=== PATIENT | female | born 1940 | race Caucasian/White ===

== ENCOUNTER 2017-07-15 14:00 | Outpatient (RCR) | payer MEDICARE, SELFPAY | END 2017-07-15 14:01 | disposition home or self-care (01) | LOC: PT 14:00 | PROVIDERS: Visit Provider Orthopaedic Surgery | DX: M25.511 Pain in right shoulder (principal) | CPT/HCPCS: 97010; 97014; 97035; 97110; 97140; G0283 ==

== ENCOUNTER 2017-09-03 00:28 | Inpatient (IN) ==
[2017-09-03 02:21] LABS: Microscopic, Urine URINE MICROSCOPIC (MICROSCOPIC)
[2017-09-03 02:23] LABS: Appearance,Urine CLEAR (Clear); Bilirubin,Urine Negative (Negative); Blood, Urine Negative (Negative); Color,Urine YELLOW (Yellow); Glucose,Urine (UA) Negative (Negative); Ketones,Urine Negative (Negative); Leukocyte Esterase,Urine Negative (Negative); PH,Urine 5.5 (5.0-8.5); Protein,Urine Negative (Negative); Specific Gravity, Urine 1.025 (1.005-1.030); Urobilinogen,Urine 0.2 EU/dl (0.2)
[2017-09-03 02:24] LABS: Basophils % 0.5 % (0.1-2.0); Eosinophils # 0.2 K/mm3 (0.0-0.4); Eosinophils % 3.2 % (0.1-12.0); Hematocrit 41.9 % (37.0-47.0); Hemoglobin 13.2 g/dL (12.2-16.2); Lymphocytes # 1.4 K/mm3 (0.7-4.5); Lymphocytes % 20.4 K/mm3 (10-50); Mean Corpuscular HGB Conc 31.5 g/dL (31.8-35.4); Mean Corpuscular Hemoglobin 27.1 pg (27.0-31.2); Mean Corpuscular Volume 86.2 fl (81-99); Mean Platelet Volume 8.1 fl (7.4-10.4); Monocytes # 0.4 K/mm3 (0.1-1.0); Monocytes % 5.3 % (1.7-9.3); Neutrophils # 4.9 K/mm3 (1.8-7.8); Neutrophils % 70.7 % (37.0-80.0); Platelet Count 222 K/mm3 (142-424); Red Blood Count 4.86 M/mm3 (4.20-5.40); Red Cell Distribution Width 14.6 % (11.5-17.5); White Blood Count 6.9 K/mm3 (4.8-10.8)
[2017-09-03 02:27] LABS: Bacteria,Urine 1+ /lpf
[2017-09-03 02:30] LABS: INR 2.14 (0.9-1.1); Prothrombin Time 23.3 seconds (9.4-11.8)
[2017-09-03 02:34] LABS: Albumin Level 3.4 gm/dL (3.4-5.0); Albumin/Globulin Ratio 0.7 (1.1-1.8); Anion Gap 8.4 mEq/L (5-15); Bilirubin,Total 0.2 mg/dL (0.2-1.0); Globulin 4.7 gm/dl (1.3-3.2); Potassium 3.4 mmoL/L (3.5-5.1); Total Protein,Serum 8.1 gm/dL (6.4-8.2)
--- NOTE | 2017-09-03 02:37 | Emergency Department Note ---
ED Disposition Clinical Impression: Hip fx Qualifiers: Encounter type: initial encounter Fracture type: closed Laterality: left Qualified Code(s): S72.002A - Fracture of unspecified part of neck of left femur , initial encounter for closed fracture Disposition: Admitted As Inpatient Condition on Discharge: Good - Critical Care Critical Care Time: No Attestation: On 09/03/17, the high probability of a clinically significant, sudden or life threatening deterioration of the following system(s) required my full and direct attention, intervention and personal management. The time I documented below is in addition to time spent performing reported procedures but includes the following listed in this critical care notation. Medical Decision Making - Medical Records Medical records reviewed: Yes: I reviewed the patient's medical records. - [place] Inquiry Pt receiving controlled substance: No Vital Signs: 09/03/17 00:29 Temperature 97.9 F Temperature Source Oral Pulse Rate [Right Radial] 74 Respiratory Rate 16 Blood Pressure [Right Arm] 138/67 Blood Pressure Mean [Right Arm] 90 Blood Pressure Source [Right Arm] Automatic Cuff Blood Pressure Position [Right Arm] Sitting 02 Sat by Pulse Oximetry 94 L Oxygen Delivery Method Nasal Cannula Oxygen Flow Rate (LPM) 2 - Lab Data Lab results reviewed: Yes: I reviewed the patient's lab results. Lab Results 09/03/17 02:05: Urine Color Yellow, Urine Appearance Clear, Urine pH 5.5, Ur Specific [place] 1.025, Urine Protein Negative, Urine Glucose (UA) Negative, Urine Ketones Negative, Urine Blood Negative, Urine Nitrate Negative, Urine Bilirubin Negative, Urine Urobilinogen 0.2, Ur Leukocyte Esterase Negative, Urine RBC 3-5, Urine WBC 3-5, Urine Bacteria 1+ 09/03/17 02:13: WBC 6.9, RBC 4.86, Hgb 13.2, Hct 41.9, MCV 86.2, MCH 27.1, MCHC 31.5 L, RDW 14.6, Plt Count 222, MPV 8.1, Neut % (Auto) 70.7, Lymph % (Auto) 20.4, [place] % (Auto) 5.3, Eos % (Auto) 3.2, Baso % (Auto) 0.5, Neut # (Auto) 4.9 , Lymph # (Auto) 1.4, [place] # (Auto) 0.4, Eos # (Auto) 0.2, Baso # (Auto) 0.0 09/03/17 02:13: PT 23.3 H, INR 2.14 H 09/03/17 02:13: Sodium 143, Potassium 3.4 L, Chloride 107, Carbon Dioxide 31, Anion Gap 8.4, BUN 17, Creatinine 0.88, Estimated Creat Clear 61, Estimated GFR 62, Est GFR ( Amer) 75, Glucose 126 H, Calcium 9.0, Total Bilirubin 0.2, AST 25, ALT 17, Alkaline Phosphatase 54, Total Protein 8.1, Albumin 3.4, Globulin 4.7 H, Albumin/Globulin Ratio 0.7 L Result diagrams: 09/03/17 02:13 09/03/17 02:13 Orders (Tests/Meds): ED MEDICATIONS Discontinued Medications Generic Name Dose Route Start Last Admin Trade Name Freq PRN Reason Stop Dose Admin Butorphanol Tartrate 1 mg 09/03/17 01:39 09/03/17 01:41 Stadol 1mg/1ml Vial IV 09/03/17 01:40 1 mg ONCE ONE Administration Promethazine HCl 12.5 mg 09/03/17 01:39 09/03/17 01:41 Phenergan 25mg/Ml 1ml Vial IV 09/03/17 01:40 12.5 mg ONCE ONE Administration Sodium Chloride 25 ml 09/03/17 01:39 09/03/17 01:42 Sod Chlor 0.9% 25ml Bag IV 09/03/17 01:40 25 ml ONCE ONE Administration ORDERS Category Date Time Status Chest XR AP view [XR chest AP] Stat Exams 09/03/17 00:36 Taken XR hip LT 2-3V w/pelvis Stat Exams 09/03/17 00:36 Taken - Radiology Data #1 Image(s): Chest, Pelvis, Hip Image Reviewed: Yes I reviewed the patient's radiology image Preliminary Findings: Abnormal (hip fx) - ECG Data Tracing #1 I reviewed this ECG and interpreted as documented below: Normal Sinus Rhythm: Yes Ischemic changes: non-specific ST-T wave changes - Physician Consults Physician Consulted: isaac Reason -: Admission Fall HPI - General Chief Complaint: Fall Stated Complaint: fall Time Seen by Provider: 09/03/17 00:40 Mode of Arrival: EMS Source of Information: Patient, Spouse, Relative, EMS, Medical Record Limitations: Physical Limitations Description of Symptoms (Recalled from ER Triage Doc. by RN): Pt reports she tripped at home and fell over her husbands walker and landed on her left hip. - History of Present Illness HPI Narrative: trip fall at home with acute injury to lt hip MD complaint: fall Onset (ago): hour(s) Fall from: standing Fall witnessed: yes, by family Place fall occurred: home Loss of consciousness: none Prolonged down time: no Symptoms prior to fall: none Context: tripped/slipped Location of injury - extremities: Left: thigh Severity: moderate - Related Data Home Medications Medication Instructions Recorded Confirmed ALPRAZolam [Xanax 0.5mg tab] 0.5 mg PO DAILY 09/03/17 09/03/17 Fenofibrate Nanocrystallized 145 mg PO DAILY 09/03/17 09/03/17 [Fenofibrate] Triamterene/Hydrochlorothiazid 1 tab PO DAILY 09/03/17 09/03/17 [Maxzide-25 tablet] Warfarin Sodium 4 mg PO DAILY 09/03/17 09/03/17 Allergies Allergy/AdvReac Type Severity Reaction Status Date / Time ASPIRIN Allergy Unknown N/V,INCREASED Uncoded 04/21/17 15:06 HR,DIAPHORESIS CODEINE Allergy Unknown RAPID Uncoded 04/21/17 15:06 HEART RATE MORPHINE Allergy Unknown RAPID Uncoded 04/21/17 15:06 HEART RATE [facility] History I have reviewed the patient's past medical history: Yes - Social History Alcohol Intake: never - Psychiatric History Expresses thoughts of harming self/others: None Suicide Plan Description: No Plan ROS Obtained: Yes All systems reviewed & no additional complaints - Constitutional Constitutional: Denies fever(s) - Eyes Eyes: Denies change in vision - ENT Ears, Nose, Mouth, and Throat: Denies sore throat - Cardiovascular Cardiovascular: Denies chest pain - Respiratory Respiratory: No cough - Gastrointestinal Gastrointestingal: Denies: abdominal pain - Genitourinary Female Genitourinary: Denies hematuria - Musculoskeletal Musculoskeletal: Reports as per HPI, Reports joint pain, Reports limited range of motion - Integumentary/Breasts Skin/Breast: Denies rash - Neurologic Neurologic: Denies seizure-like activity Physical Exam - General General appearance: in no apparent distress - Head Head exam: normocephalic - Eye Eye exam: Present: PERRL, EOMI - ENT ENT exam: Present: mucous membranes dry - Neck Neck exam: Present: trachea midline - Respiratory Respiratory exam: Present: normal lung sounds bilaterally. Absent: respiratory distress - Cardiovascular Cardiovascular exam: Present: regular rate, systolic murmur, +S4 - Abdominal Exam Abdominal exam: Present: soft - Expanded Lower Extremity Exam Left Hip/Pelvis exam: Present: tenderness, pelvis stable, shortening of leg, pain on hip/pelvis palpation - Neurological Exam Neurological exam: Present: alert, oriented X3, CN II-XII intact - Psychiatric Psychiatric exam: Present: normal affect - Skin Skin exam: Absent: rash
[2017-09-03 06:44] LABS: Basophils % 0.3 % (0.1-2.0); Eosinophils # 0.1 K/mm3 (0.0-0.4); Eosinophils % 0.9 % (0.1-12.0); Hematocrit 41.5 % (37.0-47.0); Hemoglobin 13.3 g/dL (12.2-16.2); Lymphocytes # 1.5 K/mm3 (0.7-4.5); Lymphocytes % 15.5 K/mm3 (10-50); Mean Corpuscular HGB Conc 32.2 g/dL (31.8-35.4); Mean Corpuscular Hemoglobin 27.9 pg (27.0-31.2); Mean Corpuscular Volume 86.5 fl (81-99); Mean Platelet Volume 8.5 fl (7.4-10.4); Monocytes # 0.4 K/mm3 (0.1-1.0); Monocytes % 4.3 % (1.7-9.3); Neutrophils # 7.5 K/mm3 (1.8-7.8); Neutrophils % 78.9 % (37.0-80.0); Platelet Count 230 K/mm3 (142-424); Red Blood Count 4.79 M/mm3 (4.20-5.40); Red Cell Distribution Width 14.6 % (11.5-17.5); White Blood Count 9.5 K/mm3 (4.8-10.8)
[2017-09-03 06:47] LABS: Anion Gap 9.4 mEq/L (5-15); Potassium 4.4 mmoL/L (3.5-5.1)
[2017-09-03 06:49] LABS: INR 2.21 (0.9-1.1); Prothrombin Time 24.1 seconds (9.4-11.8)
--- NOTE | 2017-09-03 08:24 | Pharmacy Consult Notes ---
[facility] Pharmacy VTE Monitoring - Patient Demographics Admission date: 09/03/17 Report Date: 09/03/17 Time: 08:24 Allergies/Adverse Reactions: Patient Allergies ASPIRIN Allergy (Unknown, Uncoded 04/21/17 15:06) N/V,INCREASED HR,DIAPHORESIS CODEINE Allergy (Unknown, Uncoded 04/21/17 15:06) RAPID HEART RATE MORPHINE Allergy (Unknown, Uncoded 04/21/17 15:06) RAPID HEART RATE Height: 1.75 m Weight: 81.647 kg Patient Problems: Current Active Problems Hip fx (Acute) - VTE Risk Labs: VTE Related Lab Results Hgb 13.3 g/dL (12.2-16.2) 09/03/17 06:10 Hct 41.5 % (37.0-47.0) 09/03/17 06:10 Plt Count 230 K/mm3 (142-424) 09/03/17 06:10 PT 24.1 seconds (9.4-11.8) H 09/03/17 06:10 INR 2.21 (0.9-1.1) H 09/03/17 06:10 BUN 16 mg/dL (7-18) 09/03/17 06:10 Creatinine 0.84 mg/dL (0.55-1.02) 09/03/17 06:10 Estimated Creat Clear 61 mL/min (0-300) 09/03/17 06:10 Was VTE Risk Assessment Performed: Yes VTE Score: 10 VTE Risk Level: Moderate Risk - Prophylaxis VTE Prophylaxis Ordered?: Yes Types of VTE Prophylaxis: TEDS Knee High Location of Applied Device: Bilateral Lower Extremeties - VTE Diagnosis Confirmed Treatment or plan recommended: Continue Current Treatment
--- NOTE | 2017-09-03 08:41 | History & Physical Report ---
*Admission Date: 09/03/17 <Lyly Mehta 09/03/17 08:47> *Chief complaint: left hip pain after fall <Lyly Mehta 09/03/17 08:47> *History of present illness: Ms. King is a 76-year-old female patient of Dr. Liu in [place]. She has a history of DVTs and PEs. She has factor V Leiden disorder as well as lupus anticoagulant. She also has hyperlipidemia, COPD, and a history of uterine cancer that required a hysterectomy. States she was at home yesterday and tripped over her 's walker falling on her left side. The pain was unbearable and EMS was called to transport her to the hospital. She was evaluated in the ER and found to have a left hip fracture. She was admitted and that was consulted. <Lyly Mehta 09/03/17 08:47> [facility] History Medical History: Reports:: Cancer (Uterine), Chronic Obstructive Pulmonary Disease (COPD), Deep Vein Thrombosis, Hyperlipidemia (Factor V Leiden and Lupus anticoagulant), Hypertension, Pulmonary Embolism Denies:: Diabetes Mellitus Type 1, Diabetes Mellitus Type 2, MRSA <Lyly Mehta 09/03/17 08:47> Other Surgeries: Yes: Hysterectomy-Partial <Lyly Mehta 09/03/17 08:47> Amputation: No <Lyly Mehta 09/03/17 08:47> Fractures: Yes <Lyly Mehta 09/03/17 08:47> Comment: Back and neck surgery, Part of left lung removed d/t a fungal infection <Lyly Mehta 09/03/17 08:47> - *Social History Educational Level: Attended College <Lyly Mehta 09/03/17 08:47> Smoking Status: Current every day smoker <Lyly Mehta 09/03/17 08:47> Tobacco Type: cigarettes <Lyly Mehta 09/03/17 08:47> # Packs/Day (cigarettes): 1 <Lyly Mehta 09/03/17 08:47> #Yrs smoked (if former smoker): 50 <Lyly Mehta 09/03/17 08:47> Alcohol Intake: never <Lyly Mehta 09/03/17 08:47> Occupational Status: retired <Lyly Mehta 09/03/17 08:47> Housing: house <Lyly Mehta 09/03/17 08:47> Household Members: spouse <Lyly Mehta 09/03/17 08:47> - Psychiatric History Expresses thoughts of harming self/others: None <Lyly Mehta 09/03/17 08: 47> Suicide Plan Description: No Plan <Lyly Mehta 09/03/17 08:47> *Family Hx:: Asthma, Bleeding Disorder, Cancer, Diabetes, Kidney Disease, Stroke <Lyly Mehta 09/03/17 08:47> Review of Systems - Constitutional Reports weakness, Denies chills, Denies fever(s), Denies headache(s) <Lyly Mehta 09/03/17 08:47> - Eyes Denies blurry vision, Denies double vision <Lyly Mehta 09/03/17 08:47> - ENT Reports nasal congestion (allergies), Denies sore throat <Lyly Mehta 07/19 08:47> - *Cardiovascular Denies chest pain, Denies fast heart rate <Lyly Mehta 09/03/17 08:47> - *Respiratory Reports cough, Reports shortness of breath <Lyly Mehta 09/03/17 08:47> - *Gastrointestinal Reports nausea, Denies abdominal pain, Denies loose stools, Denies vomiting < Lyly Mehta 09/03/17 08:47> - *Genitourinary Denies difficulty urinating, Denies painful urination <Lyly Mehta 08:47> - *Musculoskeletal Reports joint pain (left hip, right shoulder) <Lyly Mehta 09/03/17 08:47> - *Neurologic Reports weakness, Denies confusion, Denies headache(s), Denies seizure-like activity, Denies dizziness <Lyly Mehta 09/03/17 08:47> Meds Home Medications Medication Instructions Recorded Confirmed Type ALPRAZolam [Xanax 0.5mg tab] 0.5 mg PO DAILY 09/03/17 09/03/17 History Fenofibrate Nanocrystallized 145 mg PO DAILY 09/03/17 09/03/17 History [Fenofibrate] Ondansetron HCl [Ondansetron 4mg 4 mg PO TID 09/03/17 09/03/17 History Tab] Triamterene/Hydrochlorothiazid 1 tab PO DAILY 09/03/17 09/03/17 History [Maxzide-25 tablet] Warfarin Sodium 3 mg PO MOTUWETHFR 09/03/17 09/03/17 History Warfarin Sodium 4 mg PO SUSA 09/03/17 09/03/17 History <Jay Andrew - 09/03/17 09:10> Allergies Allergy/AdvReac Type Severity Reaction Status Date / Time aspirin Allergy Unknown RAPID Verified 09/03/17 08:34 HEART BEAT codeine Allergy Unknown RAPID Verified 09/03/17 08:34 HEART BEAT morphine Allergy Unknown RAPID Verified 09/03/17 08:33 HEART BEAT <Jay Andrew - 09/03/17 09:10> Exam Vital signs and Labs for Last 24 Hours: Temp Pulse Resp BP Pulse Ox 97.5 F L 75 20 142/65 97 09/03/17 07:38 09/03/17 07:38 09/03/17 07:38 09/03/17 07:38 09/03/17 07:38 Laboratory Results - last 24 hr 09/03/17 02:05: Urine Color Yellow, Urine Appearance Clear, Urine pH 5.5, Ur Specific [place] 1.025, Urine Protein Negative, Urine Glucose (UA) Negative, Urine Ketones Negative, Urine Blood Negative, Urine Nitrate Negative, Urine Bilirubin Negative, Urine Urobilinogen 0.2, Ur Leukocyte Esterase Negative, Urine RBC 3-5, Urine WBC 3-5, Urine Bacteria 1+ 09/03/17 02:13: WBC 6.9, RBC 4.86, Hgb 13.2, Hct 41.9, MCV 86.2, MCH 27.1, MCHC 31.5 L, RDW 14.6, Plt Count 222, MPV 8.1, Neut % (Auto) 70.7, Lymph % (Auto) 20.4, [place] % (Auto) 5.3, Eos % (Auto) 3.2, Baso % (Auto) 0.5, Neut # (Auto) 4.9 , Lymph # (Auto) 1.4, [place] # (Auto) 0.4, Eos # (Auto) 0.2, Baso # (Auto) 0.0 09/03/17 02:13: PT 23.3 H, INR 2.14 H 09/03/17 02:13: Sodium 143, Potassium 3.4 L, Chloride 107, Carbon Dioxide 31, Anion Gap 8.4, BUN 17, Creatinine 0.88, Estimated Creat Clear 61, Estimated GFR 62, Est GFR ( Amer) 75, Glucose 126 H, Calcium 9.0, Total Bilirubin 0.2, AST 25, ALT 17, Alkaline Phosphatase 54, Total Protein 8.1, Albumin 3.4, Globulin 4.7 H, Albumin/Globulin Ratio 0.7 L 09/03/17 06:10: WBC 9.5 D, RBC 4.79, Hgb 13.3, Hct 41.5, MCV 86.5, MCH 27.9, MCHC 32.2, RDW 14.6, Plt Count 230, MPV 8.5, Neut % (Auto) 78.9, Lymph % (Auto) 15.5, [place] % (Auto) 4.3, Eos % (Auto) 0.9, Baso % (Auto) 0.3, Neut # (Auto) 7.5 , Lymph # (Auto) 1.5, [place] # (Auto) 0.4, Eos # (Auto) 0.1, Baso # (Auto) 0.0 09/03/17 06:10: Sodium 145, Potassium 4.4 D, Chloride 109 H, Carbon Dioxide 31 , Anion Gap 9.4, BUN 16, Creatinine 0.84, Estimated Creat Clear 61, Estimated GFR 66, Est GFR ( Amer) 80, Glucose 122 H, Magnesium 1.6 09/03/17 06:10: PT 24.1 H, INR 2.21 H <Jay Andrew - 09/03/17 09:10> Temp Pulse Resp BP Pulse Ox 97.5 F L 75 20 142/65 97 09/03/17 07:38 09/03/17 07:38 09/03/17 07:38 09/03/17 07:38 09/03/17 07:38 Laboratory Results - last 24 hr 09/03/17 02:05: Urine Color Yellow, Urine Appearance Clear, Urine pH 5.5, Ur Specific [place] 1.025, Urine Protein Negative, Urine Glucose (UA) Negative, Urine Ketones Negative, Urine Blood Negative, Urine Nitrate Negative, Urine Bilirubin Negative, Urine Urobilinogen 0.2, Ur Leukocyte Esterase Negative, Urine RBC 3-5, Urine WBC 3-5, Urine Bacteria 1+ 09/03/17 02:13: WBC 6.9, RBC 4.86, Hgb 13.2, Hct 41.9, MCV 86.2, MCH 27.1, MCHC 31.5 L, RDW 14.6, Plt Count 222, MPV 8.1, Neut % (Auto) 70.7, Lymph % (Auto) 20.4, [place] % (Auto) 5.3, Eos % (Auto) 3.2, Baso % (Auto) 0.5, Neut # (Auto) 4.9 , Lymph # (Auto) 1.4, [place] # (Auto) 0.4, Eos # (Auto) 0.2, Baso # (Auto) 0.0 09/03/17 02:13: PT 23.3 H, INR 2.14 H 09/03/17 02:13: Sodium 143, Potassium 3.4 L, Chloride 107, Carbon Dioxide 31, Anion Gap 8.4, BUN 17, Creatinine 0.88, Estimated Creat Clear 61, Estimated GFR 62, Est GFR ( Amer) 75, Glucose 126 H, Calcium 9.0, Total Bilirubin 0.2, AST 25, ALT 17, Alkaline Phosphatase 54, Total Protein 8.1, Albumin 3.4, Globulin 4.7 H, Albumin/Globulin Ratio 0.7 L 09/03/17 06:10: WBC 9.5 D, RBC 4.79, Hgb 13.3, Hct 41.5, MCV 86.5, MCH 27.9, MCHC 32.2, RDW 14.6, Plt Count 230, MPV 8.5, Neut % (Auto) 78.9, Lymph % (Auto) 15.5, [place] % (Auto) 4.3, Eos % (Auto) 0.9, Baso % (Auto) 0.3, Neut # (Auto) 7.5 , Lymph # (Auto) 1.5, [place] # (Auto) 0.4, Eos # (Auto) 0.1, Baso # (Auto) 0.0 09/03/17 06:10: Sodium 145, Potassium 4.4 D, Chloride 109 H, Carbon Dioxide 31 , Anion Gap 9.4, BUN 16, Creatinine 0.84, Estimated Creat Clear 61, Estimated GFR 66, Est GFR ( Amer) 80, Glucose 122 H, Magnesium 1.6 09/03/17 06:10: PT 24.1 H, INR 2.21 H <Lyly Mehta 09/03/17 08:47> I & O for Last 24 hours: Intake & Output 08/31/17 09/01/17 09/02/17 09/03/17 11:59 11:59 11:59 11:59 Intake Total 351 / 351 Output Total 200 / 200 Balance 151 / 151 Weight 180 lb <Jay Andrew - 09/03/17 09:10> Intake & Output 08/31/17 09/01/17 09/02/17 09/03/17 11:59 11:59 11:59 11:59 Intake Total 351 / 351 Output Total 200 / 200 Balance 151 / 151 Weight 180 lb <Lyly Mehta 09/03/17 08:47> - Constitutional no acute distress (drowsy from pain medication) <Lyly Mehta 09/03/17 08: 47> - *Routine HEENT Exam Head: Present: normocephalic, atraumatic <Lyly Mehta 09/03/17 08:47> Eye: Present: EOMI, PERRL <Lyly Mehta 09/03/17 08:47> ENT: Present: mucous membranes dry <Lyly Mehta 09/03/17 08:47> - *Routine Neck Exam Present: supple, full ROM. Absent: carotid bruit <Lyly Mehta 09/03/17 08 :47> - *Routine Respiratory Exam Present: decreased breath sounds <Lyly Mehta 09/03/17 08:47> - *Routine Cardiovascular Exam Present: RRR <Lyly Mehta 09/03/17 08:47> - *Routine Abdominal Exam Present: soft, normoactive bowel sounds. Absent: tenderness <Lyly Mehta 09/03/17 08:47> - *Routine Extremities Exam Absent: edema <Lyly Mehta 09/03/17 08:47> Comments: entire left upper leg ttp, patient cannot move leg <Lyly Mehta - 09/03/17 08:47> - *Routine Skin Exam Absent: rash <Lyly Mehta - 09/03/17 08:47> - *Routine Neurological Exam Present: alert, oriented X3 <Lyly Mehta - 09/03/17 08:47> H&P: Result - Labs Labs: Short CBC 09/03/17 09/03/17 Range/Units 02:13 06:10 WBC 6.9 9.5 D (4.8-10.8) K/mm3 Hgb 13.2 13.3 (12.2-16.2) g/dL Hct 41.9 41.5 (37.0-47.0) % Plt Count 222 230 (142-424) K/mm3 BMP 09/03/17 09/03/17 02:13 06:10 Sodium 143 145 Potassium 3.4 L 4.4 D Chloride 107 109 H Carbon Dioxide 31 31 BUN 17 16 Creatinine 0.88 0.84 Glucose 126 H 122 H Calcium 9.0 Liver Function 09/03/17 Range/Units 02:13 Total Bilirubin 0.2 (0.2-1.0) mg/dL AST 25 (15-37) U/L ALT 17 (12-78) U/L Alkaline Phosphatase 54 (46-116) U/L Albumin 3.4 (3.4-5.0) gm/dL Urine 09/03/17 Range/Units 02:05 Urine Color Yellow (Yellow) Urine Appearance Clear (Clear) Urine pH 5.5 (5.0-8.5) Ur Specific [place] 1.025 (1.005-1.030) Urine Protein Negative (Negative) Urine Glucose (UA) Negative (Negative) <Jay Andrew - 09/03/17 09:10> <Lyly Mehta - 09/03/17 08:47> - Impressions CXR - Chronic airspace disease in the right lower lobe not significantly changed Left hip x-ray - Impacted mildly displaced left transcervical femoral neck fracture <Lyly Mehta - 09/03/17 08:47> Assessment and Plan (1) Hip fx Current visit: Yes Status: Acute Qualifiers: Encounter type: initial encounter Fracture type: closed Laterality: left Qualified Code(s): S72.002A - Fracture of unspecified part of neck of left femur, initial encounter for closed fracture Category: Medical Code(s): S72.009A - Fracture of unspecified part of neck of unspecified femur, initial encounter for closed fracture (2) Hypertension Current visit: Yes Status: Chronic Category: Medical Code(s): I10 - Essential (primary) hypertension (3) Hyperlipidemia Current visit: Yes Status: Chronic Category: Medical Code(s): E78.5 - Hyperlipidemia, unspecified (4) Factor 5 Leiden mutation, heterozygous Current visit: Yes Status: Chronic Category: Medical Code(s): D68.51 - Activated protein C resistance (5) Lupus anticoagulant disorder Current visit: Yes Status: Chronic Category: Medical Code(s): D68.62 - Lupus anticoagulant syndrome (6) History of DVT (deep vein thrombosis) Current visit: Yes Status: Chronic Category: Medical Code(s): Z86.718 - Personal history of other venous thrombosis and embolism (7) History of pulmonary embolism Current visit: Yes Status: Chronic Category: Medical Code(s): Z86.711 - Personal history of pulmonary embolism (8) COPD (chronic obstructive pulmonary disease) Current visit: Yes Status: Chronic Category: Medical Code(s): J44.9 - Chronic obstructive pulmonary disease, unspecified <Jay Andrew - 09/03/17 09:10> (1) Hip fx Current visit: Yes Status: Acute Qualifiers: Encounter type: initial encounter Fracture type: closed Laterality: left Qualified Code(s): S72.002A - Fracture of unspecified part of neck of left femur, initial encounter for closed fracture Category: Medical Code(s): S72.009A - Fracture of unspecified part of neck of unspecified femur, initial encounter for closed fracture (2) Hypertension Current visit: Yes Status: Chronic Category: Medical Code(s): I10 - Essential (primary) hypertension (3) Hyperlipidemia Current visit: Yes Status: Chronic Category: Medical Code(s): E78.5 - Hyperlipidemia, unspecified (4) Factor 5 Leiden mutation, heterozygous Current visit: Yes Status: Chronic Category: Medical Code(s): D68.51 - Activated protein C resistance (5) Lupus anticoagulant disorder Current visit: Yes Status: Chronic Category: Medical Code(s): D68.62 - Lupus anticoagulant syndrome (6) History of DVT (deep vein thrombosis) Current visit: Yes Status: Chronic Category: Medical Code(s): Z86.718 - Personal history of other venous thrombosis and embolism (7) History of pulmonary embolism Current visit: Yes Status: Chronic Category: Medical Code(s): Z86.711 - Personal history of pulmonary embolism (8) COPD (chronic obstructive pulmonary disease) Current visit: Yes Status: Chronic Category: Medical Code(s): J44.9 - Chronic obstructive pulmonary disease, unspecified <Lyly Mehta - 09/03/17 08:38> - Assessment and plan all Dx Assessment and Plan for all problems:: Saw patient concur with above note, holding Coumadin, awaiting ortho evaluation. <Jay Andrew - 09/03/17 09:10> The patient was started on pain medication and IV fluids. Orthopedics has been consulted. Will discuss with the patient's nurse about putting her leg in Lai' s traction. <Lyly Mehta - 09/03/17 08:47>
--- NOTE | 2017-09-03 14:33 | Consult Report ---
*Admission Date: 09/03/17 *Chief complaint: Left hip pain *History of present illness: Ms. King is a pleasant 76-year-old female, admitted during the early hours of this morning as an acute inpatient from [facility] ER. she is patient of Dr. Liu in [place]. She has a history of DVTs and PEs. She has factor V Leiden disorder as well as lupus anticoagulant. She also has hyperlipidemia, COPD, and a history of uterine cancer that required a hysterectomy. States she was at home yesterday and tripped over her 's walker falling on her left side. The pain was unbearable and EMS was called to transport her to the hospital. She was evaluated in the ER and found to have a left hip fracture. She was admitted for management of this fracture. I examined her in the room and her was with her. She says she has a lot of pain in the LEFT hip which is is worse with any movements of the leg. She denies any other injuries including head injury, neck injury, back injury, chest or abdominal injury or upper extremity injury. No history of any numbness or tingling. No history of any dizziness, headache, chest or neck pain. She lives with her and usually walks independently without any walking aids. She denies loss of consciousness, chest pain and shortness of breath. She is on long-term anticoagulation with Coumadin. She is a chronic smoker and smokes 1 pack of cigarettes a day. Review of Systems - Review of Systems Review of systems:: pertinent systems reviewed and negative unless documented below - *Musculoskeletal Comments: As per HPI - *Neurologic Reports weakness, Denies confusion, Denies headache(s), Denies seizure-like activity, Denies dizziness [facility] History I have reviewed the patient's past medical history: Yes Medical History: Reports:: Cancer (Uterine), Chronic Obstructive Pulmonary Disease (COPD), Deep Vein Thrombosis, Hyperlipidemia (Factor V Leiden and Lupus anticoagulant), Hypertension, Pulmonary Embolism Denies:: Diabetes Mellitus Type 1, Diabetes Mellitus Type 2, MRSA Other Surgeries: Yes: Hysterectomy-Partial Amputation: No Fractures: Yes - *Social History Educational Level: Attended College Smoking Status: Current every day smoker Tobacco Type: cigarettes # Packs/Day (cigarettes): 1 #Yrs smoked (if former smoker): 50 Alcohol Intake: never Occupational Status: retired Housing: house Household Members: spouse - Psychiatric History Expresses thoughts of harming self/others: None Suicide Plan Description: No Plan *Family Hx:: Asthma, Bleeding Disorder, Cancer, Diabetes, Kidney Disease, Stroke Meds Home Medications Medication Instructions Recorded Confirmed Type ALPRAZolam [Xanax 0.5mg tab] 0.5 mg PO BIDP PRN 09/03/17 09/03/17 History Fenofibrate Nanocrystallized 145 mg PO DAILY 09/03/17 09/03/17 History [Fenofibrate] Triamterene/Hydrochlorothiazid 0.5 tab PO DAILY 09/03/17 09/03/17 History [Maxzide-25 tablet] Warfarin Sodium 3 mg PO MOTUWETHFR 09/03/17 09/03/17 History Warfarin Sodium 4 mg PO SUSA 09/03/17 09/03/17 History Allergies Allergy/AdvReac Type Severity Reaction Status Date / Time aspirin Allergy Unknown RAPID Verified 09/03/17 08:34 HEART BEAT codeine Allergy Unknown RAPID Verified 09/03/17 08:34 HEART BEAT morphine Allergy Unknown RAPID Verified 09/03/17 08:33 HEART BEAT Exam Vital signs and Labs for Last 24 Hours: Temp Pulse Resp BP Pulse Ox 97.5 F L 75 20 142/65 99 09/03/17 07:38 09/03/17 07:38 09/03/17 07:38 09/03/17 07:38 09/03/17 08:00 Laboratory Results - last 24 hr 09/03/17 02:05: Urine Color Yellow, Urine Appearance Clear, Urine pH 5.5, Ur Specific [place] 1.025, Urine Protein Negative, Urine Glucose (UA) Negative, Urine Ketones Negative, Urine Blood Negative, Urine Nitrate Negative, Urine Bilirubin Negative, Urine Urobilinogen 0.2, Ur Leukocyte Esterase Negative, Urine RBC 3-5, Urine WBC 3-5, Urine Bacteria 1+ 09/03/17 02:13: WBC 6.9, RBC 4.86, Hgb 13.2, Hct 41.9, MCV 86.2, MCH 27.1, MCHC 31.5 L, RDW 14.6, Plt Count 222, MPV 8.1, Neut % (Auto) 70.7, Lymph % (Auto) 20.4, [place] % (Auto) 5.3, Eos % (Auto) 3.2, Baso % (Auto) 0.5, Neut # (Auto) 4.9 , Lymph # (Auto) 1.4, [place] # (Auto) 0.4, Eos # (Auto) 0.2, Baso # (Auto) 0.0 09/03/17 02:13: PT 23.3 H, INR 2.14 H 09/03/17 02:13: Sodium 143, Potassium 3.4 L, Chloride 107, Carbon Dioxide 31, Anion Gap 8.4, BUN 17, Creatinine 0.88, Estimated Creat Clear 61, Estimated GFR 62, Est GFR ( Amer) 75, Glucose 126 H, Calcium 9.0, Total Bilirubin 0.2, AST 25, ALT 17, Alkaline Phosphatase 54, Total Protein 8.1, Albumin 3.4, Globulin 4.7 H, Albumin/Globulin Ratio 0.7 L 09/03/17 06:10: WBC 9.5 D, RBC 4.79, Hgb 13.3, Hct 41.5, MCV 86.5, MCH 27.9, MCHC 32.2, RDW 14.6, Plt Count 230, MPV 8.5, Neut % (Auto) 78.9, Lymph % (Auto) 15.5, [place] % (Auto) 4.3, Eos % (Auto) 0.9, Baso % (Auto) 0.3, Neut # (Auto) 7.5 , Lymph # (Auto) 1.5, [place] # (Auto) 0.4, Eos # (Auto) 0.1, Baso # (Auto) 0.0 09/03/17 06:10: Sodium 145, Potassium 4.4 D, Chloride 109 H, Carbon Dioxide 31 , Anion Gap 9.4, BUN 16, Creatinine 0.84, Estimated Creat Clear 61, Estimated GFR 66, Est GFR ( Amer) 80, Glucose 122 H, Magnesium 1.6 09/03/17 06:10: PT 24.1 H, INR 2.21 H I & O for Last 24 hours: Intake & Output 09/01/17 09/02/17 09/03/17 09/04/17 11:59 11:59 11:59 11:59 Intake Total 351 / 351 240 / 240 Output Total 200 / 200 Balance 151 / 151 240 / 240 Weight 180 lb Narrative: General Appearance: normal appearance, well built. Mild distress from left hip pain. ENT: mucous membranes moist Neck: normal inspection, non-tender, supple, full range of motion, trachea central Respiratory: trachea midline, chest symmetrical, non tender chest. No respiratory distress. Normal breath sounds bilaterally, lungs clear to auscultation. Cardiovascular: normal exam, regular rate/rhythm, no peripheral edema, normal peripheral pulses Gastrointestinal: Abdomen is soft and nontender, normal bowel sounds over all 4 quadrants, no organomegaly. Neurologic: alert, oriented x 3; cranial nerves II-12 grossly intact Mental status: Appropriate mood/affect for her situation Skin: intact, normal color, warm/dry On examination of her lower extremities, there is shortening of the LEFT leg and the foot is externally rotated. On examination of the LEFT hip the skin is normal. No rashes or lesions noted. She is tender over the LEFT hip. Any attempted movements of the LEFT hip are painful. Thigh and calf are soft and nontender. Dorsalis pedis and posterior tibial pulses are palpable 1+ bilaterally. Sensation is grossly intact. She has good range of foot, ankle and toe movements. Imaging: X-rays of her pelvis/LEFT hip were reviewed along with the radiologist' s report. The x-rays show a displaced intracapsular fracture neck of LEFT femur. No other acute changes noted. The radiologist reported it has impacted minimally displaced fracture but reviewing the x-rays myself, I feel it is a displaced fracture, at least [place] 3 if not Garden 4 type of fracture Results - Labs Result Diagrams: 09/03/17 06:10 09/03/17 06:10 Labs: Abnormal lab results 09/03/17 09/03/17 09/03/17 Range/Units 02:13 02:13 02:13 MCHC 31.5 L (31.8-35.4) g/dL PT 23.3 H (9.4-11.8) seconds INR 2.14 H (0.9-1.1) Potassium 3.4 L (3.5-5.1) mmoL/L Chloride (98-107) mmol/L Glucose 126 H (74-106) mg/dL Globulin 4.7 H (1.3-3.2) gm/dl Albumin/Globulin Ratio 0.7 L (1.1-1.8) 09/03/17 09/03/17 Range/Units 06:10 06:10 MCHC (31.8-35.4) g/dL PT 24.1 H (9.4-11.8) seconds INR 2.21 H (0.9-1.1) Potassium (3.5-5.1) mmoL/L Chloride 109 H (98-107) mmol/L Glucose 122 H (74-106) mg/dL Globulin (1.3-3.2) gm/dl Albumin/Globulin Ratio (1.1-1.8) H & H 09/03/17 09/03/17 Range/Units 02:13 06:10 Hgb 13.2 13.3 (12.2-16.2) g/dL Hct 41.9 41.5 (37.0-47.0) % Coagulation 09/03/17 09/03/17 Range/Units 02:13 06:10 INR 2.14 H 2.21 H (0.9-1.1) All other labs normal. Assessment and Plan (1) Hip fx Current visit: Yes Status: Acute Qualifiers: Encounter type: initial encounter Fracture type: closed Laterality: left Qualified Code(s): S72.002A - Fracture of unspecified part of neck of left femur, initial encounter for closed fracture Category: Medical Code(s): S72.009A - Fracture of unspecified part of neck of unspecified femur, initial encounter for closed fracture (2) Hypertension Current visit: Yes Status: Chronic Category: Medical Code(s): I10 - Essential (primary) hypertension (3) Hyperlipidemia Current visit: Yes Status: Chronic Category: Medical Code(s): E78.5 - Hyperlipidemia, unspecified (4) Factor 5 Leiden mutation, heterozygous Current visit: Yes Status: Chronic Category: Medical Code(s): D68.51 - Activated protein C resistance (5) Lupus anticoagulant disorder Current visit: Yes Status: Chronic Category: Medical Code(s): D68.62 - Lupus anticoagulant syndrome (6) History of DVT (deep vein thrombosis) Current visit: Yes Status: Chronic Category: Medical Code(s): Z86.718 - Personal history of other venous thrombosis and embolism (7) History of pulmonary embolism Current visit: Yes Status: Chronic Category: Medical Code(s): Z86.711 - Personal history of pulmonary embolism (8) COPD (chronic obstructive pulmonary disease) Current visit: Yes Status: Chronic Category: Medical Code(s): J44.9 - Chronic obstructive pulmonary disease, unspecified - Assessment and plan all Dx Assessment and Plan for all problems:: I reviewed the clinical and x-ray findings with the patient and her who was with her in the room. I have discussed the diagnosis and management options in detail including both nonsurgical and surgical. I have recommended surgical remediation in the form of a hemiarthroplasty left hip. I explained the procedure, risks and benefits, alternatives and the expected postoperative course. I have shown them copies of her x-rays and explained to the patient and her with drawings of the fracture and the proposed surgical procedure. The complications discussed include but are not limited to infection, injury to nerves and blood vessels, DVT and PE, femur fracture, limb length inequality, dislocation, implant failure, loosening, acetabular wear, osteolysis, periprosthetic femur fracture, heterotopic ossification, abductor weakness and a limp, incomplete relief of pain, incomplete return of function or motion, likely need for further surgery in future including revision, anesthetic/ medical complications including heart attack, stroke, transfusion reactions and even . We discussed how any of these events can be devastating. We have discussed nonsurgical alternatives as well. I've explained that the patient is at a significant surgical risk due to her age, medical issues, and fragility of the bone. Family and patient seemed to understand and accept these risks. We have discussed nonsurgical alternatives as well. The nonoperative management would essentially consist of prolonged bed rest and traction (skeletal/skin) in bed and pain medication and has exceptionally poor outcome. This could result in nonunion and malunion of the fracture and almost certainly, the patient has a very high risk of decubitus ulcers, UTI, respiratory tract infections, DVT/PE and other complications from being bedridden. I have explained to them that the standard of care for this sort of injuries is surgical throughout the country unless the patient is very ill for surgical management. We also discussed the postoperative course including the rehab and physical therapy required. She lives with her and may need to go to a short-term rehab place after surgery. All their questions were answered and they verbalized a good understanding. Patient is on Coumadin and her INR this morning is 2.21. Ideally I would like the INR to be around 1.5 before undertaking the procedure. I have discussed with Dr. Andrew earlier about this and he is going to manage her anticoagulation. Given the high INR she can eat and drink today and will recheck the INR first thing in the morning and plan for surgery tomorrow if appropriate. We will await a medical clearance from Dr. Andrew's team. We ll also obtain a preoperative anesthetic evaluation. I have made the following perioperative recommendations- Repeat INR tomorrow morning Type and screen Nothing by mouth after midnight Continue IV fluids DVT prophylaxis as per Dr. Andrew's advice Lai's traction left leg with 5 pounds of weight As needed IV/oral analgesics Consent patient for a hemiarthroplasty LEFT hip. Order 2 g of IV Ancef for preoperative prophylaxis to start half an hour before surgery. I am planning to take her for surgery at the earliest opportunity once her INR is around 1.5 and she is medically cleared for surgery. Thank you for the opportunity to take part in the care of this very pleasant patient.
[2017-09-04 06:47] LABS: INR 2.03 (0.9-1.1); Prothrombin Time 22.1 seconds (9.4-11.8)
--- NOTE | 2017-09-04 08:25 | Progress Note ---
<Lyly Mehta - Last Filed: 09/04/17 08:22> Internal Medicine - PN: Subj *Date: 09/04/17 *Time: 08:22 Interval history: Patient is drowsy this a.m. Her family member states an oxygen mask had to be placed during the night because her sats dropped. She states her pain is under control at this time. She is now in Lai's traction awaiting lab results for possible surgery. Exam Vital signs and Labs for Last 24 Hours: Temp Pulse Resp BP Pulse Ox 98.4 F 82 18 159/59 95 09/04/17 08:00 09/04/17 08:00 09/04/17 08:00 09/04/17 08:00 09/04/17 08:00 Laboratory Results - last 24 hr 09/04/17 06:05: PT 22.1 H, INR 2.03 H I & O for Last 24 hours: Intake & Output 09/01/17 09/02/17 09/03/17 09/04/17 11:59 11:59 11:59 11:59 Intake Total 351 / 351 1853 / 1853 Output Total 200 / 200 1600 / 1600 Balance 151 / 151 253 / 253 Weight 180 lb - Constitutional no acute distress Comments: drowsy - *Routine Respiratory Exam Present: wheezes - *Routine Cardiovascular Exam Present: RRR - *Routine Abdominal Exam Present: soft, normoactive bowel sounds. Absent: tenderness - *Routine Extremities Exam Absent: edema Comments: left leg in traction Assessment and Plan (1) Hip fx Current visit: Yes Status: Acute Qualifiers: Encounter type: initial encounter Fracture type: closed Laterality: left Qualified Code(s): S72.002A - Fracture of unspecified part of neck of left femur, initial encounter for closed fracture Category: Medical Code(s): S72.009A - Fracture of unspecified part of neck of unspecified femur, initial encounter for closed fracture (2) Hypertension Current visit: Yes Status: Chronic Category: Medical Code(s): I10 - Essential (primary) hypertension (3) Hyperlipidemia Current visit: Yes Status: Chronic Category: Medical Code(s): E78.5 - Hyperlipidemia, unspecified (4) Factor 5 Leiden mutation, heterozygous Current visit: Yes Status: Chronic Category: Medical Code(s): D68.51 - Activated protein C resistance (5) Lupus anticoagulant disorder Current visit: Yes Status: Chronic Category: Medical Code(s): D68.62 - Lupus anticoagulant syndrome (6) History of DVT (deep vein thrombosis) Current visit: Yes Status: Chronic Category: Medical Code(s): Z86.718 - Personal history of other venous thrombosis and embolism (7) History of pulmonary embolism Current visit: Yes Status: Chronic Category: Medical Code(s): Z86.711 - Personal history of pulmonary embolism (8) COPD (chronic obstructive pulmonary disease) Current visit: Yes Status: Chronic Category: Medical Code(s): J44.9 - Chronic obstructive pulmonary disease, unspecified - Assessment and plan all Dx Assessment and Plan for all problems:: Will get another CXR today d/t dropping sats in the night. INR is 2.03 today. Ortho to continue to follow. <Jay Andrew - Last Filed: 09/04/17 08:46> Internal Medicine - PN: Subj *Date: 09/04/17 *Time: 08:46 Exam Vital signs and Labs for Last 24 Hours: Temp Pulse Resp BP Pulse Ox 98.4 F 82 18 159/59 95 09/04/17 08:00 09/04/17 08:00 09/04/17 08:00 09/04/17 08:00 09/04/17 08:00 Laboratory Results - last 24 hr 09/04/17 06:05: PT 22.1 H, INR 2.03 H I & O for Last 24 hours: Intake & Output 09/01/17 09/02/17 09/03/17 09/04/17 11:59 11:59 11:59 11:59 Intake Total 351 / 351 1853 / 1853 Output Total 200 / 200 1600 / 1600 Balance 151 / 151 253 / 253 Weight 180 lb Assessment and Plan (1) Hip fx Current visit: Yes Status: Acute Qualifiers: Encounter type: initial encounter Fracture type: closed Laterality: left Qualified Code(s): S72.002A - Fracture of unspecified part of neck of left femur, initial encounter for closed fracture Category: Medical Code(s): S72.009A - Fracture of unspecified part of neck of unspecified femur, initial encounter for closed fracture (2) Hypertension Current visit: Yes Status: Chronic Category: Medical Code(s): I10 - Essential (primary) hypertension (3) Hyperlipidemia Current visit: Yes Status: Chronic Category: Medical Code(s): E78.5 - Hyperlipidemia, unspecified (4) Factor 5 Leiden mutation, heterozygous Current visit: Yes Status: Chronic Category: Medical Code(s): D68.51 - Activated protein C resistance (5) Lupus anticoagulant disorder Current visit: Yes Status: Chronic Category: Medical Code(s): D68.62 - Lupus anticoagulant syndrome (6) History of DVT (deep vein thrombosis) Current visit: Yes Status: Chronic Category: Medical Code(s): Z86.718 - Personal history of other venous thrombosis and embolism (7) History of pulmonary embolism Current visit: Yes Status: Chronic Category: Medical Code(s): Z86.711 - Personal history of pulmonary embolism (8) COPD (chronic obstructive pulmonary disease) Current visit: Yes Status: Chronic Category: Medical Code(s): J44.9 - Chronic obstructive pulmonary disease, unspecified - Assessment and plan all Dx Assessment and Plan for all problems:: Saw patient, concur with above note.
--- NOTE | 2017-09-04 11:34 | Progress Note ---
Subjective Date: 09/04/17 Time: 09:00 Principal diagnosis: Fracture neck of femur, left hip Interval history: Patient is drowsy this morning. She says she is still in pain whenever she attempts to move. He has the Lai's traction is helping somewhat with the pain control. The nursing staff informs that patient had hypoxia overnight and was placed on oxygen mask by the respiratory therapy. She states her pain is under control at this time. She is n.p.o. from midnight for possible surgery later today. PN: Obj Ex Vital signs: Temp Pulse Resp BP Pulse Ox 98.4 F 82 18 159/59 92 L 09/04/17 08:00 09/04/17 10:03 09/04/17 08:00 09/04/17 08:00 09/04/17 10:03 - Constitutional mild distress - Routine HEENT Exam Head: Present: normocephalic Eye: Present: EOMI, PERRL ENT: Present: mucous membranes moist - Routine Neck Exam Present: supple, full ROM, trachea midline - Routine Respiratory Exam Present: wheezes - Routine Cardiovascular Exam Present: RRR, Normal S1, Normal S2 - Routine Abdominal Exam Present: soft, normoactive bowel sounds - Routine Extremities Exam Present: pulses intact, normal capillary refill Comments: Her left lower extremity is in Lai's traction. Is tender over the left hip. The skin is intact. Distal circulation is intact. - Routine Skin Exam Present: intact - Routine Neurological Exam Present: alert, oriented X3 - Urinary Catheter Management Ann Cath placed during this visit: yes Urethral indwelling: Yes Reason for continuing: Surgical procedure Insertion date: 09/03/17 Insertion time: 00:59 Progress Note: A&P (1) Hip fx Status: Acute Current Visit: Yes (2) Hypertension Status: Chronic Current Visit: Yes (3) Hyperlipidemia Status: Chronic Current Visit: Yes (4) Factor 5 Leiden mutation, heterozygous Status: Chronic Current Visit: Yes (5) Lupus anticoagulant disorder Status: Chronic Current Visit: Yes (6) History of DVT (deep vein thrombosis) Status: Chronic Current Visit: Yes (7) History of pulmonary embolism Status: Chronic Current Visit: Yes (8) COPD (chronic obstructive pulmonary disease) Status: Chronic Current Visit: Yes Assessment and Plan for All Diagnoses:: I again reviewed the diagnosis, natural history and management options in detail including both the nonsurgical and surgical with the patient and her family. Given the nature of the fracture, I have recommended surgery in the form of a hemiarthroplasty of the LEFT hip. I have discussed the procedure, risks and benefits, alternatives, potential complications and expected outcomes with the patient and family. The complications discussed include but are not limited to infection, injury to nerves and blood vessels, DVT and PE, femur fracture, limb length inequality, dislocation, implant failure, loosening, acetabular wear, osteolysis, periprosthetic femur fracture, heterotopic ossification, abductor weakness and a limp, incomplete relief of pain, incomplete return of function or motion, likely need for further surgery in future including revision, anesthetic/medical complications including heart attack, stroke, transfusion reactions and even . We discussed how any of these events can be devastating. We have discussed nonsurgical alternatives as well. We also discussed the postoperative course including the rehab and physical therapy required. Patient has history of DVT/PE and history of hypercoagulable state. In view of this she was on Coumadin prior to admission. Her INR was high on admission and the Coumadin was held on admission; after more than 24 hours the INR was noted to be still elevated at just over 2. She is a chronic smoker and has history of COPD. Today she was also noted to be developing respiratory problems and possibly pneumonitis. Given this situation , following discussion with Dr. Andrew and Dr. Ricks, we have decided to give her IV vitamin K and proceed with surgery today itself as opposed to waiting longer for the INR to come down spontaneously. I have also informed our laboratory regarding the likely need for FFP and packed cells if there is excessive intraoperative bleeding. Patient and family were comfortable with this plan of approach. She expressed a full understanding and wished to proceed with surgery today.
--- NOTE | 2017-09-04 11:53 | Progress Note ---
[facility] Anesthesia Checklist - Patient Identification Patient Identification: Arm Band, Verbal (Name & ) - Structural Data Admitted From: Inpatient Planned Operative Procedure/s: hemiarthroplasty hip Consent for Planned Operative Procedure(s) Verified: Yes Verified Documents: Surgical Consent, History and Physical - NPO Status Verified Time NPO: 00:00 - Chart Verification Results Verified: CBC, BMP - Additional verifications Patient : No Anesthesia Reactions: No Hx Blood Transfusions: No Blood Transfusion Reaction: No Cephalosporin Allergy: No Previous Colonoscopy: No - Cardiovascular Assessment Heart Sounds: S1 & S2 Pulse Strength: Baseline Pulse Rhythm: Regular Peripheral Edema: No - Airway Assessment C-Spine Mobility Assessed: Yes TMJ Mobility Assessed: Yes Dentition: Partials - Neurological Assessment Level of Consciousness: Awake, Alert, Appropriate Hx Seizures: No Numbness or tingling in extremities: No - Anesthesia Plan Anesthesia Risk discussed: Yes Anesthesia Plan: Verified ASA Class: III Anesthesia Type: General [facility] Anesthesia HX I have reviewed the patient's past medical history: Yes Medical History: Reports:: Cancer (Uterine), Chronic Obstructive Pulmonary Disease (COPD), Deep Vein Thrombosis, Hyperlipidemia (Factor V Leiden and Lupus anticoagulant), Hypertension, Pulmonary Embolism Denies:: Diabetes Mellitus Type 1, Diabetes Mellitus Type 2, MRSA Other Surgeries: Yes: Hysterectomy-Partial Amputation: No Fractures: Yes *Family Hx:: Asthma, Bleeding Disorder, Cancer, Diabetes, Kidney Disease, Stroke
--- NOTE | 2017-09-04 14:49 | Progress Note ---
[facility] Anesthesia Record Part II Discharge Time: 15:15 Destination: floor PACU nurse assessment reviewed?: Yes Patient Condition:: Good Anesthesia Complications:: None
--- NOTE | 2017-09-04 14:49 | Progress Note ---
[facility] Anesthesia Record Part I Intake, IV Amount: 1,600 Estimated blood loss (mL): 200 Urine output (mL): 250 Blood Pressure: 159/74 SaO2: 90 Pulse Rate: 91 Respiratory Rate: 12 Temperature: 98.7 F Patient is:: Awake, Stable Stable to PACU at:: 14:45
--- NOTE | 2017-09-04 15:28 | Operative Note ---
Date of procedure: 09/04/17 Pre-op Diagnosis:: Closed, displaced subcapital femoral neck fracture, left hip Post-op Diagnosis:: Closed, displaced subcapital femoral neck fracture, left hip Procedure performed:: Bipolar hemiarthroplasty, left hip Surgeon:: Real Watts MD Instrumentation Engineer(s):: Dr. Ricks OPERATIONS ACCOUNTANT:: Donte Pabon Anesthesia: GETA Estimated blood loss (mL): 200 Clinical Note:: Patient is a 76-year-old female who sustained a displaced intracapsular fracture neck of her LEFT femur following a mechanical fall. She has history of DVT/PE and history of hypercoagulable state. In view of this she is on Coumadin. Her INR was high on admission and after more than 24 hours it was still elevated at just over 2. She is a chronic smoker and has history of COPD. Today she was noted to be developing respiratory problems and possibly pneumonia. Given the situation, following discussion with Dr. Andrew and Dr. Ricks, we have decided to give her IV vitamin K and proceed with surgery today itself as opposed to waiting longer for the INR to come down. I have informed our laboratory preoperatively regarding the likely need for FFP and packed cells if there is excessive intraoperative bleeding. Patient and family were comfortable with this plan of approach. A hemiarthroplasty was indicated to relieve pain and restore function. The surgery is indicated and is the standard of care for this type of fracture. Operative findings:: Displaced sub capital femoral neck fracture of the LEFT hip as noted on the preoperative hip x-rays. The articular cartilage of the acetabulum is well maintained without evidence of any arthritis. The proximal femur bone quality was reasonably good. Operative note:: On the day of the procedure the patient and family were met on the floor, and a physical examination was performed. The operating side and site were marked and initialed by me. I reviewed the diagnosis, natural history and management options in detail including both the nonsurgical and surgical. Given the nature of the fracture, I have recommended surgery in the form of a hemiarthroplasty of the LEFT hip. I discussed the procedure, risks and benefits, alternatives, potential complications and expected outcomes with the patient and family. The complications discussed include but are not limited to infection, injury to nerves and blood vessels, DVT and PE, femur fracture, limb length inequality, dislocation, implant failure, loosening, acetabular wear, osteolysis, periprosthetic femur fracture, heterotopic ossification, abductor weakness and a limp, incomplete relief of pain, incomplete return of function or motion, likely need for further surgery in future including revision, anesthetic/ medical complications including heart attack, stroke, transfusion reactions and even . We discussed how any of these events can be devastating. We have discussed nonsurgical alternatives as well. We also discussed the postoperative course including the rehab and physical therapy required. Patient has history of DVT/PE and history of hypercoagulable state. In view of this she was on Coumadin prior to admission. Her INR was high on admission and it was held on admission; after more than 24 hours it was noted to be still elevated at just over 2. She is a chronic smoker and has history of COPD. Today she was noted to be developing respiratory problems and possibly pneumonitis. Given this situation, following discussion with Dr. Andrew and Dr. Ricks, we have decided to give her IV vitamin K and proceed with surgery today itself as opposed to waiting longer for the INR to come down spontaneously. I have also informed our laboratory preoperatively regarding the likely need for FFP and packed cells if there is excessive intraoperative bleeding. Patient and family were comfortable with this plan of approach. She expressed a full understanding and wished to proceed with surgery today. The consent form was reviewed and signed. The patient was brought to the operating room and a general anesthesia was administered by the pulper. The patient was then transferred onto the operating table and positioned in the RIGHT lateral decubitus position with the LEFT hip facing upwards. All the bony prominences were well-padded. The LEFT lower extremity was then prepped and draped in the usual sterile fashion. The entire operative team used isolation suits and room traffic was controlled. The surgical landmarks and incision was marked over the skin with a marking pen. Ioban sterile drape was used to cover the operative site and isolate the perineum completely from the operative field. Administration of 2 g of prophylactic IV Ancef was confirmed with the anesthetic team. A preprocedure timeout was performed as per hospital protocol. A posterior approach was used to the hip joint. An electrocautery was used for hemostasis. The skin incision was made centering over the posterior border of the greater trochanter extending posteriorly in a curvilinear fashion across the buttock. The dissection was carried through subcutaneous tissue down to the fascia paige. The fascia paige and gluteus fascia were split and a Charnley retractor was placed. The trochanteric bursa was then removed with blunt dissection. The sciatic nerve was identified and kept out of the harm's way throughout the rest of the procedure. The hip was then internally rotated and the fat over the external rotators was cleared with a sponge. The short external rotator muscles were identified, a tag stitch was placed near their insertion, and they were divided close to the greater trochanter with electrocautery. This exposed the joint capsule which was opened with a T shaped incision and tag stitches were applied to both the leaves of the capsule. Upon entering the joint capsule, a fracture hematoma was noted as well as the displaced sub-capital femoral neck fracture. A corkscrew was then used to remove the femoral head from the acetabulum and passed to the accelerator technician to be sized on the back table. It measured 45 mm. All bony fragments were then removed from the acetabulum and surrounding soft tissue. The acetabulum was then inspected and found to be clear. The articular cartilage was noted to be well maintained without any significant arthritic changes. Our attention was then turned to the preparation of proximal femur where a cutting guide was used to gonsalo the neck for the femoral neck cut. An oscillating saw was then used to finish the femoral cut. A box osteotome was then used to remove the bone from the proximal femur. A canal entry reamer was then used to open the femoral canal paying close attention to keep the reamer in a lateral position. Next we performed femoral broaching starting with a small broach, making efforts to lateralize the broach. The broaching was continued sequentially up to size 3 broach. We found this to be a very good fit without any rocking. We then used the calcar reamer to finish the femoral preparation. We then performed a trial reduction using different trials and found the hip to be stable with size 3 broach, 127 -4 neck and 45 mm bipolar head. The hip was taken through range of motion and tested in adduction, internal and external rotation as well as with a shuck and posteriorly directed force on a flexed hip. It was noted that the hip was very stable with these trial components throughout the range of motion. We also noted that the limb lengths were equal with these components. Next, the trial components were removed and the femur and acetabulum were irrigated with pulse lavage and suctioned out. The size 3 [place] accolade 127 degree femoral stem was introduced and seated to the appropriate level. This gave us a very good fit without any play whatsoever. We then irrigated and dried the House taper and then placed the definitive 45 mm bipolar femoral head assembly on the stem and tapped into place. The hip was then reduced and again taken through range of motion and noted to be stable. The limb length was also well corrected. The hip joint was then soaked with dilute Betadine solution for 3 minutes, then suctioned out and irrigated with normal saline pulse lavage. At this point I also injected the capsule and soft tissue with the local anesthetic cocktail ( 0.5 percent bupivacaine 200 mg +10 mg of morphine +600 g of epinephrine +750 mg of cefuroxime +30 mg of ketorolac diluted in normal saline to make up a total volume of 120 mL). We confirmed good hemostasis and then proceeded to close the wound. Surprisingly we did not find any excessive bleeding in spite of the fact that patient is on Coumadin and her last INR is 2. The capsule was closed with interrupted #1 Vicryl sutures followed by reattachment of the external rotators to the greater trochanter with #1 Vicryl sutures. Next the fascia paige and the gluteus fascia were closed with #1 Vicryl sutures. The wound was then again irrigated copiously with pulse lavage and suctioned dry. Next the subcutaneous tissues were closed with 2-0 Vicryl sutures. The skin was closed with 4-0 Monocryl subcuticular sutures, Dermabond and Steri-Strips. Sterile dressings were applied consisting of [employer] Surgical Dressing. No drains were placed. The patient was then transferred from the operating table onto the bed. The leg lengths were again checked in supine position and noted to be equal. An abduction pillow was placed between the legs. The patient was then reversed from the anesthetic and transported to the postoperative recovery area in a stable condition. She tolerated the procedure well and there were no immediate complications. Swab, needle and instrument counts were correct according to the scrub team at the end of the procedure. Portable X-rays of the LEFT hip AP and lateral views were obtained in the recovery area and noted to be satisfactory. Postoperatively, continue standard precautions for a posterior hip approach. To mobilize weightbearing as tolerated with the help of a walker by physical therapist and to commence standard physical therapy and precautions for a posterior hip approach. Following surgery I have informed Dr. nAdrew over the telephone that the surgery went well and she can be restarted on anticoagulant of his choice for her management. Implant: [employer] Accolade TMGF plus 127 degree neck angle V 40, hip stem- size 3 [place] UHR universal head bipolar component- 45 mm outer diameter/28 mm inner diameter Alondra LFIT V40 femoral head, 28 mm outer diameter, -4 mm offset (Industry customer relations representative: Maykel Ba from [employer]) Condition: stable Disposition: floor Specimens:: None Complications:: None
[2017-09-04 17:25] LABS: INR 1.48 (0.9-1.1); Prothrombin Time 16.1 seconds (9.4-11.8)
[2017-09-05 06:30] LABS: Basophils % 0.1 % (0.1-2.0); Eosinophils # 0.1 K/mm3 (0.0-0.4); Eosinophils % 0.5 % (0.1-12.0); Hematocrit 31.3 % (37.0-47.0); Hemoglobin 10.1 g/dL (12.2-16.2); Lymphocytes # 1.1 K/mm3 (0.7-4.5); Lymphocytes % 10.2 K/mm3 (10-50); Mean Corpuscular HGB Conc 32.3 g/dL (31.8-35.4); Mean Corpuscular Hemoglobin 27.4 pg (27.0-31.2); Mean Corpuscular Volume 84.9 fl (81-99); Mean Platelet Volume 9.2 fl (7.4-10.4); Monocytes # 0.8 K/mm3 (0.1-1.0); Monocytes % 6.9 % (1.7-9.3); Neutrophils # 8.9 K/mm3 (1.8-7.8); Neutrophils % 82.3 % (37.0-80.0); Platelet Count 153 K/mm3 (142-424); Red Blood Count 3.69 M/mm3 (4.20-5.40); Red Cell Distribution Width 14.4 % (11.5-17.5); White Blood Count 10.9 K/mm3 (4.8-10.8)
[2017-09-05 06:48] LABS: Albumin/Globulin Ratio 0.5 (1.1-1.8); Anion Gap 10.3 mEq/L (5-15); Bilirubin,Total 0.3 mg/dL (0.2-1.0); Calcium 8.3 mg/dL (8.5-10.1); Potassium 4.3 mmoL/L (3.5-5.1)
--- NOTE | 2017-09-05 08:45 | Progress Note ---
<Lyly Mehta - Last Filed: 09/05/17 08:43> Internal Medicine - PN: Subj *Date: 09/05/17 *Time: 08:43 Interval history: Patient had a repair of her hip fracture yesterday. She states her hip is sore today. She is still very drowsy. She denies any other pain. She states her shortness of air is better but is still present. She is still coughing. She rested off and on last night. Exam Vital signs and Labs for Last 24 Hours: Temp Pulse Resp BP Pulse Ox 98.7 F 78 18 118/45 94 L 09/05/17 07:58 09/05/17 07:58 09/05/17 07:58 09/05/17 07:58 09/05/17 07:58 Laboratory Results - last 24 hr 09/04/17 10:30: Blood Type O Positive, Antibody Screen Negative, Crossmatch (AHG ) See Detail 09/04/17 15:38: Blood Type Confirm O Positive 09/04/17 15:38: PT 16.1 H, INR 1.48 H 09/05/17 05:45: WBC 10.9 H, RBC 3.69 L, Hgb 10.1 L, Hct 31.3 L, MCV 84.9, MCH 27.4, MCHC 32.3, RDW 14.4, Plt Count 153 D, MPV 9.2, Neut % (Auto) 82.3 H, Lymph % (Auto) 10.2, [place] % (Auto) 6.9, Eos % (Auto) 0.5, Baso % (Auto) 0.1, Neut # (Auto) 8.9 H, Lymph # (Auto) 1.1, [place] # (Auto) 0.8, Eos # (Auto) 0.1, Baso # (Auto) 0.0 09/05/17 05:45: Sodium 139, Potassium 4.3, Chloride 105, Carbon Dioxide 28, Anion Gap 10.3, BUN 17, Creatinine 0.99, Estimated Creat Clear 61, Estimated GFR 54 L, Est GFR ( Amer) 66, Glucose 133 H, Calcium 8.3 L, Total Bilirubin 0.3, AST 30, ALT 17, Alkaline Phosphatase 46, Total Protein 6.0 L D, Albumin 2.0 L, Globulin 4.0 H, Albumin/Globulin Ratio 0.5 L I & O for Last 24 hours: Intake & Output 09/02/17 09/03/17 09/04/17 09/05/17 11:59 11:59 11:59 11:59 Intake Total 351 / 351 1853 / 1853 1650 / 1650 Output Total 200 / 200 1600 / 1600 725 / 725 Balance 151 / 151 253 / 253 925 / 925 Weight 180 lb - Constitutional Comments: Drowsy, but can answer questions - *Routine Respiratory Exam Present: wheezes (but improved from yesterday) - *Routine Cardiovascular Exam Present: RRR - *Routine Abdominal Exam Present: soft, normoactive bowel sounds. Absent: tenderness - *Routine Extremities Exam Absent: edema - *Routine Skin Exam Comments: dressing in place on left hip Assessment and Plan (1) Hip fx Current visit: Yes Status: Acute Qualifiers: Encounter type: initial encounter Fracture type: closed Laterality: left Qualified Code(s): S72.002A - Fracture of unspecified part of neck of left femur, initial encounter for closed fracture Category: Medical Code(s): S72.009A - Fracture of unspecified part of neck of unspecified femur, initial encounter for closed fracture (2) Hypertension Current visit: Yes Status: Chronic Category: Medical Code(s): I10 - Essential (primary) hypertension (3) Hyperlipidemia Current visit: Yes Status: Chronic Category: Medical Code(s): E78.5 - Hyperlipidemia, unspecified (4) Factor 5 Leiden mutation, heterozygous Current visit: Yes Status: Chronic Category: Medical Code(s): D68.51 - Activated protein C resistance (5) Lupus anticoagulant disorder Current visit: Yes Status: Chronic Category: Medical Code(s): D68.62 - Lupus anticoagulant syndrome (6) History of DVT (deep vein thrombosis) Current visit: Yes Status: Chronic Category: Medical Code(s): Z86.718 - Personal history of other venous thrombosis and embolism (7) History of pulmonary embolism Current visit: Yes Status: Chronic Category: Medical Code(s): Z86.711 - Personal history of pulmonary embolism (8) COPD (chronic obstructive pulmonary disease) Current visit: Yes Status: Chronic Category: Medical Code(s): J44.9 - Chronic obstructive pulmonary disease, unspecified - Assessment and plan all Dx Assessment and Plan for all problems:: Chest x-ray report from yesterday showed a possible pneumonia. Still awaiting chest x-ray report from today. Ortho to follow for hip fracture. <WhitefieldJay fernández - Last Filed: 09/05/17 09:22> Internal Medicine - PN: Armaan *Date: 09/05/17 *Time: 09:21 Exam Vital signs and Labs for Last 24 Hours: Temp Pulse Resp BP Pulse Ox 98.7 F 78 18 118/45 94 L 09/05/17 07:58 09/05/17 07:58 09/05/17 07:58 09/05/17 07:58 09/05/17 07:58 Laboratory Results - last 24 hr 09/04/17 10:30: Blood Type O Positive, Antibody Screen Negative, Crossmatch (AHG ) See Detail 09/04/17 15:38: Blood Type Confirm O Positive 09/04/17 15:38: PT 16.1 H, INR 1.48 H 09/05/17 05:45: WBC 10.9 H, RBC 3.69 L, Hgb 10.1 L, Hct 31.3 L, MCV 84.9, MCH 27.4, MCHC 32.3, RDW 14.4, Plt Count 153 D, MPV 9.2, Neut % (Auto) 82.3 H, Lymph % (Auto) 10.2, [place] % (Auto) 6.9, Eos % (Auto) 0.5, Baso % (Auto) 0.1, Neut # (Auto) 8.9 H, Lymph # (Auto) 1.1, [place] # (Auto) 0.8, Eos # (Auto) 0.1, Baso # (Auto) 0.0 09/05/17 05:45: Sodium 139, Potassium 4.3, Chloride 105, Carbon Dioxide 28, Anion Gap 10.3, BUN 17, Creatinine 0.99, Estimated Creat Clear 61, Estimated GFR 54 L, Est GFR ( Amer) 66, Glucose 133 H, Calcium 8.3 L, Total Bilirubin 0.3, AST 30, ALT 17, Alkaline Phosphatase 46, Total Protein 6.0 L D, Albumin 2.0 L, Globulin 4.0 H, Albumin/Globulin Ratio 0.5 L I & O for Last 24 hours: Intake & Output 05/06/2109/03/17 09/04/17 09/05/17 11:59 11:59 11:59 11:59 Intake Total 351 / 351 1853 / 1853 1650 / 1650 Output Total 200 / 200 1600 / 1600 725 / 725 Balance 151 / 151 253 / 253 925 / 925 Weight 180 lb Assessment and Plan (1) Hip fx Current visit: Yes Status: Acute Qualifiers: Encounter type: initial encounter Fracture type: closed Laterality: left Qualified Code(s): S72.002A - Fracture of unspecified part of neck of left femur, initial encounter for closed fracture Category: Medical Code(s): S72.009A - Fracture of unspecified part of neck of unspecified femur, initial encounter for closed fracture (2) Hypertension Current visit: Yes Status: Chronic Category: Medical Code(s): I10 - Essential (primary) hypertension (3) Hyperlipidemia Current visit: Yes Status: Chronic Category: Medical Code(s): E78.5 - Hyperlipidemia, unspecified (4) Factor 5 Leiden mutation, heterozygous Current visit: Yes Status: Chronic Category: Medical Code(s): D68.51 - Activated protein C resistance (5) Lupus anticoagulant disorder Current visit: Yes Status: Chronic Category: Medical Code(s): D68.62 - Lupus anticoagulant syndrome (6) History of DVT (deep vein thrombosis) Current visit: Yes Status: Chronic Category: Medical Code(s): Z86.718 - Personal history of other venous thrombosis and embolism (7) History of pulmonary embolism Current visit: Yes Status: Chronic Category: Medical Code(s): Z86.711 - Personal history of pulmonary embolism (8) COPD (chronic obstructive pulmonary disease) Current visit: Yes Status: Chronic Category: Medical Code(s): J44.9 - Chronic obstructive pulmonary disease, unspecified - Assessment and plan all Dx Assessment and Plan for all problems:: Saw patient this morning. She had a fever overnight, her CXR report is of pneumonia. Will start antibiotics and neb treatments today, add nicotine patch. PT to see patient today, plan to remove Ann catheter.
--- NOTE | 2017-09-05 11:23 | Progress Note ---
Subjective Date: 09/05/17 Time: 11:19 Principal diagnosis: Fracture neck of femur, left hip PN: Obj Ex Vital signs: Temp Pulse Resp BP Pulse Ox 98.7 F 78 18 118/45 90 L 09/05/17 07:58 09/05/17 07:58 09/05/17 07:58 09/05/17 07:58 09/05/17 08:00 Narrative: s/p bipolar hemiarthroplasty POD#1.....pt awake, alert, sitting in bed sorting through paperwork. Dressing intact. Sensate to LT both LE. Pedal pulses intact. No Calf tenderness, neg Quintin's. Xrays show components to be in good position. Labs and vital signs reviewed. Hct above 30%. - Urinary Catheter Management Ann Cath placed during this visit: yes Urethral indwelling: Yes Reason for continuing: Other continuation reason Insertion date: 09/03/17 Insertion time: 00:59 Progress Note: A&P (1) Hip fx Status: Acute Assessment and plan: Stable POD #1.....Wt bearing as tolerated. Up to chair today, stand at bedside if possible. If PT available, ambulate as able. Can be discharged to rehab center when approved by attending MD. Current Visit: Yes (2) Hypertension Status: Chronic Current Visit: Yes (3) Hyperlipidemia Status: Chronic Current Visit: Yes (4) Factor 5 Leiden mutation, heterozygous Status: Chronic Current Visit: Yes (5) Lupus anticoagulant disorder Status: Chronic Current Visit: Yes (6) History of DVT (deep vein thrombosis) Status: Chronic Current Visit: Yes (7) History of pulmonary embolism Status: Chronic Current Visit: Yes (8) COPD (chronic obstructive pulmonary disease) Status: Chronic Current Visit: Yes
[2017-09-06 06:56] LABS: Basophils % 0.3 % (0.1-2.0); Eosinophils # 0.3 K/mm3 (0.0-0.4); Eosinophils % 2.6 % (0.1-12.0); Hemoglobin 8.9 g/dL (12.2-16.2); Lymphocytes # 1.5 K/mm3 (0.7-4.5); Lymphocytes % 12.7 K/mm3 (10-50); Mean Corpuscular HGB Conc 32.2 g/dL (31.8-35.4); Mean Corpuscular Hemoglobin 27.5 pg (27.0-31.2); Mean Corpuscular Volume 85.5 fl (81-99); Mean Platelet Volume 8.5 fl (7.4-10.4); Monocytes # 0.8 K/mm3 (0.1-1.0); Monocytes % 6.5 % (1.7-9.3); Neutrophils # 9.2 K/mm3 (1.8-7.8); Neutrophils % 77.9 % (37.0-80.0); Platelet Count 154 K/mm3 (142-424); Red Blood Count 3.24 M/mm3 (4.20-5.40); Red Cell Distribution Width 14.6 % (11.5-17.5); White Blood Count 11.8 K/mm3 (4.8-10.8)
[2017-09-06 06:57] LABS: Hematocrit 27.7 % (37.0-47.0)
[2017-09-06 07:08] LABS: Anion Gap 9.8 mEq/L (5-15); Potassium 3.8 mmoL/L (3.5-5.1)
--- NOTE | 2017-09-06 09:37 | Progress Note ---
Internal Medicine - PN: Subj *Date: 09/06/17 *Time: 09:33 Interval history: Patient states she had fever overnight and did not rest well, feels some better now. Stood briefly at bedside yesterday but had a lot of pain in her left leg Exam Vital signs and Labs for Last 24 Hours: Temp Pulse Resp BP Pulse Ox 98.1 F 69 20 127/47 94 L 09/06/17 07:46 09/06/17 07:46 09/06/17 07:46 09/06/17 07:46 09/06/17 07:46 Laboratory Results - last 24 hr 09/05/17 10:05: Mycoplasma pneumon IgM Non-reactive 09/06/17 06:20: WBC 11.8 H, RBC 3.24 L, Hgb 8.9 L, Hct 27.7 L, MCV 85.5, MCH 27.5, MCHC 32.2, RDW 14.6, Plt Count 154, MPV 8.5, Neut % (Auto) 77.9, Lymph % ( Auto) 12.7, [place] % (Auto) 6.5, Eos % (Auto) 2.6, Baso % (Auto) 0.3, Neut # (Auto ) 9.2 H, Lymph # (Auto) 1.5, [place] # (Auto) 0.8, Eos # (Auto) 0.3, Baso # (Auto) 0.0 09/06/17 06:20: Sodium 141, Potassium 3.8, Chloride 107, Carbon Dioxide 28, Anion Gap 9.8, BUN 17, Creatinine 0.84, Estimated Creat Clear 61, Estimated GFR 66, Est GFR ( Amer) 80 D, Glucose 131 H Vital Signs Temp Pulse Pulse Resp BP Pulse Ox 09/06/17 07:46 98.1 F 69 20 127/47 94 L 09/06/17 07:19 101.8 F H 09/06/17 06:43 94 H 93 L 09/06/17 06:11 102.5 F H 09/06/17 05:30 102.3 F H 09/06/17 04:00 101.6 F H 94 H 20 145/57 91 L 09/06/17 03:14 90 L 09/06/17 00:00 99.1 F 96 H 20 152/62 94 L 09/05/17 23:33 78 09/05/17 23:32 85 09/05/17 19:54 100.9 F H 94 H 20 153/56 94 L 09/05/17 18:34 81 09/05/17 16:00 98.4 F 88 22 130/48 97 09/05/17 13:57 97 Intake and Output 09/05/17 09/06/17 09/06/17 19:59 03:59 11:59 Intake Total 759 / 759 200 / 200 Output Total 150 / 150 300 / 300 Balance 609 / 609 -100 / -100 Intake: Intake, Oral Amount 200 / 200 Intake, Total IV Amount 759 / 759 0.9 % Sodium Chloride 1,000 ml 459 / 459 @ 50 mls/hr IV .Q20H [facility] Rx#: [id number] Azithromycin 500 mg In 0.9 % 250 / 250 Sodium Chloride 250 ml @ 250 mls/hr IV 1000 [facility] Rx#:[id number] Cefazolin Sodium 1 gm In 0.9 % 50 / 50 Sodium Chloride 50 ml @ 100 mls /hr IV Q6H [facility] Rx#:[id number] Output: Output, Urine Amount 150 / 150 300 / 300 I & O for Last 24 hours: Intake & Output 09/03/17 09/04/17 09/05/17 09/06/17 11:59 11:59 11:59 11:59 Intake Total 351 / 351 1853 / 1853 1650 / 1650 959 / 959 Output Total 200 / 200 1600 / 1600 725 / 725 450 / 450 Balance 151 / 151 253 / 253 925 / 925 509 / 509 Weight 180 lb Microbiology Reports for the Last 24 Hours: Microbiology 09/05/17 Unknown Sputum - Expectorated Sputum Gram Stain - Final 09/05/17 Unknown Sputum - Expectorated Sputum Sputum Culture - Preliminary Gram Negative Rods - Constitutional no acute distress - *Routine HEENT Exam ENT: Present: mucous membranes moist - *Routine Respiratory Exam Present: crackles (bibasilar) - *Routine Cardiovascular Exam Present: RRR - *Routine Abdominal Exam Present: soft, normoactive bowel sounds. Absent: tenderness Assessment and Plan (1) Hip fx Current visit: Yes Status: Acute Qualifiers: Encounter type: initial encounter Fracture type: closed Laterality: left Qualified Code(s): S72.002A - Fracture of unspecified part of neck of left femur, initial encounter for closed fracture Category: Medical Code(s): S72.009A - Fracture of unspecified part of neck of unspecified femur, initial encounter for closed fracture (2) Hypertension Current visit: Yes Status: Chronic Category: Medical Code(s): I10 - Essential (primary) hypertension (3) Hyperlipidemia Current visit: Yes Status: Chronic Category: Medical Code(s): E78.5 - Hyperlipidemia, unspecified (4) Factor 5 Leiden mutation, heterozygous Current visit: Yes Status: Chronic Category: Medical Code(s): D68.51 - Activated protein C resistance (5) Lupus anticoagulant disorder Current visit: Yes Status: Chronic Category: Medical Code(s): D68.62 - Lupus anticoagulant syndrome (6) History of DVT (deep vein thrombosis) Current visit: Yes Status: Chronic Category: Medical Code(s): Z86.718 - Personal history of other venous thrombosis and embolism (7) History of pulmonary embolism Current visit: Yes Status: Chronic Category: Medical Code(s): Z86.711 - Personal history of pulmonary embolism (8) COPD (chronic obstructive pulmonary disease) Current visit: Yes Status: Chronic Category: Medical Code(s): J44.9 - Chronic obstructive pulmonary disease, unspecified (9) Pneumonia Current visit: Yes Status: Acute Category: Medical Code(s): J18.9 - Pneumonia, unspecified organism - Assessment and plan all Dx Assessment and Plan for all problems:: Plan to continue antibiotics for pneumonia, sputum culture has growth of gram neg rods, no ID yet. Will add oxycodone by mouth for pain today. Cont. Lovenox , check INR tomorrow.
--- NOTE | 2017-09-06 13:07 | Progress Note ---
Subjective Date: 09/06/17 Time: 13:02 Principal diagnosis: Fracture neck of femur, left hip Interval history: Patient sleeping but arouses easily. Complains of mild left hip pain. States she has not been out of bed today but believes she said at bedside earlier. Lunch is present but largely untouched. PN: Obj Ex Vital signs: Temp Pulse Resp BP Pulse Ox 98.1 F 69 20 127/47 94 L 09/06/17 07:46 09/06/17 07:46 09/06/17 07:46 09/06/17 07:46 09/06/17 08:00 Narrative: Moves toes and ankles easily. No evident pain. No calf tenderness. Negative Homans. Laboratory shows hematocrit 27.7. Electrolytes within normal limits. Pulse 94 blood pressure stable. Her dressing is clean and dry without evidence of soak through. - Urinary Catheter Management Ann Cath placed during this visit: yes Urethral indwelling: Yes Reason for continuing: Other continuation reason (If Ann catheter still in, can remove at attending physician's discretion) Insertion date: 09/03/17 Insertion time: 00:59 Progress Note: A&P (1) Hip fx Status: Acute Assessment and plan: Stable postop day #2 status post left bipolar hemiarthroplasty. No evident complications. Patient somewhat slow to mobilize. RECOMMENDATIONS... At minimum, sit at bedside today with nursing assistance. Mobilizing to chair would be even better option but may be difficult without physical therapy's help. Can plan on rehabilitation center at attendings discretion. Possible dressing change tomorrow depending on status and that Dr. Watts's discretion. Current Visit: Yes (2) Hypertension Status: Chronic Current Visit: Yes (3) Hyperlipidemia Status: Chronic Current Visit: Yes (4) Factor 5 Leiden mutation, heterozygous Status: Chronic Current Visit: Yes (5) Lupus anticoagulant disorder Status: Chronic Current Visit: Yes (6) History of DVT (deep vein thrombosis) Status: Chronic Current Visit: Yes (7) History of pulmonary embolism Status: Chronic Current Visit: Yes (8) COPD (chronic obstructive pulmonary disease) Status: Chronic Current Visit: Yes
[2017-09-07 07:13] LABS: Anion Gap 8.5 mEq/L (5-15); INR 1.02 (0.9-1.1); Potassium 3.5 mmoL/L (3.5-5.1)
[2017-09-07 07:18] LABS: Basophils % 0.2 % (0.1-2.0); Eosinophils # 0.6 K/mm3 (0.0-0.4); Hematocrit 28.8 % (37.0-47.0); Lymphocytes # 1.6 K/mm3 (0.7-4.5); Lymphocytes % 14.8 K/mm3 (10-50); Mean Corpuscular HGB Conc 31.2 g/dL (31.8-35.4); Mean Corpuscular Hemoglobin 27.3 pg (27.0-31.2); Mean Corpuscular Volume 87.4 fl (81-99); Mean Platelet Volume 8.5 fl (7.4-10.4); Monocytes # 0.5 K/mm3 (0.1-1.0); Monocytes % 4.8 % (1.7-9.3); Neutrophils # 7.8 K/mm3 (1.8-7.8); Neutrophils % 74.3 % (37.0-80.0); Platelet Count 194 K/mm3 (142-424); Red Cell Distribution Width 14.4 % (11.5-17.5); White Blood Count 10.5 K/mm3 (4.8-10.8)
--- NOTE | 2017-09-07 08:02 | Progress Note ---
<Susan Santana - Last Filed: 09/07/17 07:59> Internal Medicine - PN: Subj *Date: 09/07/17 *Time: 07:59 Interval history: Slept at intervals. Having severe pain at present. No appetite. She has had nosebleeds. Oxygen is soft at present because of this. She denies shortness of breath and chest pain. She does have a congested cough. She has stood at the bedside and has been up to the bedside commode. Exam Vital signs and Labs for Last 24 Hours: Temp Pulse Resp BP Pulse Ox 98.1 F 87 20 140/57 90 L 09/07/17 07:25 09/07/17 07:25 09/07/17 07:25 09/07/17 07:25 09/07/17 07:25 Laboratory Results - last 24 hr 09/07/17 06:54: WBC 10.5, RBC 3.30 L, Hgb 9.0 L, Hct 28.8 L, MCV 87.4, MCH 27.3 , MCHC 31.2 L, RDW 14.4, Plt Count 194 D, MPV 8.5, Neut % (Auto) 74.3, Lymph % (Auto) 14.8, [place] % (Auto) 4.8, Eos % (Auto) 6.0, Baso % (Auto) 0.2, Neut # ( Auto) 7.8, Lymph # (Auto) 1.6, [place] # (Auto) 0.5, Eos # (Auto) 0.6 H, Baso # ( Auto) 0.0 09/07/17 06:54: Sodium 142, Potassium 3.5, Chloride 106, Carbon Dioxide 31, Anion Gap 8.5, BUN 16, Creatinine 0.86, Estimated Creat Clear 61, Estimated GFR 64, Est GFR ( Amer) 77, Glucose 109 H I & O for Last 24 hours: Intake & Output 09/04/17 09/05/17 09/06/17 09/07/17 11:59 11:59 11:59 11:59 Intake Total 1853 / 1853 1650 / 1650 1309 / 1309 720 / 720 Output Total 1600 / 1600 725 / 725 450 / 450 550 / 550 Balance 253 / 253 925 / 925 859 / 859 170 / 170 Microbiology Reports for the Last 24 Hours: Microbiology 09/05/17 Unknown Sputum - Expectorated Sputum Gram Stain - Final 09/05/17 Unknown Sputum - Expectorated Sputum Sputum Culture - Preliminary Enterobact cloac comp 09/05/17 10:05 Blood Blood Culture - Preliminary NO GROWTH AFTER 24 HOURS 09/05/17 10:05 Blood Blood Culture - Preliminary NO GROWTH AFTER 24 HOURS Radiology Reports for the Last 24 Hours: 09/05/2017 chest x-ray IMPRESSION: Probable right lower lobe pneumonia which is somewhat more diffuse than seen on the previous day's film with minimal left basilar atelectasis. - Constitutional no acute distress Comments: In pain - *Routine Respiratory Exam Comments: Bilateral crackles and wheezing - *Routine Cardiovascular Exam Present: RRR - *Routine Abdominal Exam Present: soft, normoactive bowel sounds, tenderness (Epigastrium) - *Routine Extremities Exam Absent: edema Comments: Scuds on bilateral legs. Good pedal pulses. - *Routine Neurological Exam Present: alert, oriented X3 Assessment and Plan (1) Hip fx Current visit: Yes Status: Acute Qualifiers: Encounter type: initial encounter Fracture type: closed Laterality: left Qualified Code(s): S72.002A - Fracture of unspecified part of neck of left femur, initial encounter for closed fracture Category: Medical Code(s): S72.009A - Fracture of unspecified part of neck of unspecified femur, initial encounter for closed fracture (2) Hypertension Current visit: Yes Status: Chronic Category: Medical Code(s): I10 - Essential (primary) hypertension (3) Hyperlipidemia Current visit: Yes Status: Chronic Category: Medical Code(s): E78.5 - Hyperlipidemia, unspecified (4) Factor 5 Leiden mutation, heterozygous Current visit: Yes Status: Chronic Category: Medical Code(s): D68.51 - Activated protein C resistance (5) Lupus anticoagulant disorder Current visit: Yes Status: Chronic Category: Medical Code(s): D68.62 - Lupus anticoagulant syndrome (6) History of DVT (deep vein thrombosis) Current visit: Yes Status: Chronic Category: Medical Code(s): Z86.718 - Personal history of other venous thrombosis and embolism (7) History of pulmonary embolism Current visit: Yes Status: Chronic Category: Medical Code(s): Z86.711 - Personal history of pulmonary embolism (8) COPD (chronic obstructive pulmonary disease) Current visit: Yes Status: Chronic Category: Medical Code(s): J44.9 - Chronic obstructive pulmonary disease, unspecified (9) GERD (gastroesophageal reflux disease) Current visit: Yes Status: Chronic Category: Medical Code(s): K21.9 - Gastro-esophageal reflux disease without esophagitis - Assessment and plan all Dx Assessment and Plan for all problems:: Add Protonix and MiraLAX. Continue IV antibiotics and duo nebs.. Pulmonary hygiene. <Jay Andrew - Last Filed: 09/07/17 09:21> Internal Medicine - PN: Subj *Date: 09/07/17 *Time: 09:19 Exam Vital signs and Labs for Last 24 Hours: Temp Pulse Resp BP Pulse Ox 98.1 F 87 20 140/57 90 L 09/07/17 07:25 09/07/17 07:25 09/07/17 07:25 09/07/17 07:25 09/07/17 07:25 Laboratory Results - last 24 hr 09/07/17 06:54: WBC 10.5, RBC 3.30 L, Hgb 9.0 L, Hct 28.8 L, MCV 87.4, MCH 27.3 , MCHC 31.2 L, RDW 14.4, Plt Count 194 D, MPV 8.5, Neut % (Auto) 74.3, Lymph % (Auto) 14.8, [place] % (Auto) 4.8, Eos % (Auto) 6.0, Baso % (Auto) 0.2, Neut # ( Auto) 7.8, Lymph # (Auto) 1.6, [place] # (Auto) 0.5, Eos # (Auto) 0.6 H, Baso # ( Auto) 0.0 09/07/17 06:54: PT 11.0, INR 1.02 09/07/17 06:54: Sodium 142, Potassium 3.5, Chloride 106, Carbon Dioxide 31, Anion Gap 8.5, BUN 16, Creatinine 0.86, Estimated Creat Clear 61, Estimated GFR 64, Est GFR ( Amer) 77, Glucose 109 H I & O for Last 24 hours: Intake & Output 09/04/17 09/05/17 09/06/17 09/07/17 11:59 11:59 11:59 11:59 Intake Total 1853 / 1853 1650 / 1650 1309 / 1309 720 / 720 Output Total 1600 / 1600 725 / 725 450 / 450 550 / 550 Balance 253 / 253 925 / 925 859 / 859 170 / 170 Microbiology Reports for the Last 24 Hours: Microbiology 09/05/17 Unknown Sputum - Expectorated Sputum Gram Stain - Final 09/05/17 Unknown Sputum - Expectorated Sputum Sputum Culture - Preliminary Enterobact cloac comp 09/05/17 10:05 Blood Blood Culture - Preliminary NO GROWTH AFTER 24 HOURS 09/05/17 10:05 Blood Blood Culture - Preliminary NO GROWTH AFTER 24 HOURS Assessment and Plan (1) Hip fx Current visit: Yes Status: Acute Qualifiers: Encounter type: initial encounter Fracture type: closed Laterality: left Qualified Code(s): S72.002A - Fracture of unspecified part of neck of left femur, initial encounter for closed fracture Category: Medical Code(s): S72.009A - Fracture of unspecified part of neck of unspecified femur, initial encounter for closed fracture (2) Hypertension Current visit: Yes Status: Chronic Category: Medical Code(s): I10 - Essential (primary) hypertension (3) Hyperlipidemia Current visit: Yes Status: Chronic Category: Medical Code(s): E78.5 - Hyperlipidemia, unspecified (4) Factor 5 Leiden mutation, heterozygous Current visit: Yes Status: Chronic Category: Medical Code(s): D68.51 - Activated protein C resistance (5) Lupus anticoagulant disorder Current visit: Yes Status: Chronic Category: Medical Code(s): D68.62 - Lupus anticoagulant syndrome (6) History of DVT (deep vein thrombosis) Current visit: Yes Status: Chronic Category: Medical Code(s): Z86.718 - Personal history of other venous thrombosis and embolism (7) History of pulmonary embolism Current visit: Yes Status: Chronic Category: Medical Code(s): Z86.711 - Personal history of pulmonary embolism (8) COPD (chronic obstructive pulmonary disease) Current visit: Yes Status: Chronic Category: Medical Code(s): J44.9 - Chronic obstructive pulmonary disease, unspecified (9) GERD (gastroesophageal reflux disease) Current visit: Yes Status: Chronic Category: Medical Code(s): K21.9 - Gastro-esophageal reflux disease without esophagitis (10) Enterobacter cloacae pneumonia Current visit: Yes Status: Acute Category: Medical Code(s): J15.6 - Pneumonia due to other Gram-negative bacteria - Assessment and plan all Dx Assessment and Plan for all problems:: Saw patient, concur with above note.
--- NOTE | 2017-09-07 20:32 | Progress Note ---
Subjective Date: 09/07/17 Time: 16:30 Principal diagnosis: Fracture neck of femur, left hip Interval history: Patient is status post left hip hemiarthroplasty postoperative day 3. She is lying down in bed and says she is doing well. She reports some pain in her left hip which she rates 5 out of 10 on pain scale; she says this is worse with attempts to weight-bear and ambulate. She also has developed pneumonia and is on IV antibiotics. This appears to be holding her back from being discharged. PN: Obj Ex Vital signs: Temp Pulse Resp BP Pulse Ox 98.5 F 89 20 139/60 88 L 09/07/17 15:15 09/07/17 16:44 09/07/17 15:15 09/07/17 15:15 09/07/17 19:53 Narrative: Laboratory Results - last 24 hr 09/04/17 10:30: Crossmatch ([facility]) See Detail 09/07/17 06:54: WBC 10.5, RBC 3.30 L, Hgb 9.0 L, Hct 28.8 L, MCV 87.4, MCH 27.3 , MCHC 31.2 L, RDW 14.4, Plt Count 194 D, MPV 8.5, Neut % (Auto) 74.3, Lymph % (Auto) 14.8, [place] % (Auto) 4.8, Eos % (Auto) 6.0, Baso % (Auto) 0.2, Neut # ( Auto) 7.8, Lymph # (Auto) 1.6, [place] # (Auto) 0.5, Eos # (Auto) 0.6 H, Baso # ( Auto) 0.0 09/07/17 06:54: PT 11.0, INR 1.02 09/07/17 06:54: Sodium 142, Potassium 3.5, Chloride 106, Carbon Dioxide 31, Anion Gap 8.5, BUN 16, Creatinine 0.86, Estimated Creat Clear 61, Estimated GFR 64, Est GFR ( Amer) 77, Glucose 109 H Exam General appearance: alert, active, awake, no acute distress Cardiovascular: normal sinus rhythm, regular rate & rhythm Respiratory: Bilateral crackles and wheezing noted ABD: soft, non tender, non-distended, normal bowel sounds Skin: dry, intact Neuro: alert, no deficit, normal mood/affect, speech clear On examination of her LEFT lower extremity, the limb lengths are equal. The alignment is neutral. The dressings over the LEFT hip are clean, dry and intact. Her thigh and calf are soft and nontender. Distal neurovascular status is intact. - Urinary Catheter Management Ann Cath placed during this visit: yes Urethral indwelling: No Insertion date: 09/03/17 Insertion time: 00:59 Progress Note: A&P (1) Hip fx Status: Acute (2) Hypertension Status: Chronic (3) Hyperlipidemia Status: Chronic (4) Factor 5 Leiden mutation, heterozygous Status: Chronic (5) Lupus anticoagulant disorder Status: Chronic (6) History of DVT (deep vein thrombosis) Status: Chronic (7) History of pulmonary embolism Status: Chronic (8) COPD (chronic obstructive pulmonary disease) Status: Chronic (9) GERD (gastroesophageal reflux disease) Status: Chronic (10) Enterobacter cloacae pneumonia Status: Acute Assessment and Plan for All Diagnoses:: Status post bipolar hemiarthroplasty LEFT hip, postoperative day 3. Continue to ambulate weightbearing as tolerated on the left side, continue DVT prophylaxis, continue posterior approach hip precautions. I reviewed her vital signs, lab results, nursing notes, medical progress notes, medication and also discussed with the nursing staff regarding her progress. Overall she is doing well with regards to her left hip and progressing somewhat slower than expected. Continue physical therapy and mobilization weightbearing as tolerated with the walker. Use abduction pillow when in bed and continue using this for 6 weeks postop. Continue standard precautions for posterior approach to the hip joint. She can be transferred to SNF when she meets the criteria. Follow-up in my office in 2 weeks' time. Medical management as per Dr. Andrew's team.
--- NOTE | 2017-09-08 08:20 | Progress Note ---
Internal Medicine - PN: Subj *Date: 09/08/17 *Time: 08:20 Exam Vital signs and Labs for Last 24 Hours: Temp Pulse Resp BP Pulse Ox 98.3 F 91 H 18 140/58 96 09/08/17 07:44 09/08/17 07:44 09/08/17 07:44 09/08/17 07:44 09/08/17 07:44 Laboratory Results - last 24 hr 09/04/17 10:30: Crossmatch ([facility]) See Detail 09/07/17 06:54: PT 11.0, INR 1.02 I & O for Last 24 hours: Intake & Output 09/05/17 09/06/17 09/07/17 09/08/17 23:59 23:59 23:59 23:59 Intake Total 959 / 959 1070 / 1070 1560 / 1560 240 / 240 Output Total 700 / 700 300 / 300 1350 / 1350 550 / 550 Balance 259 / 259 770 / 770 210 / 210 -310 / -310 Weight 81.647 kg 80.343 kg Microbiology Reports for the Last 24 Hours: Microbiology 09/05/17 Unknown Sputum - Expectorated Sputum Gram Stain - Final 09/05/17 Unknown Sputum - Expectorated Sputum Sputum Culture - Final Enterobact cloac comp 09/05/17 10:05 Blood Blood Culture - Preliminary NO GROWTH AFTER 48 HOURS 09/05/17 10:05 Blood Blood Culture - Preliminary NO GROWTH AFTER 48 HOURS Assessment and Plan (1) Hip fx Current visit: Yes Status: Acute Qualifiers: Encounter type: initial encounter Fracture type: closed Laterality: left Qualified Code(s): S72.002A - Fracture of unspecified part of neck of left femur, initial encounter for closed fracture Category: Medical Code(s): S72.009A - Fracture of unspecified part of neck of unspecified femur, initial encounter for closed fracture (2) Hypertension Current visit: Yes Status: Chronic Category: Medical Code(s): I10 - Essential (primary) hypertension (3) Hyperlipidemia Current visit: Yes Status: Chronic Category: Medical Code(s): E78.5 - Hyperlipidemia, unspecified (4) Factor 5 Leiden mutation, heterozygous Current visit: Yes Status: Chronic Category: Medical Code(s): D68.51 - Activated protein C resistance (5) Lupus anticoagulant disorder Current visit: Yes Status: Chronic Category: Medical Code(s): D68.62 - Lupus anticoagulant syndrome (6) History of DVT (deep vein thrombosis) Current visit: Yes Status: Chronic Category: Medical Code(s): Z86.718 - Personal history of other venous thrombosis and embolism (7) History of pulmonary embolism Current visit: Yes Status: Chronic Category: Medical Code(s): Z86.711 - Personal history of pulmonary embolism (8) COPD (chronic obstructive pulmonary disease) Current visit: Yes Status: Chronic Category: Medical Code(s): J44.9 - Chronic obstructive pulmonary disease, unspecified (9) GERD (gastroesophageal reflux disease) Current visit: Yes Status: Chronic Category: Medical Code(s): K21.9 - Gastro-esophageal reflux disease without esophagitis (10) Enterobacter cloacae pneumonia Current visit: Yes Status: Acute Category: Medical Code(s): J15.6 - Pneumonia due to other Gram-negative bacteria The patient's infection will respond to the chosen ABx?: Yes Is the patient receiving the right drug, dose, and route?: Yes Could a more targeted ABx be ordered?: No
--- NOTE | 2017-09-08 08:42 | Progress Note ---
<Susan Santana - Last Filed: 09/08/17 08:38> Internal Medicine - PN: Subj *Date: 09/08/17 *Time: 08:39 Interval history: Patient did not sleep last night for unknown reasons. She worked with PT yesterday and did walk in the room. She set up in a chair for about 2-1/2 hours. She short of breath with exertion. She does have a cough. She ate some of her breakfast but states she did not eat yesterday. She is voiding without difficulty. Bowels have not moved. Exam Vital signs and Labs for Last 24 Hours: Temp Pulse Resp BP Pulse Ox 98.3 F 91 H 18 140/58 96 09/08/17 07:44 09/08/17 07:44 09/08/17 07:44 09/08/17 07:44 09/08/17 07:44 Laboratory Results - last 24 hr 09/04/17 10:30: Crossmatch ([facility]) See Detail I & O for Last 24 hours: Intake & Output 09/05/17 09/06/17 09/07/17 09/08/17 11:59 11:59 11:59 11:59 Intake Total 1650 / 1650 1309 / 1309 720 / 720 1800 / 1800 Output Total 725 / 725 450 / 450 550 / 550 1550 / 1550 Balance 925 / 925 859 / 859 170 / 170 250 / 250 Weight 177 lb 2 oz Microbiology Reports for the Last 24 Hours: Microbiology 09/05/17 Unknown Sputum - Expectorated Sputum Gram Stain - Final 09/05/17 Unknown Sputum - Expectorated Sputum Sputum Culture - Final Enterobact cloac comp 09/05/17 10:05 Blood Blood Culture - Preliminary NO GROWTH AFTER 48 HOURS 09/05/17 10:05 Blood Blood Culture - Preliminary NO GROWTH AFTER 48 HOURS - Constitutional no acute distress Comments: Appears better. Sitting on the bedside. Daughter at bedside. - *Routine Respiratory Exam Comments: Scattered wheezes on the right. Better air movement. - *Routine Cardiovascular Exam Present: RRR - *Routine Abdominal Exam Present: soft, normoactive bowel sounds. Absent: tenderness - *Routine Extremities Exam Present: edema (Of the left leg and the left knee.). Absent: calf tenderness - *Routine Neurological Exam Present: alert, oriented X3 Assessment and Plan (1) Hip fx Current visit: Yes Status: Acute Qualifiers: Encounter type: initial encounter Fracture type: closed Laterality: left Qualified Code(s): S72.002A - Fracture of unspecified part of neck of left femur, initial encounter for closed fracture Category: Medical Code(s): S72.009A - Fracture of unspecified part of neck of unspecified femur, initial encounter for closed fracture (2) Hypertension Current visit: Yes Status: Chronic Category: Medical Code(s): I10 - Essential (primary) hypertension (3) Hyperlipidemia Current visit: Yes Status: Chronic Category: Medical Code(s): E78.5 - Hyperlipidemia, unspecified (4) Factor 5 Leiden mutation, heterozygous Current visit: Yes Status: Chronic Category: Medical Code(s): D68.51 - Activated protein C resistance (5) Lupus anticoagulant disorder Current visit: Yes Status: Chronic Category: Medical Code(s): D68.62 - Lupus anticoagulant syndrome (6) History of DVT (deep vein thrombosis) Current visit: Yes Status: Chronic Category: Medical Code(s): Z86.718 - Personal history of other venous thrombosis and embolism (7) History of pulmonary embolism Current visit: Yes Status: Chronic Category: Medical Code(s): Z86.711 - Personal history of pulmonary embolism (8) COPD (chronic obstructive pulmonary disease) Current visit: Yes Status: Chronic Category: Medical Code(s): J44.9 - Chronic obstructive pulmonary disease, unspecified (9) GERD (gastroesophageal reflux disease) Current visit: Yes Status: Chronic Category: Medical Code(s): K21.9 - Gastro-esophageal reflux disease without esophagitis (10) Enterobacter cloacae pneumonia Current visit: Yes Status: Acute Category: Medical Code(s): J15.6 - Pneumonia due to other Gram-negative bacteria - Assessment and plan all Dx Assessment and Plan for all problems:: We will continue her with rehab. Patient and family had decided that she will extend her rehab facility. Continue with treatment for pneumonia to include pulmonary hygiene. <Jay Andrew - Last Filed: 09/08/17 09:24> Internal Medicine - PN: Subj *Date: 09/08/17 *Time: 09:22 Exam Vital signs and Labs for Last 24 Hours: Temp Pulse Resp BP Pulse Ox 98.3 F 91 H 18 140/58 96 09/08/17 07:44 09/08/17 07:44 09/08/17 07:44 09/08/17 07:44 09/08/17 07:44 Laboratory Results - last 24 hr 09/04/17 10:30: Crossmatch ([facility]) See Detail I & O for Last 24 hours: Intake & Output 09/05/17 09/06/17 09/07/17 09/08/17 11:59 11:59 11:59 11:59 Intake Total 1650 / 1650 1309 / 1309 720 / 720 1800 / 1800 Output Total 725 / 725 450 / 450 550 / 550 1550 / 1550 Balance 925 / 925 859 / 859 170 / 170 250 / 250 Weight 177 lb 2 oz Microbiology Reports for the Last 24 Hours: Microbiology 09/05/17 Unknown Sputum - Expectorated Sputum Gram Stain - Final 09/05/17 Unknown Sputum - Expectorated Sputum Sputum Culture - Final Enterobact cloac comp 09/05/17 10:05 Blood Blood Culture - Preliminary NO GROWTH AFTER 48 HOURS 09/05/17 10:05 Blood Blood Culture - Preliminary NO GROWTH AFTER 48 HOURS Assessment and Plan (1) Hip fx Current visit: Yes Status: Acute Qualifiers: Encounter type: initial encounter Fracture type: closed Laterality: left Qualified Code(s): S72.002A - Fracture of unspecified part of neck of left femur, initial encounter for closed fracture Category: Medical Code(s): S72.009A - Fracture of unspecified part of neck of unspecified femur, initial encounter for closed fracture (2) Hypertension Current visit: Yes Status: Chronic Category: Medical Code(s): I10 - Essential (primary) hypertension (3) Hyperlipidemia Current visit: Yes Status: Chronic Category: Medical Code(s): E78.5 - Hyperlipidemia, unspecified (4) Factor 5 Leiden mutation, heterozygous Current visit: Yes Status: Chronic Category: Medical Code(s): D68.51 - Activated protein C resistance (5) Lupus anticoagulant disorder Current visit: Yes Status: Chronic Category: Medical Code(s): D68.62 - Lupus anticoagulant syndrome (6) History of DVT (deep vein thrombosis) Current visit: Yes Status: Chronic Category: Medical Code(s): Z86.718 - Personal history of other venous thrombosis and embolism (7) History of pulmonary embolism Current visit: Yes Status: Chronic Category: Medical Code(s): Z86.711 - Personal history of pulmonary embolism (8) COPD (chronic obstructive pulmonary disease) Current visit: Yes Status: Chronic Category: Medical Code(s): J44.9 - Chronic obstructive pulmonary disease, unspecified (9) GERD (gastroesophageal reflux disease) Current visit: Yes Status: Chronic Category: Medical Code(s): K21.9 - Gastro-esophageal reflux disease without esophagitis (10) Enterobacter cloacae pneumonia Current visit: Yes Status: Acute Category: Medical Code(s): J15.6 - Pneumonia due to other Gram-negative bacteria - Assessment and plan all Dx Assessment and Plan for all problems:: Saw patient, agree with above note.
[2017-09-08 09:50] LABS: INR 1.02 (0.9-1.1)
--- NOTE | 2017-09-08 16:05 | Progress Note ---
Subjective Date: 09/08/17 Time: 15:30 Principal diagnosis: Fracture neck of femur, left hip Interval history: Patient is status post LEFT hip bipolar annette-arthroplasty post op day #4. Patient is lying down in bed. Says she is doing better and reports no problems. Patient has minimal pain and says it's well-controlled with medication. No history of any nausea or vomiting. Reports shortness of breath with exertion. She is mobilizing with physical therapy but is somewhat slow because of pain under chest infection. Patient says she is eating and drinking well. No history of any distal tingling or numbness. PN: Obj Ex Vital signs: Temp Pulse Resp BP Pulse Ox 97.9 F 89 20 137/47 97 09/08/17 15:45 09/08/17 15:45 09/08/17 15:45 09/08/17 15:45 09/08/17 15:45 Narrative: Laboratory Results - last 24 hr 09/08/17 09:20: PT 11.0, INR 1.02 Exam General appearance: alert, active, awake, no acute distress Cardiovascular: regular rate & rhythm, normal peripheral pulses, Respiratory: wheezes (scattered) ABD: normal exam; soft and non tender Neuro: alert, no deficit, oriented x 3 Psych: Appropriate mood and affect On examination of the lower extremities the limb lengths are equal. Thigh and calf are soft and nontender. On examination of the LEFT hip the dressings are clean, dry and intact. I have changed the dressings today and the incision is clean and healthy. No evidence of any infection or other complications noted. Distal pulses are 2+. Distal sensation is intact to light touch throughout. No motor deficits noted distally. - Urinary Catheter Management Ann Cath placed during this visit: yes Urethral indwelling: No Insertion date: 09/03/17 Insertion time: 00:59 Progress Note: A&P (1) Hip fx Status: Acute Assessment and plan: I reviewed the clinical findings and progress with the patient and family. Patient is is doing better but still somewhat slow mobilizing and physical therapy. Overall there are no problems concerning with the left hip and I have encouraged her to continue mobilization weightbearing as tolerated on the LEFT side. Continue DVT prophylaxis-patient is on long-term warfarin. Continue abduction pillow when in bed and continue standard precautions for the posterior approach hip replacement. From an orthopedic standpoint patient can be discharged when appropriate from a medical standpoint. She is likely to be discharged to the SNF tomorrow. The dressings need not be changed until she is seen in the office for follow-up. Follow-up in my office in 10-14 days time. Medical management as per Dr. Andrew. (2) Hypertension Status: Chronic (3) Hyperlipidemia Status: Chronic (4) Factor 5 Leiden mutation, heterozygous Status: Chronic (5) Lupus anticoagulant disorder Status: Chronic (6) History of DVT (deep vein thrombosis) Status: Chronic (7) History of pulmonary embolism Status: Chronic (8) COPD (chronic obstructive pulmonary disease) Status: Chronic (9) GERD (gastroesophageal reflux disease) Status: Chronic (10) Enterobacter cloacae pneumonia Status: Acute
[2017-09-09 07:17] LABS: Basophils % 0.2 % (0.1-2.0); Eosinophils # 0.6 K/mm3 (0.0-0.4); Eosinophils % 8.2 % (0.1-12.0); Hematocrit 25.6 % (37.0-47.0); Hemoglobin 8.4 g/dL (12.2-16.2); Lymphocytes # 1.4 K/mm3 (0.7-4.5); Lymphocytes % 18.7 K/mm3 (10-50); Mean Corpuscular HGB Conc 32.7 g/dL (31.8-35.4); Mean Corpuscular Hemoglobin 27.7 pg (27.0-31.2); Mean Corpuscular Volume 84.9 fl (81-99); Mean Platelet Volume 8.8 fl (7.4-10.4); Monocytes # 0.6 K/mm3 (0.1-1.0); Monocytes % 8.2 % (1.7-9.3); Neutrophils # 4.9 K/mm3 (1.8-7.8); Neutrophils % 64.7 % (37.0-80.0); Platelet Count 203 K/mm3 (142-424); Red Blood Count 3.02 M/mm3 (4.20-5.40); Red Cell Distribution Width 14.3 % (11.5-17.5); White Blood Count 7.6 K/mm3 (4.8-10.8)
[2017-09-09 07:24] LABS: INR 1.16 (0.9-1.1); Prothrombin Time 12.5 seconds (9.4-11.8)
[2017-09-09 07:26] LABS: Anion Gap 8.7 mEq/L (5-15); Potassium 3.7 mmoL/L (3.5-5.1)
--- NOTE | 2017-09-09 08:34 | Progress Note ---
<Lyly Mehta - Last Filed: 09/09/17 08:31> Internal Medicine - PN: Subj *Date: 09/09/17 *Time: 08:31 Interval history: Patient states she is feeling well this am. She states her pain is under control. She was able to work with therapy yesterday and sat in a chair for almost 3 hours. She is eating well. She states she has not had a bowel movement since her surgery. Shortness of breath is at baseline. She is still coughing. Exam Vital signs and Labs for Last 24 Hours: Temp Pulse Resp BP Pulse Ox 97.4 F L 91 H 18 130/59 94 L 09/09/17 07:38 09/09/17 07:38 09/09/17 07:38 09/09/17 07:38 09/09/17 07:38 Laboratory Results - last 24 hr 09/08/17 09:20: PT 11.0, INR 1.02 09/09/17 06:52: PT 12.5 H, INR 1.16 H 09/09/17 06:52: WBC 7.6 D, RBC 3.02 L, Hgb 8.4 L, Hct 25.6 L, MCV 84.9, MCH 27.7, MCHC 32.7, RDW 14.3, Plt Count 203, MPV 8.8, Neut % (Auto) 64.7, Lymph % ( Auto) 18.7, [place] % (Auto) 8.2, Eos % (Auto) 8.2, Baso % (Auto) 0.2, Neut # (Auto ) 4.9, Lymph # (Auto) 1.4, [place] # (Auto) 0.6, Eos # (Auto) 0.6 H, Baso # (Auto) 0.0 09/09/17 06:52: Sodium 139, Potassium 3.7, Chloride 103, Carbon Dioxide 31, Anion Gap 8.7, BUN 14, Creatinine 0.77, Estimated Creat Clear 60, Estimated GFR 73, Est GFR ( Amer) 88, Glucose 114 H I & O for Last 24 hours: Intake & Output 09/06/17 09/07/17 09/08/17 09/09/17 11:59 11:59 11:59 11:59 Intake Total 1309 / 1309 720 / 720 1800 / 1800 1090 / 1090 Output Total 450 / 450 550 / 550 1550 / 1550 250 / 250 Balance 859 / 859 170 / 170 250 / 250 840 / 840 Weight 177 lb 2 oz Microbiology Reports for the Last 24 Hours: Microbiology 09/05/17 10:05 Blood Blood Culture - Preliminary NO GROWTH AFTER 72 HOURS 09/05/17 10:05 Blood Blood Culture - Preliminary NO GROWTH AFTER 72 HOURS - Constitutional no acute distress - *Routine Respiratory Exam Present: wheezes (scattered) - *Routine Cardiovascular Exam Present: RRR - *Routine Abdominal Exam Present: soft, normoactive bowel sounds. Absent: tenderness - *Routine Extremities Exam Absent: edema Assessment and Plan (1) Hip fx Current visit: Yes Status: Acute Qualifiers: Encounter type: initial encounter Fracture type: closed Laterality: left Qualified Code(s): S72.002A - Fracture of unspecified part of neck of left femur, initial encounter for closed fracture Category: Medical Code(s): S72.009A - Fracture of unspecified part of neck of unspecified femur, initial encounter for closed fracture (2) Hypertension Current visit: Yes Status: Chronic Category: Medical Code(s): I10 - Essential (primary) hypertension (3) Hyperlipidemia Current visit: Yes Status: Chronic Category: Medical Code(s): E78.5 - Hyperlipidemia, unspecified (4) Factor 5 Leiden mutation, heterozygous Current visit: Yes Status: Chronic Category: Medical Code(s): D68.51 - Activated protein C resistance (5) Lupus anticoagulant disorder Current visit: Yes Status: Chronic Category: Medical Code(s): D68.62 - Lupus anticoagulant syndrome (6) History of DVT (deep vein thrombosis) Current visit: Yes Status: Chronic Category: Medical Code(s): Z86.718 - Personal history of other venous thrombosis and embolism (7) History of pulmonary embolism Current visit: Yes Status: Chronic Category: Medical Code(s): Z86.711 - Personal history of pulmonary embolism (8) COPD (chronic obstructive pulmonary disease) Current visit: Yes Status: Chronic Category: Medical Code(s): J44.9 - Chronic obstructive pulmonary disease, unspecified (9) GERD (gastroesophageal reflux disease) Current visit: Yes Status: Chronic Category: Medical Code(s): K21.9 - Gastro-esophageal reflux disease without esophagitis (10) Enterobacter cloacae pneumonia Current visit: Yes Status: Acute Category: Medical Code(s): J15.6 - Pneumonia due to other Gram-negative bacteria (11) Anemia Current visit: Yes Status: Acute Category: Medical Code(s): D64.9 - Anemia , unspecified - Assessment and plan all Dx Assessment and Plan for all problems:: Patient is taking MiraLAX and stool softeners for constipation. Her H&H is low today. Will discuss possible transfusion with Dr. Andrew. <Jay Andrew - Last Filed: 09/09/17 08:56> Internal Medicine - PN: Subj *Date: 09/09/17 *Time: 08:55 Exam Vital signs and Labs for Last 24 Hours: Temp Pulse Resp BP Pulse Ox 97.4 F L 91 H 18 130/59 94 L 09/09/17 07:38 09/09/17 07:38 09/09/17 07:38 09/09/17 07:38 09/09/17 07:38 Laboratory Results - last 24 hr 09/08/17 09:20: PT 11.0, INR 1.02 09/09/17 06:52: PT 12.5 H, INR 1.16 H 09/09/17 06:52: WBC 7.6 D, RBC 3.02 L, Hgb 8.4 L, Hct 25.6 L, MCV 84.9, MCH 27.7, MCHC 32.7, RDW 14.3, Plt Count 203, MPV 8.8, Neut % (Auto) 64.7, Lymph % ( Auto) 18.7, [place] % (Auto) 8.2, Eos % (Auto) 8.2, Baso % (Auto) 0.2, Neut # (Auto ) 4.9, Lymph # (Auto) 1.4, [place] # (Auto) 0.6, Eos # (Auto) 0.6 H, Baso # (Auto) 0.0 09/09/17 06:52: Sodium 139, Potassium 3.7, Chloride 103, Carbon Dioxide 31, Anion Gap 8.7, BUN 14, Creatinine 0.77, Estimated Creat Clear 60, Estimated GFR 73, Est GFR ( Amer) 88, Glucose 114 H I & O for Last 24 hours: Intake & Output 09/06/17 09/07/17 09/08/17 09/09/17 11:59 11:59 11:59 11:59 Intake Total 1309 / 1309 720 / 720 1800 / 1800 1090 / 1090 Output Total 450 / 450 550 / 550 1550 / 1550 250 / 250 Balance 859 / 859 170 / 170 250 / 250 840 / 840 Weight 177 lb 2 oz Microbiology Reports for the Last 24 Hours: Microbiology 09/05/17 10:05 Blood Blood Culture - Preliminary NO GROWTH AFTER 72 HOURS 09/05/17 10:05 Blood Blood Culture - Preliminary NO GROWTH AFTER 72 HOURS Assessment and Plan (1) Hip fx Current visit: Yes Status: Acute Qualifiers: Qualified Code(s): S72.002A - Fracture of unspecified part of neck of left femur, initial encounter for closed fracture Category: Medical Code(s): S72.009A - Fracture of unspecified part of neck of unspecified femur, initial encounter for closed fracture (2) Hypertension Current visit: Yes Status: Chronic Category: Medical Code(s): I10 - Essential (primary) hypertension (3) Hyperlipidemia Current visit: Yes Status: Chronic Category: Medical Code(s): E78.5 - Hyperlipidemia, unspecified (4) Factor 5 Leiden mutation, heterozygous Current visit: Yes Status: Chronic Category: Medical Code(s): D68.51 - Activated protein C resistance (5) Lupus anticoagulant disorder Current visit: Yes Status: Chronic Category: Medical Code(s): D68.62 - Lupus anticoagulant syndrome (6) History of DVT (deep vein thrombosis) Current visit: Yes Status: Chronic Category: Medical Code(s): Z86.718 - Personal history of other venous thrombosis and embolism (7) History of pulmonary embolism Current visit: Yes Status: Chronic Category: Medical Code(s): Z86.711 - Personal history of pulmonary embolism (8) COPD (chronic obstructive pulmonary disease) Current visit: Yes Status: Chronic Category: Medical Code(s): J44.9 - Chronic obstructive pulmonary disease, unspecified (9) GERD (gastroesophageal reflux disease) Current visit: Yes Status: Chronic Category: Medical Code(s): K21.9 - Gastro-esophageal reflux disease without esophagitis (10) Enterobacter cloacae pneumonia Current visit: Yes Status: Acute Category: Medical Code(s): J15.6 - Pneumonia due to other Gram-negative bacteria (11) Anemia Current visit: Yes Status: Acute Category: Medical Code(s): D64.9 - Anemia , unspecified - Assessment and plan all Dx Assessment and Plan for all problems:: Saw patient, plan transfusion of 1 unit of PRBC today, possible discharge later today.
--- NOTE | 2017-09-09 08:58 | Discharge Summary ---
General - General Admission date:: 09/03/17 Discharge date: 09/09/17 HPI HPI: Ms. King is a 76-year-old female patient of Dr. Liu in [place]. She has a history of DVTs and PEs. She has factor V Leiden disorder as well as lupus anticoagulant. She also has hyperlipidemia, COPD, and a history of uterine cancer that required a hysterectomy. States she was at home yesterday and tripped over her 's walker falling on her left side. The pain was unbearable and EMS was called to transport her to the hospital. She was evaluated in the ER and found to have a left hip fracture. She was admitted and that was consulted. Hospital Course Hospital Course: She was started on pain medication, IV fluids, and her leg was placed in Lai's traction. She had a CXR showing possible pneumonia, therefore she was started on abx. She was seen by orthopedics and surgery was delayed due to her INR level. She was given a dose of vitamin K and her hip fracture was repaired on . She tolerated this well. Her sputum came back positive for enterobacter. She was continued on abx. She was seen by PT and did well working with them. Her pain medication was changed to oxycodone by mouth. She will need to be continued on lovenox until her INR is therapeutic. Her H&H was low, therefore she was transfused with 1 unit of blood and it improved. She did experience constipation and was started on protonix, miralax, and stool softners. A bed was found for her at [facility] for rehab. Ortho felt she could be discharged and will need to continue physical therapy and mobilization weightbearing as tolerated with a walker. She will need to use the abduction pillow when in bed and continue using this for [address] Watts felt she could be transferred to a SNF and will need to follow-up in his office in 2 weeks' time. Objective Vital signs: Temp Pulse Resp BP Pulse Ox 97.4 F L 91 H 18 130/59 94 L 09/09/17 07:38 09/09/17 07:38 09/09/17 07:38 09/09/17 07:38 09/09/17 07:38 Narrative: - Constitutional no acute distress (drowsy from pain medication) - *Routine HEENT Exam Head: Present: normocephalic, atraumatic Eye: Present: EOMI, PERRL ENT: Present: mucous membranes dry - *Routine Neck Exam Present: supple, full ROM. Absent: carotid bruit - *Routine Respiratory Exam Present: decreased breath sounds - *Routine Cardiovascular Exam Present: RRR - *Routine Abdominal Exam Present: soft, normoactive bowel sounds. Absent: tenderness - *Routine Extremities Exam Absent: edema Comments: entire left upper leg ttp, patient cannot move leg - *Routine Skin Exam Absent: rash - *Routine Neurological Exam Present: alert, oriented X3 Results Labs on day of discharge: Labs from last 24 hours 09/09/17 09/09/17 09/09/17 06:52 06:52 06:52 WBC 7.6 D RBC 3.02 L Hgb 8.4 L Hct 25.6 L MCV 84.9 MCH 27.7 MCHC 32.7 RDW 14.3 Plt Count 203 MPV 8.8 Neut % (Auto) 64.7 Lymph % (Auto) 18.7 [place] % (Auto) 8.2 Eos % (Auto) 8.2 Baso % (Auto) 0.2 Neut # (Auto) 4.9 Lymph # (Auto) 1.4 [place] # (Auto) 0.6 Eos # (Auto) 0.6 H Baso # (Auto) 0.0 PT 12.5 H INR 1.16 H Sodium 139 Potassium 3.7 Chloride 103 Carbon Dioxide 31 Anion Gap 8.7 BUN 14 Creatinine 0.77 Estimated Creat Clear 60 Estimated GFR 73 Est GFR ( Amer) 88 Glucose 114 H 09/08/17 09:20 WBC RBC Hgb Hct MCV MCH MCHC RDW Plt Count MPV Neut % (Auto) Lymph % (Auto) [place] % (Auto) Eos % (Auto) Baso % (Auto) Neut # (Auto) Lymph # (Auto) [place] # (Auto) Eos # (Auto) Baso # (Auto) PT 11.0 INR 1.02 Sodium Potassium Chloride Carbon Dioxide Anion Gap BUN Creatinine Estimated Creat Clear Estimated GFR Est GFR ( Amer) Glucose Preliminary micro results at discharge 09/05/17 10:05 Blood Culture - Preliminary Blood NO GROWTH AFTER 72 HOURS 09/05/17 10:05 Blood Culture - Preliminary Blood NO GROWTH AFTER 72 HOURS DS: Diagnosis - Discharge Diagnosis (1) Hip fx Status: Acute (2) Hypertension Status: Chronic (3) Hyperlipidemia Status: Chronic (4) Factor 5 Leiden mutation, heterozygous Status: Chronic (5) Lupus anticoagulant disorder Status: Chronic (6) History of DVT (deep vein thrombosis) Status: Chronic (7) History of pulmonary embolism Status: Chronic (8) COPD (chronic obstructive pulmonary disease) Status: Chronic (9) GERD (gastroesophageal reflux disease) Status: Chronic (10) Enterobacter cloacae pneumonia Status: Acute (11) Anemia Status: Acute Discharge Plan - Patient Discharge Instructions Additional Instructions: Check CBC and PT/INR in 5 days (on 09/14/17) Patient Instructions: Pneumonia-Adult, High Triglycerides, Chronic Obstructive Pulmonary Disease, High Blood Pressure, DI for Hip Fracture, Surgical Site Infection, Warfarin, Coumadin Vitamin K/ Diet, Coumadin Therapy Booklet - Follow up Plan Disposition: [facility] Home Medications: Home Medications Medication Instructions Recorded Confirmed Type ALPRAZolam [Xanax 0.5mg tab] 0.5 mg PO BIDP PRN 09/03/17 09/03/17 History Fenofibrate Nanocrystallized 145 mg PO DAILY 09/03/17 09/03/17 History [Fenofibrate] Triamterene/Hydrochlorothiazid 0.5 tab PO DAILY 09/03/17 09/03/17 History [Maxzide-25 tablet] Warfarin Sodium 3 mg PO MOTUWETHFR 09/03/17 09/03/17 History Warfarin Sodium 4 mg PO SUSA 09/03/17 09/03/17 History Prescriptions/Medication Reconciliation: New Acetaminophen [Acetaminophen 325mg tab] 650 mg PO Q6HP PRN tablet PRN Reason: Mild To Moderate Pain Albuterol Sulfate [Albuterol 0.083% 2.5mg/3mL neb] 2.5 mg IH Q4HP PRN vial.neb PRN Reason: SOA Docusate Sodium [Docusate Sodium 100mg Cap] 100 mg PO BIDP PRN capsule PRN Reason: Constipation Guaifenesin/Dextromethorphan [Robitussin DM 200mg/20mg 10mL Udc] 10 ml PO Q4HP PRN udc PRN Reason: Cough Nicotine [Nicoderm 21mg/24hr patch] 21 mg TD DAILY patch.td24 Oxycodone HCl [OxyIR 5mg tablet] 5 mg PO Q4HP PRN tablet PRN Reason: Moderate Pain Pantoprazole Sodium [Protonix 40mg tablet] 40 mg PO BID tablet. Polyethylene Glycol 3350 [Miralax 17gm Packet] 17 gm PO DAILY powd.pack Azithromycin [Zithromax 250mg tab] 500 mg PO DAILY 3 Days #3 tablet Cefdinir [Omnicef 300mg Capsule] 300 mg PO BID 7 Days #14 capsule Enoxaparin Sodium [Lovenox 80mg/0.8mL syringe] 80 mg SQ Q12 syringe Continue Triamterene/Hydrochlorothiazid [Maxzide-25 tablet] 0.5 tab PO DAILY Fenofibrate Nanocrystallized [Fenofibrate] 145 mg PO DAILY ALPRAZolam [Xanax 0.5mg tab] 0.5 mg PO BIDP PRN PRN Reason: Anxiety Changed Warfarin Sodium 5 mg PO SUSA 30 Days tablet Discontinued Warfarin Sodium 3 mg PO SHOLAFR
--- NOTE | 2017-09-09 09:10 | Progress Note ---
Subjective Date: 09/09/17 Time: 09:00 Principal diagnosis: Fracture neck of femur, left hip Interval history: Patient is status post LEFT hip bipolar annette-arthroplasty post op day #5. Patient is lying down in bed. Says is doing well and reports no problems. Patient has minimal pain and says it's well-controlled with medication. No history of any nausea or vomiting. Patient says she is eating and drinking well. No history of any distal tingling or numbness. She was due to be discharged to a alf facility today but this may be delayed as she is getting blood transfusion for low H&H today (8.4/25.6). PN: Obj Ex Vital signs: Temp Pulse Resp BP Pulse Ox 97.4 F L 91 H 18 130/59 94 L 09/09/17 07:38 09/09/17 07:38 09/09/17 07:38 09/09/17 07:38 09/09/17 07:38 Narrative: Laboratory Results - last 24 hr 09/08/17 09:20: PT 11.0, INR 1.02 09/09/17 06:52: PT 12.5 H, INR 1.16 H 09/09/17 06:52: WBC 7.6 D, RBC 3.02 L, Hgb 8.4 L, Hct 25.6 L, MCV 84.9, MCH 27.7, MCHC 32.7, RDW 14.3, Plt Count 203, MPV 8.8, Neut % (Auto) 64.7, Lymph % ( Auto) 18.7, [place] % (Auto) 8.2, Eos % (Auto) 8.2, Baso % (Auto) 0.2, Neut # (Auto ) 4.9, Lymph # (Auto) 1.4, [place] # (Auto) 0.6, Eos # (Auto) 0.6 H, Baso # (Auto) 0.0 09/09/17 06:52: Sodium 139, Potassium 3.7, Chloride 103, Carbon Dioxide 31, Anion Gap 8.7, BUN 14, Creatinine 0.77, Estimated Creat Clear 60, Estimated GFR 73, Est GFR ( Amer) 88, Glucose 114 H Exam General appearance: alert, active, awake, no acute distress Cardiovascular: regular rate & rhythm, normal peripheral pulses, Respiratory: wheezes (scattered) ABD: normal exam; soft and non tender Neuro: alert, 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 Thigh and calf are soft and nontender. On examination of the LEFT hip the dressings are clean, dry and intact. No evidence of any infection or other complications noted. Distal pulses are 2+. Distal sensation is intact to light touch throughout. No motor deficits noted distally. - Urinary Catheter Management Ann Cath placed during this visit: yes Urethral indwelling: No Insertion date: 09/03/17 Insertion time: 00:59 Progress Note: A&P (1) Hip fx Status: Acute Assessment and plan: Post op patient plan: I reviewed the clinical findings and progress with the patient and family. Patient is somewhat slow mobilizing and her chest infection did not help in this regard. Overall there are no problems concerning with the left hip and encouraged her to continue mobilization weightbearing as tolerated on the LEFT side. Continue DVT prophylaxis-patient is on long-term warfarin. Continue abduction pillow when in bed and continue standard precautions for the posterior approach hip replacement. From an orthopedic standpoint patient can be discharged whenever appropriate from a medical standpoint. The dressings need not be changed until she is seen in the office for follow-up. Follow-up in my office in 10-14 days time. Medical management as per Dr. Andrew. Current Visit: Yes (2) Hypertension Status: Chronic Current Visit: Yes (3) Hyperlipidemia Status: Chronic Current Visit: Yes (4) Factor 5 Leiden mutation, heterozygous Status: Chronic Current Visit: Yes (5) Lupus anticoagulant disorder Status: Chronic Current Visit: Yes (6) History of DVT (deep vein thrombosis) Status: Chronic Current Visit: Yes (7) History of pulmonary embolism Status: Chronic Current Visit: Yes (8) COPD (chronic obstructive pulmonary disease) Status: Chronic Current Visit: Yes (9) GERD (gastroesophageal reflux disease) Status: Chronic Current Visit: Yes (10) Enterobacter cloacae pneumonia Status: Acute Current Visit: Yes (11) Anemia Status: Acute Current Visit: Yes
[2017-09-09 15:23] LABS: Hematocrit 29.8 % (37.0-47.0)
[2017-09-09 15:30] LABS: Hemoglobin 9.8 g/dL (12.2-16.2)
== END 2017-09-09 18:17 ==
LOC: ER 00:28 → 2ND 00:28 → OBSVTOIN 03:15 → 2ND 03:16
PROVIDERS: ADMIT Family Medicine; ATTEND Family Medicine

== ENCOUNTER → 2017-10-16 10:42 | Outpatient (CLI) | payer MEDICARE, SELFPAY ==
--- NOTE | 2017-10-16 10:45 | XR_ITS ---
XR hip LT 2-3V w/pelvis HISTORY: Follow-up surgery ITS.REASON: s/p LT bipolar hemiarthroplasty dos09/03/17 ORDERING PHYSICIAN: Real Watts MD PATIENT AGE: 76 years COMPARISON: 09/04/2017 FINDINGS: Bipolar prosthesis remains present on the left position. No evidence of orthopedic complications. IMPRESSION: No change status post left hemiarthroplasty
== END ==
PROVIDERS: PCP Internal Medicine; Visit Provider Orthopaedic Surgery
DX: Z09 Encounter for follow-up examination after completed treatment for conditions other than malignant neoplasm (principal); Z96.642 Presence of left artificial hip joint
CPT/HCPCS: 73502

== ENCOUNTER → 2017-12-23 13:07 | Outpatient (CLI) | payer MEDICARE, SELFPAY ==
--- NOTE | 2017-12-23 13:11 | XR_ITS ---
XR hip LT 2-3V w/pelvis HISTORY: Follow-up surgery ITS.REASON: sp left hemiarthroplasty sx 09/03/17 ORDERING PHYSICIAN: Real Watts MD PATIENT AGE: 77 years COMPARISON: 10/16/2017 FINDINGS: Status post left hip hemiarthroplasty with good alignment. No evidence of orthopedic complication. IMPRESSION: No change status post left hip hemiarthroplasty
[2017-12-23 15:25] LABS: Basophils # 0.1 K/mm3 (0-0.2); Basophils % 0.8 % (0.1-2.0); Eosinophils # 0.4 K/mm3 (0.0-0.4); Eosinophils % 5.9 % (0.1-12.0); Hematocrit 42.1 % (37.0-47.0); Hemoglobin 13.5 g/dL (12.2-16.2); Lymphocytes # 2.1 K/mm3 (0.7-4.5); Lymphocytes % 28.1 K/mm3 (10-50); Mean Corpuscular HGB Conc 32.1 g/dL (31.8-35.4); Mean Corpuscular Volume 84.3 fl (81-99); Mean Platelet Volume 7.7 fl (7.4-10.4); Monocytes # 0.4 K/mm3 (0.1-1.0); Monocytes % 5.9 % (1.7-9.3); Neutrophils # 4.3 K/mm3 (1.8-7.8); Neutrophils % 59.3 % (37.0-80.0); Platelet Count 261 K/mm3 (142-424); Red Blood Count 4.99 M/mm3 (4.20-5.40); Red Cell Distribution Width 15.2 % (11.5-17.5); White Blood Count 7.3 K/mm3 (4.8-10.8)
[2017-12-23 16:26] LABS: Erythrocyte Sedimentation Rate 34 mm/hr (0-30)
[2017-12-23 16:49] LABS: C-Reactive Protein 0.9 mg/L (0.0-0.9)
== END ==
PROVIDERS: PCP Internal Medicine; Visit Provider Orthopaedic Surgery
DX: Z96.642 Presence of left artificial hip joint (principal)
CPT/HCPCS: 36415; 73502; 85025; 85651; 86140

== ENCOUNTER → 2017-12-23 15:10 | Outpatient (CLI) | payer MEDICARE, SELFPAY | PROVIDERS: PCP Internal Medicine; Visit Provider Orthopaedic Surgery | DX: Z96.642 Presence of left artificial hip joint (principal); B99.9 Unspecified infectious disease | CPT/HCPCS: 36415; 73502; 85025; 85651; 86140 ==

== ENCOUNTER → 2018-02-04 13:26 | Outpatient (CLI) | payer MEDICARE, SELFPAY ==
--- NOTE | 2018-02-04 13:30 | XR_ITS ---
XR hip LT 2-3V w/pelvis HISTORY: Follow-up hip replacement ITS.REASON: sp left hemiarthroplasty sx 09/03/17 ORDERING PHYSICIAN: Real Watts MD PATIENT AGE: 77 years COMPARISON: 12/23/2017 FINDINGS: Status post left hip hemiarthroplasty with bipolar prosthesis present in good alignment. No fracture or dislocation. IMPRESSION: Status post left hemiarthroplasty of the hip with no acute finding
== END ==
PROVIDERS: PCP Internal Medicine; Visit Provider Orthopaedic Surgery
DX: Z09 Encounter for follow-up examination after completed treatment for conditions other than malignant neoplasm (principal); Z96.642 Presence of left artificial hip joint
CPT/HCPCS: 73502

== ENCOUNTER 2018-02-04 15:00 | Outpatient (RCR) | payer MEDICARE, SELFPAY | END 2018-02-04 15:01 | disposition home or self-care (01) | LOC: PT 15:00 | PROVIDERS: Visit Provider Orthopaedic Surgery | DX: M25.552 Pain in left hip (principal) | CPT/HCPCS: 97014; 97110; 97140; 97163; G0283 ==

== ENCOUNTER → 2018-02-15 12:30 | Outpatient (CLI) | payer MEDICARE, SELFPAY ==
[2018-02-15 12:58] LABS: Basophils # 0.1 K/mm3 (0-0.2); Basophils % 0.7 % (0.1-2.0); Eosinophils # 0.3 K/mm3 (0.0-0.4); Eosinophils % 4.8 % (0.1-12.0); Hematocrit 41.5 % (37.0-47.0); Hemoglobin 13.3 g/dL (12.2-16.2); Lymphocytes # 1.8 K/mm3 (0.7-4.5); Lymphocytes % 25.3 K/mm3 (10-50); Mean Corpuscular HGB Conc 32.1 g/dL (31.8-35.4); Mean Corpuscular Hemoglobin 27.1 pg (27.0-31.2); Mean Corpuscular Volume 84.4 fl (81-99); Mean Platelet Volume 8.2 fl (7.4-10.4); Monocytes # 0.4 K/mm3 (0.1-1.0); Monocytes % 5.9 % (1.7-9.3); Neutrophils # 4.5 K/mm3 (1.8-7.8); Neutrophils % 63.3 % (37.0-80.0); Platelet Count 235 K/mm3 (142-424); Red Blood Count 4.91 M/mm3 (4.20-5.40); Red Cell Distribution Width 14.8 % (11.5-17.5); White Blood Count 7.1 K/mm3 (4.8-10.8)
[2018-02-15 14:12] LABS: C-Reactive Protein 1.1 mg/L (0.0-0.9)
[2018-02-15 15:10] LABS: Erythrocyte Sedimentation Rate 39 mm/hr (0-30)
== END ==
PROVIDERS: PCP Internal Medicine; Visit Provider Orthopaedic Surgery
DX: B99.9 Unspecified infectious disease (principal); Z96.642 Presence of left artificial hip joint
CPT/HCPCS: 36415; 85025; 85651; 86140

== ENCOUNTER → 2018-02-16 12:04 | Outpatient (CLI) | payer MEDICARE, SELFPAY ==
--- NOTE | 2018-02-16 13:07 | FL_ITS ---
FL guided aspiration joint CLINICAL INDICATION: Persistent left hip pain following hip replacement There is a clinical concern for possible infection versus the possibility of needing a total hip replacement ORDERING PHYSICIAN: Real Watts MD PATIENT AGE: 77 years Comparison: None TECHNIQUE: Following obtaining informed consent under aseptic conditions and local anesthesia with 1% buffered lidocaine, a 20-gauge spinal needle was inserted under fluoroscopy and directed to the neck portion of the femoral prosthesis. Aspiration was attempted with no fluid able to be aspirated. Approximately 5 cc of Isovue-300 was injected to ensure intracapsular location which was confirmed. Once again aspiration was attempted. Approximately 5 cc of normal saline was then instilled and aspiration performed with only and minimal amount of aspirate able to be obtained. Clear. This was sent for culture and sensitivity. Following this 7 cc of Bupivacaine was injected to see if the patient gained relief from the injection in order to determine and is coming from the hip joint. Patient tolerated the procedure well without evidence of immediate complication. IMPRESSION: Uneventful left hip attempted aspiration with anesthetic injection
== END ==
PROVIDERS: PCP Internal Medicine; Visit Provider Orthopaedic Surgery
DX: Z96.642 Presence of left artificial hip joint (principal); M25.552 Pain in left hip
CPT/HCPCS: 10022; 77002; 87070; 87205; Q9967

== ENCOUNTER → 2018-03-04 09:31 | Outpatient (CLI) | payer MEDICARE, SELFPAY ==
[2018-03-04 09:53] LABS: Basophils # 0.1 K/mm3 (0-0.2); Basophils % 1.1 % (0.1-2.0); Eosinophils # 0.4 K/mm3 (0.0-0.4); Eosinophils % 7.3 % (0.1-12.0); Hematocrit 40.2 % (37.0-47.0); Hemoglobin 13.1 g/dL (12.2-16.2); Lymphocytes # 2.1 K/mm3 (0.7-4.5); Lymphocytes % 34.5 K/mm3 (10-50); Mean Corpuscular HGB Conc 32.7 g/dL (31.8-35.4); Mean Corpuscular Hemoglobin 27.5 pg (27.0-31.2); Mean Corpuscular Volume 84.1 fl (81-99); Mean Platelet Volume 8.3 fl (7.4-10.4); Monocytes # 0.4 K/mm3 (0.1-1.0); Monocytes % 5.7 % (1.7-9.3); Neutrophils # 3.1 K/mm3 (1.8-7.8); Neutrophils % 51.4 % (37.0-80.0); Platelet Count 258 K/mm3 (142-424); Red Blood Count 4.78 M/mm3 (4.20-5.40); Red Cell Distribution Width 14.8 % (11.5-17.5); White Blood Count 6.1 K/mm3 (4.8-10.8)
[2018-03-04 10:47] LABS: C-Reactive Protein 0.7 mg/L (0.0-0.9)
[2018-03-04 11:19] LABS: Erythrocyte Sedimentation Rate 30 mm/hr (0-30)
== END ==
PROVIDERS: Visit Provider Orthopaedic Surgery
DX: B99.9 Unspecified infectious disease (principal)
CPT/HCPCS: 36415; 85025; 85651; 86140

== ENCOUNTER → 2018-06-11 10:06 | Outpatient (CLI) | payer MEDICARE, SELFPAY ==
--- NOTE | 2018-06-11 10:12 | XR_ITS ---
XR hip LT 2-3V w/pelvis HISTORY: Follow-up of replacement Of the hip ITS.REASON: s/p LT bipolar hemiarthroplasty dos09/03/17 ORDERING PHYSICIAN: Real Watts MD PATIENT AGE: 77 years COMPARISON: 02/04/2018 FINDINGS: Status post left hemiarthroplasty of the hip with good alignment and no evidence of orthopedic complications. There does appear to be some minimal calcification of the soft tissues adjacent to the greater trochanter. IMPRESSION: Good alignment status post left hemiarthroplasty of the hip
== END ==
PROVIDERS: PCP Internal Medicine; Visit Provider Orthopaedic Surgery
DX: Z09 Encounter for follow-up examination after completed treatment for conditions other than malignant neoplasm (principal); Z96.642 Presence of left artificial hip joint
CPT/HCPCS: 73502

== ENCOUNTER 2018-06-30 13:00 | Outpatient (RCR) | payer MEDICARE, SELFPAY ==
--- NOTE | 2018-06-28 16:24 | HMH.PTOPEV ---
PT Outpatient Evaluation Rehab PT Outpatient Evaluation Start: 06/28/18 15:06 Freq: Status: Active Protocol: Document 06/28/18 16:05 VALORIE (Rec: 06/28/18 16:23 PHORTOMMY [id number]) Electronically Signed By Lee Fajardo, PT 06/28/18 16:05 Outpatient Therapy Subjective History Subjective History Pt is a 77 yowf with complaints of left knee pain. Pt had a left hip surgery last September and states that her left leg is shorter than the right. The left leg is 86 cm and the right leg is 87 cm. Pt reports having pain in the left hip that is 2/10 at the moment, 9/10 at worst, and 1/ 10 at best. Pt describes pain as ache, throbbing, numb and tingling. Pt reports pain is aggravated by sleeping on left side, left side bending, or sitting on a hard seat. Pt reports that rest and heat help that pain. Pt reports mild sensation deficits in the LLE. Pt has a history of COPD , DVT, PE, and cancer of the uterus. Pt states having swelling in the B lower abdomen. Chief Complaint Pain Swelling Weakness Symptom Type Ache Throb Numbness Tingling Symptoms Relieved By Rest/Positioning Heat Symptoms Aggravated By Sitting Standing Bending/Stooping Physical Activity Walking Lifting Prior Functional Limitations None Current Functional Limitations Lifting Driving Sleeping Standing Sitting Squatting Walking Stairs Balance Symptom Description Constant but Variable Level of pain today (0-10) 2 Pain scale - at its best (0-10) 1 Pain scale
== END 2018-06-30 13:05 | disposition home or self-care (01) ==
LOC: PT 13:00
PROVIDERS: Visit Provider Orthopaedic Surgery
DX: M70.61 Trochanteric bursitis, right hip (principal); M70.62 Trochanteric bursitis, left hip; Z96.642 Presence of left artificial hip joint
CPT/HCPCS: 97010; 97110; 97163

== ENCOUNTER 2019-10-14 21:53 | Emergency (ER) | payer MEDICARE, SELFPAY ==
[2019-10-14 21:54] VITALS: BP 141/53; PULSE 74; RESP 16; TEMP 37.2; O2SAT 95; BMI 28.3
--- NOTE | 2019-10-14 22:08 | HMH.EDGENADL ---
ED Disposition Clinical Impression: Parotitis Disposition: Home, Self-Care Condition on Discharge: Good Instructions: DI for Parotitis-Adult Additional Instructions: Use Percocet for pain and Zofran for nausea. Continue clindamycin. Warm compresses. Follow-up with your primary care provider or ENT doctor in [place], call Thursday. Return if severe pain, fever greater than 101 degrees, unable to swallow or if difficulty breathing. Referrals: Jarett Liu [Primary Care Provider] - - Critical Care Critical Care Time: No Attestation: On 10/14/19, the high probability of a clinically significant, sudden or life threatening deterioration of the following system(s) required my full and direct attention, intervention and personal management. The time I documented below is in addition to time spent performing reported procedures but includes the following listed in this critical care notation. Medical Decision Making - Medical Records Medical records reviewed: Yes: I reviewed the patient's medical records. - Gualberto Inquiry Pt receiving controlled substance: Yes Gualberto was queried for this patient: No Reason not queried -: Emergent pt cond-no time Risks and benefits of using a controlled substance: were not discussed with pt by me Vital Signs: 10/14/19 21:54 10/14/19 22:54 10/14/19 23:54 Temperature 99.0 F Temperature Source Oral Pulse Rate Pulse Rate [Left Radial] 74 75 81 Respiratory Rate 16 16 16 Blood Pressure Blood Pressure [Right Arm] 141/53 H 144/65 H 138/63 Blood Pressure Mean [Right Arm] 82 91 88 Blood Pressure Source Blood Pressure Source [Right Arm] Automatic Cuff Automatic Cuff Blood Pressure Position Blood Pressure Position [Right Arm] Sitting 02 Sat by Pulse Oximetry 95 95 94 L Oxygen Delivery Method Room Air Room Air Room Air 10/15/19 00:47 10/15/19 01:05 10/15/19 01:51 Temperature Temperature Source Pulse Rate Pulse Rate [Left Radial] 78 63 63 Respiratory Rate 17 18 Blood Pressure Blood Pressure [Right Arm] 130/65 141/69 H Blood Pressure Mean [Right Arm] 86 93 Blood Pressure Source Blood Pressure Source [Right Arm] Automatic Cuff Automatic Cuff Blood Pressure Position Blood Pressure Position [Right Arm] Sitting Sitting 02 Sat by Pulse Oximetry 93 L 93 L 95 Oxygen Delivery Method Room Air Room Air Room Air 10/15/19 02:33 Temperature 98.7 F Temperature Source Oral Pulse Rate 62 Pulse Rate [Left Radial] Respiratory Rate 16 Blood Pressure 125/64 Blood Pressure [Right Arm] Blood Pressure Mean [Right Arm] Blood Pressure Source Automatic Cuff Blood Pressure Source [Right Arm] Blood Pressure Position Sitting Blood Pressure Position [Right Arm] 02 Sat by Pulse Oximetry Oxygen Delivery Method Room Air - Lab Data Lab results reviewed: Yes: I reviewed the patient's lab results. Lab Results 10/14/19 22:38: WBC 9.7, RBC 5.18, Hgb 15.3, Hct 44.9, MCV 86.8, MCH 29.5, MCHC 34.0, RDW 14.8, Plt Count 205, MPV 8.0, Neut % (Auto) 68.0, Lymph % (Auto) 21.2, [place] % (Auto) 6.4, Eos % (Auto) 3.6, Baso % (Auto) 0.7, Neut # (Auto) 6.6, Lymph # (Auto) 2.0, [place] # (Auto) 0.6, Eos # (Auto) 0.4, Baso # (Auto) 0.1 10/14/19 22:38: Sodium 138, Potassium 3.7, Chloride 96 L, Carbon Dioxide 33 H, Anion Gap 12.7, BUN 19 H, Creatinine 1.10 H, Estimated Creat Clear 48, Estimated GFR 48 L, Est GFR ( Amer) 58 L, Glucose 152 H, Calcium 10.1 10/14/19 22:38: Lactate 1.1 10/14/19 22:38: PT 16.4 H, INR 1.64 H Result diagrams: 10/14/19 22:38 10/14/19 22:38 Orders (Tests/Meds): ED MEDICATIONS Discontinued Medications Generic Name Dose Route Start Last Admin Trade Name Freq PRN Reason Stop Dose Admin Butorphanol Tartrate 0.5 mg 10/14/19 22:20 10/14/19 23:03 Stadol 1mg/1ml Vial IV 10/14/19 22:21 0.5 mg ONCE ONE Administration Ioversol 75 ml 10/15/19 02:29 10/15/19 02:29 Rad-Optiray 350 100ml Vial IV 10/15/19 02:30 75 ml ON
--- NOTE | 2019-10-14 22:15 | CT_ITS ---
PROCEDURE: CT SOFT TISSUE NECK W CON CLINICAL HISTORY: pain and swelling left jaw and neck, recent tooth extraction COMPARISON: CT FACIAL BONES W CON from 10/14/2019 TECHNIQUE: IV Contrast: 75 mL Optiray 350 Axial images obtained with sagittal and coronal reformats. All CT scans at the facility use one or more dose reduction, viz: automated exposure control, ma/kV adjustment per patient size (including targeted exams where dose is matched to indication, i.e. head), or iterative reconstruction technique. FINDINGS: There is a right maxillary mucous retention cyst with minimal mucosal thickening of the ethmoid sinuses. There is heterogeneous enlargement of the left parotid gland with some heterogeneous enhancement. There are mildly prominent cervical lymph nodes measuring up to 2.3 x 1.3 cm level 2 B on the left. Increased soft tissue density is present in the left piriform sinus with obliteration of the piriform sinus on the left possibly due to nondistention. Direct visualization may confirm. Scattered small thyroid nodules are present measuring up to 9 mm in the lower pole on the left. No obvious abscess. Has been prior anterior cervical disc fusion at C6-C7. IMPRESSION: 1. Diffuse swelling of the left parotid gland with heterogeneous enhancement compatible with sialadinitis/parotiditis 2. Mild cervical adenopathy on the left. 3. 9 mm hypodense left thyroid nodule Dictated by: Sergio Nunn MD 10/15/2019 07:02 Electronically signed by Sergio Nunn MD in [place] 10/15/2019 07:02
--- NOTE | 2019-10-14 22:15 | CT_ITS ---
PROCEDURE: CT FACIAL BONES W CON CLINICAL HISTORY: pain and swelling left jaw and neck Facial pain and swelling on the left, recent tooth extraction COMPARISON: CT SOFT TISSUE NECK W CON from 10/14/2019 TECHNIQUE: 75 mL Optiray 350 IV Axial images obtained with sagittal and coronal reformats. All CT scans at the facility use one or more dose reduction, viz: automated exposure control, ma/kV adjustment per patient size (including targeted exams where dose is matched to indication, i.e. head), or iterative reconstruction technique. FINDINGS: No air-fluid levels. Mild mucosal thickening involves the ethmoid sinuses. There is a 2 cm retention cyst in the right maxillary sinus. There is minimal rightward nasal septal deviation. 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 The patient is edentulous. Postsurgical changes from tooth extraction in the mandibular area. No obvious fracture of the mandible. Please see neck CT description for soft tissue description IMPRESSION: 1. No evidence of acute sinusitis. 2. Mild nonspecific mucosal thickening of the ethmoid sinuses. 3. 2 cm right maxillary retention cyst 4. Changes from recent tooth extraction Dictated by: Sergio Nunn MD 10/15/2019 06:53 Electronically signed by Sergio Nunn MD in [place] 10/15/2019 06:53
[2019-10-14 22:49] LABS: Basophils # 0.1 K/mm3 (0-0.2); Basophils % 0.7 % (0.1-2.0); Eosinophils # 0.4 K/mm3 (0.0-0.4); Eosinophils % 3.6 % (0.1-12.0); Hematocrit 44.9 % (37.0-47.0); Hemoglobin 15.3 g/dL (12.2-16.2); Lymphocytes % 21.2 % (10-50); Mean Corpuscular Hemoglobin 29.5 pg (27.0-31.2); Mean Corpuscular Volume 86.8 fl (81-99); Monocytes # 0.6 K/mm3 (0.1-1.0); Monocytes % 6.4 % (1.7-9.3); Neutrophils # 6.6 K/mm3 (1.8-7.8); Platelet Count 205 K/mm3 (142-424); Red Blood Count 5.18 M/mm3 (4.20-5.40); Red Cell Distribution Width 14.8 % (11.5-17.5); White Blood Count 9.7 K/mm3 (4.8-10.8)
[2019-10-14 22:54] VITALS: BP 144/65; PULSE 75; RESP 16; O2SAT 95
[2019-10-14 22:59] LABS: Anion Gap 12.7 mEq/L (5-15); Blood Urea Nitrogen 19 mg/dl (7-17); Calcium 10.1 mg/dl (8.4-10.2); Carbon Dioxide 33 mmol/L (22.0-30.0); Chloride 96 mmol/L (98-107); Creatinine Clearance Estimated 48 mL/min (50-200); Estimated Glomerular Filt Rate 48 ml/min (>60); GFR (African American) 58 ML/MIN (>60); Glucose 152 mg/dl (74-100); Potassium 3.7 mmoL/L (3.5-5.1); Sodium 138 mmol/L (136-145)
[2019-10-14 23:01] LABS: INR 1.64 (0.9-1.1); Prothrombin Time 16.4 seconds (9.4-11.8)
[2019-10-14 23:05] LABS: Lactic Acid 1.1 mmol/L (0.7-2.1)
[2019-10-14 23:54] VITALS: BP 138/63; PULSE 81; RESP 16; O2SAT 94
--- NOTE | 2019-10-15 00:45 | PC.NURSE ---
Called pts in [place]. Dr Liu
[2019-10-15 00:47] VITALS: BP 130/65; PULSE 78; RESP 17; O2SAT 93
[2019-10-15 01:05] VITALS: PULSE 63; O2SAT 93
[2019-10-15 01:51] VITALS: BP 141/69; PULSE 63; RESP 18; O2SAT 95
--- NOTE | 2019-10-15 02:13 | PC.NURSE ---
Called patients , left message for sales and leasing consultant x3 with no return phone call.
[2019-10-15 02:33] VITALS: BP 125/64; PULSE 62; RESP 16; TEMP 37.1; O2SAT 94
--- NOTE | 2019-10-15 08:09 | PC.NURSE ---
Dr Navarrete (chief radiation therapist for Dr Liu) called back and spoke to Dr Weller regarding pt
== END 2019-10-15 02:34 | disposition home or self-care (01) ==
PROVIDERS: Emergency Provider Emergency Medicine; PCP Internal Medicine
DX: K11.20 Sialoadenitis, unspecified (principal); J44.9 Chronic obstructive pulmonary disease, unspecified; E78.5 Hyperlipidemia, unspecified; I10 Essential (primary) hypertension; F17.210 Nicotine dependence, cigarettes, uncomplicated; Z96.642 Presence of left artificial hip joint; Z90.79 Acquired absence of other genital organ(s)
CPT/HCPCS: 70487; 70491; 80048; 83605; 85025; 85610; 87040; 96374; 96375; 99284; J0595; J2405; Q9967

== ENCOUNTER 2019-12-15 21:53 | Emergency (ER) | payer MEDICARE, SELFPAY ==
[2019-12-15 21:55] VITALS: BP 170/70; PULSE 82; RESP 16; TEMP 37; O2SAT 97; BMI 27.4
[2019-12-15 22:00] VITALS: BP 112/79; PULSE 88; RESP 18; O2SAT 94
[2019-12-15 22:30] VITALS: BP 148/64; PULSE 76; RESP 18; O2SAT 98
--- NOTE | 2019-12-15 22:38 | CT_ITS ---
PROCEDURE: CT ABDOMEN PELVIS W CON CLINICAL INDICATION: pelvic pain Recent injury with pain COMPARISON: CT ABDPELW CT abdomen pelvis w con from 06/29/2018 TECHNIQUE: IV Contrast: 75ML OPTIRAY 350 Oral Contrast None Axial images obtained with sagittal and coronal reformats. All CT scans at the facility use one or more dose reduction, viz: automated exposure control, ma/kV adjustment per patient size (including targeted exams where dose is matched to indication, i.e. head), or iterative reconstruction technique. FINDINGS: LOWER THORAX: Mild atelectatic or fibrotic change noted in the left lung base. ABDOMEN & PELVIS: Post cholecystectomy. The liver, spleen, adrenal glands, pancreas, and kidneys show no acute finding. There is a small exophytic cyst along upper pole of the right kidney at 11 mm. There is an IVC filter present. The tip is inferior to the level of the renal veins by approximately 3.9 cm. No hydronephrosis. No renal or ureteral calculi. There is reported prior appendectomy. Artifact present from a left hip prosthesis. Prior hysterectomy. No intestinal obstruction or free air. There are small bilateral hernias containing fat. Cystic areas present in the right pelvic region measuring 3 x 2 cm and may represent an ovarian cyst. Please correlate with surgical history. No acute bony findings.. IMPRESSION: No acute findings Dictated b Sergio Nunn MD 12/16/2019 05:54 Sergio Nunn MD in [place] 12/16/2019 05:54
--- NOTE | 2019-12-15 22:41 | CT_ITS ---
PROCEDURE: CT LUMBAR SPINE WO CON CLINICAL HISTORY: pain while ambulating Fall with injury and pain with pelvic pressure COMPARISON: No exams were available for comparison TECHNIQUE: Axial images obtained with sagittal and coronal reformats. All CT scans at the facility use one or more dose reduction, viz: automated exposure control, ma/kV adjustment per patient size (including targeted exams where dose is matched to indication, i.e. head), or iterative reconstruction technique. FINDINGS: There is normal alignment. No acute fracture or dislocation. Mild sclerosis of the joints. There is mild bulging disc at L4-L5 with facet and ligamentum. Bulging disc with facet hypertrophic change also noted at L5-S1. L5 appears to be a transitional segment. IMPRESSION: No acute finding Dictated b Sergio Nunn MD 12/16/2019 06:05 Sergio Nunn MD in [place] 12/16/2019 06:05
--- NOTE | 2019-12-15 22:45 | XR_ITS ---
PROCEDURE: XR CHEST AP CLINICAL HISTORY: fall. Posttraumatic pain COMPARISON: CT [facility] CT CHEST W/O CONTRAST from 03/18/2015 CR CXR2 XR chest AP from 09/03/2017 CR CXR1VP XR chest portable from 09/04/2017 CR CXR1VP XR chest portable from 09/05/2017 FINDINGS: This exam is under penetrated. The mid lower lung zones are not well delineated. Borderline cardiomegaly without failure. Upper lobes are clear. No obvious acute bony findings. IMPRESSION: Limited study with no definite acute finding. Dictated b Sergio Nunn MD 12/16/2019 05:39 Sergio Nunn MD in [place] 12/16/2019 05:39
[2019-12-15 22:50] LABS: Microscopic, Urine URINE MICROSCOPIC (MICROSCOPIC)
[2019-12-15 22:52] LABS: Basophils # 0.1 K/mm3 (0-0.2); Basophils % 0.6 % (0.1-2.0); Eosinophils # 0.5 K/mm3 (0.0-0.4); Eosinophils % 5.1 % (0.1-12.0); Hematocrit 45.4 % (37.0-47.0); Lymphocytes # 2.4 K/mm3 (0.7-4.5); Lymphocytes % 27.6 % (10-50); Mean Corpuscular HGB Conc 33.1 g/dL (31.8-35.4); Mean Corpuscular Hemoglobin 29.3 pg (27.0-31.2); Mean Corpuscular Volume 88.4 fl (81-99); Mean Platelet Volume 8.1 fl (7.4-10.4); Monocytes # 0.4 K/mm3 (0.1-1.0); Monocytes % 4.9 % (1.7-9.3); Neutrophils # 5.5 K/mm3 (1.8-7.8); Neutrophils % 61.8 % (37.0-80.0); Platelet Count 182 K/mm3 (142-424); Red Blood Count 5.14 M/mm3 (4.20-5.40); Red Cell Distribution Width 14.7 % (11.5-17.5); White Blood Count 8.8 K/mm3 (4.8-10.8)
--- NOTE | 2019-12-15 22:57 | HMH.EDNVD ---
ED Disposition Clinical Impression: Lumbar radicular pain, Serum lipase elevation, Factor 5 Leiden mutation, heterozygous Disposition: Home, Self-Care Condition on Discharge: Fair Instructions: DI for Lumbar Radiculopathy Additional Instructions: call pcp in am Prescriptions: predniSONE [Prednisone 20mg Tab] 20 mg PO BID #10 tab Transmission Status: Pending to [id number] Referrals: Jarett Liu [Primary Care Provider] - - Critical Care Critical Care Time: No Attestation: On 12/15/19, the high probability of a clinically significant, sudden or life threatening deterioration of the following system(s) required my full and direct attention, intervention and personal management. The time I documented below is in addition to time spent performing reported procedures but includes the following listed in this critical care notation. Medical Decision Making - Medical Records Medical records reviewed: Yes: I reviewed the patient's medical records. - Gualberto Inquiry Pt receiving controlled substance: No Vital Signs: 12/15/19 21:55 12/15/19 22:00 12/15/19 22:30 Temperature 98.6 F Temperature Source Oral Pulse Rate [Left Radial] 82 88 76 Respiratory Rate 16 18 18 Blood Pressure [Right Arm] 170/70 H 112/79 148/64 H Blood Pressure Mean [Right Arm] 103 90 92 Blood Pressure Source [Right Arm] Automatic Cuff Automatic Cuff Automatic Cuff Blood Pressure Position [Right Arm] Sitting Supine Supine 02 Sat by Pulse Oximetry 97 94 L 98 Oxygen Delivery Method Room Air Room Air Room Air 12/15/19 23:00 12/15/19 23:30 12/16/19 00:00 Temperature Temperature Source Pulse Rate [Left Radial] 77 69 72 Respiratory Rate 18 18 18 Blood Pressure [Right Arm] 165/67 H 140/64 149/65 H Blood Pressure Mean [Right Arm] 99 89 93 Blood Pressure Source [Right Arm] Automatic Cuff Automatic Cuff Automatic Cuff Blood Pressure Position [Right Arm] Supine Supine Supine 02 Sat by Pulse Oximetry 99 99 99 Oxygen Delivery Method Room Air Room Air Room Air 12/16/19 00:30 Temperature Temperature Source Pulse Rate [Left Radial] 68 Respiratory Rate 18 Blood Pressure [Right Arm] 145/69 H Blood Pressure Mean [Right Arm] 94 Blood Pressure Source [Right Arm] Automatic Cuff Blood Pressure Position [Right Arm] Supine 02 Sat by Pulse Oximetry 99 Oxygen Delivery Method Room Air - Lab Data Lab results reviewed: Yes: I reviewed the patient's lab results. Lab Results 12/15/19 22:10: Urine Color Yellow, Urine Appearance Clear, Urine pH 5.5, Ur Specific [place] 1.025, Urine Protein Negative, Urine Glucose (UA) Negative, Urine Ketones Negative, Urine Blood Negative, Urine Nitrate Negative, Urine Bilirubin Negative, Urine Urobilinogen 0.2, Ur Leukocyte Esterase Negative, Urine WBC Occasional, Ur Squamous Epith Cells 3-5, Urine Bacteria Trace 12/15/19 22:40: WBC 8.8, RBC 5.14, Hgb 15.0, Hct 45.4, MCV 88.4, MCH 29.3, MCHC 33.1, RDW 14.7, Plt Count 182, MPV 8.1, Neut % (Auto) 61.8, Lymph % (Auto) 27.6, [place] % (Auto) 4.9, Eos % (Auto) 5.1, Baso % (Auto) 0.6, Neut # (Auto) 5.5, Lymph # (Auto) 2.4, [place] # (Auto) 0.4, Eos # (Auto) 0.5 H, Baso # (Auto) 0.1, ESR 27 12/15/19 22:40: Sodium 141, Potassium 3.7, Chloride 100, Carbon Dioxide 34 H, Anion Gap 10.7, BUN 22 H, Creatinine 1.00, Estimated Creat Clear 51, Estimated GFR 53 L, Est GFR ( Amer) 65, Glucose 154 H, Calcium 9.8, Total Bilirubin 0.3, AST 33, ALT 27, Alkaline Phosphatase 73, C-Reactive Protein 7.4 H, Total Protein 8.1, Albumin 4.0, Globulin 4.1 H, Albumin/Globulin Ratio 1.0 L, Amylase 129 H, Lipase 331 H 12/15/19 22:40: PT 21.0 H, INR 2.14 H 12/15/19 22:40: Lactate 1.6 Result diagrams: 12/15/19 22:40 12/15/19 22:40 Orders (Tests/Meds): ED MEDICATIONS Discontinued Medications Generic Name Dose Route Start Last Admin Trade Name Freq PRN Reason Stop Dose Admin Acetaminophen 1,000 mg 12/15/19 23:24 12/15/19 23:30 Tylenol 500mg Tablet PO 12/15/19 23:
[2019-12-15 22:59] LABS: Appearance,Urine CLEAR (Clear); Bilirubin,Urine Negative (Negative); Blood, Urine Negative (Negative); Color,Urine YELLOW (Yellow); Glucose,Urine (UA) Negative (Negative); Ketones,Urine Negative (Negative); Leukocyte Esterase,Urine Negative (Negative); Nitrate,Urine Negative (Negative); PH,Urine 5.5 (5.0-8.5); Protein,Urine Negative (Negative); Specific Gravity, Urine 1.025 (1.005-1.030); Urobilinogen,Urine 0.2 EU/dl (0.2)
[2019-12-15 23:00] VITALS: BP 165/67; PULSE 77; RESP 18; O2SAT 99
[2019-12-15 23:04] LABS: Chloride 100 mmol/L (98-107); Potassium 3.7 mmoL/L (3.5-5.1); Sodium 141 mmol/L (136-145)
[2019-12-15 23:06] LABS: Amylase 129 U/L (30-110); Blood Urea Nitrogen 22 mg/dl (7-17); Creatinine Clearance Estimated 51 mL/min (50-200); Estimated Glomerular Filt Rate 53 ml/min (>60); GFR (African American) 65 ML/MIN (>60)
[2019-12-15 23:07] LABS: Alanine Aminotransferase 27 U/L (12-78); Alkaline Phosphatase 73 U/L (38-126); Anion Gap 10.7 mEq/L (5-15); Aspartate Amino Transferase 33 U/L (14-36); Bilirubin,Total 0.3 mg/dl (0.2-1.3); Calcium 9.8 mg/dl (8.4-10.2); Carbon Dioxide 34 mmol/L (22.0-30.0); Globulin 4.1 g/dL (1.3-3.2); Glucose 154 mg/dl (74-100); Lipase 331 U/L (23-300); Total Protein,Serum 8.1 g/dl (6.3-8.2)
[2019-12-15 23:12] LABS: Bacteria,Urine Trace /lpf; WBC,Urine Occasional #/hpf (0-3)
[2019-12-15 23:12] LABS: C-Reactive Protein 7.4 mg/L (0-4)
[2019-12-15 23:14] LABS: INR 2.14 (0.9-1.1)
[2019-12-15 23:30] VITALS: BP 140/64; PULSE 69; RESP 18; O2SAT 99
[2019-12-15 23:31] LABS: Erythrocyte Sedimentation Rate 27 mm/hr (0-30)
[2019-12-15 23:53] LABS: Lactic Acid 1.6 mmol/L (0.7-2.1)
[2019-12-16] VITALS: BP 149/65; PULSE 72; RESP 18; O2SAT 99
[2019-12-16 00:30] VITALS: BP 145/69; PULSE 68; RESP 18; O2SAT 99
--- NOTE | 2019-12-16 01:28 | PC.NURSE ---
pt asked if she would be willing to stay for admission. pt stated she didnt want to stay for admission but she was willing to follow up with PCP
[2019-12-16 01:46] VITALS: BP 141/86; PULSE 69; RESP 16; TEMP 37.1; O2SAT 96
== END 2019-12-16 02:04 | disposition home or self-care (01) ==
PROVIDERS: Emergency Provider Emergency Medicine; PCP Internal Medicine
DX: M54.16 Radiculopathy, lumbar region (principal); R74.8 Abnormal levels of other serum enzymes; D68.51 Activated protein C resistance; J44.9 Chronic obstructive pulmonary disease, unspecified; E78.5 Hyperlipidemia, unspecified; I10 Essential (primary) hypertension; Z79.01 Long term (current) use of anticoagulants; F17.210 Nicotine dependence, cigarettes, uncomplicated; Z90.79 Acquired absence of other genital organ(s); Z96.642 Presence of left artificial hip joint; Z88.5 Allergy status to narcotic agent; Z79.899 Other long term (current) drug therapy; Z85.42 Personal history of malignant neoplasm of other parts of uterus
CPT/HCPCS: 71045; 72131; 74177; 80053; 81001; 82150; 83605; 83690; 85025; 85610; 85651; 86140; 87040; 96374; 96375; 99284; Q9967

== ENCOUNTER 2021-01-12 14:10 | Emergency (ER) | payer MEDICARE, SELFPAY ==
[2021-01-12 14:28] VITALS: PULSE 74; RESP 20; TEMP 36.6; O2SAT 95; BMI 29.2
[2021-01-12 14:31] VITALS: BP 185/76; PULSE 74; RESP 20; TEMP 36.6
[2021-01-12 14:34] LABS: UTC Strep Screen (Rapid) Positive (Negative)
--- NOTE | 2021-01-12 15:37 | HMH.EDUTC ---
[facility] [place] Disposition Clinical Impression: Strep throat Disposition: Home, Self-Care Condition on Discharge: Good Instructions: Strep Throat, DI for Strep Throat Additional Instructions: Drink plenty of fluids. Take tylenol or ibuprofen for pain or fever. Take the medications as directed. Follow up with your regular doctor. GO TO THE ER FOR ANY WORSENING SYMPTOMS Throw your tooth brush away and get a new one. Prescriptions: predniSONE [Deltasone 10mg tablet] 10 mg PO DAILY 9 Days #21 tab Transmission Status: Received by [id number] Penicillin V Potassium 500 mg PO BID 10 Days #20 tab Transmission Status: Received by [id number] Referrals: Jarett Liu [Primary Care Provider] - Time of Disposition: 15:42 Medical Decision Making - Medical Records Medical records reviewed: No: I reviewed the patient's medical records. - Gualberto Inquiry Pt receiving controlled substance: No Vital Signs: 01/12/21 14:28 01/12/21 14:31 Temperature 98 F 98 F Temperature Source Oral Pulse Rate 74 Pulse Rate [Left] 74 Respiratory Rate 20 20 Blood Pressure 185/76 H 02 Sat by Pulse Oximetry 95 - Lab Data Lab results reviewed: Yes: I reviewed the patient's lab results. Lab Results 01/12/21 14:31: Strep Scn Rapid Clinic Positive A [facility] HPI - General Stated complaint: sore throat, soa, cough, congestion Time Seen by Provider: 01/12/21 15:00 Mode of Arrival: Ambulatory Source of Information: Patient Limitations: No Limitations Description of Symptoms (Recalled from Triage Doc. by RN): PT C/O SORE THROAT AND EAR ACHES HEENT Symptoms (Recalled from RN notes): Yes (SORE THROAT AND EARS ACHE) Resp Symptoms (Recalled from RN notes): No Skin Symptoms (Recalled from RN notes): No MS Symptoms (Recalled from RN notes): No Functional Status (Recalled from RN notes): NA - History of Present Illness Provider Complaint: She c/o sore throat for the past 3 days. She denies shortness of breath. - Related Data Home Medications Medication Instructions Recorded Confirmed ALPRAZolam [Xanax 0.5mg tab] 0.5 mg PO BIDP PRN 09/03/17 12/15/19 Fenofibrate Nanocrystallized 145 mg PO DAILY 09/03/17 12/15/19 [Fenofibrate] Triamterene/Hydrochlorothiazid 0.5 tab PO DAILY 09/03/17 12/15/19 [Maxzide-25 tablet] Warfarin Sodium 3 mg PO MOTUWETHFR 09/03/17 12/15/19 Warfarin Sodium 4 mg PO SUSA 09/03/17 12/15/19 acetaminophen 325 mg tablet 325 mg PO Q6H PRN 09/18/17 12/15/19 ondansetron HCL [Zofran 4mg Tab] 4 mg PO Q8HP PRN 06/29/18 12/15/19 Simvastatin 10 mg PO DAILY 12/15/19 12/15/19 Previous Rx's Medication Instructions Recorded predniSONE [Prednisone 20mg 20 mg PO BID #10 tab 12/16/19 Tab] Penicillin V Potassium 500 mg PO BID 10 Days #20 tab 01/12/21 predniSONE [Deltasone 10mg tablet] 10 mg PO DAILY 9 Days #21 tab 01/12/21 Allergies Allergy/AdvReac Type Severity Reaction Status Date / Time aspirin Allergy Unknown RAPID Verified 12/15/19 23:03 HEART BEAT codeine Allergy Unknown RAPID Verified 12/15/19 23:03 HEART BEAT morphine Allergy Unknown RAPID Verified 12/15/19 23:03 HEART BEAT - Worker's Comp Is this a Worker's Comp case?: No [facility] History - Hepatitis A Screen Drug use history?: No High risk sexual behaviors?: No History of sexually transmitted infection?: No Currently employed?: No Childcare worker?: No Do you have indoor plumbing?: Yes Do you have electricity?: Yes Attestation statement:: This patient has been screened for Hepatitis A risk factors. I have reviewed the patient's past medical history: Yes Medical History: Reports:: Cancer (uterine), Chronic Obstructive Pulmonary Disease (COPD), Deep Vein Thrombosis, Hyperlipidemia, Hypertension, Pulmonary Embolism Denies:: Diabetes Mellitus Type 1, Diabetes Mellitus Type 2, MRSA, Seizures Other Medical History: Denies: Blood Transfusion Reaction Laterality Cases: Left: Total Hip R
== END 2021-01-12 15:45 | disposition home or self-care (01) ==
PROVIDERS: Emergency Provider Nurse Practitioner Family; PCP Internal Medicine
DX: J02.0 Streptococcal pharyngitis (principal); E78.5 Hyperlipidemia, unspecified; I10 Essential (primary) hypertension; Z79.899 Other long term (current) drug therapy
CPT/HCPCS: G0463; 87880; 99202

== ENCOUNTER 2021-08-19 02:04 | Emergency (ER) | payer MEDICARE, SELFPAY ==
[2021-08-19 01:59] VITALS: BP 180/90; PULSE 68; RESP 16; TEMP 36.5; O2SAT 94; BMI 31.1
--- NOTE | 2021-08-19 02:33 | XR_ITS ---
PROCEDURE INFORMATION: Exam: XR Left Elbow Exam date and time: 08/19/2021 3:37 AM Age: 80 years old Clinical indication: Injury or trauma; Fall; Blunt trauma (contusions or hematomas); Elbow; Left TECHNIQUE: Imaging protocol: XR Left elbow. Views: 1 or 2 views. COMPARISON: No relevant prior studies available. FINDINGS: Bones/joints: Normal. The joints are well aligned. There is no fracture present. There is no area of lysis. Soft tissues: Normal. IMPRESSION: No evidence for a significant traumatic injury.
--- NOTE | 2021-08-19 02:33 | CT_ITS ---
PROCEDURE INFORMATION: Exam: CT Cervical Spine Without Contrast Exam date and time: 08/19/2021 3:09 AM Age: 80 years old Clinical indication: Injury or trauma; Fall; Blunt trauma; Prior surgery; Surgery date: 6+ months; Surgery type: Fusion TECHNIQUE: Imaging protocol: Computed tomography images of the cervical spine without contrast. Radiation optimization: All CT scans at this facility use at least one of these dose optimization techniques: automated exposure control; mA and/or kV adjustment per patient size (includes targeted exams where dose is matched to clinical indication); or iterative reconstruction. COMPARISON: CT SOFT TISSUE NECK W CON 10/14/2019 11:44 PM FINDINGS: Bones/joints: Vertebral body height and AP alignment is preserved. Previous anterior cervical fusion and discectomy involving C6-C7. [id number] degenerative change about the dens. Mild prevertebral osteophytosis. No acute cervical spine fracture. Discs/Spinal canal/Neural foramina: No definite significant central canal stenosis within limitations of technique. Thyroid: Heterogeneous thyroid gland with probable small nodules. Lungs: Scarring at the lung apices. Pleural spaces: No visible pneumothorax. Vasculature: Arterial vascular calcification. Soft tissues: Unremarkable. IMPRESSION: No acute cervical spine fracture. COMMENTS: Consistent with the [employer]'s Incidental Findings Committee white paper (J Am Dnenis Radiol 2015): In patients aged 35 years and older with an incidental thyroid nodule equal to or greater than 1.[address], MRI or extrathyroidal US, further evaluation with dedicated thyroid US is recommended for patients with normal life expectancy and without comorbidities. For smaller nodules without suspicious features, no further evaluation or follow up is recommended.
--- NOTE | 2021-08-19 02:33 | CT_ITS ---
PROCEDURE INFORMATION: Exam: CT Head Without Contrast Exam date and time: 08/19/2021 3:06 AM Age: 80 years old Clinical indication: Injury or trauma; Fall; Blunt trauma (contusions or hematomas); Without loss of consciousness TECHNIQUE: Imaging protocol: Computed tomography of the head without contrast. Radiation optimization: All CT scans at this facility use at least one of these dose optimization techniques: automated exposure control; mA and/or kV adjustment per patient size (includes targeted exams where dose is matched to clinical indication); or iterative reconstruction. COMPARISON: CT FACIAL BONES W CON 10/14/2019 11:48 PM FINDINGS: Brain: Decreased attenuation of the supratentorial white matter is likely secondary to chronic microvascular ischemia. No acute intracranial hemorrhage. Cerebral ventricles: Ventricular and subarachnoid spaces are age appropriate. Paranasal sinuses: Polypoid mucosal disease involving the [id number]-left maxillary sinuses. Minimal scattered additional paranasal sinus disease. Mastoid air cells: Visualized mastoid air cells are well aerated. Vasculature: Intracranial vascular calcification. Bones/joints: Unremarkable. No acute fracture. Soft tissues: Unremarkable. IMPRESSION: No acute intracranial abnormality.
--- NOTE | 2021-08-19 02:33 | CT_ITS ---
PROCEDURE INFORMATION: Exam: CT Chest Without Contrast; Diagnostic Exam date and time: 08/19/2021 3:12 AM Age: 80 years old Clinical indication: Injury or trauma; Fall; Blunt trauma (contusions or hematomas) TECHNIQUE: Imaging protocol: Diagnostic computed tomography of the chest without contrast. Radiation optimization: All CT scans at this facility use at least one of these dose optimization techniques: automated exposure control; mA and/or kV adjustment per patient size (includes targeted exams where dose is matched to clinical indication); or iterative reconstruction. COMPARISON: [facility] CT CHEST W/O CONTRAST 03/18/2015 4:03 PM FINDINGS: Lungs: The postsurgical changes from resection of a portion left lower lobe. The lungs are otherwise clear. Pleural spaces: Unremarkable. No pneumothorax. No pleural effusion. Heart: Unremarkable. No cardiomegaly. No pericardial effusion. Mediastinal space: There no mediastinal hematoma. Lymph nodes: Unremarkable. No enlarged lymph nodes. Aorta: Unremarkable. No aortic aneurysm. Bones/joints: Unremarkable. No acute fracture. Soft tissues: Unremarkable. IMPRESSION: 1. There is no acute traumatic injury seen. 2. No acute cardiac or pulmonary process. 3. The postsurgical changes from resection of a portion left lower lobe.
--- NOTE | 2021-08-19 02:33 | CT_ITS ---
PROCEDURE INFORMATION: Exam: CT Left Lower Extremity Without Contrast, Hip Exam date and time: 08/19/2021 3:17 AM Age: 80 years old Clinical indication: Injury or trauma; Fall; Blunt trauma; Left; Prior surgery; Surgery date: 6+ months; Surgery type: Total hip replaced TECHNIQUE: Imaging protocol: CT of the Left lower extremity without contrast was performed. Exam focused on the hip. Radiation optimization: All CT scans at this facility use at least one of these dose optimization techniques: automated exposure control; mA and/or kV adjustment per patient size (includes targeted exams where dose is matched to clinical indication); or iterative reconstruction. COMPARISON: CR HIPCMLT XR hip LT 2-3V w/pelvis 06/11/2018 10:12 AM FINDINGS: Bones/joints: Left hip replacement in place. There is no fracture or dislocation. Soft tissues: Normal. IMPRESSION: Left hip replacement in place. There is no fracture or dislocation.
[2021-08-19 02:50] LABS: Basophils # 0.2 K/mm3 (0-0.2); Basophils % 2.5 % (0.1-2.0); Eosinophils # 0.4 K/mm3 (0.0-0.4); Hematocrit 46.3 % (37.0-47.0); Lymphocytes # 2.2 K/mm3 (0.7-4.5); Lymphocytes % 24.6 % (10-50); Mean Corpuscular HGB Conc 32.5 g/dL (31.8-35.4); Mean Corpuscular Hemoglobin 27.7 pg (27.0-31.2); Mean Corpuscular Volume 85.3 fl (81-99); Monocytes # 0.5 K/mm3 (0.1-1.0); Monocytes % 5.9 % (1.7-9.3); Neutrophils # 5.5 K/mm3 (1.8-7.8); Platelet Count 178 K/mm3 (142-424); Red Blood Count 5.43 M/mm3 (4.20-5.40); Red Cell Distribution Width 15.5 % (11.5-17.5); White Blood Count 8.8 K/mm3 (4.8-10.8)
--- NOTE | 2021-08-19 02:54 | HMH.EDFALL ---
ED Disposition Clinical Impression: Contusion of rib on left side Qualifiers: Encounter type: initial encounter Qualified Code(s): S20.212A - Contusion of left front wall of thorax, initial encounter Concussion without loss of consciousness Qualifiers: Encounter type: initial encounter Qualified Code(s): S06.0X0A - Concussion without loss of consciousness, initial encounter Abdominal wall contusion Qualifiers: Encounter type: initial encounter Qualified Code(s): S30.1XXA - Contusion of abdominal wall, initial encounter Contusion of hip Qualifiers: Encounter type: initial encounter Laterality: left Qualified Code(s): S70.02XA - Contusion of left hip, initial encounter Fall Qualifiers: Encounter type: initial encounter Qualified Code(s): W19.XXXA - Unspecified fall, initial encounter Disposition: Home, Self-Care Condition on Discharge: Good Instructions: DI for Rib Contusion Additional Instructions: see pcp for follow up Referrals: Jarett Liu [Primary Care Provider] - - Critical Care Critical Care Time: No Attestation: On 08/19/21, the high probability of a clinically significant, sudden or life threatening deterioration of the following system(s) required my full and direct attention, intervention and personal management. The time I documented below is in addition to time spent performing reported procedures but includes the following listed in this critical care notation. Medical Decision Making - Medical Records Medical records reviewed: Yes: I reviewed the patient's medical records. - Gualberto Inquiry Pt receiving controlled substance: No Vital Signs: 08/19/21 01:59 Temperature 97.7 F Temperature Source Oral Pulse Rate [Left] 68 Respiratory Rate 16 Blood Pressure [Right Arm] 180/90 H Blood Pressure Mean [Right Arm] 120 02 Sat by Pulse Oximetry 94 L Oxygen Delivery Method Room Air - Lab Data Lab results reviewed: Yes: I reviewed the patient's lab results. Lab Results 08/19/21 02:15: WBC 8.8, RBC 5.43 H, Hgb 15.0, Hct 46.3, MCV 85.3, MCH 27.7, MCHC 32.5, RDW 15.5, Plt Count 178, MPV 9.0, Neut % (Auto) 63.0, Lymph % (Auto) 24.6, [place] % (Auto) 5.9, Eos % (Auto) 4.0, Baso % (Auto) 2.5 H, Neut # (Auto) 5.5, Lymph # (Auto) 2.2, [place] # (Auto) 0.5, Eos # (Auto) 0.4, Baso # (Auto) 0.2 08/19/21 02:15: PT 30.6 H, INR 2.93 H 08/19/21 02:15: Sodium 140, Potassium 3.9, Chloride 100, Carbon Dioxide 34 H, Anion Gap 9.9, BUN 30 H, Creatinine 1.00, Estimated Creat Clear 54, Estimated GFR 53 L, Est GFR ( Amer) 64, Glucose 108 H, Calcium 9.6, Total Bilirubin 0.6, AST 38 H, ALT 30, Alkaline Phosphatase 83, Total Protein 8.5 H, Albumin 4.5, Globulin 4.0 H, Albumin/Globulin Ratio 1.1 Result diagrams: 08/19/21 02:15 08/19/21 02:15 Orders (Tests/Meds): ED MEDICATIONS Generic Name Dose Route Start Last Admin Trade Name Freq PRN Reason Stop Dose Admin Sodium Chloride 1,000 mls @ 999 mls/hr 08/19/21 02:45 08/19/21 02:46 Sod Chlor 0.9% 1000ml Bag IV 08/19/21 03:45 999 mls/hr .Q1H1M CRISTIANA Administration Discontinued Medications Generic Name Dose Route Start Last Admin Trade Name Freq PRN Reason Stop Dose Admin Iopamidol 75 ml 08/19/21 03:49 08/19/21 03:50 Iopamidol-370 (76%);100ml Bottle IV 08/19/21 03:50 75 ml ONCE ONE Administration Ketorolac Tromethamine 15 mg 08/19/21 03:27 08/19/21 04:08 Ketorolac 30mg/Ml Vial IV 08/19/21 03:28 15 mg ONCE ONE Administration Sodium Chloride 10 ml 08/19/21 03:49 08/19/21 03:50 Sodium Chloride 0.9% 10ml Syr (Rad Only) IV 08/19/21 03:50 10 ml ONCE ONE Administration - Radiology Data #1 Image(s): Chest, Elbow Image Reviewed: Yes I have reviewed radiologist's interpretation Preliminary Findings: No Fracture Seen - CT Data CT Scan: Head, C-Spine, Abdomen, Pelvis, Other (hip) Time Received: 06:[address] Reviewed: Yes: I have viewed the radiologist's interpretation Preliminary Findings: No Justinu
[2021-08-19 02:55] LABS: Alanine Aminotransferase 30 U/L (12-78); Albumin Level 4.5 g/dl (3.5-5.0); Albumin/Globulin Ratio 1.1 (1.1-1.8); Alkaline Phosphatase 83 U/L (38-126); Anion Gap 9.9 mEq/L (5-15); Aspartate Amino Transferase 38 U/L (14-36); Bilirubin,Total 0.6 mg/dl (0.2-1.3); Blood Urea Nitrogen 30 mg/dl (7-17); Calcium 9.6 mg/dl (8.4-10.2); Carbon Dioxide 34 mmol/L (22.0-30.0); Chloride 100 mmol/L (98-107); Creatinine Clearance Estimated 54 mL/min (50-200); Estimated Glomerular Filt Rate 53 ml/min (>60); GFR (African American) 64 ML/MIN (>60); Glucose 108 mg/dl (74-100); INR 2.93 (0.9-1.1); Potassium 3.9 mmoL/L (3.5-5.1); Prothrombin Time 30.6 seconds (10.1-12.5); Sodium 140 mmol/L (136-145); Total Protein,Serum 8.5 g/dl (6.3-8.2)
--- NOTE | 2021-08-19 03:01 | XR_ITS ---
PROCEDURE INFORMATION: Exam: XR Chest Exam date and time: 08/19/2021 3:34 AM Age: 80 years old Clinical indication: Injury or trauma; Fall; Blunt trauma (contusions or hematomas); Additional info: Fall pain left side TECHNIQUE: Imaging protocol: XR of the chest. Views: 1 view. COMPARISON: CT CHEST WO CON 08/19/2021 3:12 AM FINDINGS: Lungs: Unremarkable. No consolidation. There is no focal mass. Pleural spaces: There is no pneumothorax. There is no pleural effusion. Heart/Mediastinum: Unremarkable. No cardiomegaly. Bones/joints: There is no fracture present. IMPRESSION: 1. There is no significant traumatic injury to the chest. 2. No acute cardiac or pulmonary process.
--- NOTE | 2021-08-19 03:01 | CT_ITS ---
PROCEDURE INFORMATION: Exam: CT Abdomen And Pelvis With Contrast Exam date and time: 08/19/2021 3:24 AM Age: 80 years old Clinical indication: Abdominal pain; Generalized; Additional info: Fall TECHNIQUE: Imaging protocol: Computed tomography of the abdomen and pelvis with contrast. Radiation optimization: All CT scans at this facility use at least one of these dose optimization techniques: automated exposure control; mA and/or kV adjustment per patient size (includes targeted exams where dose is matched to clinical indication); or iterative reconstruction. Contrast material: ISOVUE; Contrast volume: 75 ml; Contrast route: IV; COMPARISON: CT ABDOMEN PELVIS W CON 12/15/2019 11:52 PM FINDINGS: Liver: No cirrhosis. No mass. There is no laceration present. Gallbladder and bile ducts: There are postsurgical changes from a cholecystectomy. Pancreas: No pancreatic ductal dilation. There is no laceration present. Spleen: No splenomegaly. There is no laceration present. Adrenal glands: Normal. No mass. No laceration. Kidneys and ureters: No hydronephrosis. There is no laceration present. Stomach and bowel: Unremarkable. No obstruction. No mucosal thickening. Appendix: No evidence of appendicitis. Intraperitoneal space: Unremarkable. No free air. No significant fluid collection. Arteries: No abdominal aortic aneurysm. No dissection. No rupture.. Veins: There is IVC filter present. Lymph nodes: Unremarkable. No enlarged lymph nodes. Urinary bladder: Unremarkable as visualized. Reproductive: Unremarkable as visualized. Bones/joints: Left hip replacement. No acute fracture. No dislocation. Soft tissues: Unremarkable. IMPRESSION: No significant traumatic injury to the abdomen or pelvis. COMMENTS: For patients with an IVC filter, recommend assessment for a management plan for the patient's IVC filter. If there is no established management plan, recommend referral to an interventional clinician on a nonemergent basis for evaluation.
[2021-08-19 06:26] VITALS: BP 155/75; PULSE 71; RESP 20; TEMP 36.7; O2SAT 95
== END 2021-08-19 06:49 | disposition home or self-care (01) ==
PROVIDERS: Emergency Provider Emergency Medicine; PCP Internal Medicine
DX: S20.212A Contusion of left front wall of thorax, initial encounter (principal); S06.0X0A Concussion without loss of consciousness, initial encounter; S30.1XXA Contusion of abdominal wall, initial encounter; S70.02XA Contusion of left hip, initial encounter; I10 Essential (primary) hypertension; E78.5 Hyperlipidemia, unspecified; J44.9 Chronic obstructive pulmonary disease, unspecified; F17.210 Nicotine dependence, cigarettes, uncomplicated; Z79.52 Long term (current) use of systemic steroids; Z79.1 Long term (current) use of non-steroidal anti-inflammatories (NSAID); Z88.5 Allergy status to narcotic agent; Z88.6 Allergy status to analgesic agent; Z79.01 Long term (current) use of anticoagulants; Z86.718 Personal history of other venous thrombosis and embolism; Z86.711 Personal history of pulmonary embolism; Z96.642 Presence of left artificial hip joint; Z82.5 Family history of asthma and other chronic lower respiratory diseases; Z83.3 Family history of diabetes mellitus; Z82.49 Family history of ischemic heart disease and other diseases of the circulatory system; Z80.9 Family history of malignant neoplasm, unspecified; Z84.1 Family history of disorders of kidney and ureter; Z83.2 Family history of diseases of the blood and blood-forming organs and certain disorders involving the immune mechanism; W01.0XXA Fall on same level from slipping, tripping and stumbling without subsequent striking against object, initial encounter
CPT/HCPCS: 70450; 71045; 71250; 72125; 73070; 73700; 74177; 80053; 85025; 85610; 96361; 96365; 96374; 96375; 99285; Q9967

== ENCOUNTER 2021-10-17 14:17 | Emergency (ER) | payer MEDICARE, SELFPAY ==
[2021-10-17 14:18] VITALS: BP 123/74; PULSE 78; RESP 16; TEMP 36.8; O2SAT 98; BMI 27.4; BMI 28.3
--- NOTE | 2021-10-17 14:20 | HMH.EDGENADL ---
ED Disposition Clinical Impression: Abdominal pain Qualifiers: Abdominal location: lower abdomen, unspecified Qualified Code(s): R10.30 - Lower abdominal pain, unspecified Disposition: Home, Self-Care Condition on Discharge: Good Instructions: Acute Abdominal Pain Prescriptions: Hydrocod/Acet 5/325 mg [[place] 5/325mg tablet] 1 tab PO Q6HP PRN 5 Days #15 tab PRN Reason: Breakthru Moderate Pain Transmission Status: Received by [id number] Referrals: Jarett Liu [Primary Care Provider] - Time of Disposition: 17:55 - Critical Care Critical Care Time: No Attestation: On , the high probability of a clinically significant, sudden or life threatening deterioration of the following system(s) required my full and direct attention, intervention and personal management. The time I documented below is in addition to time spent performing reported procedures but includes the following listed in this critical care notation. Medical Decision Making - Medical Records Medical records reviewed: Yes: I reviewed the patient's medical records. - Gualberto Inquiry Pt receiving controlled substance: Yes Gualberto was queried for this patient: Yes Risks and benefits of using a controlled substance: were discussed with pt by me Vital Signs: 10/17/21 14:18 10/17/21 15:00 10/17/21 15:30 Temperature 98.2 F Temperature Source Oral Pulse Rate 60 62 Pulse Rate [Radial] 78 Respiratory Rate 16 16 16 Blood Pressure 135/62 144/65 H Blood Pressure [Right Arm] 123/74 Blood Pressure Mean 110 91 Blood Pressure Mean [Right Arm] 90 Blood Pressure Position [Right Arm] Sitting 02 Sat by Pulse Oximetry 98 96 96 Oxygen Delivery Method Room Air Nasal Cannula Nasal Cannula 10/17/21 16:00 10/17/21 16:30 Temperature Temperature Source Pulse Rate 62 62 Pulse Rate [Radial] Respiratory Rate 18 18 Blood Pressure 128/47 L 128/65 Blood Pressure [Right Arm] Blood Pressure Mean 74 82 Blood Pressure Mean [Right Arm] Blood Pressure Position [Right Arm] 02 Sat by Pulse Oximetry 96 97 Oxygen Delivery Method Room Air Room Air - Lab Data Lab results reviewed: Yes: I reviewed the patient's lab results. Lab Results 10/17/21 14:32: Urine Color Yellow, Urine Appearance Clear, Urine pH 6.5, Ur Specific [place] 1.020, Urine Protein Negative, Urine Glucose (UA) Negative, Urine Ketones Negative, Urine Blood Negative, Urine Nitrate Negative, Urine Bilirubin Negative, Urine Urobilinogen 0.2, Ur Leukocyte Esterase Negative, Urine RBC None, Urine WBC None, Ur Squamous Epith Cells Occasional, Urine Bacteria None 10/17/21 14:34: WBC 7.8, RBC 5.06, Hgb 14.7, Hct 43.1, MCV 85.3, MCH 29.1, MCHC 34.1, RDW 16.2, Plt Count 210, MPV 8.6, Neut % (Auto) 61.8, Lymph % (Auto) 24.6, [place] % (Auto) 6.0, Eos % (Auto) 5.7, Baso % (Auto) 1.9, Neut # (Auto) 4.8, Lymph # (Auto) 1.9, [place] # (Auto) 0.5, Eos # (Auto) 0.4, Baso # (Auto) 0.2 10/17/21 14:34: PT 29.8 H, INR 2.85 H 10/17/21 14:34: Sodium 139, Potassium 3.8, Chloride 101, Carbon Dioxide 31 H, Anion Gap 10.8, BUN 26 H, Creatinine 1.00, Estimated Creat Clear 54, Estimated GFR 53 L, Est GFR ( Amer) 64, Glucose 149 H, Calcium 9.6, Total Bilirubin 0.5, AST 34, ALT 24, Alkaline Phosphatase 67, Total Protein 8.0, Albumin 4.2, Globulin 3.8 H, Albumin/Globulin Ratio 1.1 10/17/21 14:34: Lipase 224 10/17/21 14:36: SARS-CoV-2 (PCR) Not detected, Influenza A Untype (PCR) Not detected, Influenza Type B (PCR) Not detected 10/17/21 14:45: Lactate 1.2 Result diagrams: 10/17/21 14:34 10/17/21 14:34 Orders (Tests/Meds): ED MEDICATIONS Discontinued Medications Generic Name Dose Route Start Last Admin Trade Name Freq PRN Reason Stop Dose Admin Fentanyl Citrate 50 mcg 10/17/21 14:40 10/17/21 14:51 Fentanyl 100mcg/2ml Vial IV 10/17/21 14:41 Not Given ONCE ONE Hydromorphone HCl 0.5 mg 10/17/21 16:50 10/17/21 16:55 Hydromorphone 2mg/Ml Syringe IV 10/17/21 16:51 0.5 mg
--- NOTE | 2021-10-17 14:23 | PC.NURSE ---
pt ambulatory to restroom to provide UA without complications
[2021-10-17 14:34] LABS: Microscopic, Urine URINE MICROSCOPIC (MICROSCOPIC)
--- NOTE | 2021-10-17 14:34 | CT_ITS ---
FINAL REPORT TECHNIQUE: After the administration of oral and intravenous contrast, axial images were obtained through the abdomen and pelvis by computed tomography. The study was performed with techniques to keep radiation dose as low as reasonably achievable, (ALARA). Individual dose reduction techniques using automated exposure control or adjustment of mA and/or kV according to the patient's size were employed. CLINICAL HISTORY: RLQ pain COMPARISON: 08/19/2021 FINDINGS: Abdomen: There is mild atelectasis at the lung bases. The liver is normal in size and attenuation. The patient is status post cholecystectomy. The spleen is unremarkable. There is left adrenal gland enlargement, favor hyperplasia. The pancreas is unremarkable. There are several small cysts in the kidneys. IVC filter is present. The aorta is normal in caliber. There is no free fluid or adenopathy. Postoperative changes from left hip arthroplasty with streak artifact is noted. Pelvis: The appendix is not identified. The patient is status post hysterectomy. There are bilateral inguinal hernias containing fat. The urinary bladder is unremarkable. There is no free fluid or adenopathy. IMPRESSION: Bilateral inguinal hernias containing fat. No acute inflammatory process. Reviewed, Interpreted and Dictated by Horacio Hazel III, MD Transcribed by Susan Sales Authenticated and . [facility]
[2021-10-17 14:37] LABS: Appearance,Urine CLEAR (Clear); Bilirubin,Urine Negative (Negative); Blood, Urine Negative (Negative); Color,Urine YELLOW (Yellow); Glucose,Urine (UA) Negative (Negative); Ketones,Urine Negative (Negative); Leukocyte Esterase,Urine Negative (Negative); Nitrate,Urine Negative (Negative); PH,Urine 6.5 (5.0-8.5); Protein,Urine Negative (Negative); Urobilinogen,Urine 0.2 EU/dl (0.2)
[2021-10-17 14:48] LABS: Basophils # 0.2 K/mm3 (0-0.2); Basophils % 1.9 % (0.1-2.0); Eosinophils # 0.4 K/mm3 (0.0-0.4); Eosinophils % 5.7 % (0.1-12.0); Hematocrit 43.1 % (37.0-47.0); Hemoglobin 14.7 g/dL (12.2-16.2); Lymphocytes # 1.9 K/mm3 (0.7-4.5); Lymphocytes % 24.6 % (10-50); Mean Corpuscular HGB Conc 34.1 g/dL (31.8-35.4); Mean Corpuscular Hemoglobin 29.1 pg (27.0-31.2); Mean Corpuscular Volume 85.3 fl (81-99); Mean Platelet Volume 8.6 fl (7.4-10.4); Monocytes # 0.5 K/mm3 (0.1-1.0); Neutrophils # 4.8 K/mm3 (1.8-7.8); Neutrophils % 61.8 % (37.0-80.0); Platelet Count 210 K/mm3 (142-424); Red Blood Count 5.06 M/mm3 (4.20-5.40); Red Cell Distribution Width 16.2 % (11.5-17.5); White Blood Count 7.8 K/mm3 (4.8-10.8)
[2021-10-17 14:51] LABS: Chloride 101 mmol/L (98-107)
[2021-10-17 14:52] LABS: Potassium 3.8 mmoL/L (3.5-5.1); Sodium 139 mmol/L (136-145)
[2021-10-17 14:54] LABS: Alanine Aminotransferase 24 U/L (12-78); Albumin Level 4.2 g/dl (3.5-5.0); Albumin/Globulin Ratio 1.1 (1.1-1.8); Alkaline Phosphatase 67 U/L (38-126); Anion Gap 10.8 mEq/L (5-15); Aspartate Amino Transferase 34 U/L (14-36); Bilirubin,Total 0.5 mg/dl (0.2-1.3); Blood Urea Nitrogen 26 mg/dl (7-17); Calcium 9.6 mg/dl (8.4-10.2); Carbon Dioxide 31 mmol/L (22.0-30.0); Creatinine Clearance Estimated 54 mL/min (50-200); Estimated Glomerular Filt Rate 53 ml/min (>60); GFR (African American) 64 ML/MIN (>60); Globulin 3.8 g/dL (1.3-3.2); Glucose 149 mg/dl (74-100)
[2021-10-17 14:55] LABS: Lipase 224 U/L (23-300)
[2021-10-17 14:56] LABS: INR 2.85 (0.9-1.1); Prothrombin Time 29.8 seconds (10.1-12.5)
[2021-10-17 15:00] VITALS: BP 135/62; PULSE 60; RESP 16; O2SAT 96
[2021-10-17 15:02] LABS: Squamous Epithelial Cell,Urine Occasional #/hpf (0-5)
[2021-10-17 15:02] LABS: Coronavirus 19, PCR Not Detected (NotDetected); Influenza A, PCR Not Detected (NotDetected); Influenza B, PCR Not Detected (NotDetected)
[2021-10-17 15:06] LABS: Lactic Acid 1.2 mmol/L (0.7-2.1)
--- NOTE | 2021-10-17 15:25 | PC.NURSE ---
pt return from radiology
[2021-10-17 15:30] VITALS: BP 144/65; PULSE 62; RESP 16; O2SAT 96
--- NOTE | 2021-10-17 15:34 | PC.NURSE ---
checked on pt at this time, pt resting in bed, call light within reach. Pt states no needs at this time. will continue to monitor
[2021-10-17 16:00] VITALS: BP 128/47; PULSE 62; RESP 18; O2SAT 96
[2021-10-17 16:30] VITALS: BP 128/65; PULSE 62; RESP 18; O2SAT 97
--- NOTE | 2021-10-17 16:37 | PC.NURSE ---
contacted radiology to check on status of pt CT reading, reports she is going to contact vrad and found
--- NOTE | 2021-10-17 16:42 | PC.NURSE ---
radiology staff called back stating karinaad is in pt ct reading it now.
[2021-10-17 19:27] VITALS: BP 118/68; PULSE 78; RESP 16; TEMP 36.6; O2SAT 98
== END 2021-10-17 19:28 | disposition home or self-care (01) ==
PROVIDERS: Emergency Provider Emergency Medicine; PCP Internal Medicine
DX: R10.31 Right lower quadrant pain (principal); R11.0 Nausea; Z20.822 Contact with and (suspected) exposure to COVID-19; I10 Essential (primary) hypertension; E78.5 Hyperlipidemia, unspecified; J44.9 Chronic obstructive pulmonary disease, unspecified; F17.210 Nicotine dependence, cigarettes, uncomplicated; Z79.01 Long term (current) use of anticoagulants; Z79.1 Long term (current) use of non-steroidal anti-inflammatories (NSAID); Z79.51 Long term (current) use of inhaled steroids; Z79.899 Other long term (current) drug therapy; Z88.6 Allergy status to analgesic agent; Z82.49 Family history of ischemic heart disease and other diseases of the circulatory system; Z82.5 Family history of asthma and other chronic lower respiratory diseases; Z80.9 Family history of malignant neoplasm, unspecified; Z83.3 Family history of diabetes mellitus; Z84.1 Family history of disorders of kidney and ureter; Z83.2 Family history of diseases of the blood and blood-forming organs and certain disorders involving the immune mechanism
CPT/HCPCS: 74177; 80053; 81001; 83605; 83690; 85025; 85610; 96374; 96375; 96376; 99285; C9803; J2405; Q9967; U0003; U0005

== ENCOUNTER 2021-12-28 16:15 | Emergency (ER) | payer MEDICARE, SELFPAY ==
[2021-12-28 17:19] VITALS: BP 124/56; PULSE 67; RESP 16; TEMP 36.9; O2SAT 95; BMI 28.8
--- NOTE | 2021-12-28 17:20 | XR_ITS ---
PROCEDURE INFORMATION: Exam: XR Chest Exam date and time: 12/28/2021 5:17 PM Age: 81 years old Clinical indication: Cough and shortness of breath TECHNIQUE: Imaging protocol: Radiologic exam of the chest. Views: 2 views. COMPARISON: CR XR CHEST PORTABLE 08/19/2021 3:34 AM FINDINGS: Lungs: Mild left basilar atelectasis. Pleural spaces: Unremarkable. No pleural effusion. No pneumothorax. Heart/Mediastinum: Unremarkable. No cardiomegaly. Vasculature: Partially imaged IVC filter. Vascular calcifications. Bones/joints: Postsurgical changes of the cervical spine. Intraperitoneal space: Right upper quadrant surgical clips. IMPRESSION: 1. No acute findings. 2. No acute findings.
--- NOTE | 2021-12-28 17:22 | EXP.UTC ---
Discharge Plan Disposition Patient Disposition: Home, Self-Care Condition: Good Prescriptions Prescriptions: New doxycycline monohydrate 100 mg tablet 100 mg PO BID Qty: 20 0RF prednisone 20 mg tablet 20 mg PO BID Qty: 10 0RF No Action acetaminophen [Mapap (acetaminophen)] 325 mg tablet 325 mg PO Q6H PRN (Reason: .) warfarin 4 MG tablet 3 mg PO MOTUWETHFR Rx Instructions: alprazolam 0.5 MG tablet 0.5 mg PO BIDP PRN (Reason: Anxiety) triamterene-hydrochlorothiazid 1 EACH tablet 0.5 tab PO DAILY fenofibrate nanocrystallized 145 MG tablet 145 mg PO DAILY warfarin 4 MG tablet 4 mg PO SUSA ondansetron HCl [Zofran] 4 MG tablet 4 mg PO Q8HP PRN (Reason: Nausea) simvastatin 10 MG tablet 10 mg PO DAILY prednisone 20 MG tablet 20 mg PO BID Qty: 10 0RF penicillin V potassium 500 MG tablet 500 mg PO BID 10 Days Qty: 20 0RF prednisone 10 MG tablet 10 mg PO DAILY 9 Days Qty: 21 0RF Rx Instructions: Take 40 mg for 3 days, then take 20 mg for 3 days, then take 10 mg for 3 days, then stop. hydrocodone-acetaminophen 1 TAB tablet 1 tab PO Q6HP PRN (Reason: Breakthru Moderate Pain) 5 Days Qty: 15 0RF Referrals Follow up/Referrals: Jarett Liu [Primary Care Provider] - See instructions Activity Restrictions/Add. Instructions Additional Instructions/Restrictions: You have been tested for COVID19. Please isolate yourself as if you are positive until test results received. Current CDC guidelines are quarantine X 5 days from onset of symptoms, with an additional 5 days of mask wearing at all times. If you have difficulty breathing, signs of dehydration, etc please seek treatment at ER. Clinical Impressions Clinical Impression: Acute exacerbation of chronic obstructive pulmonary disease Discharge ED Provider: Mady Green [facility] [place] HPI General Stated complaint: cough,SOB Congestion ribs&lungs hurt Mode of Arrival: Ambulatory Source of Information: Patient Limitations: No Limitations Time Seen by Provider: 12/28/21 18:30 Description of Symptoms (Recalled from Triage Doc. by RN): pt comes in with c/o with rib and lung pain from coughing, nasal drainage. for 4 days HEENT Symptoms (Recalled from RN notes): Yes Resp Symptoms (Recalled from RN notes): Yes Skin Symptoms (Recalled from RN notes): No MS Symptoms (Recalled from RN notes): No Functional Status (Recalled from RN notes): n/a History of Present Illness Provider Complaint: Patient has had cough, congestion, runny nose x 1 week. No fever. Coughing so hard that she her ribs and stomach hurt. Cough is productive of yellow sputum. Has a lot of sinus drainage. History of COPD. Onset (ago): week(s) Location: chest Radiation: non-radiation Relieving factors: none Exacerbating factors: none Associated symptoms: cough and shortness of breath Treatments prior to arrival: none Related Data Home Medications Medication Instructions Recorded Confirmed alprazolam 0.5 mg tablet 0.5 mg PO BIDP PRN Anxiety 09/03/17 12/15/19 fenofibrate nanocrystallized 145 145 mg PO DAILY Cholesterol 09/03/17 12/15/19 mg tablet triamterene 37.5 0.5 tab PO DAILY Fluid 09/03/17 12/15/19 mg-hydrochlorothiazide 25 mg tablet warfarin 4 mg tablet 3 mg PO MOTUWETHFR Blood thinner 09/03/17 12/15/19 warfarin 4 mg tablet 4 mg PO SUSA Blood thinner 09/03/17 12/15/19 acetaminophen 325 mg tablet (Mapap 325 mg PO Q6H PRN . 09/18/17 12/15/19 (acetaminophen)) ondansetron HCl 4 mg tablet 4 mg PO Q8HP PRN Nausea 06/29/18 12/15/19 (Zofran) simvastatin 10 mg tablet 10 mg PO DAILY cholestrol 12/15/19 12/15/19 Previous Rx's Medication Instructions Recorded prednisone 20 mg tablet 20 mg PO BID #10 tabs 12/16/19 penicillin V potassium 500 mg 500 mg PO BID 10 days #20 tabs 01/12/21 tablet prednisone 10 mg tablet 10 mg PO DAILY 9 days #21 tabs 01/12/21 hydrocodone 5 mg-acetaminophen 325
[2021-12-28 18:57] VITALS: BP 124/56; PULSE 67; RESP 16; TEMP 36.9
== END 2021-12-28 19:00 | disposition home or self-care (01) ==
PROVIDERS: Emergency Provider Physician Assistant; PCP Internal Medicine
DX: J44.1 Chronic obstructive pulmonary disease with (acute) exacerbation (principal)
CPT/HCPCS: 71046; 96372; 99213; C9803; G0463; J0696; J1040; U0003; U0005

== ENCOUNTER 2022-01-06 15:58 | Emergency (ER) | payer MEDICARE, SELFPAY ==
--- NOTE | 2022-01-06 18:00 | EXP.UTC ---
Discharge Plan Disposition Patient Disposition: Home, Self-Care Condition: Good Prescriptions Prescriptions: New ondansetron 4 mg Tablet,Disintegrating 4 mg PO Q8H PRN (Reason: Nausea) Qty: 20 0RF No Action acetaminophen [Mapap (acetaminophen)] 325 mg tablet 325 mg PO Q6H PRN (Reason: .) warfarin 4 MG tablet 3 mg PO MOTUWETHFR Rx Instructions: alprazolam 0.5 MG tablet 0.5 mg PO BIDP PRN (Reason: Anxiety) triamterene-hydrochlorothiazid 1 EACH tablet 0.5 tab PO DAILY fenofibrate nanocrystallized 145 MG tablet 145 mg PO DAILY warfarin 4 MG tablet 4 mg PO SUSA doxycycline monohydrate 100 mg tablet 100 mg PO BID Qty: 20 0RF prednisone 20 mg tablet 20 mg PO BID Qty: 10 0RF ondansetron HCl [Zofran] 4 MG tablet 4 mg PO Q8HP PRN (Reason: Nausea) simvastatin 10 MG tablet 10 mg PO DAILY prednisone 20 MG tablet 20 mg PO BID Qty: 10 0RF penicillin V potassium 500 MG tablet 500 mg PO BID 10 Days Qty: 20 0RF prednisone 10 MG tablet 10 mg PO DAILY 9 Days Qty: 21 0RF Rx Instructions: Take 40 mg for 3 days, then take 20 mg for 3 days, then take 10 mg for 3 days, then stop. hydrocodone-acetaminophen 1 TAB tablet 1 tab PO Q6HP PRN (Reason: Breakthru Moderate Pain) 5 Days Qty: 15 0RF Referrals Follow up/Referrals: Jarett Liu [Primary Care Provider] - See instructions Activity Restrictions/Add. Instructions Additional Instructions/Restrictions: Drink plenty of fluids. Take the zofran for nausea. Follow up with your regular doctor tomorrow. GO TO THE ER FOR ANY WORSENING SYMPTOMS Clinical Impressions Clinical Impression: Abdominal pain Instructions Patient Instructions: DI for Abdominal Pain-Adult Discharge ED Provider: Juan Griffith [facility] General Stated complaint: Right side pain with nausea Time Seen by Provider: 01/06/22 17:45 History of Present Illness Provider Complaint: She states that she has had right side pain for the past 3 days. She states that she does not have her appendix. She does have a history of diverticulitis. She denies any fever or chills. He appetite has been decreased. Related Data Home Medications Medication Instructions Recorded Confirmed alprazolam 0.5 mg tablet 0.5 mg PO BIDP PRN Anxiety 09/03/17 12/15/19 fenofibrate nanocrystallized 145 145 mg PO DAILY Cholesterol 09/03/17 12/15/19 mg tablet triamterene 37.5 0.5 tab PO DAILY Fluid 09/03/17 12/15/19 mg-hydrochlorothiazide 25 mg tablet warfarin 4 mg tablet 3 mg PO MOTUWETHFR Blood thinner 09/03/17 12/15/19 warfarin 4 mg tablet 4 mg PO SUSA Blood thinner 09/03/17 12/15/19 acetaminophen 325 mg tablet (Mapap 325 mg PO Q6H PRN . 09/18/17 12/15/19 (acetaminophen)) ondansetron HCl 4 mg tablet 4 mg PO Q8HP PRN Nausea 06/29/18 12/15/19 (Zofran) simvastatin 10 mg tablet 10 mg PO DAILY cholestrol 12/15/19 12/15/19 Previous Rx's Medication Instructions Recorded prednisone 20 mg tablet 20 mg PO BID #10 tabs 12/16/19 penicillin V potassium 500 mg 500 mg PO BID 10 days #20 tabs 01/12/21 tablet prednisone 10 mg tablet 10 mg PO DAILY 9 days #21 tabs 01/12/21 hydrocodone 5 mg-acetaminophen 325 1 tab PO Q6HP PRN Breakthru 10/17/21 mg tablet Moderate Pain 5 days #15 tabs doxycycline monohydrate 100 mg 100 mg PO BID #20 tabs 12/28/21 tablet prednisone 20 mg tablet 20 mg PO BID #10 tabs 12/28/21 ondansetron 4 mg disintegrating 4 mg PO Q8H PRN Nausea #20 tabs 01/06/22 tablet Allergies Allergy/AdvReac Type Severity Reaction Status Date / Time aspirin Allergy Unknown RAPID Verified 01/06/22 18:05 HEART BEAT codeine Allergy Unknown RAPID Verified 01/06/22 18:05 HEART BEAT morphine Allergy Unknown RAPID Verified 01/06/22 18:05 HEART BEAT PFSH PFSH Social History Smoking Status: Current every day smoker tobacco type: cigar
[2022-01-06 18:03] VITALS: BP 144/71; PULSE 60; RESP 18; TEMP 36.9; O2SAT 97; BMI 38.5
[2022-01-06 18:15] LABS: Apearance,Urine Cloudy (Clear); Bilirubin,Urine Negative (Negative); Blood, Urine Negative (Negative); Color,Urine Yellow (Yellow); Glucose,Urine (UA) Negative (Negative); Ketones,Urine Negative (Negative); PH,Urine 5.5 (5.0-8.5); Protein,Urine Negative (Negative); Specific Gravity, Urine 1.025 (1.005-1.030); UTC Leukocyte Esterase,Urine Negative (Negative); UTC Nitrate,Urine Negative (Negative); Urobilinogen,Urine 0.2 EU/dl (0.2)
[2022-01-06 18:16] VITALS: BP 144/71; PULSE 60; RESP 18; TEMP 36.9
== END 2022-01-06 18:18 | disposition home or self-care (01) ==
PROVIDERS: Emergency Provider Nurse Practitioner Family; PCP Internal Medicine
DX: R10.9 Unspecified abdominal pain (principal); R11.0 Nausea; Z88.5 Allergy status to narcotic agent; Z88.6 Allergy status to analgesic agent
CPT/HCPCS: 81003; 99212; G0463

== ENCOUNTER 2022-08-27 15:06 | Emergency (ER) | payer MEDICARE, SELFPAY ==
[2022-08-27] VITALS (9 sets, daily range): BP systolic 112–164; BP diastolic 55–79; PULSE 61–68; RESP 16–20; TEMP 36.6; O2SAT 86–99; BMI 28.1
--- NOTE | 2022-08-27 15:23 | CT_ITS ---
FINAL REPORT TECHNIQUE: Axial CT images of the abdomen and pelvis were obtained without intravenous contrast. Coronal reformatted images were also obtained.This study was performed with techniques to keep radiation doses as low as reasonably achievable (ALARA). Individualized dose reduction techniques using automated exposure control or adjustment of mA and/or kV according to the patient's size were employed. CLINICAL HISTORY: Right renal colic, nausea/vomiting COMPARISON: 10/17/2021 FINDINGS: Abdomen: There is mild scarring in the lung bases. There are small bilateral renal cysts again noted. The largest in the upper pole the right kidney measuring 15 mm, was 14 mm. There is no evidence of renal stone or hydronephrosis. Post cholecystectomy. The liver, spleen and pancreas have an unremarkable, unenhanced appearance. There is mild adrenal gland enlargement, favored to represent hyperplasia or adenomas. No mass or adenopathy is seen. No inflammatory process is identified. Inferior vena cava filter is present. There are moderate vascular calcifications. Pelvis: Images of the pelvis reveal no evidence of ureteral dilation or ureteral stone.No mass or abnormal fluid collection is identified. The appendix is not visualized. There are bilateral inguinal hernias containing fat. There are postoperative changes from left hip arthroplasty. Post hysterectomy. IMPRESSION: No renal or ureteral stone, or hydronephrosis. Small bilateral renal cysts. Reviewed, Interpreted and Dictated by Horacio Hazel III, MD Transcribed by Mely Barnes Authenticated and [facility][1]
--- NOTE | 2022-08-27 15:24 | HMH.EDUROGF ---
Discharge Plan Disposition Patient Disposition: Home, Self-Care Chief Complaint: PAIN Prescriptions Prescriptions: No Action acetaminophen [Mapap (acetaminophen)] 325 mg tablet 325 mg PO Q6H PRN (Reason: .) warfarin 4 MG tablet 3 mg PO MOTUWETHFR Rx Instructions: alprazolam 0.5 MG tablet 0.5 mg PO BIDP PRN (Reason: Anxiety) triamterene-hydrochlorothiazid 1 EACH tablet 0.5 tab PO DAILY fenofibrate nanocrystallized 145 MG tablet 145 mg PO DAILY warfarin 4 MG tablet 4 mg PO SUSA doxycycline monohydrate 100 mg tablet 100 mg PO BID Qty: 20 0RF prednisone 20 mg tablet 20 mg PO BID Qty: 10 0RF ondansetron HCl [Zofran] 4 MG tablet 4 mg PO Q8HP PRN (Reason: Nausea) simvastatin 10 MG tablet 10 mg PO DAILY prednisone 20 MG tablet 20 mg PO BID Qty: 10 0RF penicillin V potassium 500 MG tablet 500 mg PO BID 10 Days Qty: 20 0RF prednisone 10 MG tablet 10 mg PO DAILY 9 Days Qty: 21 0RF Rx Instructions: Take 40 mg for 3 days, then take 20 mg for 3 days, then take 10 mg for 3 days, then stop. hydrocodone-acetaminophen 1 TAB tablet 1 tab PO Q6HP PRN (Reason: Breakthru Moderate Pain) 5 Days Qty: 15 0RF ondansetron 4 mg Tablet,Disintegrating 4 mg PO Q8H PRN (Reason: Nausea) Qty: 20 0RF Referrals Follow up/Referrals: Jarett Liu [Primary Care Provider] - See instructions Clinical Impressions Clinical Impression: Renal colic on right side Discharge ED Provider: Juan Pablo Berger Female Urogenital HPI General Chief complaint: PAIN Stated complaint: R side, back, leg cant' walk Time Seen by Provider: 08/27/22 15:17 Mode of Arrival: Wheelchair Source of Information: Patient History of Present Illness HPI Narrative: 81-year-old white female presents with right flank pain radiating down to her groin area that is exacerbated by walking every step she takes on her right leg produces more pain. 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 He has no skin rash has had no recent falls medical allergies listed include aspirin codeine and morphine Related Data Home Medications Medication Instructions Recorded Confirmed alprazolam 0.5 mg tablet 0.5 mg PO BIDP PRN Anxiety 09/03/17 12/15/19 fenofibrate nanocrystallized 145 145 mg PO DAILY Cholesterol 09/03/17 12/15/19 mg tablet triamterene 37.5 0.5 tab PO DAILY Fluid 09/03/17 12/15/19 mg-hydrochlorothiazide 25 mg tablet warfarin 4 mg tablet 3 mg PO MOTUWETHFR Blood thinner 09/03/17 12/15/19 warfarin 4 mg tablet 4 mg PO SUSA Blood thinner 09/03/17 12/15/19 acetaminophen 325 mg tablet (Mapap 325 mg PO Q6H PRN . 09/18/17 12/15/19 (acetaminophen)) ondansetron HCl 4 mg tablet 4 mg PO Q8HP PRN Nausea 06/29/18 12/15/19 (Zofran) simvastatin 10 mg tablet 10 mg PO DAILY cholestrol 12/15/19 12/15/19 Previous Rx's Medication Instructions Recorded prednisone 20 mg tablet 20 mg PO BID #10 tabs 12/16/19 penicillin V potassium 500 mg 500 mg PO BID 10 days #20 tabs 01/12/21 tablet prednisone 10 mg tablet 10 mg PO DAILY 9 days #21 tabs 01/12/21 hydrocodone 5 mg-acetaminophen 325 1 tab PO Q6HP PRN Breakthru 10/17/21 mg tablet Moderate Pain 5 days #15 tabs doxycycline monohydrate 100 mg 100 mg PO BID #20 tabs 12/28/21 tablet prednisone 20 mg tablet 20 mg PO BID #10 tabs 12/28/21 ondansetron 4 mg disintegrating 4 mg PO Q8H PRN Nausea #20 tabs 01/06/22 tablet Allergies Allergy/AdvReac Type Severity Reaction Status Date / Time aspirin Allergy Unknown RAPID Verified 01/06/22 18:05 HEART BEAT codeine Allergy Unknown RAPID Verified 01/06/22 18:05 HEART BEAT morphine Allergy Unknown RAPID Verified 01/06/22 18:05 HEART BEAT PFSH PFSH Disclaimer: The information contained in this section may have been updated after the
[2022-08-27 15:50] LABS: Basophils # 0.1 K/mm3 (0-0.2); Chloride 94 mmol/L (98-107); Eosinophils # 0.5 K/mm3 (0.0-0.4); Eosinophils % 5.9 % (0.1-12.0); Hemoglobin 16.2 g/dL (12.2-16.2); Lymphocytes # 2.1 K/mm3 (0.7-4.5); Lymphocytes % 26.5 % (10-50); Mean Corpuscular HGB Conc 32.4 g/dL (31.8-35.4); Mean Corpuscular Hemoglobin 28.6 pg (27.0-31.2); Mean Corpuscular Volume 88.3 fl (81-99); Mean Platelet Volume 9.1 fl (7.4-10.4); Monocytes # 0.5 K/mm3 (0.1-1.0); Monocytes % 6.3 % (1.7-9.3); Neutrophils # 4.8 K/mm3 (1.8-7.8); Neutrophils % 60.2 % (37.0-80.0); Platelet Count 188 K/mm3 (142-424); Potassium 3.5 mmoL/L (3.5-5.1); Red Blood Count 5.67 M/mm3 (4.20-5.40); Red Cell Distribution Width 14.9 % (11.5-17.5); Sodium 138 mmol/L (136-145)
--- NOTE | 2022-08-27 15:50 | PC.NURSE ---
Pt going to radiology at this time.
[2022-08-27 15:51] LABS: MANUAL DIFFERENTIAL MANUAL DIFFERENTIAL (MANUAL DIFF)
[2022-08-27 15:52] LABS: Blood Urea Nitrogen 22 mg/dl (7-17); Creatinine Clearance Estimated 46 mL/min (50-200); Estimated Glomerular Filt Rate 48 ml/min (>60); GFR (African American) 58 ML/MIN (>60)
[2022-08-27 15:53] LABS: Alanine Aminotransferase 20 U/L (12-78); Albumin Level 4.6 g/dl (3.5-5.0); Alkaline Phosphatase 83 U/L (38-126); Aspartate Amino Transferase 35 U/L (14-36); Bilirubin,Total 0.5 mg/dl (0.2-1.3); Carbon Dioxide 37 mmol/L (22.0-30.0); Globulin 4.4 g/dL (1.3-3.2); Glucose 95 mg/dl (74-100)
--- NOTE | 2022-08-27 15:54 | PC.NURSE ---
verbal order per MD for Zofran and Toradol.
[2022-08-27 15:55] LABS: Microscopic, Urine URINE MICROSCOPIC (MICROSCOPIC)
[2022-08-27 15:57] LABS: INR 2.67 (0.9-1.1); Prothrombin Time 27.3 seconds (10.1-12.5)
[2022-08-27 15:59] LABS: Anion Gap 10.5 mEq/L (5-15)
--- NOTE | 2022-08-27 15:59 | PC.NURSE ---
pt returned from radiology.
--- NOTE | 2022-08-27 16:02 | PC.NURSE ---
pt given warm blanket. pt requesting to sit on side of bed. pt instructed not to attempt to get up alone, call light w/i reach.
[2022-08-27 16:30] LABS: Appearance,Urine CLEAR (Clear); Bilirubin,Urine Negative (Negative); Blood, Urine Negative (Negative); Color,Urine YELLOW (Yellow); Glucose,Urine (UA) Negative (Negative); Ketones,Urine Negative (Negative); Leukocyte Esterase,Urine Negative (Negative); Nitrate,Urine Negative (Negative); PH,Urine 7.5 (5.0-8.5); Protein,Urine Negative (Negative); Urobilinogen,Urine 0.2 EU/dl (0.2)
[2022-08-27 16:41] LABS: Anisocytosis 1+; Lymphocytes % 27 % (10-50); Microcytosis 1+; Monocytes % 9 % (2-9); Neutrophils % 64 % (42-76); Platelet Estimate Normal; Total Cells Counted 100
[2022-08-27 16:42] LABS: Bacteria,Urine Trace /lpf
--- NOTE | 2022-08-27 17:20 | PC.NURSE ---
notified MD pt's labs and CT are returned.
--- NOTE | 2022-08-27 18:27 | PC.NURSE ---
family came to nurses station stating he said he was letting her go home. notified.
== END 2022-08-27 18:53 | disposition home or self-care (01) ==
PROVIDERS: Emergency Provider Emergency Medicine; PCP Internal Medicine
DX: N23 Unspecified renal colic (principal); F17.210 Nicotine dependence, cigarettes, uncomplicated
CPT/HCPCS: 74176; 80053; 81001; 85007; 85014; 85018; 85048; 85049; 85610; 96374; 96375; 99284; 99285; J2405

== ENCOUNTER 2022-09-26 20:08 | Emergency (ER) | payer MEDICARE, SELFPAY ==
[2022-09-26 20:09] VITALS: BP 141/75; PULSE 72; RESP 20; TEMP 36.6; O2SAT 98; BMI 27.4
--- NOTE | 2022-09-26 20:23 | XR_ITS ---
PROCEDURE INFORMATION: Exam: XR Chest Exam date and time: 09/26/2022 8:21 PM Age: 81 years old Clinical indication: Cough TECHNIQUE: Imaging protocol: Radiologic exam of the chest. Views: 2 views. COMPARISON: CR XR CHEST 2V 12/28/2021 5:17 PM FINDINGS: Lungs: No consolidation. Pleural spaces: No pneumothorax. Heart/Mediastinum: No cardiomegaly. Bones/joints: Postsurgical changes the cervical spine. Accentuation of the thoracic kyphosis. No acute fracture. IMPRESSION: No acute findings.
[2022-09-26 20:29] LABS: Coronavirus 19, PCR Not Detected (NotDetected); Influenza A, PCR Not Detected (NotDetected); Influenza B, PCR Not Detected (NotDetected)
[2022-09-26 21:01] VITALS: BP 133/46; PULSE 66; O2SAT 96
[2022-09-26 21:30] VITALS: BP 145/80; PULSE 82; RESP 22; TEMP 36.8; O2SAT 98
[2022-09-26 21:31] VITALS: BP 130/48; PULSE 64; O2SAT 95
--- NOTE | 2022-09-26 21:38 | PC.NURSE ---
Rounded on pt. Pt updated that scan results were back and Dr. Garcia would be in shortly to speak with her.
== END 2022-09-26 21:45 | disposition left against medical advice (07) ==
PROVIDERS: Emergency Provider Emergency Medicine; PCP Internal Medicine
DX: R05.9 Cough, unspecified (principal); F17.210 Nicotine dependence, cigarettes, uncomplicated
CPT/HCPCS: 71046; 87636; 99283; C9803; U0003; U0005

== ENCOUNTER 2022-10-16 17:49 | Emergency (ER) | payer MEDICARE, SELFPAY ==
[2022-10-16 17:49] VITALS: BP 146/55; PULSE 58; RESP 18; TEMP 36.8; O2SAT 95; BMI 26.6
--- NOTE | 2022-10-16 17:53 | CT_ITS ---
PROCEDURE INFORMATION: Exam: CT Cervical Spine Without Contrast Exam date and time: 10/16/2022 6:08 PM Age: 81 years old Clinical indication: Injury or trauma; Fall; Other: Weakness; Additional info: Trauma from fall TECHNIQUE: Imaging protocol: Computed tomography of the cervical spine without contrast. Radiation optimization: All CT scans at this facility use at least one of these dose optimization techniques: automated exposure control; mA and/or kV adjustment per patient size (includes targeted exams where dose is matched to clinical indication); or iterative reconstruction. REPORTING DATA: Count of CT and Cardiac NM exams in prior 12 months: This patient has received 2 known CTs and 0 known cardiac nuclear medicine studies in the 12 months prior to the current study. COMPARISON: CT CERVICAL SPINE WO CON 08/19/2021 3:09 AM FINDINGS: Bones/joints: Osteopenia. Craniocervical alignment is normal. Mild-moderate osteoarthritic changes in the TMJs. The occipital condyles are intact. The odontoid is intact. Moderate osteoarthritic sclerosis and spurring at the atlantodens interval. No jumped or perched facets. No fractures. C6-C7 ACDF without gross hardware complication, demonstrating solid ossific union across the disc space. Cervical vertebral alignment is normal. Mild disc space narrowing with mild-moderate marginal spurring C5-C6. No compressive soft disc protrusion or extrusion is evident by CT. Shallow posterior mixed spondylotic protrusion C5-C6 measuring 2.5 mm AP. 2 mm posterior spondylotic ridge C6-C7. Mild-moderate canal stenosis C5-C6. There is left foraminal stenosis which is moderate at C5-C6 and C6-C7. There is right foraminal stenosis which is moderate-severe at C5-C6. Pleural spaces: Mild bilateral apical pleural/parenchymal scarring. Thyroid: There is an 11 mm low-density nodule in the right thyroid lobe which does not require further evaluation based on current consensus criteria. Soft tissues: Paraspinous soft tissues are unremarkable without significant soft tissue swelling or soft tissue hematoma. IMPRESSION: 1. No evidence of fracture or acute traumatic subluxation. 2. Osteopenia and osteoarthritic changes with canal and foraminal stenoses detailed above. COMMENTS: Consistent with the [employer]'s Incidental Findings Committee white paper (J Am Dennis Radiol 2015): In patients aged 35 years and older with an incidental thyroid nodule equal to or greater than 1.[address], MRI or extrathyroidal US, further evaluation with dedicated thyroid US is recommended for patients with normal life expectancy and without comorbidities. For smaller nodules without suspicious features, no further evaluation or follow up is recommended.
--- NOTE | 2022-10-16 17:53 | CT_ITS ---
PROCEDURE INFORMATION: Exam: CT Head Without Contrast Exam date and time: 10/16/2022 6:06 PM Age: 81 years old Clinical indication: Injury or trauma; Fall; Other: Weakness; Additional info: Trauma from fall TECHNIQUE: Imaging protocol: Computed tomography of the head without contrast. Radiation optimization: All CT scans at this facility use at least one of these dose optimization techniques: automated exposure control; mA and/or kV adjustment per patient size (includes targeted exams where dose is matched to clinical indication); or iterative reconstruction. REPORTING DATA: Count of CT and Cardiac NM exams in prior 12 months: This patient has received 2 known CTs and 0 known cardiac nuclear medicine studies in the 12 months prior to the current study. COMPARISON: CT HEAD/BRAIN WO CON 08/19/2021 3:06 AM FINDINGS: Brain: Moderate generalized cerebral/cerebellar atrophy. Mild-moderate bilateral white matter hypodensities which are nonspecific but most commonly associated with chronic microvascular ischemia in this age group. The IACs are grossly normal. No extra-axial fluid collections. No evidence of acute intracranial hemorrhage. No CT evidence of large territory acute or subacute intracranial ischemia/infarct. No intracranial mass lesions. No midline shift or herniation. Cerebral ventricles: Mild compensatory ventriculomegaly secondary to central atrophy. Pituitary gland and sella: The sella is grossly normal. Paranasal sinuses: Mucous retention cyst versus polyp formation in the right maxillary sinus suggesting mild chronic sinus inflammatory disease. No fluid levels. Mild mucosal thickening in the left fronto ethmoid distribution as well. Mastoid air cells: Visualized mastoid air cells are clear. Orbital cavities: No acute intraorbital findings. Prior bilateral ocular lens extraction. Bones/joints: The calvarium and visualized facial bones are intact. Soft tissues: The scalp and visualized soft tissues demonstrate no acute abnormality. Vasculature: Mild calcific atherosclerosis. No asymmetric vascular hyperdensities suggestive of thrombosis are identified. Other findings: Spann-white matter differentiation is well maintained. IMPRESSION: 1. No acute intracranial process. No intracranial hemorrhage or mass effect. 2. Atrophy and microvascular changes consistent with age. 3. Mild calcific atherosclerosis. 4. Mild changes of chronic sinusitis.
--- NOTE | 2022-10-16 17:53 | XR_ITS ---
PROCEDURE INFORMATION: Exam: XR Pelvis Exam date and time: 10/16/2022 6:12 PM Age: 81 years old Clinical indication: Injury or trauma; Fall; Blunt trauma (contusions or hematomas); Prior surgery; Surgery date: 6+ months; Surgery type: Left hip pinning. ; Additional info: Trauma from fall TECHNIQUE: Imaging protocol: Radiologic exam of the pelvis. Views: 1 or 2 view. COMPARISON: CT ABDOMEN PELVIS WO CON 08/27/2022 3:55 PM FINDINGS: Bones/joints: Osteopenia. No fractures. Unipolar left hip arthroplasty without gross complication. SI joints and pubic symphysis are unremarkable, without diastasis. Moderate osteoarthritic facet hypertrophy L4-L5 on the right. Soft tissues: Chronic 5 mm calcification in the lateral left hip subcutaneous tissues. No acute soft tissue abnormalities. IMPRESSION: No acute findings.
--- NOTE | 2022-10-16 17:53 | XR_ITS ---
PROCEDURE INFORMATION: Exam: XR Left Shoulder Exam date and time: 10/16/2022 6:12 PM Age: 81 years old Clinical indication: Injury or trauma; Fall; Blunt trauma (contusions or hematomas); Shoulder; Left; Additional info: Trauma from fall TECHNIQUE: Imaging protocol: Radiologic exam of the left shoulder. Views: 2 or more views. COMPARISON: CT CERVICAL SPINE WO CON 10/16/2022 6:08 PM FINDINGS: Bones/joints: Osteopenia. Lower cervical fusion hardware without gross complication. No fractures. Glenohumeral alignment is normal. A.C. joint alignment is normal with mild osteoarthritic spurring. No blastic or lytic lesions. Adjacent ribs are intact. Moderate thoracic spondylosis. Lungs: Visualized lung parenchyma is unremarkable. Pleural space: No visible pleural effusion or pneumothorax. Soft tissues: No gross soft tissue abnormalities. IMPRESSION: No acute findings.
--- NOTE | 2022-10-16 17:53 | XR_ITS ---
PROCEDURE INFORMATION: Exam: XR Chest Exam date and time: 10/16/2022 6:12 PM Age: 81 years old Clinical indication: Injury or trauma; Fall; Blunt trauma (contusions or hematomas); Additional info: Trauma from fall TECHNIQUE: Imaging protocol: Radiologic exam of the chest. Views: 1 view. COMPARISON: CR XR CHEST 2V 09/26/2022 8:21 PM FINDINGS: Lungs: Low lung volumes. Minor bandlike alveolar density in the left base consistent with linear atelectasis or scarring. Pleural spaces: No pleural effusion. No pneumothorax. Heart/Mediastinum: Heart size and pulmonary vasculature within normal limits for portable AP technique and low lung volumes. No tracheal/mediastinal shift. Bones/joints: No acute osseous abnormalities are identified. Moderate thoracic spondylosis. Cervical fusion hardware noted without gross hardware complication. IMPRESSION: 1. No acute thoracic process. 2. Low lung volumes with mild bandlike atelectasis or scarring in the left base.
--- NOTE | 2022-10-16 17:53 | XR_ITS ---
PROCEDURE INFORMATION: Exam: XR Left Knee Exam date and time: 10/16/2022 6:12 PM Age: 81 years old Clinical indication: Injury or trauma; Fall; Blunt trauma; Knee; Left; Additional info: Trauma from fall TECHNIQUE: Imaging protocol: Radiologic exam of the left knee. Views: 3 views. COMPARISON: No relevant prior studies available. FINDINGS: Bones/joints: Osteopenia. No fracture. Normal alignment. Mild variant patella [place] with patellar tendon to patellar ratio of 1.25. No blastic or lytic lesions. No significant joint effusion is present. Question minor osteoarthritic joint space narrowing in the medial compartment although projection limits characterization. Soft tissues: No periostitis. Mild medial soft tissue swelling. No foreign bodies. Vasculature: Mild calcific atherosclerosis. Other findings: No osteolysis. IMPRESSION: 1. No acute osseous abnormalities. 2. Question mild osteoarthritic joint space narrowing in the medial compartment. 3. Mild medial soft tissue swelling.
--- NOTE | 2022-10-16 18:01 | PC.NURSE ---
pt going to CT scan at this time.
[2022-10-16 18:14] LABS: Chloride 95 mmol/L (98-107)
[2022-10-16 18:15] LABS: Potassium 3.4 mmoL/L (3.5-5.1); Sodium 139 mmol/L (136-145)
[2022-10-16 18:17] LABS: Blood Urea Nitrogen 28 mg/dl (7-17); Creatinine Clearance Estimated 38 mL/min (50-200); Estimated Glomerular Filt Rate 39 ml/min (>60); GFR (African American) 47 ML/MIN (>60)
[2022-10-16 18:18] LABS: Alanine Aminotransferase 21 U/L (12-78); Albumin Level 4.1 g/dl (3.5-5.0); Albumin/Globulin Ratio 1.2 (1.1-1.8); Alkaline Phosphatase 65 U/L (38-126); Anion Gap 10.4 mEq/L (5-15); Aspartate Amino Transferase 34 U/L (14-36); Bilirubin,Total 0.2 mg/dl (0.2-1.3); Calcium 9.3 mg/dl (8.4-10.2); Carbon Dioxide 37 mmol/L (22.0-30.0); Globulin 3.5 g/dL (1.3-3.2); Glucose 124 mg/dl (74-100); Total Protein,Serum 7.6 g/dl (6.3-8.2)
[2022-10-16 18:22] LABS: Basophils # 0.1 K/mm3 (0-0.2); Basophils % 0.9 % (0.1-2.0); Eosinophils # 0.6 K/mm3 (0.0-0.4); Eosinophils % 7.9 % (0.1-12.0); Hematocrit 44.8 % (37.0-47.0); Hemoglobin 14.2 g/dL (12.2-16.2); Lymphocytes # 2.4 K/mm3 (0.7-4.5); Lymphocytes % 33.3 % (10-50); Mean Corpuscular HGB Conc 31.6 g/dL (31.8-35.4); Mean Corpuscular Hemoglobin 27.6 pg (27.0-31.2); Mean Corpuscular Volume 87.3 fl (81-99); Mean Platelet Volume 8.7 fl (7.4-10.4); Monocytes # 0.6 K/mm3 (0.1-1.0); Neutrophils # 3.6 K/mm3 (1.8-7.8); Neutrophils % 49.9 % (37.0-80.0); Platelet Count 177 K/mm3 (142-424); Red Blood Count 5.13 M/mm3 (4.20-5.40); White Blood Count 7.1 K/mm3 (4.8-10.8)
--- NOTE | 2022-10-16 18:36 | PC.NURSE ---
Patient back from CT's
[2022-10-16 18:44] LABS: Microscopic, Urine URINE MICROSCOPIC (MICROSCOPIC)
--- NOTE | 2022-10-16 18:45 | HMH.EDFALL ---
Discharge Plan Disposition Patient Disposition: Home, Self-Care Chief Complaint: Fall Prescriptions Prescriptions: No Action metformin 500 mg tablet 500 mg PO DAILY Label Comments: TAKE 1 TABLET BY MOUTH ONCE DAILY primidone 50 mg tablet 50 mg PO DAILY Label Comments: TAKE 1 TABLET BY MOUTH ONCE DAILY WITH FOOD sucralfate 1 gram tablet 1 g PO TID Label Comments: TAKE 1 TABLET BY MOUTH THREE TIMES DAILY FOR 7 DAYS simvastatin 10 mg tablet 10 mg PO HS Label Comments: TAKE 1 TABLET BY MOUTH ONCE DAILY potassium chloride 10 mEq tablet extended release 10 meq PO DAILY Label Comments: TAKE 1 TABLET BY MOUTH ONCE DAILY triamterene-hydrochlorothiazid 37.5-25 mg capsule 1 cap PO DAILY Label Comments: TAKE 1 CAPSULE BY MOUTH ONCE DAILY warfarin 4 mg tablet 4 mg PO DAILY Label Comments: TAKE 1 TABLET BY MOUTH ONCE DAILY pantoprazole 20 mg tablet,delayed release (DR/EC) 20 mg PO DAILY Label Comments: TAKE 1 TABLET BY MOUTH ONCE DAILY alprazolam 0.5 mg tablet 0.5 mg PO BID Label Comments: TAKE 1 TABLET BY MOUTH TWICE DAILY furosemide 20 mg tablet 20 mg PO DAILY Label Comments: TAKE 1 TABLET BY MOUTH EVERY OTHER DAY ergocalciferol (vitamin D2) 1,250 mcg (50,000 unit) capsule 1,250 mcg PO WEEKLY Label Comments: TAKE 1 CAPSULE BY MOUTH EVERY THURSDAY Referrals Follow up/Referrals: Provider,Referral, MD [Primary Care Provider] - See instructions Clinical Impressions Clinical Impression: Status post fall Discharge ED Provider: Juan Pablo Berger [facility] General Chief Complaint: Fall Stated Complaint: Fall today Time Seen by Provider: 10/16/22 19:29 Mode of Arrival: EMS Source of Information: Patient and EMS Limitations: No Limitations Description of Symptoms (Recalled from ER Triage Doc. by RN): 81 F presents from home after sustaining a ground level fall. She tripped while using her cane and fell to her left side. Patient has no obvious deformities. She complains of pain to her left him, which has been replaced in the past. EMS administered 4mg of IVP Zofran and 2mg of IVP Morphine to a 20g LAC. A/O x3. Patient did not have LOC on scene History of Present Illness HPI Narrative: 81-year-old white female tripped on her cane and fell landing primarily on her left side. She is complaining of neck pain left shoulder pain and left chest wall pain left abdominal pain and left hip pain. She is status post left hip replacement. The patient had no dizziness or loss of consciousness but simply tripped. Her medical allergies listed include aspirin codeine and morphine although she just received morphine and is having no difficulty with that at this time. She has history of hypertension hip fracture hyperlipidemia factor V Leiden mutation Lupus anticoagulant disorder history of DVT history of pulmonary embolus COPD gastroesophageal GL reflux disease parotitis left rib contusion concussion with level loss of consciousness and renal colic on the right side. Related Data Home Medications Medication Instructions Recorded Confirmed alprazolam 0.5 mg tablet 0.5 mg PO BID Anxiety 10/16/22 10/16/22 ergocalciferol (vitamin D2) 1,250 1,250 mcg PO WEEKLY Supplement 10/16/22 10/16/22 mcg (50,000 unit) capsule furosemide 20 mg tablet 20 mg PO DAILY Fluid 10/16/22 10/16/22 metformin 500 mg tablet 500 mg PO DAILY Diabetes 10/16/22 10/16/22 pantoprazole 20 mg tablet,delayed 20 mg PO DAILY Acid reflux 10/16/22 10/16/22 release potassium chloride 10 mEq 10 meq PO DAILY Supplement 10/16/22 10/16/22 tablet,extended release primidone 50 mg tablet 50 mg PO DAILY Pain 10/16/22 10/16/22 simvastatin 10 mg tablet 10 mg PO HS Cholesterol 10/16/22 10/16/22 sucralfate 1 gram tablet 1 g PO TID Acid reflux 10/16/22 10/16/22 triamterene 37.5 1 cap PO DAILY High blood pressure 10/16/22 10/16/22 mg-hydrochlorothiazide 2
[2022-10-16 18:47] LABS: Appearance,Urine CLEAR (Clear); Bilirubin,Urine Negative (Negative); Blood, Urine Negative (Negative); Color,Urine YELLOW (Yellow); Glucose,Urine (UA) Negative (Negative); Ketones,Urine Negative (Negative); Leukocyte Esterase,Urine Negative (Negative); Nitrate,Urine Negative (Negative); PH,Urine 6.5 (5.0-8.5); Protein,Urine Negative (Negative); Urobilinogen,Urine 0.2 EU/dl (0.2)
[2022-10-16 19:03] LABS: WBC,Urine Occasional #/hpf (0-3)
--- NOTE | 2022-10-16 19:47 | PC.NURSE ---
CT collar removed by attending
[2022-10-16 20:11] VITALS: BP 121/53; PULSE 75; RESP 17; TEMP 36.6; O2SAT 98
== END 2022-10-16 20:14 | disposition home or self-care (01) ==
PROVIDERS: Emergency Provider Emergency Medicine
DX: M54.2 Cervicalgia (principal); R07.89 Other chest pain; M25.552 Pain in left hip; M25.512 Pain in left shoulder; R11.0 Nausea; D68.62 Lupus anticoagulant syndrome; I10 Essential (primary) hypertension; E78.5 Hyperlipidemia, unspecified; W01.0XXA Fall on same level from slipping, tripping and stumbling without subsequent striking against object, initial encounter
CPT/HCPCS: 70450; 71045; 72125; 72170; 73030; 73562; 80053; 81001; 85025; 96374; 96375; 99284; 99285; J0131; J2405

== ENCOUNTER → 2022-12-04 12:19 | Outpatient (POV) | payer MEDICARE, SELFPAY | PROVIDERS: Visit Provider Specialist/Technologist | DX: Z00.00 Encounter for general adult medical examination without abnormal findings (principal) ==

== ENCOUNTER → 2023-01-27 23:29 | Outpatient (CLI) | payer MEDICARE, SELFPAY | PROVIDERS: Visit Provider Student in an Organized Health Care Education/Training Program | DX: N39.0 Urinary tract infection, site not specified (principal); B95.2 Enterococcus as the cause of diseases classified elsewhere | CPT/HCPCS: 87086; 87088; 87186 ==

== ENCOUNTER → 2023-02-05 16:43 | Outpatient (CLI) | payer MEDICARE, SELFPAY ==
[2023-02-05 17:42] LABS: Basophils # 0.1 K/mm3 (0-0.2); Basophils % 0.9 % (0.1-2.0); Eosinophils # 0.5 K/mm3 (0.0-0.4); Eosinophils % 6.2 % (0.1-12.0); Hematocrit 45.7 % (37.0-47.0); Hemoglobin 14.5 g/dL (12.2-16.2); Lymphocytes # 2.4 K/mm3 (0.7-4.5); Lymphocytes % 31.3 % (10-50); Mean Corpuscular HGB Conc 31.8 g/dL (31.8-35.4); Mean Corpuscular Hemoglobin 27.2 pg (27.0-31.2); Mean Corpuscular Volume 85.6 fl (81-99); Mean Platelet Volume 9.6 fl (7.4-10.4); Monocytes # 0.7 K/mm3 (0.1-1.0); Monocytes % 9.3 % (1.7-9.3); Neutrophils % 52.3 % (37.0-80.0); Platelet Count 173 K/mm3 (142-424); Red Blood Count 5.34 M/mm3 (4.20-5.40); Red Cell Distribution Width 14.5 % (11.5-17.5); White Blood Count 7.6 K/mm3 (4.8-10.8)
[2023-02-05 17:46] LABS: INR 3.73 (0.9-1.1)
[2023-02-05 17:50] LABS: Alanine Aminotransferase 19 U/L (12-78); Albumin Level 3.9 g/dl (3.5-5.0); Albumin/Globulin Ratio 1.1 (1.1-1.8); Alkaline Phosphatase 66 U/L (38-126); Anion Gap 8.3 mEq/L (5-15); Aspartate Amino Transferase 29 U/L (14-36); Bilirubin,Total 0.4 mg/dl (0.2-1.3); Blood Urea Nitrogen 25 mg/dl (7-17); Calcium 9.3 mg/dl (8.4-10.2); Carbon Dioxide 33 mmol/L (22.0-30.0); Chloride 104 mmol/L (98-107); Estimated Glomerular Filt Rate 53 ml/min (>60); GFR (African American) 64 ML/MIN (>60); Globulin 3.5 g/dL (1.3-3.2); Glucose 81 mg/dl (74-100); Potassium 4.3 mmoL/L (3.5-5.1); Sodium 141 mmol/L (136-145); Total Protein,Serum 7.4 g/dl (6.3-8.2)
== END ==
PROVIDERS: PCP Internal Medicine; Visit Provider Internal Medicine
DX: E78.5 Hyperlipidemia, unspecified (principal); Z86.718 Personal history of other venous thrombosis and embolism
CPT/HCPCS: 36415; 80053; 85025; 85610

== ENCOUNTER 2023-08-22 15:58 | Emergency (ER) | payer MEDICARE, SELFPAY ==
[2023-08-22 15:59] VITALS: BP 154/64; PULSE 57; RESP 18; TEMP 36.5; O2SAT 96; BMI 27.1
[2023-08-22 16:19] LABS: Microscopic, Urine URINE MICROSCOPIC (MICROSCOPIC)
[2023-08-22 16:22] LABS: Appearance,Urine CLOUDY (Clear); Bilirubin,Urine Negative (Negative); Blood, Urine 2+ (Negative); Color,Urine YELLOW (Yellow); Glucose,Urine (UA) Negative (Negative); Ketones,Urine Negative (Negative); Leukocyte Esterase,Urine 2+ (Negative); Nitrate,Urine POSITIVE (Negative); Protein,Urine 1+ (Negative)
--- NOTE | 2023-08-22 16:36 | ED_ITS ---
Discharge Plan Disposition Patient Disposition: Home, Self-Care Prescriptions Prescriptions: New cefdinir 300 mg capsule 300 mg PO BID 10 Days Qty: 20 0RF No Action nitrofurantoin monohyd/m-cryst 100 mg capsule 100 mg PO Q12H 5 Days Qty: 10 0RF Rx Instructions: must administer with a meal/food metformin 500 mg tablet 500 mg PO DAILY Patient Comments: TAKE 1 TABLET BY MOUTH ONCE DAILY primidone 50 mg tablet 50 mg PO DAILY Patient Comments: TAKE 1 TABLET BY MOUTH ONCE DAILY WITH FOOD sucralfate 1 gram tablet 1 g PO TID Patient Comments: TAKE 1 TABLET BY MOUTH THREE TIMES DAILY FOR 7 DAYS simvastatin 10 mg tablet 10 mg PO HS Patient Comments: TAKE 1 TABLET BY MOUTH ONCE DAILY potassium chloride 10 mEq tablet extended release 10 meq PO DAILY Patient Comments: TAKE 1 TABLET BY MOUTH ONCE DAILY triamterene-hydrochlorothiazid 37.5-25 mg capsule 1 cap PO DAILY Patient Comments: TAKE 1 CAPSULE BY MOUTH ONCE DAILY warfarin 4 mg tablet 4 mg PO DAILY Patient Comments: TAKE 1 TABLET BY MOUTH ONCE DAILY pantoprazole 20 mg tablet,delayed release (DR/EC) 20 mg PO DAILY Patient Comments: TAKE 1 TABLET BY MOUTH ONCE DAILY alprazolam 0.5 mg tablet 0.5 mg PO BID Patient Comments: TAKE 1 TABLET BY MOUTH TWICE DAILY furosemide 20 mg tablet 20 mg PO DAILY Patient Comments: TAKE 1 TABLET BY MOUTH EVERY OTHER DAY ergocalciferol (vitamin D2) 1,250 mcg (50,000 unit) capsule 1,250 mcg PO WEEKLY Patient Comments: TAKE 1 CAPSULE BY MOUTH EVERY THURSDAY Referrals Follow up/Referrals: Jarett Liu [Primary Care Provider] - See instructions Activity Restrictions/Add. Instructions Additional Instructions/Restrictions: Call your family doctor to establish care for this visit to the emergency department and schedule follow-up within 48 hours to ensure improvement. If you have any worsening of your condition or any other concerning signs or symptoms, return to the emergency department or your primary care doctor for further evaluation. Cefdinir twice daily for 10 days Clinical Impressions Clinical Impression: Pyelonephritis Instructions Patient Instructions: DI for Urinary Tract Infection (UTI), DI for Urinary Tract Infection in Children Discharge ED Provider: Wally Nair General Adult [facility] General Chief complaint: Urogenital-Female Stated complaint: poss UTI Time Seen by Provider: 08/22/23 15:59 Mode of Arrival: Ambulatory Source of Information: Patient Limitations: No Limitations Description of Symptoms (Recalled from ER Triage Doc. by RN): urinary symptoms History of Present Illness HPI narrative: 82-year-old female no relevant medical history presenting with dysuria. Has been going on for about a week. States has been taking care of her who broke his hip, has not been staying hydrated, thinks this is probably what caused it. No fevers or chills, but she does have nausea without vomiting. No flank pain, hematuria, or any other concerns. States that she does have a past history of prolapse, has had a sling placed, has follow-up in the next couple of weeks for further evaluation. Please note that above description of symptoms, in this electronic medical record under categorization of recalled from ER triage doctor by RN are reflective of an initial nursing assessment, however, is not reflective of my full history and physical exam that was personally taken and clarified. Consequentially, this preceding description of symptoms, which may include the patient's categorized chief complaint in the EMR, do not reflect my personal clinical impression, and the ultimate description of history of present illness and patient stated complaints should be deferred to this section of the note. Unless stated otherwise or congruent with this section of the note, additional signs, symptoms, or incongruence should be interpreted as inaccurate with my clinical impression. Related Data Home Medications Medication Instructions Recorded Confirmed alprazolam 0.5 mg tablet 0.5 mg PO BID Anxiety 10/16/22 01/27/23 ergocalciferol (vitamin D2) 1,250 1,250 mcg PO WEEKLY Supplement 10/16/22 01/27/23 mcg (50,000 unit) capsule furosemide 20 mg tablet 20 mg PO DAILY Fluid 10/16/22 01/27/23 metformin 500 mg tablet 500 mg PO DAILY Diabetes 10/16/22 01/27/23 pantoprazole 20 mg tablet,delayed 20 mg PO DAILY Acid reflux 10/16/22 01/27/23 release potassium chloride 10 mEq 10 meq PO DAILY Supplement 10/16/22 01/27/23 tablet,extended release primidone 50 mg tablet 50 mg PO DAILY Pain 10/16/22 01/27/23 simvastatin 10 mg tablet 10 mg PO HS Cholesterol 10/16/22 01/27/23 sucralfate 1 gram tablet 1 g PO TID Acid reflux 06/15/23 09/26/23 triamterene 37.5 1 cap PO DAILY High blood pressure 10/16/22 01/27/23 mg-hydrochlorothiazide 25 mg capsule warfarin 4 mg tablet 4 mg PO DAILY Blood thinner 10/16/22 01/27/23 Previous Rx's Medication Instructions Recorded nitrofurantoin 100 mg PO Q12H 5 days #10 caps 01/30/23 monohydrate/macrocrystals 100 mg capsule cefdinir 300 mg capsule 300 mg PO BID 10 days #20 caps 08/22/23 Allergies Allergy/AdvReac Type Severity Reaction Status Date / Time aspirin Allergy Unknown RAPID Verified 01/27/23 13:22 HEART BEAT codeine Allergy Unknown RAPID Verified 01/27/23 13:22 HEART BEAT morphine Allergy Unknown RAPID Verified 01/27/23 13:22 HEART BEAT PFSH PFSH Disclaimer: The information contained in this section may have been updated after the patient was seen, as this information can be updated by other users. Medical History (Updated 08/22/23 @ 16:41 by Wally Nair MD) Concussion without loss of consciousness GERD (gastroesophageal reflux disease) COPD (chronic obstructive pulmonary disease) History of pulmonary embolism History of DVT (deep vein thrombosis) Lupus anticoagulant disorder Factor 5 Leiden mutation, heterozygous Hyperlipidemia Hypertension Surgical History (Updated 01/27/23 @ 13:24 by Mackenzie Escalante MA) Hx of neck surgery History of hip replacement Family History Family/Other No significant family history Social History Smoking Status: Current every day smoker tobacco type: cigarettes packs per day: 1 second hand exposure: Yes alcohol intake: never substance use type: denies use current occupational status: employed Travel in the last 8 weeks: None household members: spouse housing: house ROS Obtained: Yes All systems reviewed & no additional complaints except as documented Physical Exam General General appearance: alert and in no apparent distress Head Head exam: atraumatic and normocephalic Eye Eye exam: Present normal appearance, PERRL and EOMI ENT ENT exam: Present mucous membranes moist Neck Neck exam: Present normal inspection, full ROM and trachea midline Respiratory Respiratory exam: Absent respiratory distress, wheezes, stridor, accessory muscle use or prolonged expiratory phase Cardiovascular Cardiovascular exam: Present normal rhythm Abdominal Exam Abdominal exam: Present soft; Absent distention, tenderness, guarding, rebound or rigidity Extremities Exam Extremities exam: Absent edema Back Exam Back exam: Absent CVA tenderness (R) or CVA tenderness (L) Neurological Exam Neurological exam: Present alert, oriented X3, CN II-XII intact and normal gait; Absent motor sensory deficit Skin Skin exam: Present warm and dry; Absent diaphoresis or erythema Medical Decision Making Medical Records Medical records reviewed: Yes I reviewed the patient's medical records. Gualberto Inquiry Pt receiving controlled substance: No Gualberto was queried for this patient: No Vital Signs: 08/22/23 15:59 Temperature 97.7 F Temperature Source Oral Pulse Rate [Right] 57 L Respiratory Rate 18 Blood Pressure [Right Arm] 154/64 H Blood Pressure Mean [Right Arm] 94 02 Sat by Pulse Oximetry 96 Oxygen Delivery Method Room Air Lab Data Lab Results 08/22/23 16:04: Urine Color Yellow, Urine Appearance Cloudy, Urine pH 6.0, Ur Specific Mcdaniels 1.020, Urine Protein 1+, Urine Glucose (UA) Negative, Urine Ketones Negative, Urine Blood 2+, Urine Nitrate Positive, Urine Bilirubin Negative, Urine Urobilinogen 1.0, Ur Leukocyte Esterase 2+ A Orders (Tests/Meds): ED MEDICATIONS Generic Name Dose Route Start Last Admin Trade Name Freq PRN Reason Stop Dose Admin Cefdinir 300 mg 08/22/23 16:40 08/22/23 16:46 Cefdinir 300mg Capsule PO 08/22/23 16:41 300 mg ONCE ONE Administration ORDERS Category Date Time Status UA [Urinalysis and Microscopic] Stat Lab 08/22/23 16:04 Results Urine Culture Stat Micro 08/22/23 16:04 Received Medical Decision Narrative: 82-year-old female no relevant medical history presenting with dysuria. Has been going on for about a week. States has been taking care of her who broke his hip, has not been staying hydrated, thinks this is probably what caused it. No fevers or chills, but she does have nausea without vomiting. No flank pain, hematuria, or any other concerns. States that she does have a past history of prolapse, has had a sling placed, has follow-up in the next couple of weeks for further evaluation. History obtained with patient. On arrival, patient hemodynamically stable, afebrile, nontachycardic, normotensive, very well-appearing. No abdominal tenderness, flank tenderness, or any acute distress. Differential includes UTI, nephrolithiasis, diverticulitis, constipation, enteritis, among others. Started conservatively, got urinalysis. This was concerning for possibly early pyelonephritis. She has turbid urine with protein, blood, nitrates, leuk esterase. Patient was given initial dose of cefdinir here. Rest of cefdinir was sent to pharmacy of choice. Because patient at baseline without signs or symptoms of clinical decompensation, deemed appropriate for discharge. Results were relayed to patient who voiced understanding and were agreeable to outpatient management and follow up. I discussed my clinical impression with patient and answered all questions. At this time, the evidence for any other entities in the differential is insufficient to warrant any further testing or ED observation. This was explained as well. Advisory was given that persistent or worsening symptoms require further evaluation. I confirmed the understanding of this discussion. Critical Care Critical Care Time Critical Care Time: No
[2023-08-22] MEDS: CEFDINIR 300MG CAPSULE 300 MG PO (16:46)
[2023-08-22 16:52] VITALS: BP 120/84; PULSE 59; RESP 17; TEMP 36.5; O2SAT 96
[2023-08-22 16:58] LABS: Bacteria,Urine 2+ /lpf; Squamous Epithelial Cell,Urine Occasional #/hpf (0-5); WBC,Urine 20-50 #/hpf (0-3); Yeast,Urine Occasional /lpf
--- NOTE | 2023-08-31 09:53 | PC.NURSE ---
urine culture results discussed with , pt dc with cefdinir, ntd
== END 2023-08-22 16:54 | disposition home or self-care (01) ==
PROVIDERS: Emergency Provider Emergency Medicine; PCP Internal Medicine
DX: N10 Acute pyelonephritis (principal); B96.29 Other Escherichia coli [E. coli] as the cause of diseases classified elsewhere; F17.210 Nicotine dependence, cigarettes, uncomplicated; J44.9 Chronic obstructive pulmonary disease, unspecified; K21.9 Gastro-esophageal reflux disease without esophagitis; I10 Essential (primary) hypertension; E78.5 Hyperlipidemia, unspecified; Z79.01 Long term (current) use of anticoagulants; Z86.718 Personal history of other venous thrombosis and embolism
CPT/HCPCS: 81001; 87086; 99283

== ENCOUNTER 2023-09-19 20:46 | Emergency (ER) | payer MEDICARE, SELFPAY ==
[2023-09-19 21:23] VITALS: BP 145/81; PULSE 64; RESP 20; TEMP 36.8; O2SAT 95; BMI 27.4
--- NOTE | 2023-09-19 21:26 | XR_ITS ---
PROCEDURE INFORMATION: Exam: XR Chest Exam date and time: 09/19/2023 9:29 PM Age: 82 years old Clinical indication: Pain; Chest pressure; Additional info: Rib pain TECHNIQUE: Imaging protocol: Radiologic exam of the chest. Views: 2 views. Total images: 2 COMPARISON: CR XR CHEST PORTABLE 10/16/2022 6:12 PM FINDINGS: Lungs: Left basilar atelectasis or scarring, unchanged. New right basilar opacity concerning for evolving infiltrate. No pulmonary vascular congestion or interstitial edema. Pleural spaces: Right greater than left apical pleural thickening/scarring. No pleural effusion or pneumothorax. Heart/Mediastinum: Unremarkable. No cardiomegaly. No mediastinal widening or hilar enlargement. Vasculature: Atherosclerotic aortic arch. Status post IVC filter. Bones/joints: Status post anterior cervical fusion. Osteopenia. Moderate degenerative changes thoracic spine. Mild degenerative changes bilateral shoulders and AC joints. Increased thoracic kyphosis. Soft tissues: Breast attenuation artifact. Organs: Status post cholecystectomy. IMPRESSION: 1. Acute mild right basilar airspace opacity implying evolving pneumonia. 2. Additional stable chronic findings.
--- NOTE | 2023-09-19 21:30 | PC.NURSE ---
patient swabbed and sent to lab
[2023-09-19 21:34] LABS: Coronavirus 19, PCR Not Detected (NotDetected); Influenza A, PCR Not Detected (NotDetected); Influenza B, PCR Not Detected (NotDetected)
--- NOTE | 2023-09-19 22:08 | PC.NURSE ---
called resp [id number] and spoke with will to advise of breathing tx's.
--- NOTE | 2023-09-19 22:10 | HMH.EDGENADL ---
Discharge Plan Disposition Patient Disposition: Home, Self-Care Prescriptions Prescriptions: New azithromycin [Zithromax Z-Maximino] 250 mg tablet 250 mg PO DAILY 4 Days Qty: 4 0RF Rx Instructions: start on day 2 of therapy cefuroxime axetil 500 mg tablet 500 mg PO BID 7 Days Qty: 14 0RF No Action nitrofurantoin monohyd/m-cryst 100 mg capsule 100 mg PO Q12H 5 Days Qty: 10 0RF Rx Instructions: must administer with a meal/food metformin 500 mg tablet 500 mg PO DAILY Patient Comments: TAKE 1 TABLET BY MOUTH ONCE DAILY primidone 50 mg tablet 50 mg PO DAILY Patient Comments: TAKE 1 TABLET BY MOUTH ONCE DAILY WITH FOOD sucralfate 1 gram tablet 1 g PO TID Patient Comments: TAKE 1 TABLET BY MOUTH THREE TIMES DAILY FOR 7 DAYS simvastatin 10 mg tablet 10 mg PO HS Patient Comments: TAKE 1 TABLET BY MOUTH ONCE DAILY potassium chloride 10 mEq tablet extended release 10 meq PO DAILY Patient Comments: TAKE 1 TABLET BY MOUTH ONCE DAILY triamterene-hydrochlorothiazid 37.5-25 mg capsule 1 cap PO DAILY Patient Comments: TAKE 1 CAPSULE BY MOUTH ONCE DAILY warfarin 4 mg tablet 4 mg PO DAILY Patient Comments: TAKE 1 TABLET BY MOUTH ONCE DAILY pantoprazole 20 mg tablet,delayed release (DR/EC) 20 mg PO DAILY Patient Comments: TAKE 1 TABLET BY MOUTH ONCE DAILY alprazolam 0.5 mg tablet 0.5 mg PO BID Patient Comments: TAKE 1 TABLET BY MOUTH TWICE DAILY furosemide 20 mg tablet 20 mg PO DAILY Patient Comments: TAKE 1 TABLET BY MOUTH EVERY OTHER DAY ergocalciferol (vitamin D2) 1,250 mcg (50,000 unit) capsule 1,250 mcg PO WEEKLY Patient Comments: TAKE 1 CAPSULE BY MOUTH EVERY THURSDAY cefdinir 300 mg capsule 300 mg PO BID 10 Days Qty: 20 0RF Referrals Follow up/Referrals: Jarett Liu [Primary Care Provider] - See instructions Activity Restrictions/Add. Instructions Additional Instructions/Restrictions: At this time it was felt you are safe to be discharged home. If new or worsening symptoms please do not hesitate to return the emergency department. If symptoms persist please follow-up with your family doctor as you are able. Please take your medications as prescribed. Clinical Impressions Clinical Impression: Pneumonia Discharge ED Provider: Roberto Nayak General Adult HPI General Chief complaint: Upper Respiratory Infection Stated complaint: cough, lung pain Time Seen by Provider: 09/19/23 21:00 Mode of Arrival: Family Vehicle Source of Information: Patient Limitations: No Limitations Description of Symptoms (Recalled from ER Triage Doc. by RN): cough,congestion x 1 week History of Present Illness HPI narrative: Patient is a 82-year-old female past medical history of COPD not on home oxygen presents emergency department for evaluation of cough. Onset was acute, since Thursday. Patient has had shortness of breath and cough, no substernal chest pain. There is associated rhinorrhea and upper respiratory congestion. She does have rib soreness on her lateral thoracic cage bilaterally. No vomiting, adequate p.o. intake. No other acute complaints at this time. Related Data Home Medications Medication Instructions Recorded Confirmed alprazolam 0.5 mg tablet 0.5 mg PO BID Anxiety 10/16/22 01/27/23 ergocalciferol (vitamin D2) 1,250 1,250 mcg PO WEEKLY Supplement 10/16/22 01/27/23 mcg (50,000 unit) capsule furosemide 20 mg tablet 20 mg PO DAILY Fluid 10/16/22 01/27/23 metformin 500 mg tablet 500 mg PO DAILY Diabetes 10/16/22 01/27/23 pantoprazole 20 mg tablet,delayed 20 mg PO DAILY Acid reflux 10/16/22 01/27/23 release potassium chloride 10 mEq 10 meq PO DAILY Supplement 10/16/22 01/27/23 tablet,extended release primidone 50 mg tablet 50 mg PO DAILY Pain 10/16/22 01/27/23 simvastatin 10 mg tablet 10 mg PO HS Cholesterol 10/16/22 01/27/23 sucralfate 1 gram tablet 1 g PO TID Acid reflux 10/16/22 01/27/23 triamterene 37.5 1 cap PO DAILY High blood pressure 10/16/22 01/27/23 mg-hydrochlorothiazide 25 mg capsule warfarin 4 mg tablet 4 mg PO DAILY Blood thinner 10/16/22 01/27/23 Previous Rx's Medication Instructions Recorded nitrofurantoin 100 mg PO Q12H 5 days #10 caps 01/30/23 monohydrate/macrocrystals 100 mg capsule cefdinir 300 mg capsule 300 mg PO BID 10 days #20 caps 08/22/23 azithromycin 250 mg tablet 250 mg PO DAILY pneumonia 4 days 09/19/23 (Zithromax Z-Maximino) #4 tabs cefuroxime axetil 500 mg tablet 500 mg PO BID pneumonia 7 days #14 09/19/23 tabs Allergies Allergy/AdvReac Type Severity Reaction Status Date / Time aspirin Allergy Unknown RAPID Verified 01/27/23 13:22 HEART BEAT codeine Allergy Unknown RAPID Verified 01/27/23 13:22 HEART BEAT morphine Allergy Unknown RAPID Verified 01/27/23 13:22 HEART BEAT PFSH PFS Disclaimer: The information contained in this section may have been updated after the patient was seen, as this information can be updated by other users. Medical History (Updated 09/19/23 @ 23:00 by Roberto Nayak MD) Concussion without loss of consciousness GERD (gastroesophageal reflux disease) COPD (chronic obstructive pulmonary disease) History of pulmonary embolism History of DVT (deep vein thrombosis) Lupus anticoagulant disorder Factor 5 Leiden mutation, heterozygous Hyperlipidemia Hypertension Surgical History (Updated 01/27/23 @ 13:24 by Mackenzie Escalante MA) Hx of neck surgery History of hip replacement Family History Family/Other No significant family history Social History Smoking Status: Unknown if ever smoked second hand exposure: Yes alcohol intake: never substance use type: denies use current occupational status: employed Travel in the last 8 weeks: None household members: spouse housing: house ROS Obtained: Yes Systems reviewed as appropriate & no additional complaints except as documented Physical Exam General General appearance: alert and in no apparent distress Head Head exam: atraumatic and normocephalic Eye Eye exam: Present PERRL ENT ENT exam: Present mucous membranes moist Neck Neck exam: Present normal inspection Chest Chest inspection: Present normal inspection and symmetric chest wall rise Respiratory Respiratory exam: Present wheezes; Absent respiratory distress Cardiovascular Cardiovascular exam: Present regular rate and normal rhythm Abdominal Exam Abdominal exam: Present soft; Absent tenderness Extremities Exam Extremities exam: Present normal inspection Neurological Exam Neurological exam: Present alert Psychiatric Psychiatric exam: Present normal affect Skin Skin exam: Present warm and dry Medical Decision Making Gualberto Inquiry Pt receiving controlled substance: No Vital Signs: 09/19/23 21:23 09/19/23 22:42 Temperature 98.3 F Temperature Source Oral Pulse Rate 66 Pulse Rate [Right Brachial] 64 Respiratory Rate 20 Blood Pressure [Right Arm] 145/81 H Blood Pressure Mean [Right Arm] 102 Blood Pressure Source [Right Arm] Automatic Cuff Blood Pressure Position [Right Arm] Sitting 02 Sat by Pulse Oximetry 95 Oxygen Delivery Method Room Air Lab Data Lab Results 09/19/23 21:30: SARS-CoV-2 (PCR) Not detected, Influenza A Untype (PCR) Not detected, Influenza Type B (PCR) Not detected Orders (Tests/Meds): ED MEDICATIONS Generic Name Dose Route Start Last Admin Trade Name Freq PRN Reason Stop Dose Admin Cefdinir 300 mg 09/19/23 22:57 Cefdinir 300mg Capsule PO 09/19/23 22:58 ONCE ONE Discontinued Medications Generic Name Dose Route Start Last Admin Trade Name Freq PRN Reason Stop Dose Admin Albuterol/Ipratropium 9 ml 09/19/23 22:08 09/19/23 22:41 Ipratropium/Albuterol 3 Ml Neb IH 09/19/23 22:09 9 ml ONCE ONE Administration Azithromycin 500 mg 09/19/23 22:08 09/19/23 22:29 Azithromycin 250mg Tablet PO 09/19/23 22:09 500 mg ONCE ONE Administration Prednisone 50 mg 09/19/23 22:08 09/19/23 22:40 Prednisone 10mg Tab PO 09/19/23 22:09 50 mg ONCE ONE Administration ORDERS Category Date Time Status Chest XR 2 view (NOT portable) [XR chest 2V] Stat Exams 09/19/23 21:26 Completed Rapid PCR Covid and Flu A/B Stat Lab 09/19/23 21:30 Completed Medical Decision Narrative: In summary patient is a 2-year-old female past medical history described above presents emergency department for evaluation of cough. Patient is hemodynamically stable nontoxic-appearing upon arrival, afebrile. Patient is wheezing in all lung corona. Differential diagnosis includes pneumonia versus viral COPD exacerbation. No substernal chest pain therefore no concern for ACS at this time and cardiac workup was considered but will be deferred. Limited workup will be conducted with respiratory swab, chest x-ray. Initial inventions include DuoNeb's x 3, azithromycin, prednisone. Upon repeat evaluation patient continued to be well-appearing, chest x-ray informally interpreted by me, concerning for right basilar pneumonia which radiology concurs. Upon repeat evaluation patient had improved air movement, saturating greater than 93 on room air, no tachypnea or tachycardia. Given this shared decision making discussion was had given patient is at high risk for deterioration with labs and hospital admission however patient declines at this time and wishes to pursue outpatient treatment. Given hemodynamically stable and no oxygen requirement this was felt to be reasonable for which patient be discharged on azithromycin and cefuroxime and already has metered-dose inhaler at home and was given multiple return precautions verbalized understanding. Critical Care Critical Care Time Critical Care Time: No
[2023-09-19] MEDS: AZITHROMYCIN 250MG TABLET 500 MG PO (22:29)
[2023-09-19] MEDS: predniSONE 10MG TAB 50 MG PO (22:40)
[2023-09-19] MEDS: IPRATROPIUM/ALBUTEROL 3 ML NEB 9 ML IH (22:41)
[2023-09-19 22:42] VITALS: PULSE 66
[2023-09-19] MEDS: CEFDINIR 300MG CAPSULE 300 MG PO (23:24)
[2023-09-19 23:30] VITALS: BP 144/86; PULSE 80; RESP 20; TEMP 36.7; O2SAT 94
== END 2023-09-19 23:33 | disposition home or self-care (01) ==
PROVIDERS: Emergency Provider Emergency Medicine; PCP Internal Medicine
DX: J18.9 Pneumonia, unspecified organism (principal); R06.02 Shortness of breath; R05.9 Cough, unspecified; J44.9 Chronic obstructive pulmonary disease, unspecified; K21.9 Gastro-esophageal reflux disease without esophagitis; I10 Essential (primary) hypertension; E78.5 Hyperlipidemia, unspecified
CPT/HCPCS: 71046; 87636; 99283

== ENCOUNTER 2024-02-19 21:09 | Emergency (ER) | payer MEDICARE, SELFPAY ==
--- NOTE | 2024-02-19 21:39 | CT_ITS ---
PROCEDURE INFORMATION: Exam: CT Abdomen Without Contrast Exam date and time: 02/19/2024 10:53 PM Age: 83 years old Clinical indication: Abdominal pain; Flank; Right; Additional info: R flank pain TECHNIQUE: Imaging protocol: Computed tomography of the abdomen without contrast. Radiation optimization: All CT scans at this facility use at least one of these dose optimization techniques: automated exposure control; mA and/or kV adjustment per patient size (includes targeted exams where dose is matched to clinical indication); or iterative reconstruction. COMPARISON: CT ABDOMEN PELVIS WO CON 08/27/2022 3:55 PM FINDINGS: Liver: Normal. No mass. Gallbladder and biliary ducts: Cholecystectomy. Pancreas: Normal. No ductal dilation. Spleen: Normal. No splenomegaly. Adrenal glands: Normal. No mass. Kidneys: No nephrolithiasis or hydronephrosis. Stomach and bowel: Visualized stomach and bowel are unremarkable. No obstruction. No mucosal thickening. Intraperitoneal space: Unremarkable. No free air. No significant fluid collection. Vasculature: IVC filter. Severe atheromatous calcification at infrarenal abdominal aorta. Unchanged compared to previous examination. There is likely an unchanged infrarenal aortic stenosis at image number 45 of series 3. Lymph nodes: No visible intra-abdominal adenopathy. Reproductive: Hysterectomy Bones/joints: Facet hypertrophy bilaterally at the L5-S1 levels. Left hip arthroplasty unchanged. Soft tissues: Unremarkable. Other findings: Separate dictation CT thorax. Increased quantity of stool IMPRESSION: 1. Constipation. 2. No visible acute intra-abdominal abnormality. 3. Incidental findings discussed above. COMMENTS: For patients with an IVC filter, recommend assessment for a management plan for the patient's IVC filter. If there is no established management plan, recommend referral to an interventional clinician on a nonemergent basis for evaluation.
--- NOTE | 2024-02-19 21:39 | CT_ITS ---
PROCEDURE INFORMATION: Exam: CT Chest Without Contrast; Diagnostic Exam date and time: 02/19/2024 10:37 PM Age: 83 years old Clinical indication: Shortness of breath and other: Swelling; Additional info: Swelling, SOA, volume overload TECHNIQUE: Imaging protocol: Diagnostic computed tomography of the chest without contrast. Radiation optimization: All CT scans at this facility use at least one of these dose optimization techniques: automated exposure control; mA and/or kV adjustment per patient size (includes targeted exams where dose is matched to clinical indication); or iterative reconstruction. COMPARISON: CT CHEST WO CON 08/19/2021 3:12 AM FINDINGS: Lungs: Previous wedge resection of the inferior left lower lobe. Unchanged appearance compared to previous examination. Pleural spaces: No pleural effusion or pneumothorax. Heart: Unremarkable. No cardiomegaly. No pericardial effusion. Coronary arteries: Calcified coronary arteries Lymph nodes: Scattered calcifications seen in lymph nodes Vasculature: Normal caliber thoracic aorta. Gallbladder and biliary ducts: Previous cholecystectomy Bones/joints: Severe kyphosis of the midthoracic spine. Soft tissues: Unremarkable. IMPRESSION: 1. Previous wedge resection inferior left lower lobe. 2. No visible acute intrathoracic abnormality. 3. Incidental findings discussed above.
[2024-02-19 21:42] VITALS: BP 135/62; PULSE 56; RESP 18; TEMP 36.6; O2SAT 95; BMI 28.0
[2024-02-19 21:43] LABS: Basophils # 0.2 K/mm3 (0-0.2); Basophils % 2.6 % (0.1-2.0); Eosinophils # 0.3 K/mm3 (0.0-0.4); Eosinophils % 4.1 % (0.1-12.0); Hematocrit 50.5 % (37.0-47.0); Lymphocytes # 2.2 K/mm3 (0.7-4.5); Lymphocytes % 27.7 % (10-50); Mean Corpuscular HGB Conc 31.8 g/dL (31.8-35.4); Mean Corpuscular Hemoglobin 28.4 pg (27.0-31.2); Mean Corpuscular Volume 89.5 fl (81-99); Monocytes # 0.6 K/mm3 (0.1-1.0); Monocytes % 7.7 % (1.7-9.3); Neutrophils # 4.6 K/mm3 (1.8-7.8); Neutrophils % 57.9 % (37.0-80.0); Platelet Count 163 K/mm3 (142-424); Red Blood Count 5.64 M/mm3 (4.20-5.40); Red Cell Distribution Width 14.8 % (11.5-17.5); White Blood Count 7.9 K/mm3 (4.8-10.8)
--- NOTE | 2024-02-19 21:44 | [facility].EDGENADL ---
Discharge Plan Disposition Patient Disposition: Home, Self-Care Prescriptions Prescriptions: New lidocaine 5 % adhesive patch,medicated 1 patch topical DAILY PRN (Reason: pain) Qty: 30 0RF Rx Instructions: leave on most painful area for up to 12 hrs No Action nitrofurantoin monohyd/m-cryst 100 mg capsule 100 mg PO Q12H 5 Days Qty: 10 0RF Rx Instructions: must administer with a meal/food metformin 500 mg tablet 500 mg PO DAILY Patient Comments: TAKE 1 TABLET BY MOUTH ONCE DAILY primidone 50 mg tablet 50 mg PO DAILY Patient Comments: TAKE 1 TABLET BY MOUTH ONCE DAILY WITH FOOD sucralfate 1 gram tablet 1 g PO TID Patient Comments: TAKE 1 TABLET BY MOUTH THREE TIMES DAILY FOR 7 DAYS simvastatin 10 mg tablet 10 mg PO HS Patient Comments: TAKE 1 TABLET BY MOUTH ONCE DAILY potassium chloride 10 mEq tablet extended release 10 meq PO DAILY Patient Comments: TAKE 1 TABLET BY MOUTH ONCE DAILY triamterene-hydrochlorothiazid 37.5-25 mg capsule 1 cap PO DAILY Patient Comments: TAKE 1 CAPSULE BY MOUTH ONCE DAILY warfarin 4 mg tablet 4 mg PO DAILY Patient Comments: TAKE 1 TABLET BY MOUTH ONCE DAILY pantoprazole 20 mg tablet,delayed release (DR/EC) 20 mg PO DAILY Patient Comments: TAKE 1 TABLET BY MOUTH ONCE DAILY alprazolam 0.5 mg tablet 0.5 mg PO BID Patient Comments: TAKE 1 TABLET BY MOUTH TWICE DAILY furosemide 20 mg tablet 20 mg PO DAILY Patient Comments: TAKE 1 TABLET BY MOUTH EVERY OTHER DAY ergocalciferol (vitamin D2) 1,250 mcg (50,000 unit) capsule 1,250 mcg PO WEEKLY Patient Comments: TAKE 1 CAPSULE BY MOUTH EVERY THURSDAY cefdinir 300 mg capsule 300 mg PO BID 10 Days Qty: 20 0RF azithromycin [Zithromax Z-Maximino] 250 mg tablet 250 mg PO DAILY 4 Days Qty: 4 0RF Rx Instructions: start on day 2 of therapy cefuroxime axetil 500 mg tablet 500 mg PO BID 7 Days Qty: 14 0RF prednisone 50 mg tablet 50 mg PO DAILY 4 Days Qty: 4 0RF Referrals Follow up/Referrals: Jarett Liu [Primary Care Provider] - See instructions Activity Restrictions/Add. Instructions Additional Instructions/Restrictions: Recommend increasing your Lasix to 40 mg /day for a few days to help get the fluid off. Please follow-up with your primary care provider next week. Please return to the emergency department if you develop any new or worsening symptoms or become concerned for your health. Clinical Impressions Clinical Impression: Bilateral leg edema, Right-sided back pain Print Language Print Language: Italian Discharge ED Provider: Ramon Muniz General Adult HPI <Lizz Jean, DO - Last Filed: 02/19/24 23:28> General Chief complaint: PAIN Stated complaint: Kidney pain,fluid build up,legs swelling Time Seen by Provider: 02/19/24 21:25 History of Present Illness HPI narrative: This patient is an 83-year-old female with a history of factor V Leiden, DVT on warfarin, COPD, GERD, hypertension, hyperlipidemia presenting to the emergency department for evaluation concern for right flank pain and volume overload. Patient states that she is intermittently had issues with fluid buildup and intermittent leg swelling for quite some time now, but it seems to be getting worse despite using her Lasix at home. She also notes that she is having significant right flank pain that feels similar to when her kidney was about to explode. She notes she had to have surgery for it at that time. She states this is because she has narrow tubes draining her kidneys. She states this was several years ago. She states that she saw her primary care provider for this flank pain and they obtained a urinalysis that was not concerning for infection, so she notes that they sent her home. The pain has been persistent. Related Data Home Medications ?Medication ?Instructions ?Recorded ?Confirmed alprazolam 0.5 mg tablet 0.5 mg PO BID Anxiety 10/16/22 01/27/23 ergocalciferol (vitamin D2) 1,250 1,250 mcg PO WEEKLY Supplement 10/16/22 01/27/23 mcg (50,000 unit) capsule furosemide 20 mg tablet 20 mg PO DAILY Fluid 10/16/22 01/27/23 metformin 500 mg tablet 500 mg PO DAILY Diabetes 10/16/22 01/27/23 pantoprazole 20 mg tablet,delayed 20 mg PO DAILY Acid reflux 10/16/22 01/27/23 release potassium chloride 10 mEq 10 meq PO DAILY Supplement 10/16/22 01/27/23 tablet,extended release primidone 50 mg tablet 50 mg PO DAILY Pain 10/16/22 01/27/23 simvastatin 10 mg tablet 10 mg PO HS Cholesterol 10/16/22 01/27/23 sucralfate 1 gram tablet 1 g PO TID Acid reflux 10/16/22 01/27/23 triamterene 37.5 1 cap PO DAILY High blood pressure 10/16/22 01/27/23 mg-hydrochlorothiazide 25 mg capsule warfarin 4 mg tablet 4 mg PO DAILY Blood thinner 10/16/22 01/27/23 Previous Rx's ?Medication ?Instructions ?Recorded nitrofurantoin 100 mg PO Q12H 5 days #10 caps 01/30/23 monohydrate/macrocrystals 100 mg capsule cefdinir 300 mg capsule 300 mg PO BID 10 days #20 caps 08/22/23 azithromycin 250 mg tablet 250 mg PO DAILY pneumonia 4 days 09/19/23 (Zithromax Z-Maximino) #4 tabs cefuroxime axetil 500 mg tablet 500 mg PO BID pneumonia 7 days #14 09/19/23 tabs prednisone 50 mg tablet 50 mg PO DAILY copd exacerbation 4 09/19/23 days #4 tabs lidocaine 5 % topical patch 1 patch topical DAILY PRN pain #30 02/20/24 ea Allergies Allergy/AdvReac Type Severity Reaction Status Date / Time aspirin Allergy Unknown RAPID Verified 01/27/23 13:22 HEART BEAT codeine Allergy Unknown RAPID Verified 01/27/23 13:22 HEART BEAT morphine Allergy Unknown RAPID Verified 01/27/23 13:22 HEART BEAT PFSH <Lizz Jean DO - Last Filed: 02/19/24 23:28> [facility] Disclaimer: The information contained in this section may have been updated after the patient was seen, as this information can be updated by other users. Medical History Concussion without loss of consciousness GERD (gastroesophageal reflux disease) COPD (chronic obstructive pulmonary disease) History of pulmonary embolism History of DVT (deep vein thrombosis) Lupus anticoagulant disorder Factor 5 Leiden mutation, heterozygous Hyperlipidemia Hypertension Surgical History Hx of neck surgery History of hip replacement Family History Family/Other No significant family history Social History Smoking Status: Current every day smoker tobacco type: cigarettes packs per day: 1 second hand exposure: Yes alcohol intake: never substance use type: denies use current occupational status: employed Travel in the last 8 weeks: None household members: spouse housing: house Other Medical History Have you received the Flu Vaccine for this season: Yes Have you received the Pneumonia Vaccine: Yes <Lizz Jean DO - Last Filed: 02/19/24 23:28> ROS Obtained: Yes All systems reviewed & no additional complaints except as documented Physical Exam <Lizz Jean DO - Last Filed: 02/19/24 23:28> General General appearance: alert and in no apparent distress Head Head exam: atraumatic and normocephalic Eye Eye exam: Present normal appearance, PERRL and EOMI ENT ENT exam: Present normal exam, normal oropharynx, mucous membranes moist and normal external ear exam Neck Neck exam: Present normal inspection, full ROM and trachea midline; Absent tenderness Chest Chest inspection: Present normal inspection and symmetric chest wall rise; Absent tenderness Respiratory Respiratory exam: Present other (Crackles noted in the lung bases bilaterally); Absent respiratory distress, wheezes, stridor or accessory muscle use Cardiovascular Cardiovascular exam: Present normal rhythm and bradycardia Abdominal Exam Abdominal exam: Present soft and tenderness (Mild right-sided abdominal); Absent distention, guarding, rebound or rigidity Extremities Exam Extremities exam: Present full ROM, normal capillary refill and edema (Symmetric bilateral lower extremity edema); Absent tenderness Back Exam Back exam: Present normal inspection and full ROM; Absent tenderness Neurological Exam Neurological exam: Present alert, oriented X3, CN II-XII intact and normal gait; Absent motor sensory deficit Psychiatric Psychiatric exam: Present normal affect and normal mood Skin Skin exam: Present warm and dry Medical Decision Making <Lizz Jean DO - Last Filed: 02/19/24 23:28> Medical Records Medical records reviewed: Yes I reviewed the patient's medical records. Screening: Per USPSTF and CDC recommendations, given the prevalence of disease in our region, it is our hospital?s policy to screen for HIV and viral Hepatitis for all patients aged 18 and over and those with ongoing risk factors. [place]berto Inquiry Pt receiving controlled substance: No Vital Signs: 02/19/24 21:42 02/20/24 00:46 Temperature 97.9 F 98.2 F Temperature Source Oral Oral Pulse Rate 52 L Pulse Rate [Left Radial] 56 L Respiratory Rate 18 20 Blood Pressure 130/64 Blood Pressure [Right Arm] 135/62 Blood Pressure Mean [Right Arm] 86 Blood Pressure Source Automatic Cuff Blood Pressure Source [Right Arm] Automatic Cuff Blood Pressure Position Sitting 02 Sat by Pulse Oximetry 95 Oxygen Delivery Method Room Air Lab Data Lab results reviewed: Yes I reviewed the patient's lab results. Lab Results 02/19/24 21:30: WBC 7.9, RBC 5.64 H, Hgb 16.0, Hct 50.5 H, MCV 89.5, MCH 28.4, MCHC 31.8, RDW 14.8, Plt Count 163, MPV 9.0, Neut % (Auto) 57.9, Lymph % (Auto) 27.7, [place] % (Auto) 7.7, Eos % (Auto) 4.1, Baso % (Auto) 2.6 H, Neut # (Auto) 4.6, Lymph # (Auto) 2.2, [place] # (Auto) 0.6, Eos # (Auto) 0.3, Baso # (Auto) 0.2, Sodium 141, Potassium 3.8, Chloride 97 L, Carbon Dioxide 39 H, Anion Gap 8.8, BUN 39 H, Creatinine 1.20 H, Estimated Creat Clear 41, Estimated GFR 43 L, Est GFR ( Amer) 52 L, Glucose 132 H, Calcium 9.9, Total Bilirubin 0.7, AST 31, ALT 26, Alkaline Phosphatase 54, Troponin I < 0.01, NT-Pro-B Natriuret Pep 726 H, Total Protein 8.0, Albumin 4.3, Globulin 3.7 H, Albumin/Globulin Ratio 1.2, Lipase 183, TSH 1.65, Thyroxine (T4) 8.6, HIV 1&2 Antibody Rapid Nonreactive 02/19/24 21:37: PT 19.3 H, INR 1.83 H 02/19/24 21:38: VBG pH 7.34, VBG pCO2 70.7 H, VBG pO2 33.2, VBG HCO3 37.1 H, VBG Total CO2 39.3 H, VBG O2 Saturation 63.8, VBG Base Excess 11.3 H, VBG Lactic Acid 1.9 02/19/24 22:16: Urine Color Yellow, Urine Appearance Clear, Urine pH 6.0, Ur Specific [place] Switch 1.020, Urine Protein Negative, Urine Glucose (UA) Negative, Urine Ketones Negative, Urine Blood Negative, Urine Nitrate Negative, Urine Bilirubin Negative, Urine Urobilinogen 0.2, Ur Leukocyte Esterase Negative, Urine RBC None, Urine WBC None, Ur Squamous Epith Cells Occasional, Urine Bacteria None 02/19/24 21:30 02/19/24 21:30 Orders (Tests/Meds): ED MEDICATIONS Discontinued Medications Generic Name Dose Route Start Last Admin Trade Name Freq PRN Reason Stop Dose Admin Acetaminophen 1,000 mg 02/19/24 22:31 02/19/24 22:39 Acetaminophen 500mg Tab PO 02/19/24 22:32 1,000 mg ONCE ONE Administration Ketorolac Tromethamine 15 mg 02/19/24 22:31 02/19/24 22:39 Ketorolac 30mg/Ml Vial IV 02/19/24 22:32 15 mg ONCE ONE Administration Lidocaine 1 each 02/20/24 00:42 02/20/24 00:46 Lidocaine 5% Transdermal Patch TP 02/20/24 00:43 1 each ONCE ONE Administration Ondansetron HCl 4 mg 02/19/24 22:31 02/19/24 22:39 Ondansetron 4mg/2ml Vial IV 02/19/24 22:32 4 mg ONCE ONE Administration ORDERS Category Date Time Status CT abdomen wo con Stat Cat Scan 02/19/24 21:[address] chest wo con Stat Cat Scan 02/19/24 21:39 Completed BNP [NT Pro Brain Natriuretic Pep.] Stat Lab 02/19/24 21:30 Completed Complete Blood Count Auto Diff Stat Lab 02/19/24 21:30 Completed Comprehensive Metabolic Panel Stat Lab 02/19/24 21:30 Completed HIV (1&2) Antibody Rapid Stat Lab 02/19/24 21:30 Completed Hep C Ab with Reflex to RNA Stat Lab 02/19/24 21:30 Received INR [Prothrombin Time INR] Stat Lab 02/19/24 21:37 Completed Lipase Stat Lab 02/19/24 21:30 Completed T4 (Thyroxine) Stat Lab 02/19/24 21:30 Completed TSH [Thyroid Stimulating Hormone] Stat Lab 02/19/24 21:30 Completed Trop I [Troponin I] Stat Lab 02/19/24 21:30 Completed UA [Urinalysis and Microscopic] Stat Lab 02/19/24 22:16 Completed Urine Culture Stat Micro 02/19/24 22:16 Received VBG [Venous Blood Gas] Stat RT 02/19/24 21:38 Completed ECG Data Tracing #1: I reviewed this ECG and interpreted as documented below: Sinus bradycardia with a ventricular rate of 52 bpm. Right bundle branch block noted. No acute ST changes concerning for ischemia. Some motion artifact rate study ECG initial impression date: 02/19/24 ECG initial impression time: 22:36 Medical Decision Narrative: In summary, this patient is a 83-year-old female presenting to the Emergency Department for evaluation of right flank pain and concerns for swelling and volume overload. Differential diagnoses considered include but are not limited to ureterolithiasis, pyelonephritis, urinary outflow obstruction, CHF, urinary tract infection. Ruling out the most morbid conditions drove assessment. It should be noted patient's history includes history of factor V Leiden, DVT on Coumadin, COPD, GERD which may or may not be at goal therapy. This complicates all aspects of care by increasing patient's risk for morbidity. On exam, the patient is lying in bed and is uncomfortable appearing. She has bilateral lung crackles, bilateral lower extremity edema, and some right-sided abdominal tenderness. Workup included lab evaluation to evaluate for infectious, metabolic, cardiac causes of her symptoms as well as CT scan of the chest, abdomen, and pelvis without IV contrast. EKG was obtained that is reassuring without significant change. Labs are overall very reassuring with no significant leukocytosis. Kidney function is around her baseline without significant change. No significant electrolyte disturbance. Urine does not demonstrate hematuria or concern for infection. CT scans are pending at time of signout to oncoming provider, Dr. Muniz. <Ramon Muniz MD - Last Filed: 02/20/24 01:30> Vital Signs: 02/19/24 21:42 02/20/24 00:46 Temperature 97.9 F 98.2 F Temperature Source Oral Oral Pulse Rate 52 L Pulse Rate [Left Radial] 56 L Respiratory Rate 18 20 Blood Pressure 130/64 Blood Pressure [Right Arm] 135/62 Blood Pressure Mean [Right Arm] 86 Blood Pressure Source Automatic Cuff Blood Pressure Source [Right Arm] Automatic Cuff Blood Pressure Position Sitting 02 Sat by Pulse Oximetry 95 Oxygen Delivery Method Room Air Lab Data Lab Results 02/19/24 21:30: WBC 7.9, RBC 5.64 H, Hgb 16.0, Hct 50.5 H, MCV 89.5, MCH 28.4, MCHC 31.8, RDW 14.8, Plt Count 163, MPV 9.0, Neut % (Auto) 57.9, Lymph % (Auto) 27.7, [place] % (Auto) 7.7, Eos % (Auto) 4.1, Baso % (Auto) 2.6 H, Neut # (Auto) 4.6, Lymph # (Auto) 2.2, [place] # (Auto) 0.6, Eos # (Auto) 0.3, Baso # (Auto) 0.2, Sodium 141, Potassium 3.8, Chloride 97 L, Carbon Dioxide 39 H, Anion Gap 8.8, BUN 39 H, Creatinine 1.20 H, Estimated Creat Clear 41, Estimated GFR 43 L, Est GFR ( Amer) 52 L, Glucose 132 H, Calcium 9.9, Total Bilirubin 0.7, AST 31, ALT 26, Alkaline Phosphatase 54, Troponin I < 0.01, NT-Pro-B Natriuret Pep 726 H, Total Protein 8.0, Albumin 4.3, Globulin 3.7 H, Albumin/Globulin Ratio 1.2, Lipase 183, TSH 1.65, Thyroxine (T4) 8.6, HIV 1&2 Antibody Rapid Nonreactive 02/19/24 21:37: PT 19.3 H, INR 1.83 H 02/19/24 21:38: VBG pH 7.34, VBG pCO2 70.7 H, VBG pO2 33.2, VBG HCO3 37.1 H, VBG Total CO2 39.3 H, VBG O2 Saturation 63.8, VBG Base Excess 11.3 H, VBG Lactic Acid 1.9 02/19/24 22:16: Urine Color Yellow, Urine Appearance Clear, Urine pH 6.0, Ur Specific [place] Switch 1.020, Urine Protein Negative, Urine Glucose (UA) Negative, Urine Ketones Negative, Urine Blood Negative, Urine Nitrate Negative, Urine Bilirubin Negative, Urine Urobilinogen 0.2, Ur Leukocyte Esterase Negative, Urine RBC None, Urine WBC None, Ur Squamous Epith Cells Occasional, Urine Bacteria None Orders (Tests/Meds): ED MEDICATIONS Discontinued Medications Generic Name Dose Route Start Last Admin Trade Name Freq PRN Reason Stop Dose Admin Acetaminophen 1,000 mg 02/19/24 22:31 02/19/24 22:39 Acetaminophen 500mg Tab PO 02/19/24 22:32 1,000 mg ONCE ONE Administration Ketorolac Tromethamine 15 mg 02/19/24 22:31 02/19/24 22:39 Ketorolac 30mg/Ml Vial IV 02/19/24 22:32 15 mg ONCE ONE Administration Lidocaine 1 each 02/20/24 00:42 02/20/24 00:46 Lidocaine 5% Transdermal Patch TP 02/20/24 00:43 1 each ONCE ONE Administration Ondansetron HCl 4 mg 02/19/24 22:31 02/19/24 22:39 Ondansetron 4mg/2ml Vial IV 02/19/24 22:32 4 mg ONCE ONE Administration ORDERS Category Date Time Status CT abdomen wo con Stat Cat Scan 02/19/24 21:[address] chest wo con Stat Cat Scan 02/19/24 21:39 Completed BNP [NT Pro Brain Natriuretic Pep.] Stat Lab 02/19/24 21:30 Completed Complete Blood Count Auto Diff Stat Lab 02/19/24 21:30 Completed Comprehensive Metabolic Panel Stat Lab 02/19/24 21:30 Completed HIV (1&2) Antibody Rapid Stat Lab 02/19/24 21:30 Completed Hep C Ab with Reflex to RNA Stat Lab 02/19/24 21:30 Received INR [Prothrombin Time INR] Stat Lab 02/19/24 21:37 Completed Lipase Stat Lab 02/19/24 21:30 Completed T4 (Thyroxine) Stat Lab 02/19/24 21:30 Completed TSH [Thyroid Stimulating Hormone] Stat Lab 02/19/24 21:30 Completed Trop I [Troponin I] Stat Lab 02/19/24 21:30 Completed UA [Urinalysis and Microscopic] Stat Lab 02/19/24 22:16 Completed Urine Culture Stat Micro 02/19/24 22:16 Received VBG [Venous Blood Gas] Stat RT 02/19/24 21:38 Completed Medical Decision Narrative: In summary, this patient is a 83-year-old female presenting to the Emergency Department for evaluation of right flank pain and concerns for swelling and volume overload. Differential diagnoses considered include but are not limited to ureterolithiasis, pyelonephritis, urinary outflow obstruction, CHF, urinary tract infection. Ruling out the most morbid conditions drove assessment. It should be noted patient's history includes history of factor V Leiden, DVT on Coumadin, COPD, GERD which may or may not be at goal therapy. This complicates all aspects of care by increasing patient's risk for morbidity. On exam, the patient is lying in bed and is uncomfortable appearing. She has bilateral lung crackles, bilateral lower extremity edema, and some right-sided abdominal tenderness. Workup included lab evaluation to evaluate for infectious, metabolic, cardiac causes of her symptoms as well as CT scan of the chest, abdomen, and pelvis without IV contrast. EKG was obtained that is reassuring without significant change. Labs are overall very reassuring with no significant leukocytosis. Kidney function is around her baseline without significant change. No significant electrolyte disturbance. Urine does not demonstrate hematuria or concern for infection. CT scans are pending at time of signout to oncoming provider, Dr. Muniz. Flavio CORTEZ: I assumed care of the patient at the time of handoff from the prior provider. On reassessment patient reports mild symptomatic improvement. CT imaging interpreted by me and shows no evidence of acute kidney or ureteral stone, ureteral obstruction, no volume overload or pneumonia or rib fracture on chest CT. See radiology results for full details. I had extensive discussion with patient and family regarding her symptoms. Family is concerned that the way she lays in bed is causing her pain because she primarily lays kind of crooked on her right side. They also report that she is about 14 pounds above her dry weight currently. I recommended that they trial lidocaine patches at home and increase her Lasix from 20 daily to 40 daily for the next few days. Recommended that she call and follow-up with her PCP next week for reassessment. Patient family were agreeable to plan and she was discharged in stable condition. Critical Care <Lizz Jean, DO - Last Filed: 02/19/24 23:28> Critical Care Time Critical Care Time: No
[2024-02-19 21:46] LABS: Albumin Level 4.3 g/dl (3.5-5.0); Chloride 97 mmol/L (98-107); Potassium 3.8 mmoL/L (3.5-5.1); Sodium 141 mmol/L (136-145)
[2024-02-19 21:46] LABS: Lactate Venous 1.9 mmol/L (0.4-2.0); VBG Base Excess 11.3 mmol/L (-2.4-2.3); VBG HCO3 37.1 mmol/L (23-30); VBG Oxygen Saturation 63.8 % (50-70); VBG PH 7.34 mmol/L (7.31-7.41); VBG PO2 33.2 mmol/L (28-40); VBG Total CO2 39.3 mmol/L (23-27)
[2024-02-19 21:48] LABS: Blood Urea Nitrogen 39 mg/dl (7-17); Creatinine Clearance Estimated 41 mL/min (50-200); Estimated Glomerular Filt Rate 43 ml/min (>60); GFR (African American) 52 ML/MIN (>60)
[2024-02-19 21:49] LABS: Alanine Aminotransferase 26 U/L (12-78); Albumin/Globulin Ratio 1.2 (1.1-1.8); Alkaline Phosphatase 54 U/L (38-126); Anion Gap 8.8 mEq/L (5-15); Aspartate Amino Transferase 31 U/L (14-36); Bilirubin,Total 0.7 mg/dl (0.2-1.3); Calcium 9.9 mg/dl (8.4-10.2); Carbon Dioxide 39 mmol/L (22.0-30.0); Globulin 3.7 g/dL (1.3-3.2); Glucose 132 mg/dl (74-100); Lipase 183 U/L (23-300)
[2024-02-19 21:49] LABS: VBG PCO2 70.7 mmol/L (35-51)
[2024-02-19 21:59] LABS: NT Pro Brain Natriuretic Pep. 726 pg/mL (0-450)
[2024-02-19 22:02] LABS: Troponin I < 0.01 ng/ml (0.00-0.034)
[2024-02-19 22:06] LABS: T4 (Thyroxine) 8.6 ug/dl (5.53-11.0)
[2024-02-19 22:20] LABS: Thyroid Stimulating Hormone 1.65 uIU/mL (0.465-4.68)
[2024-02-19 22:22] LABS: Microscopic, Urine URINE MICROSCOPIC (MICROSCOPIC)
[2024-02-19 22:25] LABS: Appearance,Urine CLEAR (Clear); Bilirubin,Urine Negative (Negative); Blood, Urine Negative (Negative); Color,Urine YELLOW (Yellow); Glucose,Urine (UA) Negative (Negative); Ketones,Urine Negative (Negative); Leukocyte Esterase,Urine Negative (Negative); Nitrate,Urine Negative (Negative); Protein,Urine Negative (Negative); Urobilinogen,Urine 0.2 EU/dl (0.2)
--- NOTE | 2024-02-19 22:33 | ECG_ITS ---
APPROVED REPORT Exam: Resting ECG HR:52 bpm ECG Measurements Heart Rate 52 AXES NE 112 P 35 QRSd 122 QRS 210 QT 470 T 58 QTc 450 Conclusion SINUS BRADYCARDIA WITH SHORT NE INTERVAL INDETERMINATE AXIS RIGHT BUNDLE BRANCH BLOCK [120+ ms QRS DURATION, UPRIGHT V1, 40+ ms S IN I/aVL/V4/V5/V6] ABNORMAL ECG UNCONFIRMED REPORT Electronically signed by : JESU LORENZO, 02/21/2024 06:06:43
[2024-02-19] MEDS: ACETAMINOPHEN 500MG TAB 1000 MG PO (22:39)
[2024-02-19] MEDS: KETOROLAC 30MG/ML VIAL 15 MG IV (22:39)
[2024-02-19] MEDS: ONDANSETRON 4MG/2ML VIAL 4 MG IV (22:39)
[2024-02-19 22:41] LABS: Squamous Epithelial Cell,Urine Occasional #/hpf (0-5)
[2024-02-19 22:42] LABS: INR 1.83 (0.9-1.1); Prothrombin Time 19.3 seconds (10.1-12.5)
[2024-02-19 23:32] LABS: HIV (1&2) Antibody Rapid NONREACTIVE (NONREACTIVE)
[2024-02-20 00:46] VITALS: BP 130/64; PULSE 52; RESP 20; TEMP 36.8; O2SAT 94
[2024-02-20] MEDS: LIDOCAINE 5% TRANSDERMAL PATCH 1 EACH TP (00:46)
[2024-02-21 08:29] LABS: HCV Ab Non Reactive (Non Reactive)
== END 2024-02-20 01:07 | disposition home or self-care (01) ==
PROVIDERS: Emergency Medicine; Emergency Provider Emergency Medicine; PCP Internal Medicine
DX: R60.0 Localized edema (principal); M54.9 Dorsalgia, unspecified; D68.51 Activated protein C resistance
CPT/HCPCS: 71250; 74150; 80053; 81001; 82803; 83690; 83880; 84436; 84443; 84484; 85025; 85610; 86803; 87086; 87389; 93005; 96374; 96375; 99284; J1885; J2405

== ENCOUNTER 2024-08-12 10:55 | Outpatient (CLI) | payer MEDICARE, SELFPAY ==
--- OUTSIDE RECORDS SUMMARY | 2024-08-15 10:57 | XMS_ITS | Data Portability ---
Author Organization [facility] & [place] AYO ADMIN Address [address] [place] [id number] Care Team Providers Care Supervisor Riveting Name Role Phone CHEMA LIU Primary Care Provider Assessment No assessment recorded. Plan of Treatment Reminders Order Date Submit Date Provider Last Modified By Organization Details Last Modified Time Details Appointments None record ed. Lab None record ed. Referral None record ed. Procedures None record ed. Surgeries None record ed. Imaging None record ed. Medication Orders None record ed. Patient TargetsNo targets recorded. Patient InstructionsNo instructions recorded. Reason for Referral None Reported. Problems Name Problem SNOMED Code Status Onset Date Resolution Date Notes Provider Name and Address Organization Details Recorded Time Lesion of skin of face 278880471910 Active Kaitlynn Dalla null, [facility] & [place] 3 11:31:02 Nocturia 045352683 Active [facility] null, [facility] & [place] 3 11:31:02 Sensorineur al hearing loss of bilateral ears 268955807 Active [facility]nn [facility]alla null, [facility] & [place] 3 11:31:02 Acute exacerbatio n of chronic obstructive pulmonary disease 565469497 Active Kaitlynn Dalla null, [facility] & [place] 3 11:31:02 Abnormal gait 41602521 Active Kaitlynn Dalla null, [facility] & [place] 3 11:31:02 Pain in pelvis 64394397 Active Kaitlynn Dalla null, [facility] & [place] 3 11:31:02 Factor V Leiden mutation 260184935 Active Kaitlynn Dalla null, [facility] & [place] 3 11:31:02 Moderate chronic obstructive pulmonary disease 671446814 Active Kaitlynn Dalla null, [place] - [facility] - [facility] & [place] 3 11:31:02 Herniated urinary bladder 955180852 Active Kaitlynn Dalla null, [place] - [facility] - & [place] 3 11:31:02 Solitary nodule of lung 829232632 Active Kaitlynn Dalla null, [place] - [facility] - & [place] 3 11:31:02 Herniation of rectum into vagina 960248671 Active Kaitlynn Dalla null, [place] - [facility] - [facility] & [place] 3 11:31:02 Essential tremor 831265384 Active Kaitlynn D[place] null, [place] - [facility] - & 3 11:31:02 Hemoptysis 20954571 Active Kaitlynn D[place] null, [place] - [facility] - & 3 11:31:02 Long-term current use of anticoagula nt 209079950 Active Kaitlynn Dalla null, [place] - [facility] - & 3 11:31:02 Incontinenc e of feces 14254651 Active Kaitlynn D[place] null, [place] - [facility] - & 3 11:31:02 Urge incontinenc e of urine 56608276 Active Kaitlynn Dalla null, [place] - [facility] - & [place] 3 11:31:03 Tobacco dependence syndrome 39163926 Active Kaitlynn Dalla null, [place] - [facility] - [place] & [place] 3 11:31:03 Problem Notes None recorded. Procedures Surgical History Date Name Laterality Status Provider Name and Address Organization Details Recorded Time operation on lung completed Kaitlynn Karynaa [place] - [facility] - & [place] 09/03/2022 12:00:39 Cholecystectomy completed Kaitlynn Dalla [place] - [facility] - & 09/03/2022 12:01:08 Hysterectomy completed Kaitlynn Perla [place] - L [facility] - & 09/03/2022 12:01:22 Appendectomy completed Kaitlynn ERVIN - L PNT [facility] & [place] 09/03/2022 12:01:34 lumpectomy of left breast completed Kaitlynn ERVIN - [facility] & [place] 09/03/2022 12:01:53 open reduction of fracture with internal fixation completed Kaitlynn ERVIN - [facility] & [place] 09/03/2022 12:02:25 spinal fusion with graft completed Kaitlynn ERVIN - [facility] & [place] 09/03/2022 12:02:58 dilation of urethra completed Kaitlynn ERVIN - [facility] & [place] 09/03/2022 12:03:45 repair of vaginal wall prolapse completed Kaitlynnjessica ERVIN - [facility] & [place] 09/03/2022 12:04:21 Imaging Results None recorded. Procedure Notes None recorded. Medical Equipment None Reported. Allergies Allergen ID Allergen Name Allergen Category Reaction Reaction Severity Criticality Documentation Date Start Date Code Code System Note Provider Name and Address Organization Details Recorded Time 21060 morphine medicatio n Not available Not available Not available 09/03/2022 7052 RxNorm Kaitlynn Karynaa null, [place] - [facility] & [place] 3 11:30:50 53918 codeine medicatio n Not available Not available Not available 09/03/2022 2670 RxNorm Kaitlynn Dalla null, [place] - [facility] & [place] 3 11:30:50 81876 aspirin medicatio n Not available Not available Not available 09/03/2022 1191 RxNorm Kaitlynn Dalla null, [place] - [facility] & [place] 3 11:30:50 Medications Name Sig Start Date Stop Date Status Note LastModified by Organization Details LastModified Time metformin 500 mg tablet TAKE 1 TABLET BY MOUTH ONCE DAILY 09/03 completed Not Available Not Available Not Available primidone 50 mg tablet TAKE 1 TABLET BY MOUTH ONCE DAILY WITH FOOD 10/15 completed Not Available Not Available Not Available ipratropium 0.5 mg-albutero l 3 mg (2.5 mg base)/3 mL nebulizatio n soln USE 1 AMPULE IN NEBULIZER 4 TIMES DAILY DIRECTED FOR WHEEZING FOR 10 DAYS active Not Available Not Available No t Available azithromyci n 250 mg tablet TAKE 1 TABLET BY MOUTH ONCE DAILY UNTIL GONE (STARTING ON DAY 2 OF THERAPY) active Not Available Not Available No t Available sucralfate 1 gram tablet TAKE 1 TABLET BY MOUTH THREE TIMES DAILY FOR 7 DAYS active Not Available Not Available No t Available ondansetron HCl 4 mg tablet TAKE 1 TABLET BY MOUTH EVERY 8 HOURS NEEDED 07/19 completed Not Available Not Available Not Available prednisone 20 mg tablet 09/03 completed Not Available Not Available Not Available simvastatin 10 mg tablet TAKE 1 TABLET BY MOUTH ONCE DAILY active Not Available Not Available No t Available potassium chloride ER 10 mEq tablet,exte nded release TAKE 1 TABLET BY MOUTH EVERY OTHER DAY active Not Available Not Available No t Available omeprazole 40 mg capsule,del ayed release 1 {capsule} by oral route. active Not Available Not Available No t Available doxycycline monohydrate 100 mg tablet TAKE 1 TABLET BY MOUTH TWICE DAILY 09/03 completed Not Available Not Available Not Available triamterene 37.5 mg-hydrochl orothiazide 25 mg capsule TAKE 1 CAPSULE BY MOUTH ONCE DAILY active Not Available Not Available No t Available warfarin 4 mg tablet TAKE 1 TABLET BY MOUTH ONCE DAILY active Not Available Not Available No t Available warfarin 3 mg tablet TAKE 1 TABLET BY MOUTH ONCE DAILY active Not Available Not Available No t Available pantoprazol e 20 mg tablet,jordin yed release TAKE 1 TABLET BY MOUTH ONCE DAILY active Not Available Not Available No t Available alprazolam 0.5 mg tablet TAKE 1 TABLET BY MOUTH TWICE DAILY DIRECTED FOR ANXIETY active Not Available Not Available No t Available propranolol 10 mg tablet TAKE 1 TABLET BY MOUTH TWICE DAILY 07/19 completed Not Available Not Available Not Available cephalexin 500 mg capsule TAKE 1 CAPSULE BY MOUTH TWICE DAILY 07/19 completed Not Available Not Available Not Available prednisone 50 mg tablet TAKE 1 TABLET BY MOUTH ONCE DAILY FOR COPD EXACERBAT ION FOR 4 DAYS. active Not Available Not Available No t Available warfarin 2 mg tablet TAKE 1 TABLET BY MOUTH ON 09/03 completed Not Available Not Available Not Available warfarin 5 mg tablet TAKE ONE TABLET BY MOUTH THURSDAY THROUGH THURSDAY, TAKE A 2MG TABLET ON 09/03 completed Not Available Not Available Not Available triamterene 37.5 mg-hydrochl orothiazide 25 mg tablet TAKE 1 TABLET BY MOUTH ONCE DAILY active Not Available Not Available No t Available montelukast 10 mg tablet TAKE 1 TABLET BY MOUTH AT BEDTIME 09/03 completed Not Available Not Available Not Available furosemide 20 mg tablet TAKE 1 TABLET BY MOUTH EVERY OTHER DAY active Not Available Not Available No t Available ergocalcife rol (vitamin D2) 1,250 mcg (50,000 unit) capsule TAKE 1 CAPSULE BY MOUTH EVERY THURSDAY active Not Available Not Available No t Available azelastine 137 mcg (0.1 %) nasal spray USE 1 SPRAY(S) IN EACH NOSTRIL TWICE DAILY DIRECTED 09/03 completed Not Available Not Available Not Available cefuroxime axetil 500 mg tablet TAKE 1 TABLET BY MOUTH TWICE DAILY FOR PNEUMONIA FOR 7 DAYS. active Not Available Not Available No t Available albuterol sulfate HFA 90 mcg/actuati on aerosol inhaler INHALE 2 PUFFS BY MOUTH TWICE DAILY DIRECTED active Not Available Not Available No t Available propranolol 20 mg tablet TAKE 1 TABLET BY MOUTH TWICE DAILY active Not Available Not Available No t Available ondansetron 4 mg disintegrat ing tablet DISSOLVE 1 TABLET IN MOUTH EVERY 8 HOURS NEEDED FOR NAUSEA active Not Available Not Available No t Available cefdinir 300 mg capsule TAKE 1 CAPSULE BY MOUTH TWICE DAILY FOR 10 DAYS active Not Available Not Available No t Available fluticasone propionate 50 mcg/actuati on nasal spray,suspe nsion USE 2 SPRAY(S) IN EACH NOSTRIL ONCE DAILY AT NIGHT active Not Available Not Available No t Available nitrofurant oin monohydrate /macrocryst als 100 mg capsule TAKE 1 CAPSULE BY MOUTH EVERY 12 HOURS WITH MEALS FOR 5 DAYS 07/19 completed Not Available Not Available Not Available Tricor 145 mg tablet Take 1 {tablet} by oral route. 09/03 completed Not Available Not Available Not Available Vitals Date Recorded Body height Body mass index (BMI) Body weight Heart rate Systolic blood pressure Diastolic blood pressure Provider Name and Address Organization Details Last Updated DateTime 3 163.83 cm 27.4 kg/m2 32898.9 6 g 73 /min 144 mm[Hg] 62 mm[Hg] Kaitlynn ERVIN - [facility] & [place] 3 11:47:12 Date Recorded Body height Oxygen saturation Oxygen saturation in Arterial blood by Pulse oximetry Heart rate Systolic blood pressure Diastolic blood pressure Provider Name and Address Organization Details Last Updated DateTime 3 163.83 cm 98 % 98 % 77 /min 144 mm[Hg] 64 mm[Hg] Kaitlynn ERVIN [facility] & [place] 3 11:20:58 Date Recorded Body mass index (BMI) Body weight Provider Name and Address Organization Details Last Updated DateTime 10/15/2022 27.7 kg/m2 05044.15 g Belia Will, DO [address] [facility] [address], [place], [address], [facility] & [place] 10/15/2022 11:37:23 Date Recorded Body height Body mass index (BMI) Body weight Heart rate Systolic blood pressure Diastolic blood pressure Provider Name and Address Organization Details Last Updated DateTime 4 163.83 cm 26.9 kg/m2 40647.1 9 g 75 /min 144 mm[Hg] 80 mm[Hg] Kaitlynn ERVIN [facility] & [place] 4 11:04:16 Social History Question Answer Notes LastModified by Organizat ion Details LastModified Time Tobacco Smoking Status Current Every Day Smoker Kaitlynn Duncan laura [facility] & [place] 09/03/2022 11:58:14 What Is Your Level Of Alcohol Consumption? None Information not available 09/03/2022 What Is Your Level Of Caffeine Consumption? None Information not available 09/03/2022 Are You Currently Employed? No Retired Information not available 09/03/2022 Do You Have Any Pets? No Information not available 09/03/2022 What Is Your Relationship Status? Lives In A House With Information not available 09/03/2022 At What Age Did You Start Smoking Tobacco? 20 Information not available 09/03/2022 How Much Tobacco Do You Smoke? 1 PPD Information not available 09/03/2022 Do You Use Any Illicit Or Recreational Drugs? No Information not available 09/03/2022 Are You Currently In School? No Assoc. Degree Information not available 09/03/2022 Sex: Unknown Functional Status Question Answer Note LastModified by Organizat ion Details LastModified Time Are you able to care for yourself? Yes getting harder and harder Information not available 09/03/2022 Mental Status None recorded. Family History Relationship Description Onset Age of this Age Resolved Age Notes LastModified by Organization Details LastModified Time Mother Multiple myeloma 81 ldalla Not available 2022 11:55:47 Father Accidentally killed 52 killed at work on site. ldalla Not available 09/03/2022 11:57:02 Unspecified Relation Autoimmune disease 33 grandd rhiannon r ldalla Not available 07/20/2023 11:07:01 Medical History Condition Response Bleeding Disorder Y Ear or Hearing Problems Y Blood Clot Y Disease Y Hyperlipidemia Y Cancer Y COPD Y GI Problems Y Reflux/GERD Y TIA Y Hypertension Y Neurological Problems Y Gynecological HistoryNo gynecological history recorded. Obstetrics History GPAL:G 0 P 0 0 0 0 Immunizations Vaccine Type Date Status Note Provider Nam e and Address Organization Details Recorded Time pneumococcal polysaccharide PPV23 2 completed [facility] Walker [facility] & [place] 09/03/2022 11:31:10 Influenza, split virus, trivalent, PF 5 completed [facility] Walker [facility] & [place] 09/03/2022 11:31:10 Past Encounters Encounter ID Performer Location Encounter Start Date Encounter Closed Date Diagnosis/Indication Diagnosis SNOMED-CT Code Diagnosis ICD10 Code Diagnosis Note [id number] DO CIPRIANO Sow [facility] [address] [place] [address] 09/03/2022 11:26:47 09/03/2022 12:36:48 Essential tremor 003150349 G25.0 She has severe action tremors in her hands and also of her head/voice . Her exam is consistent with an Essential tremor. Her gait was impaired but she did not have any convincing findings for a Parkinson' s disease.Wi th her need for chronic coumadin she really would not be a good candidate for DBS but she also states she would not consider any surgical interventi ons for her tremors.I would recommend she try taking the primidone in the mornings to better assess if it provides any benefit for the action tremors. She likely would need 2-3 times a day dosing but first want her to see how she tolerates daytime dosing. If this should help her would need to closely monitor her coumadin levels to ensure there was not interactio n with these two medication s.Apparent ly she has not tolerated higher doses of propranolo l in the past due to hypotensio n so this dose not appear to be an option.I did review behavioral management strategies with her today. [id number] Belia Will [facility] [address] [place] [address] 10/15/2022 11:09:21 10/15/2022 11:54:58 Essential tremor 428711054 G25.0 She has severe action tremors in her hands and also of her head/voice . Her exam is consistent with an Essential tremor. Her gait was impaired but she did not have any convincing findings for a Parkinson' s disease.Wi th her need for chronic coumadin she really would not be a good candidate for DBS but she also states she would not consider any surgical interventi ons for her tremors.Sh leonidas did find some benefits from the change in primidone but now with stomach pains concerning for an ulcer so she has opted to stop this medication . Will hold off on further medication trials until her stomach issues are resolved.P otentially could retry the primidone at a later time or try dopaminerg ic just to see if any benefits.I did review behavioral management strategies with her today. [id number] Belia Will DO [facility] [address] [place] [address] 07/20/2023 10:58:41 07/20/2023 11:23:02 Essential tremor 321790186 G25.0 She has severe action tremors in her hands and also of her head/voice . Her exam is consistent with an Essential tremor. Her gait was impaired but she did not have any convincing findings for a Parkinson' s disease.Wi th her need for chronic coumadin she really would not be a good candidate for DBS but she also states she would not consider any surgical interventi ons for her tremors.Sh e did find some benefits from primidone in the past but had to stop due to GI side effects. She does feel her medication s for her stomach has helped her and would like to retry the primidone. She has plenty of her prior supply at home. She will start with once daily dosing in the mornings and if tolerated then increase to bid dosing. She will call with an update in a few weeks. Health Concerns Section Related Observation LastModified by Organization Detai ls LastModified Time None Recorded Concern Status LastModified by Organization Details LastModified Time None Recorded Advance Directives Directive None Recorded Payers Encounter Date Sequence Insurance Name Policy Number Policy Chance Covered Member ID Chance Member ID Guarantor Name 09/03/2022 1 [place] [id number] Rosenda King [id number] Rosenda King 10/15/2022 1 [place] [id number] Rosenda Tim King [id number] Rosenda Fernando 07/20/2023 1 [place] [id number] Rosenda Dumont Fernando [id number] Rosenda King Notes Date Note Type Note Provider Name and Address Organization Details Recorded Time 09/03/2022 text/html 81 y/o right handed female here for neurologic consultation requested by Dr Liu regarding tremors. She is the primary historian for today's visit. Rosenda reports gradually worsening tremors involving her hands and her head. Last year her PCP tried to put her on a little higher dose of propranolol for these tremors. It was not of much benefit and was causing some low blood pressure so this was recently lowered back to her prior dose.She was diagnosed with ET at least 20 years ago. Over the years she has just dealt with it and not really needed any medications. Now she finds it has gotten to a point she can hardly eat or write. She is struggling to cook because her hands shake so badly. Her head has also started to shake and her voice can go in and out at times. She is really embarrassed to go anywhere due to how badly she shakes. She is not aware of any family hx of tremors. She also reports difficulty walking in the last year. She broke her left hip five years ago and this did not heal well so she has issues with that leg ever since. She currently finds that when she is up walking she will get to shaking and tend to stumble from side to side. She uses a cane but it can be hard to hold onto at times. Just recently her PCP prescribed primidone 50mg. She has been taking 1/2 tab at bedtime and cut her propranolol back to just a morning dose. She can't tell this helps her at all. She denies any issues falling asleep due to the tremors. Belia Will, DO [address] [facility] [address], [place], [address], [facility] [place] & [place] 09/03/2022 12:50:14 10/15/2022 text/html Rosenda comes in today for a follow up. I had her try to adjust how she was taking primidone when last seen. Today she tells me she stopped the primidone. She was having some stomach issues and wanted to stop any nonessential medications. She does feel that the stomach issues are a little better since being off primidone yet she still is having quite a bit of pain and belching.She did feel that the primidone helped her tremors for the short time she tried the higher dose in the mornings. She did see Dr Liu last week since her stomach was still bothering her. He gave her a medication to try but so far it has not really helped.She has continued with propranolol. She really can't tell that it does much for her. INITIAL VISIT: (09/03/22)81 y/o right handed female here for neurologic consultation requested by Dr Liu regarding tremors. She is the primary historian for today's visit. Rosenda reports gradually worsening tremors involving her hands and her head. Last year her PCP tried to put her on a little higher dose of propranolol for these tremors. It was not of much benefit and was causing some low blood pressure so this was recently lowered back to her prior dose.She was diagnosed with ET at least 20 years ago. Over the years she has just dealt with it and not really needed any medications. Now she finds it has gotten to a point she can hardly eat or write. She is struggling to cook because her hands shake so badly. Her head has also started to shake and her voice can go in and out at times. She is really embarrassed to go anywhere due to how badly she shakes. She is not aware of any family hx of tremors. She also reports difficulty walking in the last year. She broke her left hip five years ago and this did not heal well so she has issues with that leg ever since. She currently finds that when she is up walking she will get to shaking and tend to stumble from side to side. She uses a cane but it can be hard to hold onto at times. Just recently her PCP prescribed primidone 50mg. She has been taking 1/2 tab at bedtime and cut her propranolol back to just a morning dose. She can't tell this helps her at all. She denies any issues falling asleep due to the tremors. Belia Will, DO [address] [facility] [address], [place], [address], [facility] - [facility] - [place] & [place] 10/15/2022 11:56:54 07/20/2023 text/html Rosenda comes in today for a follow up on her tremors. In the past she did find primidone to be of some benefits but it caused GI upset so she was not able to take this the last time I saw her. She has been on propranolol with marginal benefits. She cannot tolerate higher dosing due to low blood pressure.Today she reports her tremors seem to be getting a little worse. She really struggles to use utensils and cook because her hands shake. She is still on the low dose propranolol. She does also take xanax twice daily for her chronic anxiety. These medications have not really helped her tremors.The GI symptoms still are an issue but have improved some. She still has frequent belching. She has found the sulcralfate to help and uses this as needed.she is interested in retrying the primidone. PRIOR VISIT: (10/15/22)Rosenda comes in today for a follow up. I had her try to adjust how she was taking primidone when last seen. Today she tells me she stopped the primidone. She was having some stomach issues and wanted to stop any nonessential medications. She does feel that the stomach issues are a little better since being off primidone yet she still is having quite a bit of pain and belching.She did feel that the primidone helped her tremors for the short time she tried the higher dose in the mornings. She did see Dr Liu last week since her stomach was still bothering her. He gave her a medication to try but so far it has not really helped.She has continued with propranolol. She really can't tell that it does much for her. INITIAL VISIT: (09/03/22)81 y/o right handed female here for neurologic consultation requested by Dr Liu regarding tremors. She is the primary historian for today's visit. Rosenda reports gradually worsening tremors involving her hands and her head. Last year her PCP tried to put her on a little higher dose of propranolol for these tremors. It was not of much benefit and was causing some low blood pressure so this was recently lowered back to her prior dose.She was diagnosed with ET at least 20 years ago. Over the years she has just dealt with it and not really needed any medications. Now she finds it has gotten to a point she can hardly eat or write. She is struggling to cook because her hands shake so badly. Her head has also started to shake and her voice can go in and out at times. She is really embarrassed to go anywhere due to how badly she shakes. She is not aware of any family hx of tremors. She also reports difficulty walking in the last year. She broke her left hip five years ago and this did not heal well so she has issues with that leg ever since. She currently finds that when she is up walking she will get to shaking and tend to stumble from side to side. She uses a cane but it can be hard to hold onto at times. Just recently her PCP prescribed primidone 50mg. She has been taking 1/2 tab at bedtime and cut her propranolol back to just a morning dose. She can't tell this helps her at all. She denies any issues falling asleep due to the tremors. Belia Will, DO [address], [place], [id number], [facility] [place] - [place] & [place] 07/20/2023 11:27:18 OBGyn Episode No OBEpisode recorded.
== END 2024-08-12 23:59 | disposition home or self-care (01) ==
LOC: LAB.DROPOF 08-15 10:56
PROVIDERS: PCP Nurse Practitioner; Visit Provider Nurse Practitioner
DX: N39.0 Urinary tract infection, site not specified (principal)
CPT/HCPCS: 87086; 87088; 87186

== ENCOUNTER 2024-11-13 14:26 | Emergency (ER) | payer MEDICARE, SELFPAY ==
[2024-11-13] VITALS (19 sets, daily range): BP systolic 104–141; BP diastolic 43–61; PULSE 54–62; RESP 11–26; TEMP 36.4–36.9; O2SAT 88–100; BMI 27.4
--- OUTSIDE RECORDS SUMMARY | 2024-11-13 15:03 | XMS_ITS | Clinical Summary ---
Author Organization [facility] Address [address] [id number] Care Team Providers Care Hr Representative Name Role Phone Jarett Liu MD Primary Care Provider [phone] Family History Medical History Relation Name Comments Conversions - Other Father Patient' s mother is Conversions - Other Mother Patient' s mother is Relation Name Status Comments Father Mother Social History Tobacco Use Types Packs/Day Years Used Date Smoking Tobacco: Every Day Comments Unknown Sex and Gender Information Value Date Recorded Sex Assigned at Not on file Legal Sex Female 8:57 PM EDT Gender Identity Not on file Sexual Orientation Not on file Last Filed Vital Signs Vital Sign Reading Time Taken Comments Blood Pressure - - Pulse - - Temperature - - Respiratory Rate - - Oxygen Saturation - - Inhaled Oxygen Concentration - - Weight 4.03 kg (8 lb 14.2 oz) 03/02/2017 3:34 PM EDT Height 162.6 cm (5' 4 ) 01/12/2017 2:27 PM EDT Body Mass Index 1.52 01/12/2017 2:27 PM EDT Plan of Treatment Health Maintenance Due Date Last Done Comments [facility]-Bone Density Scan 1939 [facility]-Depression Screening 1940 [facility]-Infant/Child/Adol SDOH Screenings 1940 [facility]- SDOH Screenings 11/21/1957 [facility]-Adult SDOH Screenings 11/21/1957 [facility]-DTaP,Tdap,and Td Vaccines (1 - Tdap) 11/21/1958 [facility]-Zoster Vaccines (1 of 2) 11/21/1989 [facility]-RSV Vaccine: 60+ Years or (1 - 1-dose 75+ series) 11/21/2014 [id number]-[id number]-24 Vaccine ( season) 2024 03/20/2021, 07/03/2020, 06/08/2020 [facility]-Influenza Vaccine (#1) 2025 [facility]-Pneumococcal Vaccine: 50+ Years (3 of 3 - PCV20 or PCV21) 03/20/2025 03/20/2020, 03/04/2002 HPV Vaccines Aged Out No longer eligi ble based on patient's age to complete this topic [facility]-HIB Vaccines Aged Out No longer e ligible based on patient's age to complete this topic [facility]-Hepatitis A Vaccines Aged Out No longer eligible based on patient's age to complete this topic [facility]-IPV Vaccines Aged Out No longer e ligible based on patient's age to complete this topic [facility]-Rotavirus Vaccines Aged Out No lo nger eligible based on patient's age to complete this topic Insurance MEDICARE Care Teams Hr Representative Relationship Specialty Start Date End Date Jarett Liu MD [facility] [place] [address] PCP - General 09/14/20
--- OUTSIDE RECORDS SUMMARY | 2024-11-13 15:03 | XMS_ITS | Continuity of Care Document ---
Author Organization [facility] located [facility], [facility] Address [address] [address] [place] [address] Assessment Encounter Date Assessment Date Assessment LastModified by Organization Details LastModified Time 11/01/2024 11/01/2024 1. Urinary tract infection. Get urine culture. Prescribed nitrofurantoin capsules 100 mg twice daily with food for 10 days. 2. Chronic low back pain without sciatica. Get x-ray of the lumbosacral spine in the next 2 days. Recommended Tylenol 1000 mg 3 times daily as needed for pain plus local heat for 20 or 30 minutes 3 times daily to her lower back 3. Essential hypertension. Blood pressure under good control. Continue triamterene/HCTZ 37.5/25 mg half tablet daily 4. Nicotine dependence. Encourage patient to quit smoking soon as possible. 5. Chronic obstructive pulmonary disease. Continue albuterol sulfate metered-dose inhaler 2 puffs twice daily and DuoNeb treatments 3 times daily as needed and montelukast 10 mg daily 6. History of DVT. Continue warfarin at current dose. Check PT with INR today 7. Mild pulmonary hypertension. Continue bumetanide 0.5 mg daily and low-sodium diet. 8. Essential tremor. Continue propranolol 20 mg twice daily 9. Kidney disease stage IIIb. Check CMP today and avoid nonsteroidals 10. RTC in about 2 to 3 months [email or web address] Not available 11/01/2024 21:52:16 Plan of Treatment Reminders Order Date Submit Date Provider Last Modified By Organization Details Last Modified Time Details Appointments None recorded. Lab urinalysis panel, auto 2024 025 9 [facility], [address], [address], [place], [address], 12:19:27 culture, urine 2024 025 [facility], [address] [place] [address], [phone], 11:45:11 PT/INR 2024 025 [facility], [address] [place] [address], [phone], 19:08:42 CMP, serum or plasma 2024 025 [facility], [address] [place] [address], [id number], 19:20:02 Referral None recorded. Procedures None recorded. Surgeries None recorded. Imaging XR, lumbosacral spine, 2 or 3 view 2024 025 [facility], [address], [place], [address], 05:35:02 Medication Orders nitrofurant oin macrocrysta l 100 mg capsule 2024 025 [facility], [address], [address], 14:43:14 Patient TargetsNo targets recorded. Patient InstructionsNo instructions recorded. Reason for Referral None Reported. Results Created Date Observation Date Name Description Value Unit Range Abnormal Flag Note LastModifiedBy Organization Detail LastModifiedTime 11/02/1911/01/2024 urina lysis panel , auto Unknown Analyte Clean Catch Not Available [facility] [address], [place], [address], 11/01/2024 11:27:15 11/02/1911/01/2024 urina lysis panel , auto Unknown Analyte Yellow Not Available [address], [place], [address], 11/01/2024 11:27:15 11/02/19 25 11/01/2024 urina lysis panel , auto Unknown Analyte Slight ly Cloudy Not Available [facility] [address], [place], [address], 11/01/2024 11:27:15 11/02/19 25 11/01/2024 urina lysis panel , auto Unknown Analyte 1.020 Not Available [address], [place], [address], 11/01/2024 11:27:15 11/02/19 25 11/01/2024 urina lysis panel , auto Unknown Analyte 6.0 Not Available [address], [place], [address], 11/01/2024 11:27:15 11/02/19 25 11/01/2024 urina lysis panel , auto Unknown Analyte 500 Brock/uL Not Available [address], [place], [address], 11/01/2024 11:27:15 11/02/19 25 11/01/2024 urina lysis panel , auto Unknown Analyte Negati ve Not Available [address], [place], [address], 11/01/2024 11:27:15 11/02/19 25 11/01/2024 urina lysis panel , auto Unknown Analyte Negati ve Not Available [place] [address], [place], [address], 11/01/2024 11:27:15 11/02/19 25 11/01/2024 urina lysis panel , auto Unknown Analyte Normal Not Available [facility] [address], [place], [address], 11/01/2024 11:27:15 11/02/19 25 11/01/2024 urina lysis panel , auto Unknown Analyte Negati ve Not Available [facility] [address], [place], [address], 11/01/2024 11:27:15 11/02/19 25 11/01/2024 urina lysis panel , auto Unknown Analyte 1 mg/dL Not Available [place] [address], [place], [address], 11/01/2024 11:27:15 11/02/19 25 11/01/2024 urina lysis panel , auto Unknown Analyte 1 mg/dL Not Available [facility] [address], [place], [address], 11/01/2024 11:27:15 11/02/19 25 11/01/2024 urina lysis panel , auto Unknown Analyte 50 Shree/uL Not Available [facility] [address], [place], [address], 11/01/2024 11:27:15 11/05/19 25 11/03/2024 XR, lumbo sacra l spine , 2 or 3 view No observ ation record ed. [email or web address] [facility] [address] [facility], [place], [address], 11/08/2024 12:02:36 Result Notes None recorded. Problems Name Problem SNOMED Code Status Onset Date Resolution Date Notes Provider Name and Address Organization Details Recorded Time Chronic obstructiv e pulmonary disease 97382439 Active 2022 CHEMA GARCES MD [address] [place] [address], [address] [place] [address] , [facility] 3 00:07:13 Essential hypertensi on 73238477 Active 2022 CHEMA GARCES MD [address] [place] [address], [address] [place] [address] , [facility] 3 00:07:15 Generalize d anxiety disorder 37563015 Active 2022 CHEMA GARCES MD [address] [place] [address], [address] [place] [address] , [facility] 3 00:07:16 Essential tremor 995352169 Active 2022 CHEMA GARCES MD [address] [place] [address], [address] [place] [address] , [facility] 3 00:07:19 Hyperlipid emia 01200394 Active 2022 CHEMA GARCES MD [address] [place] [address], [address] , [facility] 3 00:07:21 Recurrent major depression in partial remission 62337104 Active 2022 CHEMA GARCES MD [address] [place] [address], [address] [place] [address] , [facility] 3 00:07:24 Nicotine dependence 85623253 Active 2022 CHEMA GARCES MD [address] [place] [address], [address] [place] [address] , [facility] 3 00:07:26 History of deep vein thrombosis 499563364 Active 2022 CHEMA GARCES MD [address] [place] [address], [address] [place] [address] , [facility] 3 00:07:28 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 6796843101023 105 Active 2022 CHEMA GARCES MD [address] [place] [address], [address] , [facility] 3 00:07:32 Vitamin D deficiency 92347689 Active 2022 CHEMA GARCES MD [address] [place] [address], [address] , [facility] 3 00:07:34 Urinary incontinen ce 522626145 Active 2023 CHEMA GARCES MD [address] [place] [address], [address] , [facility] 4 20:42:15 History of total hip arthroplas ty 363813693078 Active 2023 CHEMA GARCES MD [address] [place] [address], [address] , [facility] 4 20:42:22 Nausea 622754131 Active 2023 CHEMA GARCES MD [address] [place] [address], [address] , [facility] 4 20:42:26 Vaginal vault prolapse 829530482 Active 2023 CHEMA GARCES MD [address] [place] [address], [address] , [facility] 4 20:42:30 Lupus anticoagul ant disorder 72736408 Active Not Available [facility] 4 21:54:35 Atheroscle rosis of aorta 98989827 Active Not Available [facility] 4 21:54:55 Chronic kidney disease stage 3 359183523 Active Not Available [facility] 4 21:55:21 Factor V deficiency 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 Active Not Available [facility] 4 21:55:30 Cough 47991902 Active 2023 CHEMA GARCES MD [address] [place] [address], [address] , [facility] 4 22:04:28 Pneumonia 149439462 Active 2023 CHEMA GARCES MD [address] [place] [address], [address] , [facility] 4 22:04:31 Pain in left lower limb 483554307 Active 2023 CHEMA GARCES MD [address] [place] [address], [address] , [facility] 4 06:55:06 Localized edema 099812528 Active 2023 CHEMA GARCES MD [address] [place] [address], [address] , [facility] 4 06:55:08 Chest pain 44682272 Active 2023 CHEMA GARCES MD [address] [place] [address], [address] , [facility] 4 23:02:02 Screening mammograph y Active 2023 CHEMA GARCES MD [address] [place] [address], [address] , [facility] 4 23:02:05 Administra tion of influenza vaccine Active 2023 CHEMA GARCES MD [address] [place] [address], [address] , [facility] 4 23:02:06 Cellulitis of lower leg 616551546 Active 2023 CLEMENT MOTTA DO [address] [place] [address], [address] , [facility] 4 14:50:22 Edema of lower extremity 774919050 Active 2023 CLEMENT MOTTA DO [address] [place] [address], [address] , [facility] 4 14:57:10 Dysuria 98218826 Active 2023 CHEMA GARCES MD [address] [place] [address], [address] , [facility] 5 08:10:43 Acute bronchitis 47631256 Active 2023 CHEMA GARCES MD [address] [place] [address], [address] , [facility] 4 06:43:59 Adult health examinatio n Active 2023 CHEMA GARCES MD [address] [place] [address], [address] , [facility] 4 21:20:32 Administra tion of viral vaccine Active 2023 CHEMA GARCES MD [address] [place] [address], [address] , [facility] 4 21:20:35 Osteopenia 770790212 Active 2023 CHMEA GARCES MD [address] [place] [address], [address] , [facility] 4 21:20:37 Tricuspid valve regurgitat ion 286417945 Active 2024 CHEMA GARCES MD [address] [place] [address], [address] , [facility] 5 21:43:35 Exposure to Influenzav irus Active 2024 CHEMA GARCES MD [address] [place] [address], [address] , [facility] 5 22:35:41 Chronic kidney disease stage 3B 281085958 Active Not Available [facility] 5 08:03:44 Pulmonary hypertensi on 62533114 Active Not Available [facility] 5 21:42:28 Chronic low back pain 699094344 Active 2024 CHEMA GARCES MD [address] [place] [address], [address] , [facility] 5 21:52:16 Problem Notes None recorded. Procedures Surgical History Date Name Laterality Status Provider Name and Address Organization Details Recorded Time hysterectomy completed [facility] 12/27/2020 09:02:21 repair of hip completed [facility] 12/27/2020 09:04:57 partial lobectomy of lung completed [facility] Foster [facility] 12/27/2020 09:05:17 Spine Surgery completed [facility] 12/27/2020 09:05:58 repair of rectocele completed Adalgisa Foster [facility] 12/27/2020 09:07:18 Imaging Results None recorded. Procedure Notes None recorded. Medical Equipment None Reported. Allergies Allergen ID Allergen Name Allergen Category Reaction Reaction Severity Criticality Documentation Date Start Date Code Code System Note Provider Name and Address Organization Details Recorded Time 191697 aspirin medicatio n Not available Not available Not available 12/27/2020 1191 [facility] 08:56:41 056898 morphine medicatio n Not available Not available Not available 12/27/2020 7052 [facility] 08:56:51 746382 codeine medicatio n Not available Not available Not available 12/27/2020 2670 [facility] 08:56:58 Medications Name Sig Start Date Stop Date Status Note LastModified by Organization Details LastModified Time furosemide 40 mg tablet TAKE 1 TABLET BY MOUTH ONCE DAILY IN THE MORNING 07/28 completed Not Available Not Available Not Available metformin 500 mg tablet TAKE 1 TABLET BY MOUTH ONCE DAILY 09/22 completed Not Available Not Available Not Available primidone 50 mg tablet TAKE 1 TABLET BY MOUTH ONCE DAILY WITH FOOD 05/07 completed Not Available Not Available Not Available prednisone 10 mg tablet TAKE 2 TABLETS BY MOUTH IN THE MORNING FOR 4 DAYS THEN 1 TAB ONCE DAILY FOR 4 DAYS 02/23 completed Not Available Not Available Not Available ipratropiu m 0.5 mg-albuter ol 3 mg (2.5 mg base)/3 mL nebulizati on soln USE 1 AMPULE IN NEBULIZE R THREE TIMES DAILY DIRECTED FOR WHEEZING FOR 10 DAYS active Not Available Not Available No t Available bumetanide 2 mg tablet TAKE 0.5 TABLET BY MOUTH ONCE DAILY 11/01 completed Not Available Not Available Not Available azithromyc in 250 mg tablet TAKE 2 TABLETS BY MOUTH ON DAY 1, AND THEN TAKE 1 TABLET BY MOUTH ONCE A DAY ON DAY 2 THROUGH DAY 5 12/01 completed Not Available Not Available Not Available sucralfate 1 gram tablet TAKE 1 TABLET BY MOUTH THREE TIMES DAILY FOR 7 DAYS active Not Available Not Available No t Available phenazopyr idine 200 mg tablet TAKE 1 TABLET BY MOUTH EVERY 8 HOURS FOR 2 DAYS active Not Available Not Available No t Available ondansetro n HCl 4 mg tablet TAKE 1 TABLET BY MOUTH EVERY 8 HOURS NEEDED active Not Available Not Available No t Available simvastati n 10 mg tablet TAKE 1 TABLET BY MOUTH ONCE DAILY active Not Available Not Available No t Available potassium chloride ER 10 mEq tablet,ext ended release TAKE 1 TABLET BY MOUTH TWICE DAILY active Not Available Not Available No t Available ciprofloxa aleah 500 mg tablet TAKE 1 TABLET BY MOUTH EVERY 12 HOURS FOR 5 DAYS active Not Available Not Available No t Available triamteren e 37.5 mg-hydroch lorothiazi de 25 mg capsule TAKE 1 CAPSULE BY MOUTH ONCE DAILY 12/01 completed Not Available Not Available Not Available warfarin 4 mg tablet TAKE 1 TABLET BY MOUTH ONCE DAILY THROUGH THURSDAY active Not Available Not Available No t Available warfarin 3 mg tablet TAKE 1 TABLET BY MOUTH ONCE DAILY active Not Available Not Available No t Available pantoprazo le 20 mg tablet,del ayed release TAKE 1 TABLET BY MOUTH ONCE DAILY active Not Available Not Available No t Available alprazolam 0.5 mg tablet TAKE 1 TABLET BY MOUTH TWICE DAILY DIRECTED FOR ANXIETY active Not Available Not Available No t Available propranolo l 10 mg tablet TAKE 1 TABLET BY MOUTH TWICE DAILY 05/07 completed Not Available Not Available Not Available phenazopyr idine 100 mg tablet TAKE 1 TABLET BY MOUTH THREE TIMES DAILY FOR 2 DAYS active Not Available Not Available No t Available cephalexin 500 mg capsule TAKE 1 CAPSULE BY MOUTH TWICE DAILY FOR 5 DAYS 09/01 completed Not Available Not Available Not Available oseltamivi r 75 mg capsule Take 1 capsule every day by oral route with meal(s) for 10 days. 09/01 completed Not Available Not Available Not Available nitrofuran toin macrocryst al 100 mg capsule Take 1 capsule twice a day by oral route with meal(s) for 10 days. 11/03 completed Not Available Not Available Not Available bumetanide 0.5 mg tablet TAKE 1 TABLET BY MOUTH ONCE DAILY active Not Available Not Available No t Available prednisone 50 mg tablet TAKE 1 TABLET BY MOUTH ONCE DAILY FOR COPD EXACERBA TION FOR 4 DAYS. 12/01 completed Not Available Not Available Not Available nicotine 21 mg/24 hr daily transderma l patch Apply 1 patch every day by transder mal route in the morning for 30 days. 2024 active Not Available Not Available Not Avai lable triamteren e 37.5 mg-hydroch lorothiazi de 25 mg tablet TAKE 1 TABLET BY MOUTH ONCE DAILY active Not Available Not Available No t Available cephalexin 500 mg tablet Take 1 tablet every 12 hours by oral route for 5 days. 03/29 completed Not Available Not Available Not Available montelukas t 10 mg tablet TAKE 1 TABLET BY MOUTH AT BEDTIME active Not Available Not Available No t Available furosemide 20 mg tablet 1 tablet every day 05/31 completed Not Available Not Available Not Available ergocalcif miguel (vitamin D2) 1,250 mcg (50,000 unit) capsule TAKE 1 CAPSULE BY MOUTH ONCE A WEEK active Not Available Not Available No t Available cefuroxime axetil 500 mg tablet TAKE 1 TABLET BY MOUTH TWICE DAILY FOR PNEUMONI A FOR 7 DAYS. 11/10 completed Not Available Not Available Not Available albuterol sulfate HFA 90 mcg/actuat ion aerosol inhaler INHALE 2 PUFFS BY MOUTH TWICE DAILY DIRECTED active Not Available Not Available No t Available propranolo l 20 mg tablet TAKE 1 TABLET BY MOUTH TWICE DAILY active Not Available Not Available No t Available cefdinir 300 mg capsule TAKE 1 CAPSULE BY MOUTH TWICE DAILY WITH MEALS FOR 10 DAYS 03/29 completed Not Available Not Available Not Available fluticason e propionate 50 mcg/actuat ion nasal spray,susp ension USE 2 SPRAY(S) IN EACH NOSTRIL ONCE DAILY AT NIGHT active Not Available Not Available No t Available nitrofuran toin monohydrat e/macrocry stals 100 mg capsule TAKE 1 CAPSULE BY MOUTH TWICE DAILY WITH MEALS FOR 10 DAYS active Not Available Not Available No t Available OsmoPrep 1.5 gram (1.102-0.3 98) tablet As Directed 12/27 completed Frequen cy: as direct. ;Medica tion Descrip tion: sodium biphosp hate-so dium phospha te; Dosage: as directe d; Route:o ral; refills :0; Quantit y:32 tablet Not Available Not Available Not Available Mucinex 1,200 mg tablet, extended release Take 1 tablet twice a day by oral route for 10 days. 2023 active Not Available Not Available Not Avai lable Vitals Date Recorded Body height Body mass index (BMI) Body weight Oxygen saturation Oxygen saturation in Arterial blood by Pulse oximetry Heart rate Systolic And Diastolic Provider Name and Address Organization Details Last Updated DateTime 5 162.56 cm 28.1 kg/m2 23482.3 6 g 95 % 95 % 76 /min 134/78 mm[Hg] Kaye Reagan [facility] 5 11:22:43 Social History Question Answer Notes LastModified by Organizat ion Details LastModified Time Tobacco Smoking Status Current Every Day Smoker Adalgisa Cristian [facility] 12/27/2020 09:02:59 What Was The Date Of Your Most Recent Tobacco Screening? 02/24/2024 [email or web address] Information not available 02/24/2024 At What Age Did You Start Smoking Tobacco? 26 Information not available 02/03/2023 Has Tobacco Cessation Counseling Been Provided? No Information not available 02/03/2023 How Many Years Have You Smoked Tobacco? 49 Information not available 02/03/2023 Sex: Unknown Functional Status Question Answer Note LastModified by Organization D etails LastModified Time What is your level of alcohol consumption? None Information not available 02/03/2023 Mental Status None recorded. Family History Relationship Description Onset Age of this Age Resolved Age Notes LastModified by Organization Details LastModified Time Father No current problems or disability Not available 12/27 09:02:30 Mother No current problems or disability [email or web address] Not available 12/27 09:02:30 Medical History No medical history recorded. Gynecological HistoryNo gynecological history recorded. Obstetrics History GPAL:G 0 P 0 0 0 0 Immunizations Vaccine Type Date Status Note Provider Nam e and Address Organization Details Recorded Time COVID-19, mRNA, LNP-S, PF, 30 mcg/0.3 mL dose 1 completed Kaye Reagan [facility] 07/07/2023 11:08:24 COVID-19, mRNA, LNP-S, PF, 30 mcg/0.3 mL dose 1 completed Kaye Merary [facility] 07/07/2023 11:08:24 COVID-19, mRNA, LNP-S, PF, 30 mcg/0.3 mL dose 1 completed Kaye Merary [facility] 07/07/2023 11:08:24 COVID-19, mRNA, LNP-S, bivalent, PF, 30 mcg/0.3 mL dose [address] [place] [facility] 07/07/2023 11:08:24 pneumococcal polysaccharide PPV23 2 completed Kaye Merary [facility] 07/07/2023 11:08:24 Pneumococcal conjugate PCV 13 0 completed Kaye Merary [facility] 07/07/2023 11:08:24 Influenza, high-dose, trivalent, PF 6 [facility]:08:24 Influenza, high-dose, quadrivalent, PF 3 completed CHEMA GARCES MD [address] [place] [address], [address], [facility] 02/05/2023 00:01:55 Influenza, high-dose, trivalent, PF 4 completed CHEMA GARCES MD [address] [place] [address], [address], [facility] 02/10/2024 22:56:17 Past Encounters Encounter ID Performer Location Encounter Start Date Encounter Closed Date Diagnosis/Indication Diagnosis SNOMED-CT Code Diagnosis ICD10 Code Diagnosis Note [id number] CHEMA GARCES MD [facility] [id number] [facility] [place] [address] 11/01/2024 11:10:18 11/01/2024 12:11:26 Generalized anxiety disorder 47709703 F41.1 Recurrent major depression in partial remission 35244979 F33.41 Essential hypertension 79185273 I10 Hyperlipidemia 10709592 E78.5 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 History of deep vein thrombosis 436481587 Z86.718 Osteopenia 061596644 M85 .89 Vitamin D deficiency 347 19895 E55.9 Chronic ki dney disease stage 3B 617407217 N18.32 Urinary incontinence 165 532140 R32 Vaginal va ult prolapse 248731815 N81.89 Essential tremor 4079474 09 G25.0 Chronic ob structive pulmonary disease 30328403 J44.9 Localized edema 90548520 4 R60.0 Dysuria 09482928 R30.0 Chronic low back pain 27 5501601 M54.50 G89.29 Pulmonary hypertension 64739552 I27.20 Health Concerns Section Related Observation LastModified by Organization Detai ls LastModified Time None Recorded Concern Status LastModified by Organization Details LastModified Time None Recorded Payers Encounter Date Sequence Insurance Name Policy Number Policy Chance Covered Member ID Chance Member ID Guarantor Name 11/01/2024 1 [employer] (MEDICARE REPLACEMENT /ADVANTAGE - PPO) [id number] Rosenda Knig [id number] Rosenda King Notes Date Note Type Note Provider Name and Address Organization Details Recorded Time 11/01/2024 text/html Interval hospitalizations:n oMedication changes:no changesOther physician visits:noExercise level:lowTobacco or alcohol use:yes smoker 1/2 a pack a dayHave you had any recent chest pain or unusual dyspnea ?sob COPDMrsPaul King is an 83-year-old female who comes today complaining of some increased pain across her lower back for the past 24 hours no trauma. The pain is worse with movement. She has chronic pain in her left thigh with any walking related to her previous hip replacement. No increase in any paresthesias. She had some dysuria yesterday and her urine was darker in color than normal. No fever but occasional chills. She has had previous UTIs. She is still smoking I believe 1/2 pack of cigarettes daily. CHEMA GARCES MD [facility] [place], [address], [facility] 11/01/2024 21:52:42 OBGyn Episode No OBEpisode recorded.
--- OUTSIDE RECORDS SUMMARY | 2024-11-13 15:03 | XMS_ITS ---
Author Organization [facility] Care Team Providers Care Batteryman Name Role Phone Rafael Liu Unavailable Unavailable Allergies and adverse reactions Code CodeSystem Substance Reaction Severity StartDate Concern Status 7052 RXNORM Morphine Unknown 09/09/2017 active 2670 RXNORM Codeine Unknown 09/09/2017 active 1191 RXNORM Aspirin Unknown 09/09/2017 active Care Team Name Role Address Phone Organization Dates Rafael Liu PCP [address] [facility] [address], [place], [address], [place] States (Office): [place] 09/09/2017 - 09/10/2017 Goals Section Goals Description Status Target Date Res and staff will follow sa fety precautions to decrease risk for injury r/t fall throughout review. Active 12/09/2017 The resident will be able to communicate basic needs on a daily basis through the review date. Active 12/09/2017 The resident will improve cu rrent level of function in ADLs through the review date. Active 12/09/2017 The resident will not have a n interruption in normal activities due to pain through the review date. Active 12/09/2017 The resident will return to prior level of function after wound healing and rehabilitation by review date. Active 12/09/2017 The resident's pneumonia catalina l be resolved without complications by review date. Active 12/09/2017 Mental Status Section Date Assessment Total Score Description 09/10/2017 CAM 0 No delirium ind icated Problems Problem # Description Date of onset Resolved Date Code CodeSystem Concern Status 1 ACTIVATED PROTEIN C RESISTANCE 09/09/[address] active 2 CHRONIC OBSTRUCTIVE PULMONARY DISEASE, UNSPECIFIED 09/09/[address] active 3 ESSENTIAL (PRIMARY) HYPERTENSION 09/09/[address] active 4 FRACTURE OF UNSPECIFIED PART OF NECK OF LEFT FEMUR, SUBSEQUENT ENCOUNTER FOR CLOSED FRACTURE WITH ROUTINE HEALING 09/09/[address] active 5 GASTRO-ESOPHAGEAL REFLUX DISEASE WITHOUT ESOPHAGITIS 09/09/[address] active 6 HYPERLIPIDEMIA, UNSPECIFIED 09/09/[address] active 7 LUPUS ANTICOAGULANT SYNDROME 09/09/[address] active 8 MALIGNANT NEOPLASM OF UNSPECIFIED OVARY 09/09/[address] active 9 PERSONAL HISTORY OF OTHER VENOUS THROMBOSIS AND EMBOLISM 09/09/[address] active 10 PERSONAL HISTORY OF PULMONARY EMBOLISM 09/09/[address] active 11 PNEUMONIA, UNSPECIFIED ORGANISM 09/09/[address] active Reason for Referral No Reasons for Referral Entered Social History Social History Observation Description Start Date End Date Code Code System Current Smoking Status Tobacco smoking consumption unknown 056862262 SNOMED CT Sex Assigned At Female 1940 [id number] [facility] Gender Identity
--- OUTSIDE RECORDS SUMMARY | 2024-11-13 15:03 | XMS_ITS | Data Portability ---
Author Organization [facility] & [place] [facility] ADMIN Address [address] [place] [address] Care Team Providers Care Extrusion Die Repair Manager Name Role Phone CHEMA LIU Primary Care Provider [phone] Assessment No assessment recorded. Plan of Treatment [...] Recorded Time Lesion of skin of face 380583226740 Active Kaitlynn Dalla null, [facility] & [place] 3 11:31:02 Nocturia 312137315 Active Kaitlynn Dalla null, [place] [facility] & [place] 3 11:31:02 Sensorineur al hearing loss of bilateral ears 088292141 Active Kaitlynn Dalla null, [place] - [facility] & [place] 3 11:31:02 Acute exacerbatio n of chronic obstructive pulmonary disease 458604148 Active Kaitlynn Dalla null, [place] [facility] & [place] 3 11:31:02 Abnormal gait 80411664 Active Kaitlynn Dalla null, [place] [facility] & [place] 3 11:31:02 Pain in pelvis 95771398 Active Kaitlynn Dalla null, [place] - [facility] & [place] 3 11:31:02 Factor V Leiden mutation 372987219 Active Kaitlynn Dalla null, [place] - [facility] - [facility] & [place] 3 11:31:02 Moderate chronic obstructive pulmonary disease 656583322 Active Kaitlynn Dalla null, [place] - [facility] - & [place] 3 11:31:02 Herniated urinary bladder 361793120 Active Kaitlynn D[place] null, [place] - [facility] - & 3 11:31:02 Solitary nodule of lung 178759837 Active Kaitlynn D[place] null, [place] - [facility] - & 3 11:31:02 Herniation of rectum into vagina 407366673 Active Kaitlynn D[place] - [facility] - & 3 11:31:02 Essential tremor 973104184 Active Kaitlynn D[place] null, [place] - [facility] - & 3 11:31:02 Hemoptysis 03722552 Active Kaitlynn D[place], [place] - [facility] - & 3 11:31:02 Long-term current use of anticoagula nt 033423092 Active Kaitlnyn Karynaa null, [place] - [facility] - & 3 11:31:02 Incontinenc e of feces 77289272 Active Kaitlynn D[place] null[place] - [facility] - & 3 11:31:02 Urge incontinenc e of urine 17472741 Active Kaitlynn D[place] - [facility] - & 3 11:31:03 Tobacco dependence syndrome 37956934 Active Kaitlynn Dalla null, [place] - [facility] - [facility] & [place] 3 11:31:03 Problem Notes None recorded. Procedures Surgical History Date Name Laterality Status Provider Name and Address Organization Details Recorded Time operation on lung completed Kaitlynn Karynaa [place] - [facility] - & 09/03/2022 12:00:39 Cholecystectomy completed Kaitlynn Karynaa [place] - [facility] - & [place] 09/03/2022 12:01:08 Hysterectomy completed Kaitlynn Perla [place] - L [facility] - & 09/03/2022 12:01:22 Appendectomy completed Kaitlynn ERVIN - L PNT [facility] & [place] 09/03/2022 12:01:34 lumpectomy of left breast completed Kaitlynn ERVIN - LP[facility] & [place] 09/03/2022 12:01:53 open reduction of fracture with internal fixation completed Kaitlynn ERVIN - [facility] & [place] 09/03/2022 12:02:25 spinal fusion with graft completed Kaitlynnjessica ERVIN - LPNT [facility] & [place] 09/03/2022 12:02:58 dilation of urethra completed Kaitlynn ERVIN - LP[facility] & [place] 09/03/2022 12:03:45 repair of vaginal wall prolapse completed Kaitlynn ERVIN - LP[facility] & [place] 09/03/2022 12:04:21 Imaging Results None recorded. Procedure Notes None recorded. Medical Equipment None Reported. Allergies Allergen ID Allergen Name Allergen Category Reaction Reaction Severity Criticality Documentation Date Start Date Code Code System Note Provider Name and Address Organization Details Recorded Time 02644 morphine medicatio n Not available Not available Not available 09/03/2022 7052 RxNorm Kaitlynn Dalla null, [place] - [facility] & [place] 3 11:30:50 79141 codeine medicatio n Not available Not available Not available 09/03/2022 2670 RxNorm Kaitlynn Dalla null, [place] - [facility] & [place] 3 11:30:50 03565 aspirin medicatio n Not available Not available Not available 09/03/2022 1191 RxNorm Kaitlynn Dalla null, [place] - [facility] & [place] 3 11:30:50 Medications Name Sig Start Date [...] index (BMI) Body weight Heart rate Systolic And Diastolic Provider Name and Address Organization Details Last Updated DateTime 07/20/2023 163.83 cm 26.9 kg/m2 06645.19 g 75 /min 144/80 mm[Hg] Kaitlynn ERVIN - [facility] - [place] & [place] 07/20/2023 11:04:16 Date Recorded Body height Body mass index (BMI) Body weight Heart rate Systolic And Diastolic Provider Name and Address Organization Details Last Updated DateTime 09/03/2022 163.83 cm 27.4 kg/m2 08429.96 g 73 /min 144/62 mm[Hg] Kaitlynn ERVIN [facility] & [place] 09/03/2022 11:47:12 Date Recorded Body mass index (BMI) Body weight Provider Name and Address Organization Details Last Updated DateTime 10/15/2022 27.7 kg/m2 91872.15 g Belia Will, DO [address] [facility], [place], [address], [facility] & [place] 10/15/2022 11:37:23 Date Recorded Body height Oxygen saturation Oxygen saturation in Arterial blood by Pulse oximetry Heart rate Systolic And Diastolic Provider Name and Address Organization Details Last Updated DateTime 163.83 cm 98 % 98 % 77 /min 144/64 mm[Hg] aKitlynn ERVIN [facility] & [place] 11:20:58 Social History Question Answer Notes LastModified by Organizat ion Details LastModified Time Tobacco Smoking Status Current Every Day [facility] [place] 09/03/2022 11:58:14 What Is Your Level Of Caffeine Consumption? None Information not available 09/03/2022 Do You Have Any Pets? No Information not available 09/03/2022 What Is Your Relationship Status? Lives In A House With Information not available 09/03/2022 At What Age Did You Start Smoking Tobacco? 20 Information not available 09/03/2022 How Much Tobacco Do You Smoke? 1 PPD Information not available 09/03/2022 Are You Currently In School? No Assoc. Degree Information not available 09/03/2022 Sex: Unknown Functional Status Question Answer Note LastModified by Organizat ion Details LastModified Time Do you use any illicit or recreational drugs? No Information not available 09/03/2022 What is your level of alcohol consumption? None Information not available 09/03/2022 Are you currently employed? No retired Information not available 09/03/2022 Are you able to care for yourself? [...] Unspecified Relation Autoimmune disease 32 grandd rhiannon bird ldalla Not available 07/20/2023 11:07:01 Medical History Condition Response COPD Y TIA Y Blood Clot Y Cancer Y Ear or Hearing Problems Y Disease Y GI Problems Y Neurological Problems Y Bleeding Disorder Y Hyperlipidemia Y Reflux/GERD Y Hypertension Y Gynecological HistoryNo gynecological history recorded. Obstetrics History GPAL:G 0 P 0 0 0 0 Immunizations Vaccine Type Date Status Note Provider Nam e and Address Organization Details Recorded Time pneumococcal polysaccharide PPV23 2 completed AR[facility] Walker [facility] & [place] 09/03/2022 11:31:10 Influenza, split virus, trivalent, PF 5 completed [facility] Walker [facility] & [place] 09/03/2022 11:31:10 Past Encounters Encounter ID Performer Location Encounter Start Date Encounter Closed Date Diagnosis/Indication Diagnosis SNOMED-CT Code Diagnosis ICD10 Code Diagnosis Note [id number] Beliaavel Will, DO ZZ [facility] Neurology [address] [facility],[address] [place] [address] 09/03/2022 11:26:47 09/03/2022 12:36:48 Essential tremor 373000406 G25.0 She has severe action tremors in [...] review behavioral management strategies with her today. [id number] Belia Will [facility] Neurology [address] [facility],[address] [place] [address] 10/15/2022 11:09:21 10/15/2022 11:54:58 Essential tremor 979041054 G25.0 She has severe action tremors in [...] review behavioral management strategies with her today. [id number] Belia WillDO COTA [facility] Neurology [address] [facility],[address] [place] [address] 07/20/2023 10:58:41 07/20/2023 11:23:02 Essential tremor 220868121 G25.0 She has severe action tremors in [...] tremors.Sh leonidas did find some benefits from primidone in [...] Recorded Advance Directives Directive None Recorded Payers Insurance Date Sequence Insurance Name Policy Number Policy Chance Covered Member ID Chance Member ID Guarantor Name 06/10/2024 1 [employer] (MEDICARE REPLACEMENT/AD VANTAGE - PPO) [id number] Rosenda S Fernando [id number] Rosenda King 06/10/2024 1 [place]AC[place]) [id number] Rosenda King [id number] Rosenda King 07/20/2023 1 [id number] Rosenda King [id number] Rosenda King 07/20/2023 1 [employer] (MEDICARE REPLACEMENT/AD VANTAGE - HMO) Rosenda King [id number] Rosenda King Notes Date Note Type Note [...] to the tremors. Belia Will, DO [address] [facility], [place], [address], [facility] [place] & [place] 09/03/2022 12:50:14 10/15/2022 text/html Rosenda comes in [...] to the tremors. Belia Will, DO [address] [facility], [place], [address], [facility] - [facility] - [place] & [place] 10/15/2022 11:56:54 07/20/2023 text/html Rosenda comes in [...] the tremors. Belia Will, DO [address] , [place], [address], [facility] - [place] - [place] & [place] 07/20/2023 11:27:18 OBGyn Episode No OBEpisode recorded.
--- OUTSIDE RECORDS SUMMARY | 2024-11-13 15:03 | XMS_ITS | Data Portability ---
Author Organization [facility] Address [address] [facility] [place] [address] Assessment Encounter Date Assessment Date Assessment LastModified by Organization Details LastModified Time 03/29/2024 03/29/2024 Patient presente d to office today for their Medicare Annual Wellness Visit. Wellness visit Questionnaire was reviewed. Depression screening was negative and no followup plan is needed. Emphasized preventive health measures including fall prevention to help reduce health risks and promote healthy living. 1. Annual Medicare wellness visit. Please see above 2. Major depressive disorder moderate and recurrent. Patient declines antidepressant today. 3. Chronic kidney disease stage IIIb. Check CMP today. Avoid nonsteroidals. Drink at least 40 ounces of water daily 4. Remote history of DVT. Check PT with INR today as she is on warfarin daily 5. Vitamin D deficiency. Check vitamin D level today and continue vitamin D 50,000 international units weekly 6. Essential tremor. Stable with propranolol 20 mg twice daily. 7. Hyperlipidemia. Check CMP today. Lipid panel looked good within the past year. Continue simvastatin 10 mg daily with low-fat low-cholesterol diet 8. Chronic obstructive pulmonary disease with ongoing nicotine dependence. Encourage patient to quit smoking now. Continue albuterol sulfate inhaler 2 puffs twice daily as needed and DuoNeb treatments 3 times daily as needed and montelukast 10 mg daily 9. Essential hypertension. Blood pressure under good control. Continue Lasix 20 mg daily and potassium 10 mEq daily and triamterene/HCTZ 37.5/25 mg half tablet daily 10. Ordered RSV vaccine in the next 1 week 11. RTC in 2 months [email or web address] Not available 03/29/2024 21:20:31 05/31/2024 05/31/2024 1. Localized edema. Causes are possible congestive heart failure or worsening renal disease. Will get echocardiogram in the next 1 week. Check CMP and BNP today. Increase Lasix to 40 mg daily and increase her triamterene/HCTZ to 1 tablet daily. Increase potassium chloride to 10 mEq daily 2. Chronic kidney disease stage III. Check CMP today and avoid nonsteroidals 3. Remote history of DVT. Check PT with INR today as she is still on Coumadin. 4. Ongoing nicotine dependence. Strong encourage patient to quit smoking 5. Chronic obstructive pulmonary disease. Continue montelukast 10 mg daily and albuterol MDI 2 puffs twice daily 6. RTC in 3 weeks and will need labs then 7. Tricuspid regurgitation. Get echo soon [email or web address] Not available 05/31/2024 21:43:52 06/30/2024 06/30/2024 1. Exposure to influenza A. Prescribed oseltamivir 75 mg daily for 10 days 2. History of DVT. Check PT with INR today as she is on Coumadin 4 mg daily Thursday through Thursday and 3 mg on other days 3. Chronic obstructive pulmonary disease. Continue DuoNeb treatments 3 times daily as needed for wheeze and albuterol sulfate metered-dose inhaler 2 puffs twice a day 4. Nicotine dependence. Patient expresses an interest in trying to quit smoking. Prescribed nicotine patches 21 mg daily for 30 days if she is successful in staying off the cigarettes after 1 month we will decrease her nicotine patches to 14 mg daily 5. Chronic kidney disease stage III. Check CMP today and avoid nonsteroidals. Drink at least 40 ounces of water daily 6. Essential hypertension. Continue triamterene/HCTZ 37.5/25 mg daily and propranolol 20 mg twice daily 7. Generalized anxiety disorder. Continue Xanax 0.5 mg twice daily 8. RTC in 2-months [email or web address] Not available 07/03/2024 22:35:41 08/31/2024 08/31/2024 1. Dysuria with urinary tract infection. Get urine culture today. Prescribed nitrofurantoin 100 mg twice daily with food for 10 days and Pyridium 100 mg 3 times daily for 2 days. 2. Chronic kidney disease stage IIIb. Check CMP today. Avoid nonsteroidals. Continue drinking at least 40 ounces of water daily 3. History of DVT in the distant past. Check PT with INR today as she is on Coumadin 4. Essential hypertension. Blood pressure under good control with propranolol 20 mg twice daily and triamterene/HCTZ 37.5/25 mg half tablet daily 5. Nicotine dependence. Encourage patient to quit smoking as soon as possible. He has been given a prescription for nicotine patches in the past 6. Chronic obstructive pulmonary disease. Continue montelukast 10 mg daily and albuterol sulfate metered-dose inhaler 2 puffs twice daily and DuoNeb treatments 3 times daily as needed for wheezing 7. Hyperlipidemia. Continue low-fat low-cholesterol diet and simvastatin 10 mg daily. May need lipid panel next visit 8. RTC in 2-months [email or web address] Not available 09/01/2024 08:10:43 11/01/2024 11/01/2024 1. Urinary tract infection. Get [...] RTC in about 2 to 3 months [email or web address] Not available 11/01/2024 21:52:16 Plan of Treatment Reminders Order Date Submit Date Provider Last Modified By Organization Details Last Modified Time Details Appointments None recorded. Lab urinalysis panel, auto 2024 025 [email or web address] 9 [facility], [address], [address], [place], [address], 5 12:19:27 culture, urine [address] [facility], [address] [place] [address], [address], 5 11:45:11 PT/INR [address] [facility], [address] [place] [address], [address], 5 19:08:42 CMP, serum or plasma 2024 025 [facility], [address] [place] [address], [address], 5 19:20:02 urinalysis panel, auto 2024 025 [email or web address] 9 [facility] [place], [address], [address], [place], [address], 5 16:20:11 culture, urine 2024 025 [facility], [address] [place] [address], [address], 11:32:03 CMP, serum or plasma [email or web address] [place] [address] Laboratory, [address] [place] [address], [address], 5 09:32:07 PT/INR [address] [facility], [address] [place] [address], [address], 5 19:46:38 CMP, serum or plasma 2024 025 [facility], [address] [place] [address], [address], 5 19:54:19 PT/INR [address] [facility], [address] [place] [address], [address], 21:07:57 CMP, serum or plasma [address] [facility], [address] [place] [address], [address], 19:49:00 CBC w/ auto diff 2024 025 [facility], [address] [place] [address], [address], 19:56:15 PT/INR [address] [facility], [address] [place] [address], [address], 19:47:45 BNP (B-type natriuretic peptide), serum or plasma 2024 025 [facility], [address] [place] [address], [address], 20:18:57 CMP, serum or plasma [address] [facility], [address] [place] [address], [address], 4 19:38:05 vitamin D, 25-hydroxy, total, serum 2023 024 [facility], [address] [place] [address], [address], 4 19:43:08 PT/INR [address] [facility], [address] [place] [address], [address], 4 19:48:21 Referral None recorded. Procedures None recorded. Surgeries None recorded. Imaging XR, lumbosacral spine, 2 or 3 view 2024 025 [facility], [address], [place], [address], 5 05:35:02 US, echocardiog malina, transthorac ic, complete, w/ color flow - next 2 weeks 2024 025 [facility] (Centralized Scheduling), [address], [place], [address], 5 16:37:46 DEXA - next 2 weeks 2023 024 [email or web address] [facility] (Centralized Scheduling), [address], [place], [address], 4 09:36:20 Medication Orders nitrofurant oin macrocrysta l 100 mg capsule 2024 025 [facility], [address], [address], 5 14:43:14 nitrofurant oin macrocrysta l 100 mg capsule 2024 025 [facility], [address], [address], 5 14:43:07 Pyridium 100 mg tablet 2024 025 [facility], [address], [address], 5 15:30:23 nicotine 21 mg/24 hr daily transdermal patch [email or web address] [facility], [address], [address], 5 22:28:39 oseltamivir 75 mg capsule 2024 025 [facility], [address], [address], 5 08:08:09 warfarin 4 mg tablet 2024 025 [facility], [address], [address], 5 14:49:41 albuterol sulfate HFA 90 mcg/actuati on aerosol inhaler [email or web address] [facility], [address], [address], 5 21:37:44 furosemide 40 mg tablet 2024 025 [facility], [address], [address], 5 15:28:50 potassium chloride ER 10 mEq tablet,exte nded release 2024 025 [facility], [address], [address], 5 10:56:57 Patient TargetsNo targets recorded. Patient Instructions Encounter Date Encounter Id Patient Instructions Last Modified By Organization Details Last Modified Time 03/29/2024 [id number] advance care planning: care instructions [email or web address] Not available 03/29/2024 11:20:19 [facility] [email or web address] Not available 03/29/2024 11:20:19 05/31/2024 [id number] [facility] [email or web address] Not available 05/31/2024 10:54:06 06/30/2024 [id number] [facility] Not available 06/30/2024 14:29:57 08/31/2024 [id number] [facility] Not available 08/31/2024 16:20:11 Reason for Referral None Reported. Results Created Date Observation Date Name Description Value Unit Range Abnormal Flag Note LastModifiedBy Organization Detail LastModifiedTime 03/29/20 24 03/29/2024 COMP. METAB OLIC PANEL glucose 108 mg/dL 74-100 high Not Available [facility] [address] [place] [address], [address], 03/29/2024 19:55:33 03/29/20 24 03/29/2024 COMP. METAB OLIC PANEL blood urea nitrogen 23 mg/dL 6-20 high Not Available [facility] [address] [place] [address], [address], 03/29/2024 19:55:33 03/29/20 24 03/29/2024 COMP. METAB OLIC PANEL creatinine 1.12 mg/dL 0.50-0 .95 high Not Available [facility] [address] [place] [address], [address], 03/29/2024 19:55:33 03/29/20 24 03/29/2024 COMP. METAB OLIC PANEL BUN/creatini ne ratio 21 (calc ) 10-20 high Not Available [facility] [address] [place] [address], [address], 03/29/2024 19:55:33 03/29/20 24 03/29/2024 COMP. METAB OLIC PANEL sodium 141 mmol/ L 136-14 5 normal Not Available [facility] [address] [place] [address], [address], 03/29/2024 19:55:33 03/29/20 24 03/29/2024 COMP. METAB OLIC PANEL potassium 4.3 mmol/ L 3.4-5. 0 normal Not Available [facility] [address] [place] [address], [address], 03/29/2024 19:55:33 03/29/20 24 03/29/2024 COMP. METAB OLIC PANEL chloride 102 mmol/ L 98-107 normal Not Available [facility] [address] [place] [address], [address], 03/29/2024 19:55:33 03/29/20 24 03/29/2024 COMP. METAB OLIC PANEL carbon dioxide 29 mmol/ L 22-31 normal Not Available [facility] [address] [place] [address], [address], 03/29/2024 19:55:33 03/29/20 24 03/29/2024 COMP. METAB OLIC PANEL anion gap 10 (calc ) 7-25 normal Not Available [facility] [address] [place] [address], [address], 03/29/2024 19:55:33 03/29/20 24 03/29/2024 COMP. METAB OLIC PANEL calcium 9.7 mg/dL 8.6-10 .2 normal Not Available [facility] [address] [place] [address], [address], 03/29/2024 19:55:33 03/29/20 24 03/29/2024 COMP. METAB OLIC PANEL total protein 8.2 g/dL 6.4-8. 3 normal Not Available [facility] [address] [place] [address], [address], 03/29/2024 19:55:33 03/29/20 24 03/29/2024 COMP. METAB OLIC PANEL albumin 3.7 g/dL 3.5-5. 2 normal Not Available [facility] [address] [place] [address], [address], 03/29/2024 19:55:33 03/29/20 24 03/29/2024 COMP. METAB OLIC PANEL globulin 4.5 1.5-4. 5 normal Not Available [facility] [address] [place] [address], [address], 03/29/2024 19:55:33 03/29/20 24 03/29/2024 COMP. METAB OLIC PANEL albumin/glob ulin ratio 0.8 (calc ) 1.1-2. 5 low Not Available [facility] [address] [place], [address], 03/29/2024 19:55:33 03/29/20 24 03/29/2024 COMP. METAB OLIC PANEL bilirubin, total 0.4 mg/dL 0.1-1. 2 normal Not Available [facility] [address] [place], [address], 03/29/2024 19:55:33 03/29/20 24 03/29/2024 COMP. METAB OLIC PANEL alkaline phosphatase 68 U/L 30-121 normal Not Available [facility] [address] [place] [address], [address], 03/29/2024 19:55:33 03/29/20 24 03/29/2024 COMP. METAB OLIC PANEL AST 26 U/L 0-32 normal Not Available [facility] [address] [place] [address], [address], 03/29/2024 19:55:33 03/29/20 24 03/29/2024 COMP. METAB OLIC PANEL ALT 14 U/L 0-33 normal Not Available [facility] [address] [place] [address], [address], 03/29/2024 19:55:33 03/29/20 24 03/29/2024 COMP. METAB OLIC PANEL GFR 48 >= 60 abnormal NOT E New calcu latio n for GFR (CKD- EPI 2020) is formu lated witho ut race adjus tment facto rs at the recom menda tion of the [employer]phr o[employer]y . This calcu latio n has not been valid ated in pregn ant women . For pedia cailin poncee nts refer to https ://mian squires.anmol sanchez/pr ofess ional s/KDO QI/gf r_cal culat orPed Not Available [facility] [address] [place] [address], [address], 03/29/2024 19:55:33 03/29/20 24 03/29/2024 VITAM IN D 25-OH vitamin D 25-oh, total 58 NG/mL >=30 NG/mL normal Not Available [facility] [address] [place] [address], [address], 03/29/2024 19:43:08 03/29/20 24 03/29/2024 PROTH ROMBI N TIME prothrombin time 19.1 secon ds 9.2-11 .0 high Not Available [facility] [address] [place] [address], [address], 03/29/2024 19:48:21 03/29/20 24 03/29/2024 PROTH ROMBI N TIME INR 2.0 2.0-3. 0 normal INR OF 2.0 TO 3.0 RECOM REX D FOR: PROPH YLAXI S AND TREAT MENT OF VENOU S THROM BOSIS TREAT MENT OF PULMO NARY EMBOL ISM PREVE NTION OF SYSTE HAVEN EMBOL ISM TISSU E HEART VALVE S, VALVU LAR HEART DISEA SE ACUTE MYOCA RDIAL INFAR CTION , ATRIA L FIBRI LLATI ON INR OF 2.5 TO 3.5 RECOM REX D FOR: RECUR RENT SYSTE HAVEN EMBOL ISM MECHA NICAL PROST HETIC VALVE S Not Available [facility] [address] [place] [address], [address], 03/29/2024 19:48:21 05/31/19 25 05/31/2024 PROTH ROMBI N TIME prothrombin time 17.8 secon ds 9.2-11 .0 high Not Available [facility] [address] [place] [address], [address], 05/31/2024 19:47:45 05/31/19 25 05/31/2024 PROTH ROMBI N TIME INR 1.8 2.0-3. 0 low INR OF 2.0 TO 3.0 RECOM REX D FOR: PROPH YLAXI S AND TREAT MENT OF VENOU S THROM BOSIS TREAT MENT OF PULMO NARY EMBOL ISM PREVE NTION OF SYSTE HAVEN EMBOL ISM TISSU E HEART VALVE S, VALVU LAR HEART DISEA SE ACUTE MYOCA RDIAL INFAR CTION , ATRIA L FIBRI LLATI ON INR OF 2.5 TO 3.5 RECOM REX D FOR: RECUR RENT SYSTE HAVEN EMBOL ISM MECHA NICAL PROST HETIC VALVE S Not Available [facility] [address] [place] [address], [address], 05/31/2024 19:47:45 05/31/19 25 05/31/2024 COMP. METAB OLIC PANEL glucose 110 mg/dL 74-100 high Not Available [facility] [address] [place] [address], [address], 05/31/2024 19:49:00 05/31/19 25 05/31/2024 COMP. METAB OLIC PANEL blood urea nitrogen 26 mg/dL 6-20 high Not Available [facility] [address] [place] [address], [address], 05/31/2024 19:49:00 05/31/19 25 05/31/2024 COMP. METAB OLIC PANEL creatinine 1.09 mg/dL 0.50-0 .95 high Not Available [facility] [address] [place] [address], [address], 05/31/2024 19:49:00 05/31/19 25 05/31/2024 COMP. METAB OLIC PANEL BUN/creatini ne ratio 24 (calc ) 10-20 high Not Available [facility] [address] [place] [address], [address], 05/31/2024 19:49:00 05/31/19 25 05/31/2024 COMP. METAB OLIC PANEL sodium 141 mmol/ L 136-14 5 normal Not Available [facility] [address] [place] [address], [address], 05/31/2024 19:49:00 05/31/19 25 05/31/2024 COMP. METAB OLIC PANEL potassium 4.2 mmol/ L 3.4-5. 0 normal Not Available [facility] [address] [place] [address], [address], 05/31/2024 19:49:00 05/31/19 25 05/31/2024 COMP. METAB OLIC PANEL chloride 100 mmol/ L 98-107 normal Not Available [facility] [address] [place] [address], [address], 05/31/2024 19:49:00 05/31/19 25 05/31/2024 COMP. METAB OLIC PANEL carbon dioxide 28 mmol/ L 22-31 normal Not Available [facility] [address] [place] [address], [address], 05/31/2024 19:49:00 05/31/19 25 05/31/2024 COMP. METAB OLIC PANEL anion gap 13 (calc ) 7-25 normal Not Available [facility] [address] [place] [address], [address], 05/31/2024 19:49:00 05/31/19 25 05/31/2024 COMP. METAB OLIC PANEL calcium 9.9 mg/dL 8.6-10 .2 normal Not Available [facility] [address] [place] [address], [address], 05/31/2024 19:49:00 05/31/19 25 05/31/2024 COMP. METAB OLIC PANEL total protein 8.1 g/dL 6.4-8. 3 normal Not Available [facility] [address] [place] [address], [address], 05/31/2024 19:49:00 05/31/19 25 05/31/2024 COMP. METAB OLIC PANEL albumin 3.8 g/dL 3.5-5. 2 normal Not Available [facility] [address] [place] [address], [address], 05/31/2024 19:49:00 05/31/19 25 05/31/2024 COMP. METAB OLIC PANEL globulin 4.3 1.5-4. 5 normal Not Available [facility] [address] [place] [address], [address], 05/31/2024 19:49:00 05/31/19 25 05/31/2024 COMP. METAB OLIC PANEL albumin/glob ulin ratio 0.9 (calc ) 1.1-2. 5 low Not Available [facility] [address] [place] [address], [address], 05/31/2024 19:49:00 05/31/19 25 05/31/2024 COMP. METAB OLIC PANEL bilirubin, total 0.4 mg/dL 0.1-1. 2 normal Not Available [facility] [address] [place] [address], [address], 05/31/2024 19:49:00 05/31/19 25 05/31/2024 COMP. METAB OLIC PANEL alkaline phosphatase 68 U/L 30-121 normal Not Available [facility] [address] [place] [address], [address], 05/31/2024 19:49:00 05/31/19 25 05/31/2024 COMP. METAB OLIC PANEL AST 26 U/L 0-32 normal Not Available [facility] [address] [place] [address], [address], 05/31/2024 19:49:00 05/31/19 25 05/31/2024 COMP. METAB OLIC PANEL ALT 13 U/L 0-33 normal Not Available [facility] [address] [place] [address], [address], 05/31/2024 19:49:00 05/31/19 25 05/31/2024 COMP. METAB OLIC PANEL GFR 50 >= 60 abnormal NOT E New calcu latio n for GFR (CKD- EPI 2020) is formu lated witho ut race adjus tment facto rs at the recom menda tion of the [employer] of Nephr ology . This calcu latio n has not been valid ated in pregn ant women . For pedia tric patie nts refer to https ://mian w.steve squires.o rg/pr ofess ional s/KDO QI/gf r_cal culat orPed Not Available [facility] [address] [place] [address], [address], 05/31/2024 19:49:00 05/31/1905/31/2024 COMPL ETE BLOOD COUNT white blood cells 8.3 10*3/ uL 3.8-10 .8 normal Not Available [facility] [address] [place] [address], [address], 05/31/2024 19:56:15 05/31/19 25 05/31/2024 COMPL ETE BLOOD COUNT red blood cells 5.46 10*6/ uL 3.80-5 .20 high Not Available [facility] [address] [place] [address], [address], 05/31/2024 19:56:15 05/31/19 25 05/31/2024 COMPL ETE BLOOD COUNT hemoglobin 15.3 g/dL 12.0-1 6.0 normal Not Available [facility] [address] [place] [address], [address], 05/31/2024 19:56:15 05/31/19 25 05/31/2024 COMPL ETE BLOOD COUNT hematocrit 47.2 % 35.0-4 7.0 high Not Available [facility] [address] [place] [address], [address], 05/31/2024 19:56:15 05/31/19 25 05/31/2024 COMPL ETE BLOOD COUNT MCV 86 fL 80-100 normal Not Available [facility] [address] [place] [address], [address], 05/31/2024 19:56:15 05/31/19 25 05/31/2024 COMPL ETE BLOOD COUNT MCH 28 pg 26-35 normal Not Available [facility] [address] [place] [address], [address], 05/31/2024 19:56:15 05/31/19 25 05/31/2024 COMPL ETE BLOOD COUNT MCHC 33 g/dL 32-36 normal Not Available [facility] [address] [place] [address], [address], 05/31/2024 19:56:15 05/31/19 25 05/31/2024 COMPL ETE BLOOD COUNT RDW 15.1 % 11.0-1 5.0 high Not Available [facility] [address] [place] [address], [address], 05/31/2024 19:56:15 05/31/19 25 05/31/2024 COMPL ETE BLOOD COUNT MPV 10.1 fL 6.2-10 .5 normal Not Available [facility] [address] [place] [address], [address], 05/31/2024 19:56:15 05/31/19 25 05/31/2024 COMPL ETE BLOOD COUNT platelet count 155 10*3/ uL 150-40 0 normal Not Available [facility] [address] [place] [address], [address], 05/31/2024 19:56:15 05/31/19 25 05/31/2024 COMPL ETE BLOOD COUNT neutrophil,a bsolute 5.1 10*3/ uL 1.6-8. 4 normal Not Available [facility] [address] [place] [address], [address], 05/31/2024 19:56:15 05/31/19 25 05/31/2024 COMPL ETE BLOOD COUNT lymphocyte,a bsolute 1.8 10*3/ uL 0.4-5. 1 normal Not Available [facility] [address] [place] [address], [address], 05/31/2024 19:56:15 05/31/19 25 05/31/2024 COMPL ETE BLOOD COUNT monocyte,abs olute 0.8 10*3/ uL 0.0-1. 2 normal Not Available [facility] [address] [place] [address], [address], 05/31/2024 19:56:15 05/31/19 25 05/31/2024 COMPL ETE BLOOD COUNT eosinophil,a bsolute 0.5 10*3/ uL 0.0-0. 8 normal Not Available [facility] [address] [place] [address], [address], 05/31/2024 19:56:15 05/31/19 25 05/31/2024 COMPL ETE BLOOD COUNT basophil,abs olute 0.1 10*3/ uL 0.0-0. 3 normal Not Available [facility] [address] [place] [address], [address], 05/31/2024 19:56:15 05/31/19 25 05/31/2024 COMPL ETE BLOOD COUNT % neutrophils 60.7 % 42.0-7 8.0 normal Not Available [facility] Laboratory [address] [place] [address], [address], 05/31/2024 19:56:15 05/31/19 25 05/31/2024 COMPL ETE BLOOD COUNT % lymphocytes 22.0 % 11.0-4 7.0 normal Not Available [facility] [address] [place] [address], [address], 05/31/2024 19:56:15 05/31/19 25 05/31/2024 COMPL ETE BLOOD COUNT % monocytes 9.6 % 0.0-11 .0 normal Not Available [facility] [address] [place] [address], [address], 05/31/2024 19:56:15 05/31/19 25 05/31/2024 COMPL ETE BLOOD COUNT % eosinophils 6.5 % 0.0-7. 0 normal Not Available [facility] [address] [place], [address], 05/31/2024 19:56:15 05/31/19 25 05/31/2024 COMPL ETE BLOOD COUNT % basophils 1.2 % 0.0-3. 0 normal Not Available [facility] [address] [place], [address], 05/31/2024 19:56:15 05/31/19 25 05/31/2024 COMPL ETE BLOOD COUNT nucleated red cells 0.1 % 0.0-0. 9 normal Not Available [facility] [address] [place] [address], [address], 05/31/2024 19:56:15 05/31/19 25 05/31/2024 COMPL ETE BLOOD COUNT nucleated RBCs, absolute 0.01 10*3/ uL not estab. normal Not Available [facility] [address] [place] [address], [address], 05/31/2024 19:56:15 05/31/19 25 05/31/2024 BNP BNP 97 pg/mL 5-100 normal Blood larry ntrat ions of Brain Natri ureti c Pepti de (BNP) may be eleva bessy in patie nts who are exper ienci ng a heart attac k, patie nts that are kristie dates for renal dialy sis, and patie nts that have had renal dialy sis. The BNP test shoul d not be used as absol aydee evide nce for CHF. Resul ts shoul d be inter prete d along with clini shaye findi ngs and other labor atory test resul ts. Not Available [facility] [address] [place] [address], [address], 05/31/2024 20:18:57 06/30/19 25 06/30/2024 COMP. METAB OLIC PANEL glucose 105 mg/dL 74-100 high Not Available [facility] [address] [place] [address], [address], 06/30/2024 19:54:18 06/30/19 25 06/30/2024 COMP. METAB OLIC PANEL blood urea nitrogen 43 mg/dL 6-20 high Not Available [facility] [address] [place] [address], [address], 06/30/2024 19:54:18 06/30/19 25 06/30/2024 COMP. METAB OLIC PANEL creatinine 1.40 mg/dL 0.50-0 .95 high Not Available [facility] [address] [place] [address], [address], 06/30/2024 19:54:18 06/30/19 25 06/30/2024 COMP. METAB OLIC PANEL BUN/creatini ne ratio 31 (calc ) 10-20 high Not Available [facility] [address] [place] [address], [address], 06/30/2024 19:54:18 06/30/19 25 06/30/2024 COMP. METAB OLIC PANEL sodium 137 mmol/ L 136-14 5 normal Not Available [facility] [address] [place] [address], [address], 06/30/2024 19:54:18 06/30/19 25 06/30/2024 COMP. METAB OLIC PANEL potassium 3.2 mmol/ L 3.4-5. 0 low Not Available [facility] [address] [place] [address], [address], 06/30/2024 19:54:18 06/30/19 25 06/30/2024 COMP. METAB OLIC PANEL chloride 92 mmol/ L 98-107 low Not Available [facility] [address] [place] [address], [address], 06/30/2024 19:54:18 06/30/19 25 06/30/2024 COMP. METAB OLIC PANEL carbon dioxide 34 mmol/ L 22-31 high Not Available [facility] [address] [place] [address], [address], 06/30/2024 19:54:18 06/30/19 25 06/30/2024 COMP. METAB OLIC PANEL anion gap 11 (calc ) 7-25 normal Not Available [facility] [address] [place] [address], [address], 06/30/2024 19:54:18 06/30/19 25 06/30/2024 COMP. METAB OLIC PANEL calcium 9.8 mg/dL 8.6-10 .2 normal Not Available [facility] [address] [place] [address], [address], 06/30/2024 19:54:18 06/30/19 25 06/30/2024 COMP. METAB OLIC PANEL total protein 8.1 g/dL 6.4-8. 3 normal Not Available [facility] [address] [place] [address], [address], 06/30/2024 19:54:18 06/30/19 25 06/30/2024 COMP. METAB OLIC PANEL albumin 3.8 g/dL 3.5-5. 2 normal Not Available [facility] [address] [place] [address], [address], 06/30/2024 19:54:18 06/30/19 25 06/30/2024 COMP. METAB OLIC PANEL globulin 4.3 1.5-4. 5 normal Not Available [facility] [address] [place] [address], [address], 06/30/2024 19:54:18 06/30/19 25 06/30/2024 COMP. METAB OLIC PANEL albumin/glob ulin ratio 0.9 (calc ) 1.1-2. 5 low Not Available [facility] [address] [place] [address], [address], 06/30/2024 19:54:18 06/30/19 25 06/30/2024 COMP. METAB OLIC PANEL bilirubin, total 0.4 mg/dL 0.1-1. 2 normal Not Available [facility] [address] [place] [address], [address], 06/30/2024 19:54:18 06/30/19 25 06/30/2024 COMP. METAB OLIC PANEL alkaline phosphatase 67 U/L 30-121 normal Not Available [facility] [address] [place], [address], 06/30/2024 19:54:18 06/30/19 25 06/30/2024 COMP. METAB OLIC PANEL AST 22 U/L 0-32 normal Not Available [facility] [address] [place] [address], [address], 06/30/2024 19:54:18 06/30/19 25 06/30/2024 COMP. METAB OLIC PANEL ALT 12 U/L 0-33 normal Not Available [facility] [address] [place] [address], [address], 06/30/2024 19:54:18 06/30/19 25 06/30/2024 COMP. METAB OLIC PANEL GFR 37 >= 60 abnormal NOT E New calcu latio n for GFR (CKD- EPI 2020) is formu lated witho ut race adjus tment facto rs at the [facility] menda tion of the [facility] [facility] and [employer] [facility] [facility] of Nephr ology . This calcu latio n has not been valid ated in pregn ant women . For pedia tric patie nts refer to https ://mian squires.anmol sanchez/law [place] s/REINALDOO QI/gf r_cal culat orPed Not Available [facility] [address] [place] [address], [address], 06/30/2024 19:54:18 06/30/19 25 06/30/2024 PROTH ROMBI N TIME prothrombin time 21.8 secon ds 9.2-11 .0 high Not Available [facility] [address] [place] [address], [address], 06/30/2024 21:07:56 06/30/19 25 06/30/2024 PROTH ROMBI N TIME INR 2.3 2.0-3. 0 normal INR OF 2.0 TO 3.0 RECOM REX D FOR: PROPH YLAXI S AND TREAT MENT OF VENOU S THROM BOSIS TREAT MENT OF PULMO NARY EMBOL ISM PREVE NTION OF SYSTE HAVEN EMBOL ISM TISSU E HEART VALVE S, VALVU LAR HEART DISEA SE ACUTE MYOCA RDIAL INFAR CTION , ATRIA L FIBRI LLATI ON INR OF 2.5 TO 3.5 RECOM REX D FOR: RECUR RENT SYSTE HAVEN EMBOL ISM MECHA NICAL PROST HETIC VALVE S Not Available [facility] [address] [place] [address], [address], 06/30/2024 21:07:56 07/29/19 25 07/28/2024 BASIC METAB OLIC PANEL glucose 138 mg/dL 74-100 high Not Available [facility] [address] [place] [address], [address], 07/29/2024 14:54:53 07/29/19 25 07/28/2024 BASIC METAB OLIC PANEL blood urea nitrogen 42 mg/dL 6-20 high Not Available [facility] [address] [place] [address], [address], 07/29/2024 14:54:53 07/29/19 25 07/28/2024 BASIC METAB OLIC PANEL creatinine 1.48 mg/dL 0.50-0 .95 high Not Available [facility] [address] [place] [address], [address], 07/29/2024 14:54:53 07/29/19 25 07/28/2024 BASIC METAB OLIC PANEL BUN/creatini ne ratio 28 (calc ) 10-20 high Not Available [facility] [address] [place] [address], [address], 07/29/2024 14:54:53 07/29/19 25 07/28/2024 BASIC METAB OLIC PANEL sodium 138 mmol/ L 136-14 5 normal Not Available [facility] [address] [place] [address], [address], 07/29/2024 14:54:53 07/29/19 25 07/28/2024 BASIC METAB OLIC PANEL potassium 3.6 mmol/ L 3.4-5. 0 normal Not Available [facility] [address] [place] [address], [address], 07/29/2024 14:54:53 07/29/19 25 07/28/2024 BASIC METAB OLIC PANEL chloride 92 mmol/ L 98-107 low Not Available [facility] [address] [place] [address], [address], 07/29/2024 14:54:53 07/29/19 25 07/28/2024 BASIC METAB OLIC PANEL carbon dioxide 33 mmol/ L 22-31 high Not Available [facility] [address] [place] [address], [address], 07/29/2024 14:54:53 07/29/19 25 07/28/2024 BASIC METAB OLIC PANEL anion gap 13 (calc ) 7-25 normal Not Available [facility] [address] [place] [address], [address], 07/29/2024 14:54:53 07/29/19 25 07/28/2024 BASIC METAB OLIC PANEL calcium 10.2 mg/dL 8.6-10 .2 normal Not Available [facility] [address] [place] [address], [address], 07/29/2024 14:54:53 07/29/19 25 07/28/2024 BASIC METAB OLIC PANEL GFR 35 >= 60 abnormal NOT E New calcu latio n for GFR (CKD- EPI 2020) is formu lated witho ut race adjus tment facto rs at the recom menda tion of the [facility] [employer] ation and [facility] [employer] ty of Nephr ology . This calcu latio n has not been valid ated in pregn ant women . For pedia tric patie nts refer to https ://mian w.steve yuy.o rg/pr ofess ional s/KDO QI/gf r_cal culat orPed Not Available [facility] [address] [place], [address], 07/29/2024 14:54:53 09/01/1908/31/2024 PROTH ROMBI N TIME prothrombin time 19.4 secon ds 9.2-11 .0 high Not Available [facility] [address] [place], [address], 08/31/2024 19:46:38 09/01/19 25 08/31/2024 PROTH ROMBI N TIME INR 2.0 2.0-3. 0 normal INR OF 2.0 TO 3.0 RECOM REX D FOR: PROPH YLAXI S AND TREAT MENT OF VENOU S THROM BOSIS TREAT MENT OF PULMO NARY EMBOL ISM PREVE NTION OF SYSTE HAVEN EMBOL ISM TISSU E HEART VALVE S, VALVU LAR HEART DISEA SE ACUTE MYOCA RDIAL INFAR CTION , ATRIA L FIBRI LLATI ON INR OF 2.5 TO 3.5 RECOM REX D FOR: RECUR RENT SYSTE HAVEN EMBOL ISM MECHA NICAL PROST HETIC VALVE S Not Available [facility] [address] [place], [address], 08/31/2024 19:46:38 09/01/19 25 08/31/2024 URINE CULTU RE escherichia coli Organi sm: Escher ichia coli Not Available [facility] [address] [place], [address], 09/02/2024 13:49:03 09/01/19 25 09/02/2024 URINE CULTU RE urine culture abnormal ISOLA TE #1 COLON Y COUNT : 10,00 0 - 100,0 00 CFU/M L Proba ble Gram Negat camacho Bacil jaclyn. ID and sensi tivit y in progr ess. COLON Y COUNT : 10,00 0 - 100,0 00 CFU/M L Three or more isola edgar; mixed uroge nital vilma . See [place] te Resul t(s) Below Esche hugh a coli Not Available [facility] [address] [place] [address], [address], 09/02/2024 13:49:03 09/01/19 25 09/02/2024 URINE CULTU RE amox/K clav'ate(C) <=8/4 ug/mL susceptib le Not Available [facility] [address] [place] [address], [address], 09/02/2024 13:49:03 09/01/19 25 09/02/2024 URINE CULTU RE ampicillin <=8 ug/mL susceptib le Not Available [facility] [address] [place] [address], [address], 09/02/2024 13:49:03 09/01/19 25 09/02/2024 URINE CULTU RE cefazolin <=2 ug/mL susceptib le Not Available [facility] [address] [place] [address], [address], 09/02/2024 13:49:03 09/01/19 25 09/02/2024 URINE CULTU RE ceftazidime <=1 ug/mL susceptib le Not Available [facility] [address] [place] [address], [address], 09/02/2024 13:49:03 09/01/19 25 09/02/2024 URINE CULTU RE ceftriaxone <=1 ug/mL susceptib le Not Available [facility] [address] [place] [address], [address], 09/02/2024 13:49:03 09/01/19 25 09/02/2024 URINE CULTU RE cefuroxime <=4 ug/mL susceptib le Not Available [facility] [address] [place] [address], [address], 09/02/2024 13:49:03 09/01/19 25 09/02/2024 URINE CULTU RE ciprofloxaci n <=0.25 ug/mL susceptib le Not Available [facility] [address] [place] [address], [address], 09/02/2024 13:49:03 09/01/19 25 09/02/2024 URINE CULTU RE gentamicin <=4 ug/mL susceptib le Not Available [facility] [address] [place] [address], [address], 09/02/2024 13:49:03 09/01/19 25 09/02/2024 URINE CULTU RE imipenem <=1 ug/mL susceptib le Not Available [facility] [address] [place] [address], [address], 09/02/2024 13:49:03 09/01/19 25 09/02/2024 URINE CULTU RE levofloxacin <=0.5 ug/mL susceptib le Not Available [facility] [address] [place] [address], [address], 09/02/2024 13:49:03 09/01/19 25 09/02/2024 URINE CULTU RE nitrofuranto in <=32 ug/mL susceptib le Not Available [facility] [address] [place] [address], [address], 09/02/2024 13:49:03 09/01/19 25 09/02/2024 URINE CULTU RE piperacillin /eh <=16 ug/mL susceptib le Not Available [facility] [address] [place] [address], [address], 09/02/2024 13:49:03 09/01/19 25 09/02/2024 URINE CULTU RE tetracycline <=4 ug/mL susceptib le Not Available [facility] [address] [place], [address], 09/02/2024 13:49:03 09/01/19 25 09/02/2024 URINE CULTU RE tobramycin <=2 ug/mL susceptib le Not Available [facility] [address] [place] [address], [address], 09/02/2024 13:49:03 09/01/19 25 09/02/2024 URINE CULTU RE trimeth/sulf a <=2/38 ug/mL susceptib le Not Available [facility] [address] [place], [address], 09/02/2024 13:49:03 09/01/19 25 08/31/2024 urina lysis panel , auto Unknown Analyte Clean Catch Not Available [address], [place], [address], 08/31/2024 15:03:59 09/01/19 25 08/31/2024 urina lysis panel , auto Unknown Analyte Clean Catch Not Available [address], [place], [address], 08/31/2024 15:03:59 09/01/19 25 08/31/2024 urina lysis panel , auto Unknown Analyte Yellow Not Available [address], [place], [address], 08/31/2024 15:03:59 09/01/19 25 08/31/2024 urina lysis panel , auto Unknown Analyte Yellow Not Available [address], [place], [address], 08/31/2024 15:03:59 09/01/19 25 08/31/2024 urina lysis panel , auto Unknown Analyte Clear Not Available [place] [address], [place], [address], 08/31/2024 15:03:59 09/01/19 25 08/31/2024 urina lysis panel , auto Unknown Analyte Clear Not Available [place] [address], [place], [address], 08/31/2024 15:03:59 09/01/19 25 08/31/2024 urina lysis panel , auto Unknown Analyte 1.010 Not Available [place] [address], [place], [address], 08/31/2024 15:03:59 09/01/19 25 08/31/2024 urina lysis panel , auto Unknown Analyte 1.003 - 1.030 Not Available [place] [address], [place], [address], 08/31/2024 15:03:59 09/01/19 25 08/31/2024 urina lysis panel , auto Unknown Analyte 6.5 Not Available [address], [place], [address], 08/31/2024 15:03:59 09/01/19 25 08/31/2024 urina lysis panel , auto Unknown Analyte 5.0 - 8.0 Not Available [place] [address], [place], [address], 08/31/2024 15:03:59 09/01/19 25 08/31/2024 urina lysis panel , auto Unknown Analyte 75 Brock/uL Not Available [place] [address], [place], [address], 08/31/2024 15:03:59 09/01/19 25 08/31/2024 urina lysis panel , auto Unknown Analyte Negati ve Not Available [place] [address], [place], [address], 08/31/2024 15:03:59 09/01/19 25 08/31/2024 urina lysis panel , auto Unknown Analyte Negati ve Not Available [place] [address], [place], [address], 08/31/2024 15:03:59 09/01/19 25 08/31/2024 urina lysis panel , auto Unknown Analyte Negati ve Not Available [address], [place], [address], 08/31/2024 15:03:59 09/01/19 25 08/31/2024 urina lysis panel , auto Unknown Analyte Negati ve Not Available [address], [place], [address], 08/31/2024 15:03:59 09/01/19 25 08/31/2024 urina lysis panel , auto Unknown Analyte Negati ve Not Available [place] [address], [place], [address], 08/31/2024 15:03:59 09/01/19 25 08/31/2024 urina lysis panel , auto Unknown Analyte Normal Not Available [place] [address], [place], [address], 08/31/2024 15:03:59 09/01/19 25 08/31/2024 urina lysis panel , auto Unknown Analyte Normal Not Available [place] [address], [place], [address], 08/31/2024 15:03:59 09/01/19 25 08/31/2024 urina lysis panel , auto Unknown Analyte Negati ve Not Available [address], [place], [address], 08/31/2024 15:03:59 09/01/19 25 08/31/2024 urina lysis panel , auto Unknown Analyte Negati ve Not Available [address], [place], [address], 08/31/2024 15:03:59 09/01/19 25 08/31/2024 urina lysis panel , auto Unknown Analyte Normal Not Available [address], [place], [address], 08/31/2024 15:03:59 09/01/19 25 08/31/2024 urina lysis panel , auto Unknown Analyte Normal Not Available [address], [place], [address], 08/31/2024 15:03:59 09/01/19 25 08/31/2024 urina lysis panel , auto Unknown Analyte Negati ve Not Available [address], [place], [address], 08/31/2024 15:03:59 09/01/19 25 08/31/2024 urina lysis panel , auto Unknown Analyte Negati ve Not Available [address], [place], [address], 08/31/2024 15:03:59 09/01/19 25 08/31/2024 urina lysis panel , auto Unknown Analyte Negati ve Not Available [facility] [address], [place], [address], 08/31/2024 15:03:59 09/01/19 25 08/31/2024 urina lysis panel , auto Unknown Analyte Negati ve Not Available [facility] [address], [place], [address], 08/31/2024 15:03:59 11/02/19 25 11/01/2024 URINE CULTU RE klebsiella pneumoniae Organi sm: Klebsi hayde pneumo niae Not Available [facility] [address] [place] [address], [address], 11/03/2024 10:07:01 11/02/19 25 11/03/2024 URINE CULTU RE urine culture abnormal ISOLA TE #1 COLON Y COUNT : > 100,0 00 CFU/M L Proba ble Gram Negat camacho Bacil jaclyn. ID and sensi tivit y in progr ess. See [place] te Resul t(s) Below Klebs iella pneum oniae Not Available [facility] [address] [place] [address], [address], 11/03/2024 10:07:01 11/02/19 25 11/03/2024 URINE CULTU RE amox/K clav'ate(C) <=8/4 ug/mL susceptib le Not Available [facility] [address] [place], [address], 11/03/2024 10:07:01 11/02/19 25 11/03/2024 URINE CULTU RE cefazolin <=2 ug/mL susceptib le Not Available [facility] [address] [place] [address], [address], 11/03/2024 10:07:01 11/02/19 25 11/03/2024 URINE CULTU RE ceftazidime <=1 ug/mL susceptib le Not Available [facility] [address] [place] [address], [address], 11/03/2024 10:07:01 11/02/19 25 11/03/2024 URINE CULTU RE ceftriaxone <=1 ug/mL susceptib le Not Available [facility] [address] [place] [address], [address], 11/03/2024 10:07:01 11/02/19 25 11/03/2024 URINE CULTU RE cefuroxime <=4 ug/mL susceptib le Not Available [facility] [address] [place] [address], [address], 11/03/2024 10:07:01 11/02/19 25 11/03/2024 URINE CULTU RE ciprofloxaci n <=0.25 ug/mL susceptib le Not Available [facility] [address] [place] [address], [address], 11/03/2024 10:07:01 11/02/19 25 11/03/2024 URINE CULTU RE gentamicin <=4 ug/mL susceptib le Not Available [facility] [address] [place] [address], [address], 11/03/2024 10:07:01 11/02/19 25 11/03/2024 URINE CULTU RE imipenem <=1 ug/mL susceptib le Not Available [facility] [address] [place] [address], [address], 11/03/2024 10:07:01 11/02/19 25 11/03/2024 URINE CULTU RE levofloxacin <=0.5 ug/mL susceptib le Not Available [facility] [address] [place] [address], [address], 11/03/2024 10:07:01 11/02/19 25 11/03/2024 URINE CULTU RE nitrofuranto in 64 ug/mL intermedi ate Not Available [facility] [address] [place] [address], [address], 11/03/2024 10:07:01 11/02/19 25 11/03/2024 URINE CULTU RE piperacillin /eh <=16 ug/mL susceptib le Not Available [facility] [address] [place] [address], [address], 11/03/2024 10:07:01 11/02/19 25 11/03/2024 URINE CULTU RE tetracycline <=4 ug/mL susceptib le Not Available [facility] [address] [place] [address], [address], 11/03/2024 10:07:01 11/02/19 25 11/03/2024 URINE CULTU RE tobramycin <=2 ug/mL susceptib le Not Available [facility] [address] [place] [address], [address], 11/03/2024 10:07:01 11/02/19 25 11/03/2024 URINE CULTU RE trimeth/sulf a <=2/38 ug/mL susceptib le Not Available [facility] [address] [place] [address], [address], 11/03/2024 10:07:01 11/02/19 25 11/01/2024 urina lysis panel , auto Unknown Analyte Clean Catch Not Available [address], [place], [address], 11/01/2024 11:27:15 11/02/19 25 11/01/2024 urina lysis panel , auto Unknown Analyte Yellow Not Available [address], [place], [address], 11/01/2024 11:27:15 11/02/19 25 11/01/2024 urina lysis panel , auto Unknown Analyte Slight ly Cloudy Not Available [place] [address], [place], [address], 11/01/2024 11:27:15 11/02/19 25 11/01/2024 urina lysis panel , auto Unknown Analyte 1.020 Not Available [address], [place], [address], 11/01/2024 11:27:15 11/02/19 25 11/01/2024 urina lysis panel , auto Unknown Analyte 6.0 Not Available [address], [place], [address], 11/01/2024 11:27:15 11/02/19 25 11/01/2024 urina lysis panel , auto Unknown Analyte 500 Brock/uL Not Available [address], [place], [address], 11/01/2024 11:27:15 11/02/19 25 11/01/2024 urina lysis panel , auto Unknown Analyte Negati ve Not Available [address], [place], [address], 11/01/2024 11:27:15 11/02/19 25 11/01/2024 urina lysis panel , auto Unknown Analyte Negati ve Not Available [place] [address] [address], [place], [address], 11/01/2024 11:27:15 11/02/19 25 11/01/2024 urina lysis panel , auto Unknown Analyte Normal Not Available [place] [address], [place], [address], 11/01/2024 11:27:15 11/02/19 25 11/01/2024 urina lysis panel , auto Unknown Analyte Negati ve Not Available [place] [address], [place], [address], 11/01/2024 11:27:15 11/02/19 25 11/01/2024 urina lysis panel , auto Unknown Analyte 1 mg/dL Not Available [address], [place], [address], 11/01/2024 11:27:15 11/02/19 25 11/01/2024 urina lysis panel , auto Unknown Analyte 1 mg/dL Not Available [place] [address], [place], [address], 11/01/2024 11:27:15 11/02/19 25 11/01/2024 urina lysis panel , auto Unknown Analyte 50 Shree/uL Not Available [place] [address], [place], [address], 11/01/2024 11:27:15 11/04/19 25 11/03/2024 PROTH ROMBI N TIME prothrombin time 23.3 secon ds 9.2-11 .0 high Not Available [facility] [address] [facility], [place], [address], 11/03/2024 19:08:42 11/04/1911/03/2024 PROTH ROMBI N TIME INR 2.4 2.0-3. 0 normal INR OF 2.0 TO 3.0 RECOM REX D FOR: PROPH YLAXI S AND TREAT MENT OF VENOU S THROM BOSIS TREAT MENT OF PULMO NARY EMBOL ISM PREVE NTION OF SYSTE HAVEN EMBOL ISM TISSU E HEART VALVE S, VALVU LAR HEART DISEA SE ACUTE MYOCA RDIAL INFAR CTION , ATRIA L FIBRI LLATI ON INR OF 2.5 TO 3.5 RECOM REX D FOR: RECUR RENT SYSTE HAVEN EMBOL ISM MECHA NICAL PROST HETIC VALVE S Not Available [facility] [address] [place] [address], [address], 11/03/2024 19:08:42 11/04/19 25 11/03/2024 COMP. METAB OLIC PANEL glucose 110 mg/dL 74-100 high Not Available [facility] [address] [place] [address], [address], 11/03/2024 19:20:02 11/04/19 25 11/03/2024 COMP. METAB OLIC PANEL blood urea nitrogen 27 mg/dL 6-20 high Not Available [facility] [address] [place] [address], [address], 11/03/2024 19:20:02 11/04/19 25 11/03/2024 COMP. METAB OLIC PANEL creatinine 1.25 mg/dL 0.50-0 .95 high Not Available [facility] [address] [place] [address], [address], 11/03/2024 19:20:02 11/04/19 25 11/03/2024 COMP. METAB OLIC PANEL BUN/creatini ne ratio 22 (calc ) 10-20 high Not Available [facility] [address] [place] [address], [address], 11/03/2024 19:20:02 11/04/19 25 11/03/2024 COMP. METAB OLIC PANEL sodium 136 mmol/ L 136-14 5 normal Not Available [facility] [address] [place] [address], [address], 11/03/2024 19:20:02 11/04/19 25 11/03/2024 COMP. METAB OLIC PANEL potassium 4.0 mmol/ L 3.4-5. 0 normal Not Available [facility] [address] [place] [address], [address], 11/03/2024 19:20:02 11/04/19 25 11/03/2024 COMP. METAB OLIC PANEL chloride 98 mmol/ L 98-107 normal Not Available [facility] [address] [place] [address], [address], 11/03/2024 19:20:02 11/04/19 25 11/03/2024 COMP. METAB OLIC PANEL carbon dioxide 27 mmol/ L 22-31 normal Not Available [facility] [address] [place] [address], [address], 11/03/2024 19:20:02 11/04/19 25 11/03/2024 COMP. METAB OLIC PANEL anion gap 11 (calc ) 7-25 normal Not Available [facility] [address] [place] [address], [address], 11/03/2024 19:20:02 11/04/19 25 11/03/2024 COMP. METAB OLIC PANEL calcium 9.8 mg/dL 8.6-10 .2 normal Not Available [facility] [address] [place] [address], [address], 11/03/2024 19:20:02 11/04/19 25 11/03/2024 COMP. METAB OLIC PANEL total protein 7.4 g/dL 6.4-8. 3 normal Not Available [facility] [address] [place] [address], [address], 11/03/2024 19:20:02 11/04/19 25 11/03/2024 COMP. METAB OLIC PANEL albumin 3.7 g/dL 3.5-5. 2 normal Not Available [facility] [address] [place] [address], [address], 11/03/2024 19:20:02 11/04/19 25 11/03/2024 COMP. METAB OLIC PANEL globulin 3.7 1.5-4. 5 normal Not Available [facility] [address] [place] [address], [address], 11/03/2024 19:20:02 11/04/19 25 11/03/2024 COMP. METAB OLIC PANEL albumin/glob ulin ratio 1.0 (calc ) 1.1-2. 5 low Not Available [facility] [address] [place] [address], [address], 11/03/2024 19:20:02 11/04/19 25 11/03/2024 COMP. METAB OLIC PANEL bilirubin, total 0.2 mg/dL 0.1-1. 2 normal Not Available [facility] [address] [place] [address], [address], 11/03/2024 19:20:02 11/04/19 25 11/03/2024 COMP. METAB OLIC PANEL alkaline phosphatase 67 U/L 30-121 normal Not Available [facility] [address] [place] [address], [address], 11/03/2024 19:20:02 11/04/19 25 11/03/2024 COMP. METAB OLIC PANEL AST 18 U/L 0-32 normal Not Available [facility] [address] [place] [address], [address], 11/03/2024 19:20:02 11/04/19 25 11/03/2024 COMP. METAB OLIC PANEL ALT 9 U/L 0-33 normal Not Available [facility] [address] [place] [address], [address], 11/03/2024 19:20:02 11/04/19 25 11/03/2024 COMP. METAB OLIC PANEL eGFR 42 >= 60 abnormal NOT E New calcu latio n for GFR (CKD- EPI 2020) is formu lated witho ut race adjus tment facto rs at the [facility] menda tion of the [facility] ty of Nephr ology . This calcu latio n has not been valid ated in pregn ant women . For pedia tric patie nts refer to https ://mian squires.anmol sanchez/pr ofess ional s/KDO QI/gf r_cal culat orPed Not Available [facility] [address] [place], [address], 11/03/2024 19:20:02 03/10/20 24 03/10/2024 MAMMO , diagn ostic , tomos ynthe sis, bilat eral, w/ CAD No observ ation record ed. [facility] (Centralized Scheduling) [address] [facility], [place], [address], 03/10/2024 11:58:11 03/10/20 24 03/10/2024 MAMMO , diagn ostic , tomos ynthe sis, bilat eral, w/ CAD No observ ation record ed. [email or web address] Not Available 2023 13:44:27 06/07/19 25 06/07/2024 US, echoc ardio gram, trans thora cic, compl ete, w/ color flow No observ ation record ed. [email or web address] Not Available 2024 12:53:17 11/05/19 25 11/03/2024 XR, lumbo sacra l spine , 2 or 3 view No observ ation record ed. [email or web address] [facility] [address] [facility], [place], [address], 11/08/2024 12:02:36 Result Notes None recorded. Problems Name Problem SNOMED Code Status Onset Date Resolution Date Notes Provider Name and Address Organization Details Recorded Time Chronic obstructiv e pulmonary disease 41690293 Active 2022 CHEMA GARCES MD [address] [place] [address], [address] , [facility] 3 00:07:13 Essential hypertensi on 54070736 Active 2022 CHEMA GARCES MD [address] [place] [address], [address] , [facility] 3 00:07:15 Generalize d anxiety disorder 16293362 Active 2022 CHEMA GARCES MD [address] [place] [address], [address] , [facility] 3 00:07:16 Essential tremor 359739595 Active 2022 CHEMA GARCES MD [address] [place] [address], [address] , [facility] 3 00:07:19 Hyperlipid emia 83326549 Active 2022 CHEMA GARCES MD [address] [place] [address], [address] [place] [address] , [facility] 3 00:07:21 Recurrent major depression in partial remission 22133382 Active 2022 CHEMA GARCES MD [address] [place] [address], [address] [place] [address] , [facility] 3 00:07:24 Nicotine dependence 44393551 Active 2022 CHEMA GARCES MD [address] [place] [address], [address] [place] [address] , [facility] 3 00:07:26 History of deep vein thrombosis 997055722 Active 2022 CHEMA GARCES MD [address] [place] [address], [address] [place] [address] , [facility] 3 00:07:28 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 5754542838039 105 Active 2022 CHEMA GARCES MD [address] [place] [address], [address] [place] [address] , [facility] 3 00:07:32 Vitamin D deficiency 37558681 Active 2022 CHEMA GARCES MD [address] [place] [address], [address] , [facility] 3 00:07:34 Urinary incontinen ce 109781957 Active 2023 CHEMA GARCES MD [address] [place] [address], [address] , [facility] 4 20:42:15 History of total hip arthroplas ty 598621956659 Active 2023 CHEMA GARCES MD [address] [place] [address], [address] , [facility] 4 20:42:22 Nausea 780683191 Active 2023 CHEMA GARCES MD [address] [place] [address], [address] , [facility] 4 20:42:26 Vaginal vault prolapse 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 Active 2023 CHEMA GARCES MD [address] [place] [address], [address] , [facility] 4 20:42:30 Lupus anticoagul ant disorder 24304507 Active Not Available [facility] 4 21:54:35 Atheroscle rosis of aorta 62067742 Active Not Available [facility] 4 21:54:55 Chronic kidney disease stage 3 797729147 Active Not Available [facility] 4 21:55:21 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 Active Not Available [facility] 4 21:55:30 Cough 17619740 Active 2023 CHEMA GARCES MD [address] [place] [address], [address] , [facility] 4 22:04:28 Pneumonia 929252175 Active 2023 CHEMA GARCES MD [address] [place] [address], [address] , [facility] 4 22:04:31 Pain in left lower limb 876902017 Active 2023 CHEMA GARCES MD [address] [place] [address], [address] , [facility] 4 06:55:06 Localized edema 808993875 Active 2023 CHEMA GARCES MD [address] [place] [address], [address] , [facility] 4 06:55:08 Chest pain 54601737 Active 2023 CHEMA GARCES MD [address] [place] [address], [address] , [facility] 4 23:02:02 Screening mammograph y Active 2023 CHEMA GARECS MD [address] [place] [address], [address] , [facility] 4 23:02:05 Administra tion of influenza vaccine Active 2023 CHEMA GARCES MD [address] [place] [address], [address] , [facility] 4 23:02:06 Cellulitis of lower leg 266867462 Active 2023 CLEMENT MOTTA, DO [address] [place] [address], [address] , [facility] 4 14:50:22 Edema of lower extremity 994133976 Active 2023 CLEMENT MOTTA, DO [address] [place] [address], [address] , [facility] 4 14:57:10 Dysuria 57484878 Active 2023 CHEMA GARCES MD [address] [place] [address], [address] , [facility] 5 08:10:43 Acute bronchitis 38108720 Active 2023 CHEMA GARCES MD [address] [place] [address], [address] , [facility] 4 06:43:59 Adult health examinatio n Active 2023 CHEMA GARCES MD [address] [place] [address], [address] , [facility] 4 21:20:32 Administra tion of viral vaccine Active 2023 CHEMA GARCES MD [address] [place] [address], [address] , [facility] 4 21:20:35 Osteopenia 460933402 Active 2023 CHEMA GARCES MD [address] [place] [address], [address] , [facility] 4 21:20:37 Tricuspid valve regurgitat ion 460610703 Active 2024 CHEMA GARCES MD [address] [place] [address], [address] , [facility] 5 21:43:35 Exposure to Influenzav irus Active 2024 CHEMA GARCES MD [address] [place] [address], [address] , [facility] 5 22:35:41 Chronic kidney disease stage 3B 208113103 Active Not Available [facility] 5 08:03:44 Pulmonary hypertensi on 32495081 Active Not Available [facility] 5 21:42:28 Chronic low back pain 070501810 Active 2024 CHEMA GARCES MD [address] [place] [address], [address] , [facility] 5 21:52:16 Problem Notes None recorded. Procedures Surgical History Date Name Laterality Status Provider Name and Address Organization Details Recorded Time hysterectomy completed [facility] 12/27/2020 09:02:21 repair of hip completed [facility] 12/27/2020 09:04:57 partial lobectomy of lung completed [facility] 12/27/2020 09:05:17 Spine Surgery completed [facility] 12/27/2020 09:05:58 repair of rectocele completed [facility] 12/27/2020 09:07:18 Imaging Results None recorded. Procedure Notes None recorded. Medical Equipment None Reported. Allergies Allergen ID Allergen Name Allergen Category Reaction Reaction Severity Criticality Documentation Date Start Date Code Code System Note Provider Name and Address Organization Details Recorded Time 766668 aspirin medicatio n Not available Not available Not available 12/27/2020 [facility] 08:56:41 234570 morphine medicatio n Not available Not available Not available 12/27/2020 7052 RxNorm Karzay Foster [facility] 08:56:51 984001 codeine medicatio n Not available Not available Not available 12/27/2020 2670 RxNorm Adalgisa Foster [facility] 08:56:58 Medications Name Sig Start Date Stop [...] Details Last Updated DateTime 5 162.56 cm 28.5 kg/m2 74986.3 3 g 96 % 96 % 78 /min 128/74 mm[Hg] Kaye Reagan [facility] 5 10:22:27 Date Recorded Body height Body mass index (BMI) Body weight Oxygen saturation Oxygen saturation in Arterial blood by Pulse oximetry Heart rate Systolic And Diastolic Provider Name and Address Organization Details Last Updated DateTime 5 162.56 cm 27.8 kg/m2 33014.9 6 g 95 % 95 % 80 /min 130/68 mm[Hg] Kaye Merary [facility] 5 14:26:49 Date Recorded Body height Body mass index (BMI) Body weight Oxygen saturation Oxygen saturation in Arterial blood by Pulse oximetry Heart rate Systolic And Diastolic Provider Name and Address Organization Details Last Updated DateTime 5 162.56 cm 28.5 kg/m2 05381.3 3 g 95 % 95 % 84 /min 132/74 mm[Hg] [facility] 14:59:30 Date Recorded Body height Body mass index (BMI) Body weight Oxygen saturation Oxygen saturation in Arterial blood by Pulse oximetry Heart rate Systolic And Diastolic Provider Name and Address Organization Details Last Updated DateTime 5 162.56 cm 28.1 kg/m2 77483.3 6 g 95 % 95 % 76 /min 134/78 mm[Hg] [facility] 11:22:43 Date Recorded Body height Body mass index (BMI) Body weight Oxygen saturation Oxygen saturation in Arterial blood by Pulse oximetry Heart rate Systolic And Diastolic Provider Name and Address Organization Details Last Updated DateTime 4 162.56 cm 27.3 kg/m2 58653.8 9 g 93 % 93 % 70 /min 124/68 mm[Hg] [facility] 4 10:58:38 Social History Question Answer Notes LastModified by Organizat ion Details LastModified Time Tobacco Smoking Status Current [facility] 09:02:59 What Was The Date [...] Time Father No current problems or disability [email or web address] Not available 12/27 09:02:30 Mother No current problems or disability Not available 12/27 09:02:30 Medical History No medical history recorded. Gynecological HistoryNo gynecological history recorded. Obstetrics History GPAL:G 0 P 0 0 0 0 Immunizations Vaccine Type Date Status Note Provider Nam e and Address Organization Details Recorded Time COVID-19, mRNA, LNP-S, PF, 30 mcg/0.3 mL dose 1 [facility] 11:08:24 COVID-19, mRNA, LNP-S, PF, 30 mcg/0.3 mL dose 1 completed Kaye Ashland [facility] 07/07/2023 11:08:24 COVID-19, mRNA, LNP-S, PF, 30 mcg/0.3 mL dose 1 [facility]2023 11:08:24 COVID-19, mRNA, LNP-S, bivalent, PF, 30 mcg/0.3 mL dose 2 completed Kaye Merary [facility] 07/07/2023 11:08:24 pneumococcal polysaccharide PPV23 2 completed Kaye Ashland [facility] 07/07/2023 11:08:24 Pneumococcal conjugate PCV 13 0 completed Kaye Merary [facility] 07/07/2023 11:08:24 Influenza, high-dose, trivalent, PF 6 completed Kaye Merary [facility] 07/07/2023 11:08:24 Influenza, high-dose, quadrivalent, PF 3 completed CHEMA GARCES MD [address] [place] [address], [address], [facility] 02/05/2023 00:01:55 Influenza, high-dose, trivalent, PF 4 completed CHEMA GARCES MD [address] [place] [address], [address], [facility] 02/10/2024 22:56:17 Past Encounters Encounter ID Performer Location Encounter Start Date Encounter Closed Date Diagnosis/Indication Diagnosis SNOMED-CT Code Diagnosis ICD10 Code Diagnosis Note [id number] TREV CHRIS MD [facility] [address] [place] [address] 12/27/2020 08:42:19 12/27/2020 10:05:25 Abnormal defecation 155336457 R19.8 pt with trouble with defecation . cannot get the stool out. She thinks may be due to some type of mesh problem. I do not see any visible prolapre recurrence vaginally. I do not think a pessary would help her dysfunctio n issues or aid in her defectatio n. will get a secound opinion to see if therapy would be a good option or not. She his not wanting surgery for this at this time which I am not sure that would be effective in helping her dysfunctio n anyway. [id number] CHEMA GARCES MD [facility] [place] [id number] [facility] [place] [address] 02/03/2023 15:57:20 02/03/2023 16:57:51 Chronic obstructive pulmonary disease 33148775 J44.9 Essential hypertension 37430209 I10 Generalize d anxiety disorder 03936240 F41.1 Essential tremor 7441773 09 G25.0 Hyperlipidemia 57658613 E78.5 Recurrent major depression in partial remission 56301599 F33.41 Nicotine dependence 5629 4008 F17.200 History of deep vein thrombosis 287250888 Z86.718 History of total replacement of left hip joint 3692191904 392691 Z96.642 Vitamin D deficiency 347 95928 E55.9 Administra tion of influenza vaccine 75991268 Z23 Dysuria 78910623 R30.0 [id number] CHEMA GARCES MD [facility] [address] [place] [address] 05/07/2023 10:32:53 05/07/2023 11:15:38 Essential hypertension 48755457 I10 Nicotine dependence 5629 4008 F17.200 Generalize d anxiety disorder 55923766 F41.1 History of deep vein thrombosis 044061428 Z86.718 Chronic ob structive pulmonary disease 56493935 J44.9 Urinary incontinence 165 348011 R32 Essential tremor 0042973 09 G25.0 Hyperlipidemia 18207637 E78.5 Vitamin D deficiency 347 21242 E55.9 History of total hip arthroplasty 2867726860 06 Z96.649 Recurrent major depression in partial remission 29840119 F33.41 Nausea 642786514 R11.0 Vaginal va ult prolapse 651231383 N81.89 [id number] CHEMA GARCES MD [facility] [address] [place] [address] 07/07/2023 10:53:44 07/07/2023 11:34:40 Essential tremor 716335972 G25.0 Generalize d anxiety disorder 77201890 F41.1 Chronic ob structive pulmonary disease 81056652 J44.9 Nicotine dependence 5629 4008 F17.200 Essential hypertension 67241536 I10 Urinary incontinence 165 424967 R32 History of deep vein thrombosis 706694333 Z86.718 Hyperlipidemia 11748100 E78.5 Vaginal va ult prolapse 185915600 N81.89 [id number] CHEMA GARCES MD [facility] [address] [place] [address] 07/22/2023 11:54:27 07/23/2023 08:01:06 Long-term current use of anticoagulant 505902312 Z79.01 [id number] CHEMA GARCES MD [facility] [address] [place] [address] 09/23/2023 12:00:43 09/23/2023 13:04:09 Chronic obstructive pulmonary disease 93513874 J44.9 Essential hypertension 28571831 I10 Essential tremor 7279861 09 G25.0 Generalize d anxiety disorder 70471006 F41.1 History of deep vein thrombosis 408000078 Z86.718 History of total replacement of left hip joint 1160191357 819704 Z96.642 Vitamin D deficiency 347 24413 E55.9 Urinary incontinence 165 339016 R32 Recurrent major depression in partial remission 80770274 F33.41 Hyperlipidemia 33004720 E78.5 Nicotine dependence 5629 4008 F17.200 Cough 57386732 R05.9 Pneumonia 153390803 J18. 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 Generalize d anxiety disorder 70232558 F41.1 History of deep vein thrombosis 560217225 Z86.718 Vitamin D deficiency 347 61587 E55.9 Vit D checked in office today.cont weekly supplement ation until otherwise noted. Hyperlipidemia 31069294 E78.5 Nicotine dependence 5629 4008 F17.200 Atheroscle rosis of aorta 85417672 I70.0 Chronic ki dney disease stage 3 916100972 N18.31 Chronic kidney disease stage IIIa. Avoid nonsteroid al. 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 Pitting edema 285417418 R60.9 Increase to 20mg DAILY x1 week. 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 Generalize d anxiety disorder 03884981 F41.1 History of deep vein thrombosis 320251841 Z86.718 Vitamin D deficiency 347 71186 E55.9 Urinary incontinence 165 826315 R32 Nicotine dependence 5629 4008 F17.200 Hyperlipidemia 15919960 E78.5 History of total replacement of left hip joint 3888768696 675661 Z96.642 Vaginal va ult prolapse 506296324 N81.89 Pain in le ft lower limb 434147843 M79.605 Localized edema 38390604 4 R60.0 [id number] CHEMA GARCES MD [facility] [address] [place] [address] 03/29/2024 10:52:10 03/29/2024 11:37:41 Chronic kidney disease stage 3 719922171 N18.31 Atheroscle rosis of aorta 77270103 I70.0 Chronic ob structive pulmonary disease 84435562 J44.9 Essential hypertension 97864126 I10 Essential tremor 0119619 09 G25.0 Generalize d anxiety disorder 63017373 F41.1 History of deep vein thrombosis 645295033 Z86.718 History of total replacement of left hip joint 3880134521 782422 Z96.642 Hyperlipidemia 00634124 E78.5 Nicotine dependence 5629 4008 F17.200 Recurrent major depression in partial remission 61100562 F33.41 Urinary incontinence 165 702646 R32 Vaginal va ult prolapse 125050831 N81.89 Vitamin D deficiency 347 14584 E55.9 Adult heal th examination 625415216 Z00.00 Administra tion of viral vaccine [id number] Z23 Osteopenia 437914568 M85 .89 [id number] [facility] [address] [place] [address] 02/10/2024 10:16:55 02/10/2024 14:34:07 Chronic kidney disease stage 3 [id number] N18.31 Chronic ob structive pulmonary disease 02873253 J44.9 Essential hypertension 97782731 I10 Essential tremor 8966545 09 G25.0 Generalize d anxiety disorder 72049191 F41.1 History of deep vein thrombosis 419079194 Z86.718 History of total replacement of left hip joint 2080667997 798319 Z96.642 Hyperlipidemia 84972034 E78.5 Nicotine dependence 5629 4008 F17.200 Recurrent major depression in partial remission 36862362 F33.41 Urinary incontinence 165 064666 R32 Vaginal va ult prolapse 048915098 N81.89 Vitamin D deficiency 347 21843 E55.9 Chest pain 18943192 R07. 9 Screening mammography 24 873110 Z12.31 Administra tion of influenza vaccine 49067813 Z23 [id number] CLEMENT MOTTA [facility] [address] [place] [address] 02/17/2024 11:02:47 02/17/2024 11:47:43 Chronic kidney disease stage 3 342851270 N18.31 recent labs show stable kidney function Dysuria 95370184 R30.0 Cellulitis of lower leg 977823526 L03.119 Edema of l ower extremity 427537699 R60.0 lasix qd [id number] [facility] [address] [place] [address] 02/24/2024 15:05:13 02/24/2024 16:33:51 Chronic kidney disease stage 3 643273548 N18.31 Chronic ob structive pulmonary disease 94781254 J44.9 Edema of l ower extremity 149657515 R60.0 Essential hypertension 72701591 I10 Essential tremor 0389072 09 G25.0 Generalize d anxiety disorder 16783956 F41.1 History of deep vein thrombosis 493675566 Z86.718 History of total replacement of left hip joint 0601279304 192979 Z96.642 Hyperlipidemia 09718233 E78.5 Nicotine dependence 5629 4008 F17.200 Recurrent major depression in partial remission 77602927 F33.41 Vaginal va ult prolapse 679380522 N81.89 Vitamin D deficiency 347 10247 E55.9 Urinary incontinence 165 017113 R32 Acute bronchitis 0765642 2 J20.9 [id number] [facility] [address] [place] [address] 05/31/2024 10:16:55 05/31/2024 11:15:15 Atherosclerosis of aorta 03739630 I70.0 Chronic ki dney disease stage 3 079048321 N18.31 Chronic ob structive pulmonary disease 56103330 J44.9 Essential hypertension 75981930 I10 Essential tremor 4731224 09 G25.0 Generalize d anxiety disorder 98545452 F41.1 History of deep vein thrombosis 760434128 Z86.718 History of total replacement of left hip joint 6500542115 552955 Z96.642 Hyperlipidemia 34005888 E78.5 Nicotine dependence 5629 4008 F17.200 Osteopenia 958777661 M85 .89 Recurrent major depression in partial remission 94017419 F33.41 Urinary incontinence 165 906192 R32 Vitamin D deficiency 347 98856 E55.9 Localized edema 00221113 4 R60.0 Tricuspid valve regurgitation 113994409 I07.1 [id number] CHEMA G[facility] [address] [place] [address] 06/30/2024 14:20:02 06/30/2024 14:53:58 Chronic kidney disease stage 3 915271230 N18.31 Chronic ob structive pulmonary disease 46384387 J44.9 Essential hypertension 09495242 I10 Essential tremor 3146575 09 G25.0 Generalize d anxiety disorder 36801427 F41.1 History of deep vein thrombosis 912918699 Z86.718 In 2 weeks Hyperlipidemia 64277403 E78.5 Nicotine dependence 5629 4008 F17.200 Osteopenia 660892371 M85 .89 Vaginal va ult prolapse 296413797 N81.89 Exposure t o Influenzavirus 880856371 Z20.828 [id number] CHEMA GARCES MD [facility] [place] [address] [facility] [place] [address] 08/31/2024 14:52:21 08/31/2024 15:42:54 Chronic kidney disease stage 3 460823259 N18.31 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 Chronic ob structive pulmonary disease 76287060 J44.9 Edema of l ower extremity 691387052 R60.0 Essential hypertension 18054783 I10 Essential tremor 5108663 09 G25.0 Generalize d anxiety disorder 99046282 F41.1 History of deep vein thrombosis 961766983 Z86.718 History of total replacement of left hip joint 6642760806 933315 Z96.642 Hyperlipidemia 68247924 E78.5 Nicotine dependence 5629 4008 F17.200 Osteopenia 274381301 M85 .89 Urinary incontinence 165 830230 R32 Vaginal va ult prolapse 855503384 N81.89 Vitamin D deficiency 347 53511 E55.9 Dysuria 07256725 R30.0 Chronic ki dney disease stage 3B 675825941 N18.32 [id number] CHE[facility] G[facility] [address] [place] [address] 11/01/2024 11:10:18 11/01/2024 12:11:26 Generalized anxiety disorder 86101075 F41.1 Recurrent major depression in partial remission 27630662 F33.41 Essential hypertension 92939175 I10 Hyperlipidemia 16379602 E78.5 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 History of deep vein thrombosis 612674551 Z86.718 Osteopenia 273526716 M85 .89 Vitamin D deficiency 347 55529 E55.9 Chronic ki dney disease stage 3B 563735588 N18.32 Urinary incontinence 165 647641 R32 Vaginal va ult prolapse 438046366 N81.89 Essential tremor 8038319 09 G25.0 Chronic ob structive pulmonary disease 51746733 J44.9 Localized edema 16062399 4 R60.0 Dysuria 57069260 R30.0 Chronic low back pain 27 8522241 M54.50 G89.29 Pulmonary hypertension 05182655 I27.20 Health Concerns Section Related Observation LastModified by Organization Detai ls LastModified Time None Recorded Concern Status LastModified by Organization Details LastModified Time None Recorded Advance Directives Directive None Recorded Payers Insurance Date Sequence Insurance Name Policy Number Policy Chance Covered Member ID Chance Member ID Guarantor Name 06/30/2024 1 [place]MEDICARE REPLACEMENT HMO) [id number] Rosenda Dumont Fernando [id number] Rosenda Dumont Fernando 11/02/2024 1 [employer] (MEDICARE REPLACEMENT/A DVANTAGE - PPO) [id number] Rosenda Dumont Fernando [id number] Rosenda S Fernando 06/30/2024 1 [employer] - GOLD PLUS (MEDICARE REPLACEMENT/A DVANTAGE - HMO) Rosenda Dumont Fernando [id number] Rosenda Dumont Fernando Notes Date Note Type Note Provider Name and Address Organization Details Recorded Time 03/29/2024 text/html Medicare Annual Wellness VisitReported bypatient.Diet and Nutrition:diet is high in fat, low in fiber; try to keep it low in fat Fracture Risk:no history of fractures; no recent explained fracture; no sudden unexplained fractures; no previous musculoskeletal injuries; hip still havent heeled correctly Physical Activity:does not exercise on a regular basis;decreased physical activity; walk in house for exercise Current level of painModerate pain: 3/10 to 5/10; hip and leg pain Alleviated With:acetaminophen Depression Risk:feels sad, empty, or tearful; depressed about grand daughter has auto immune sickness and depressed about Orientation:no disorientation to time; no disorientation to date; no disorientation to place; she does word search and puzzles to keep mind going Concentration and Memory:no decreased concentrating ability; no memory lapses or loss; does not forget words Speech/Motor difficulties:no speech difficulties; no difficulty expressing formulated concepts; no difficulty with fine manipulative tasks; no difficulty writing/copying; no slowed reaction time; does not knock things over when trying to pick them up Hearing:wears hearing aids Vision:reading glasses Activities of Daily Living:able to bathe with limited or no assistance; able to contol urination and bowels; able to dress with limited or no assistance; able to feed self with limited or no assistance; able to get out of chair or bed with limited or no assistance; able to groom with limited or no assistance; able to toilet with limited or no assistance; no urine leakage or bladder control issues Instrumental Activities of Daily Living:able to do house work with limited or no assistance; able to grocery shop with limited or no assistance; able to manage medications with limited or no assistance; able to manage money with limited or no assistance; able to prepare meals with limited or no assistance; able to use the phone with limited or no assistance; she cant vaccuum to hard and cant mop floor Falls Risk Assessment:no frequent falls while walking; no fall in the past year; no fall since last visit; no dizziness/vertigo Home Safety:no unsafe ирина hazzards; no unsafe stairs; no unsafe gas appliances; working smoke/CO detectors; wears protective head gear for biking/high velocity; use of seatbelts; practicing 'safer sex'; no vision or hearing loss while driving; no fire arms; has hand bars in the bathroom/shower; good lighting in the home Advance Care Planning (Living Will-POA etc)Advance Directives executed and on file; has one but never filled out Interval hospitalizations:[facility] dication changes:noOther physician visits:noExercise level:lowTobacco or alcohol use:yes tobaccoHave you had any recent chest pain or unusual dyspnea ?Ernesto is a 83-year-old female who comes today for annual Medicare wellness visit and follow-up of multiple chronic medical conditions. She denies any falls this year. She does admit to being a bit more depressed with occasional crying. No suicidal ideation. She declines an offer for an antidepressant. She feels like her memory has not changed from last year and scored 4 out of 5 on the mini cog mental status exam today. Last eye exam was just over 1 year ago. Her vision is doing well. She has hearing aids that she uses occasionally with some benefit. She has intermittent left ear ache.. She is current on her flu vaccines COVID-19 vaccine and pneumonia vaccines. I have ordered the RSV vaccine for her in the next 1 week. She needs to finish advanced directive. I gave her a blank 1 and encouraged her to return that in the near future. She is current on her mammogram status. Last DEXA scan was 2-1/2 years ago so DEXA scan ordered for the next few weeks as she has a history of some osteopenia. She continues to smoke half pack of cigarettes daily AGAINST MEDICAL ADVICE. He has some chronic pain in her left hip that she had replaced in the past. CHEMA GARCES MD [address] [place] [address], [phone], [facility] 03/29/2024 21:21:26 05/31/2024 text/html Interval hospitalizations:[facility] dication changes:noOther physician visits:has up coming appointment with Lisa on the bExercise level:lowTobacco or alcohol use:noHave you had any recent chest pain or unusual dyspnea ?Ernesto is a 83-year-old female who complains of increased edema in both feet and her lower legs for the past 1 or 2 months. She is eating last usually just 2 meals per day. She is currently taking Lasix 40 mg every other day and triamterene/HCTZ 37.5/25 mg half tablet daily. No known history of systolic congestive heart failure. She denies any extra sodium in her diet. She has gained 7 pounds in the past 2 months. CHEMA GARCES MD [address] [place] [address], [phone], [facility] 05/31/2024 21:44:13 06/30/2024 text/html Interval hospitalizations:[facility] dication changes:new medicationOther physician visits:noExercise level:lowTobacco or alcohol use:yes smoker 1 pack a dayHave you had any recent chest pain or unusual dyspnea ?sobMrs. King is a 83-year-old female who comes today for follow-up of multiple chronic conditions. She has been in direct contact with 2 grandchildren this week who have had influenza. She has had no flulike symptoms yet. She continues to smoke 1 pack of cigarettes each day as she has for many many years. She saw her attendance officer Dr. Gonzalez 1 month ago who changed her Lasix to Bumex 2 mg daily. No recent chest pain. CHEMA GARCES MD [address] [place] [address], [phone], [facility] 07/03/2024 22:36:03 08/31/2024 text/html Interval hospitalizations:[facility] dication changes:noOther physician visits:noExercise level:moderateTobacco or alcohol use:tobaccoHave you had any recent chest pain or unusual dyspnea ?sob copdMrs. Fernando is a 83-year-old female who complains of recurrent dysuria for the past 3 to 4 days with some right lower back pain and suprapubic pain. She went to an urgent treatment center in [facility] about 2-1/2 weeks ago where she had a urinary tract infection. She was given Keflex that she took twice daily for 10 days and Pyridium for a few days. She has been off her antibiotic for about 5 days. No significant fever or hematuria. Some increased urinary frequency. She has some chronic incontinence. No chest pain or unusual dyspnea. She continues to smoke between 1/2 pack and 1 pack of cigarettes daily. She is trying to drink more water due to her chronic kidney disease. CHEMA GARCES MD [address] [place] [address], [phone], [facility] 09/01/2024 08:11:17 11/01/2024 text/html Interval hospitalizations:[facility] dication changes:no changesOther physician visits:noExercise level:lowTobacco or alcohol use:yes smoker 1/2 a pack a dayHave you had any recent chest pain or unusual dyspnea ?sob COPDMrs. Fernando is an 83-year-old female who comes today [...] pack of cigarettes daily. CHEMA GARCES MD [address] [place] [address], [phone], [facility] 11/01/2024 21:52:42 OBGyn Episode No OBEpisode recorded.
--- NOTE | 2024-11-13 15:09 | CT_ITS ---
PROCEDURE INFORMATION: Exam: CTA Chest With Contrast Exam date and time: 11/13/2024 4:14 PM Age: 83 years old Clinical indication: Shortness of breath; Additional info: Cough, shortness of breath, hypoxia TECHNIQUE: Imaging protocol: Computed tomographic angiography of the chest with contrast. Exam focused on the arteries. 3D rendering (Not supervised by radiologist): MIP and/or 3D reconstructed images were created by the technologist. Radiation optimization: All CT scans at this facility use at least one of these dose optimization techniques: automated exposure control; mA and/or kV adjustment per patient size (includes targeted exams where dose is matched to clinical indication); or iterative reconstruction. Contrast material: ISOVUE; Contrast volume: 70 ml; Contrast route: INTRAVENOUS (IV); COMPARISON: CT CHEST WO CON 02/19/2024 10:37 PM FINDINGS: Pulmonary arteries: No central or segmental pulmonary arterial intraluminal filling defects identified. Aorta: Atherosclerotic calcification or aorta without aneurysm or obvious dissection. Lungs: Bilateral lower lung zone subsegmental atelectasis. Pleural spaces: Unremarkable. No pneumothorax. No pleural effusion. Heart: Unremarkable. No cardiomegaly. No pericardial effusion. Coronary arteries: Atherosclerotic calcification of coronary arteries. Lymph nodes: No enlarged lymph nodes. Bones/joints: Unremarkable. No acute fracture. Soft tissues: Unremarkable. IMPRESSION: No central or segmental pulmonary arterial embolism identified.
--- NOTE | 2024-11-13 15:12 | CT_ITS ---
PROCEDURE INFORMATION: Exam: CTA Abdomen and Pelvis With Contrast Exam date and time: 11/13/2024 4:14 PM Age: 83 years old Clinical indication: Abdominal pain; Generalized; Additional info: Rectal bleeding, abdominal pain TECHNIQUE: Imaging protocol: Computed tomographic angiography of the abdomen and pelvis with contrast. Exam focused on the arteries. 3D rendering (Not supervised by radiologist): MIP and/or 3D reconstructed images were created by the technologist. Radiation optimization: All CT scans at this facility use at least one of these dose optimization techniques: automated exposure control; mA and/or kV adjustment per patient size (includes targeted exams where dose is matched to clinical indication); or iterative reconstruction. Contrast material: ISOVUE; Contrast volume: 70 ml; Contrast route: INTRAVENOUS (IV); COMPARISON: CT ABDOMEN WO CON 02/19/2024 10:53 PM FINDINGS: Aorta: No aortic aneurysm. No aortic dissection. Atherosclerotic calcification. Celiac trunk and mesenteric arteries: No occlusion. 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 Renal arteries: No occlusion or significant stenosis. Ostial atherosclerotic calcification. Right iliac arteries: No occlusion or significant stenosis. Atherosclerotic calcification. Left iliac arteries: No occlusion or significant stenosis. Atherosclerotic calcification. Veins: Inferior vena cava filter grossly in place. Liver: No mass. Gallbladder and biliary ducts: Surgically absent gallbladder without biliary ductal dilatation. Pancreas: Unremarkable. No mass. No ductal dilation. Spleen: Unremarkable. No splenomegaly. Adrenal glands: Unremarkable. No mass. Kidneys and ureters: No nephroureterolithiasis or hydroureter. 1.6 cm right renal cyst. Stomach and bowel: Cecal to rectal wall thickening, pericolonic fat stranding and mild mucosal enhancement. Subtle high density material in lumen of distal sigmoid colon (series 5, image 107 close). Nonobstructive pattern. Appendix: No evidence of appendicitis. Intraperitoneal space: Unremarkable. No free air. No significant fluid collection. Lymph nodes: Unremarkable. No enlarged lymph nodes. Urinary bladder: Unremarkable. No mass. Reproductive: Unremarkable as visualized. Bones/joints: Left hip arthroplasty. No acute osseous findings. Soft tissues: Unremarkable. IMPRESSION: 1. 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 Can not exclude source of active hemorrhage. 2. Chronic high-grade ostial stenosis celiac artery. COMMENTS: For patients with an IVC filter, recommend assessment for a management plan for the patient's IVC filter. If there is no established management plan, recommend referral to an interventional clinician on a nonemergent basis for evaluation.
[2024-11-13 15:25] LABS: Albumin Level 4.2 g/dl (3.5-5.0); Chloride 94 mmol/L (98-107); Hematocrit 46.0 % (37.0-47.0); Hemoglobin 14.7 g/dL (12.2-16.2); Immature Granulocytes % 0.3 %; Mean Corpuscular HGB Conc 32.0 g/dL (31.8-35.4); Mean Corpuscular Hemoglobin 28.4 pg (27.0-31.2); Mean Corpuscular Volume 89.0 fl (81-99); Nucleated Red Blood Cells % 0 %; Platelet Count 134 K/mm3 (142-424); Red Blood Count 5.17 M/mm3 (4.20-5.40); Red Cell Distribution Width-SD 47.8 fL; White Blood Count 9.9 K/mm3 (4.8-10.8)
--- NOTE | 2024-11-13 15:25 | ECG_ITS ---
APPROVED REPORT Exam: Resting ECG HR:56 bpm ECG Measurements Heart Rate 56 AXES FL 184 P 64 QRSd 129 QRS -61 QT 467 T 40 QTc 460 Conclusion SINUS BRADYCARDIA RIGHT BUNDLE BRANCH BLOCK [120+ ms QRS DURATION, UPRIGHT V1, 40+ ms S IN I/aVL/V4/V5/V6] LEFT ANTERIOR FASCICULAR BLOCK [QRS AXIS <= -45, QR IN I, RS IN II] POSSIBLE ANTERIOR MYOCARDIAL INFARCTION , OF INDETERMINATE AGE [30 ms Q WAVE IN V3/V4, OR R < 0.2 mV IN V4] Sinus bradycardia. Right bundle branch block. No ST elevations or depressions or T wave inversions ABNORMAL ECG UNCONFIRMED REPORT Electronically signed by : LELIA EDWARDS, 11/14/2024 11:05:46
[2024-11-13 15:26] LABS: Potassium 3.6 mmoL/L (3.5-5.1); Sodium 136 mmol/L (136-145)
[2024-11-13 15:28] LABS: Alanine Aminotransferase 16 U/L (12-78); Alkaline Phosphatase 64 U/L (38-126); Anion Gap 11.6 mEq/L (5-15); Aspartate Amino Transferase 33 U/L (14-36); Bilirubin,Total 0.6 mg/dl (0.2-1.3); Blood Urea Nitrogen 34 mg/dl (7-17); Carbon Dioxide 34 mmol/L (22.0-30.0); Creatinine Clearance Estimated 40 mL/min (50-200); Creatinine,Serum 1.20 mg/dl (0.52-1.04); Estimated Glomerular Filt Rate 43 ml/min (>60); GFR (African American) 52 ML/MIN (>60)
[2024-11-13 15:28] LABS: Lactate Venous 1.6 mmol/L (0.4-2.0); VBG HCO3 31.2 mmol/L (23-30); VBG PH 7.33 mmol/L (7.31-7.41); VBG PO2 60.9 mmol/L (28-40)
[2024-11-13 15:29] LABS: Albumin/Globulin Ratio 1.1 (1.1-1.8); Calcium 9.8 mg/dl (8.4-10.2); Globulin 3.8 g/dL (1.3-3.2); Glucose 122 mg/dl (74-100); Magnesium 1.6 mg/dl (1.6-2.3); Total Protein,Serum 8.0 g/dl (6.3-8.2)
[2024-11-13 15:31] LABS: Activated Partial Thrombo Time 29.1 seconds (22.8-30.6); INR 1.41 (0.9-1.1); Prothrombin Time 15.3 seconds (10.1-12.5)
[2024-11-13] MEDS: ONDANSETRON 4MG/2ML VIAL 4 MG IV (15:32)
[2024-11-13] MEDS: ACETAMINOPHEN 1,000MG/100ML VIAL 1000 MG IV (15:32)
[2024-11-13 15:33] LABS: VBG PCO2 60.5 mmol/L (35-51)
--- NOTE | 2024-11-13 15:33 | HMH.EDGENADL ---
Discharge Plan Disposition Patient Disposition: Xfer Other Prescriptions Prescriptions: No Action ipratropium-albuterol 0.5 mg-3 mg(2.5 mg base)/3 mL solution for nebulization 1.5 ml inhalation cephalexin 500 mg capsule 500 mg PO BID 5 Days Qty: 10 0RF phenazopyridine [Pyridium] 200 mg tablet 200 mg PO Q8H 2 Days Qty: 6 0RF nitrofurantoin monohyd/m-cryst 100 mg capsule 100 mg PO Q12H 5 Days Qty: 10 0RF Rx Instructions: must administer with a meal/food metformin 500 mg tablet 500 mg PO DAILY Patient Comments: TAKE 1 TABLET BY MOUTH ONCE DAILY primidone 50 mg tablet 50 mg PO DAILY Patient Comments: TAKE 1 TABLET BY MOUTH ONCE DAILY WITH FOOD sucralfate 1 gram tablet 1 g PO TID Patient Comments: TAKE 1 TABLET BY MOUTH THREE TIMES DAILY FOR 7 DAYS simvastatin 10 mg tablet 10 mg PO HS Patient Comments: TAKE 1 TABLET BY MOUTH ONCE DAILY potassium chloride 10 mEq tablet extended release 10 meq PO DAILY Patient Comments: TAKE 1 TABLET BY MOUTH ONCE DAILY triamterene-hydrochlorothiazid 37.5-25 mg capsule 1 cap PO DAILY Patient Comments: TAKE 1 CAPSULE BY MOUTH ONCE DAILY warfarin 4 mg tablet 4 mg PO DAILY Patient Comments: TAKE 1 TABLET BY MOUTH ONCE DAILY pantoprazole 20 mg tablet,delayed release (DR/EC) 20 mg PO DAILY Patient Comments: TAKE 1 TABLET BY MOUTH ONCE DAILY alprazolam 0.5 mg tablet 0.5 mg PO BID Patient Comments: TAKE 1 TABLET BY MOUTH TWICE DAILY furosemide 20 mg tablet 20 mg PO DAILY Patient Comments: TAKE 1 TABLET BY MOUTH EVERY OTHER DAY ergocalciferol (vitamin D2) 1,250 mcg (50,000 unit) capsule 1,250 mcg PO WEEKLY Patient Comments: TAKE 1 CAPSULE BY MOUTH EVERY THURSDAY cefuroxime axetil 500 mg tablet 500 mg PO BID 7 Days Qty: 14 0RF lidocaine 5 % adhesive patch,medicated 1 patch topical DAILY PRN (Reason: pain) Qty: 30 0RF Rx Instructions: leave on most painful area for up to 12 hrs Referrals Follow up/Referrals: Provider,Referral, [Primary Care Provider, Medical] - See instructions Clinical Impressions Clinical Impression: Rectal bleeding, Acute GI bleeding Instructions Patient Instructions: DI for Gastrointestinal Bleeding Print Language Print Language: Nepali Discharge ED Provider: Brenton Gramajo General Adult HPI General Chief complaint: GI Bleed Stated complaint: rectal bleeding Time Seen by Provider: 11/13/24 15:00 Mode of Arrival: Ambulatory Source of Information: Patient and Relative Description of Symptoms (Recalled from ER Triage Doc. by RN): Patient presents to ED today with granddaughter for bright red blood in her stool that began this morning. Pt states this started as diarrhea last night, c/o 10/10 pain in LLQ. States she has blood clots in her stool as well. History of Present Illness HPI narrative: Rosenda King is an 83Y female with a history of rectocele, urinary incontinence, lupus anticoagulant disorder, factor V Leiden on warfarin, hyperlipidemia, hypertension, hip replacement on the left, neck surgery who presents to the emergency department for complaints of abdominal pain and rectal bleeding. Patient states that she was in her normal state of health and prior to yesterday when she developed diarrhea. She states that today, she has had 4-5 episodes of dark red blood, bright red blood and blood clots in the toilet bowl today. She reports some generalized abdominal pain as well. She states that this is never happened to her before. She denies any chest pain, shortness of breath but does report a cough and is contin continuing ue to use tobacco cigarettes. She denies any urinary symptoms. She states that she has a history of a rectocele that they tried to repair many years ago and chronically has difficulty producing bowel movements but states that she has not had any change to her bowel habits prior to yesterday. She denies any fevers. Related Data Home Medications ?Medication ?Instructions ?Recorded ?Confirmed alprazolam 0.5 mg tablet 0.5 mg PO BID Anxiety 10/16/22 08/12/24 ergocalciferol (vitamin D2) 1,250 1,250 mcg PO WEEKLY Supplement 10/16/22 08/12/24 mcg (50,000 unit) capsule furosemide 20 mg tablet 20 mg PO DAILY Fluid 10/16/22 08/12/24 metformin 500 mg tablet 500 mg PO DAILY Diabetes 10/16/22 08/12/24 pantoprazole 20 mg tablet,delayed 20 mg PO DAILY Acid reflux 10/16/22 08/12/24 release potassium chloride 10 mEq 10 meq PO DAILY Supplement 10/16/22 08/12/24 tablet,extended release primidone 50 mg tablet 50 mg PO DAILY Pain 10/16/22 08/12/24 simvastatin 10 mg tablet 10 mg PO HS Cholesterol 10/16/22 08/12/24 sucralfate 1 gram tablet 1 g PO TID Acid reflux 10/16/22 08/12/24 triamterene 37.5 1 cap PO DAILY High blood pressure 10/16/22 08/12/24 mg-hydrochlorothiazide 25 mg capsule warfarin 4 mg tablet 4 mg PO DAILY Blood thinner 10/16/22 08/12/24 ipratropium 0.5 mg-albuterol 3 mg 1.5 ml inhalation 08/12/24 08/12/24 (2.5 mg base)/3 mL nebulization soln Previous Rx's ?Medication ?Instructions ?Recorded nitrofurantoin 100 mg PO Q12H 5 days #10 caps 01/30/23 monohydrate/macrocrystals 100 mg capsule cefuroxime axetil 500 mg tablet 500 mg PO BID pneumonia 7 days #14 09/19/23 tabs lidocaine 5 % topical patch 1 patch topical DAILY PRN pain #30 02/20/24 ea cephalexin 500 mg capsule 500 mg PO BID 5 days #10 caps 08/12/24 phenazopyridine 200 mg tablet 200 mg PO Q8H 2 days #6 tabs 08/12/24 (Pyridium) Allergies Allergy/AdvReac Type Severity Reaction Status Date / Time aspirin Allergy Unknown RAPID Verified 08/12/24 15:09 HEART BEAT codeine Allergy Unknown RAPID Verified 08/12/24 15:09 HEART BEAT morphine Allergy Unknown RAPID Verified 08/12/24 15:09 HEART BEAT PFSH PFSH Disclaimer: The information contained in this section may have been updated after the patient was seen, as this information can be updated by other users. Medical History (Updated 11/13/24 @ 19:18 by Brenton Gramajo MD) UTI (urinary tract infection) Concussion without loss of consciousness GERD (gastroesophageal reflux disease) COPD (chronic obstructive pulmonary disease) History of pulmonary embolism History of DVT (deep vein thrombosis) Lupus anticoagulant disorder Factor 5 Leiden mutation, heterozygous Hyperlipidemia Hypertension Surgical History Hx of neck surgery History of hip replacement Family History Family/Other No significant family history Social History Smoking Status: Current every day smoker tobacco type: cigarettes packs per day: 1 second hand exposure: Yes alcohol intake: never substance use type: denies use current occupational status: employed Travel in the last 8 weeks?: None household members: spouse housing: house Have you lived/traveled outside [place] in past 30 days?: No Contact w/someone who lives/traveled outside US past 30 days?: No Exposure to someone with infectious disease in past 14 days?: No Do you have a fever (greater than 100.4 F or 38 C)?: No Have you tested positive for COVID-19?: No Exposed to someone with COVID-19 in past 14 days?: No Do you have a sore throat?: No Do you have a cough?: No Do you have any weakness?: No Do you have any diarrhea?: No Are you experiencing any unusual bleeding?: No Do you have any muscle aches/pain?: No Do you have any abdominal pain?: No Are you experiencing loss of taste or smell?: No Other Medical History Have you received the Flu Vaccine for this season: Yes Have you received the Pneumonia Vaccine: Yes ROS Obtained: Yes Systems reviewed as appropriate & no additional complaints except as documented Physical Exam General General appearance: alert and in no apparent distress Head Head exam: atraumatic Eye Eye exam: Present normal appearance ENT ENT exam: Present normal external ear exam Neck Neck exam: Present full ROM Chest Chest inspection: Present symmetric chest wall rise Respiratory Respiratory exam: Present normal lung sounds bilaterally; Absent respiratory distress Cardiovascular Cardiovascular exam: Present regular rate and normal rhythm Abdominal Exam Abdominal exam: Present soft, tenderness (Generalized) and guarding (Generalized); Absent distention Rectal Exam comment: Nonbleeding small hemorrhoid at the 6 o'clock position. Internal digital exam without obvious blood or melena Extremities Exam Extremities exam: Present normal inspection Back Exam Back exam: Present normal inspection Neurological Exam Neurological exam: Present alert and oriented X3 Psychiatric Psychiatric exam: Present normal affect Skin Skin exam: Present warm and dry Medical Decision Making Medical Records Screening: Per USPSTF and CDC recommendations, given the prevalence of disease in our region, it is our hospital?s policy to screen for HIV and viral Hepatitis for all patients aged 18 and over and those with ongoing risk factors. Gualberto Inquiry Pt receiving controlled substance: No Vital Signs: 11/13/24 14:45 11/13/24 14:52 11/13/24 14:52 Temperature 98.5 F 98.5 F Temperature Source Oral Oral Pulse Rate 60 61 Pulse Rate [Right Radial] 61 Respiratory Rate 13 18 18 Blood Pressure 141/59 H 141/59 H Blood Pressure [Right Arm] 141/59 H Blood Pressure Mean Blood Pressure Mean [Right Arm] 86 02 Sat by Pulse Oximetry 98 88 L 88 L Oxygen Delivery Method Room Air Room Air Room Air Oxygen Flow Rate (LPM) 11/13/24 15:00 11/13/24 15:02 11/13/24 15:30 Temperature Temperature Source Pulse Rate Pulse Rate [Right Radial] Respiratory Rate 14 26 H Blood Pressure 122/53 L 127/60 Blood Pressure [Right Arm] Blood Pressure Mean Blood Pressure Mean [Right Arm] 02 Sat by Pulse Oximetry 98 93 L Oxygen Delivery Method Room Air Nasal Cannula Oxygen Flow Rate (LPM) 4 11/13/24 16:30 11/13/24 17:00 11/13/24 17:30 Temperature Temperature Source Pulse Rate 58 L 62 Pulse Rate [Right Radial] Respiratory Rate 18 16 22 Blood Pressure 123/54 L 113/51 L 122/53 L Blood Pressure [Right Arm] Blood Pressure Mean 77 82 Blood Pressure Mean [Right Arm] 02 Sat by Pulse Oximetry 100 100 98 Oxygen Delivery Method Room Air Oxygen Flow Rate (LPM) 11/13/24 18:00 11/13/24 18:30 11/13/24 19:00 Temperature Temperature Source Pulse Rate 59 L 56 L Pulse Rate [Right Radial] Respiratory Rate 17 17 18 Blood Pressure 129/61 122/53 L 119/56 L Blood Pressure [Right Arm] Blood Pressure Mean Blood Pressure Mean [Right Arm] 02 Sat by Pulse Oximetry 99 99 92 L Oxygen Delivery Method Room Air Room Air Oxygen Flow Rate (LPM) 11/13/24 19:31 11/13/24 20:00 Temperature Temperature Source Pulse Rate 58 L Pulse Rate [Right Radial] Respiratory Rate 17 11 L Blood Pressure 118/56 L 111/58 L Blood Pressure [Right Arm] Blood Pressure Mean Blood Pressure Mean [Right Arm] 02 Sat by Pulse Oximetry 91 L Oxygen Delivery Method Oxygen Flow Rate (LPM) Lab Data Lab Results 11/13/24 14:53: VBG pH 7.33, VBG pCO2 60.5 H, VBG pO2 60.9 H, VBG HCO3 31.2 H, VBG Total CO2 33.0 H, VBG O2 Saturation 90.9 H, VBG Base Excess 5.2 H, VBG Lactic Acid 1.6 11/13/24 14:55: WBC 9.9, RBC 5.17, Hgb 14.7, Hct 46.0, MCV 89.0, MCH 28.4, MCHC 32.0, RDW 14.7, Plt Count 134 L, MPV 11.8 H, Neut % (Auto) 66.2, Lymph % (Auto) 20.6, [place] % (Auto) 8.5, Eos % (Auto) 3.9, Baso % (Auto) 0.5, Neut # (Auto) 6.5, Lymph # (Auto) 2.0, [place] # (Auto) 0.8, Eos # (Auto) 0.4, Baso # (Auto) 0.1, ESR 20, PT 15.3 H, INR 1.41 H, APTT 29.1, Sodium 136, Potassium 3.6, Chloride 94 L, Carbon Dioxide 34 H, Anion Gap 11.6, BUN 34 H, Creatinine 1.20 H, Estimated Creat Clear 40, Estimated GFR 43 L, Est GFR ( Amer) 52 L, Glucose 122 H, Calcium 9.8, Magnesium 1.6, Total Bilirubin 0.6, AST 33, ALT 16, Alkaline Phosphatase 64, Troponin I < 0.01, C-Reactive Protein 7.3 H, NT-Pro-B Natriuret Pep 559 H, Total Protein 8.0, Albumin 4.2, Globulin 3.8 H, Albumin/Globulin Ratio 1.1, Lipase 105 11/13/24 15:40: Urine Color Yellow, Urine Appearance Clear, Urine pH 5.5, Ur Specific [employer] 1.010, Urine Protein Negative, Urine Glucose (UA) Negative, Urine Ketones Negative, Urine Blood Negative, Urine Nitrate Negative, Urine Bilirubin Negative, Urine Urobilinogen 0.2, Ur Leukocyte Esterase Negative, Urine RBC None, Urine WBC None, Ur Squamous Epith Cells None, Urine Bacteria None 11/13/24 18:47: Blood Type O Positive, Antibody Screen Negative 11/13/24 21:36: WBC 7.4 D, RBC 5.05, Hgb 14.2, Hct 45.3, MCV 89.7, MCH 28.1, MCHC 31.3 L, RDW 14.7, Plt Count 126 L, MPV 11.4 H, Neut % (Auto) 60.7, Lymph % (Auto) 24.5, [place] % (Auto) 9.1, Eos % (Auto) 4.9, Baso % (Auto) 0.5, Neut # (Auto) 4.5, Lymph # (Auto) 1.8, [place] # (Auto) 0.7, Eos # (Auto) 0.4, Baso # (Auto) 0.0 11/13/24 21:36 11/13/24 14:55 Orders (Tests/Meds): ED MEDICATIONS Generic Name Dose Route Start Last Admin Trade Name Freq PRN Reason Stop Dose Admin Sodium Chloride 10 ml 11/13/24 16:17 11/13/24 16:19 Sodium Chloride 0.9% 10ml Syr (Rad Only) IV 12/13/24 16:16 10 ml NEEDED PRN Administration Maintain IV Site Discontinued Medications Generic Name Dose Route Start Last Admin Trade Name Freq PRN Reason Stop Dose Admin Acetaminophen 1,000 mg 11/13/24 15:12 11/13/24 15:32 Acetaminophen 1,000mg/100ml Vial IV 11/13/24 15:13 1,000 mg ONCE ONE Administration Hydromorphone HCl 0.25 mg 11/13/24 20:05 11/13/24 20:30 Hydromorphone 2mg/Ml Syringe IV 11/13/24 20:06 0.25 mg ONCE ONE Administration Phytonadione 10 mg/ Sodium 51 mls @ 100 mls/hr 11/13/24 21:48 11/13/24 21:58 Chloride IV 11/13/24 22:18 100 mls/hr ONCE ONE Administration Iopamidol 70 ml 11/13/24 16:17 11/13/24 16:19 Iopamidol-370 (76%);100ml Bottle IV 11/13/24 16:18 70 ml ONCE ONE Administration Ondansetron HCl 4 mg 11/13/24 15:09 11/13/24 15:32 Ondansetron 4mg/2ml Vial IV 11/13/24 15:10 4 mg ONCE ONE Administration Sodium Chloride 50 ml 11/13/24 16:17 11/13/24 16:19 0.9 % Sodium Chloride 50 Ml Vial IV 11/13/24 16:18 50 ml ONCE ONE Administration ORDERS Category Date Time Status Type and Screen Stat BBK 11/13/24 18:[address] angio abdomen pelvis Stat Cat Scan 11/13/24 15:[address] angio chest PE protocol Stat Cat Scan 11/13/24 15:09 Completed BNP [NT Pro Brain Natriuretic Pep.] Stat Lab 11/13/24 14:55 Completed CBC [Complete Blood Count Auto Diff] Stat Lab 11/13/24 21:36 Completed CBC w/Auto Diff [Complete Blood Count Auto Diff] Stat Lab 11/13/24 14:55 Completed CMP [Comprehensive Metabolic Panel] Stat Lab 11/13/24 14:55 Completed CRP [C-Reactive Protein] Stat Lab 11/13/24 14:55 Completed ESR [Erythrocyte Sedimentation Rate] Stat Lab 11/13/24 14:55 Completed Lipase Stat Lab 11/13/24 14:55 Completed Magnesium Stat Lab 11/13/24 14:55 Completed PT INR [Prothrombin Time INR] Stat Lab 11/13/24 14:55 Completed PTT [Activated Partial Thrombo Time] Stat Lab 11/13/24 14:55 Completed Troponin I Stat Lab 11/13/24 14:55 Completed UA [Urinalysis and Microscopic] Stat Lab 11/13/24 15:40 Completed VBG [Venous Blood Gas] Stat RT 11/13/24 14:53 Completed ECG Data Tracing #1: I reviewed this ECG and interpreted as documented below: Sinus bradycardia with a ventricular rate of 56 bpm. Right bundle branch block. No ST elevation or depression. No T wave inversions. QTc within normal limits at 460 Medical Decision Narrative: mynor King is an 83Y female with a history of rectocele, urinary incontinence, lupus anticoagulant disorder, factor V Leiden on warfarin, hyperlipidemia, hypertension, hip replacement on the left, neck surgery who presents to the emergency department for complaints of abdominal pain and rectal bleeding. Patient states that she was in her normal state of health and prior to yesterday when she developed diarrhea. She states that today, she has had 4-5 episodes of dark red blood, bright red blood and blood clots in the toilet bowl today. She reports some generalized abdominal pain as well. She states that this is never happened to her before. She denies any chest pain, shortness of breath but does report a cough and is contin continuing ue to use tobacco cigarettes. She denies any urinary symptoms. She states that she has a history of a rectocele that they tried to repair many years ago and chronically has difficulty producing bowel movements but states that she has not had any change to her bowel habits prior to yesterday. She denies any fevers. On arrival, patient was noted to be mildly hypoxic at 88% SpO2 on room air and was put on 4 L nasal cannula. Patient is mildly hypertensive, afebrile, oxygenation improved to the mid 90s after nasal cannula. Physical exam, stated above, revealed an overall well and nontoxic-appearing female in no distress. She has diffuse abdominal tenderness without peritonitis. No abdominal distention. Cardiopulmonary exam is unremarkable. Rectal exam performed with vice chancellor shows small hemorrhoid at the 6 o'clock position but no active bleeding from the hemorrhoid. Digital rectal exam without stool or obvious blood. Not enough stool was produced to send for Hemoccult testing. Differential diagnosis includes, but is not limited to: Diverticulitis, hemorrhoids, arteriovenous malformation, aortic aneurysm, bowel obstruction, inflammatory bowel disease, infectious colitis, bleeding ulcer, pneumonia, pulmonary embolism, ACS, among others. The most morbid conditions were considered and workup was based on these. Workup in the emergency department included: Troponin, UA, CTA chest PE protocol, CTA abdomen pelvis, EKG, VBG with lactic acid, lipase, PTT, PT/INR, magnesium, CRP, CBC with differential, ESR, CMP, BNP. Patient states that she is allergic to morphine. Patient was given 1 g of IV acetaminophen. Laboratory studies interpreted by me personally. Patient's hemoglobin stable at 14.7 (send multiple previous hemoglobins in the 14-15 range), hematocrit normal at 46. Platelets mildly low at 134. ESR normal at 20, INR at 1.4 (acceptable range as patient is on warfarin), PTT normal at 29.1. VBG with no acidosis or alkalosis. pCO2 elevated at 60.5 (is chronically elevated and unchanged from baseline), bicarb elevated at 31.2 (likely compensated for patient's chronically elevated pCO2), lactate normal at 1.6. Sodium normal at 136, potassium normal at 3.6, no anion gap. Creatinine of 1.2 with BUN of 34 (stable), glucose normal at 122, liver enzymes unremarkable, initial troponin less than 0.01, CRP very mildly elevated at 7.3, BNP stable at 559, lipase normal at 105. Urine with no evidence of infection or blood. CT imaging interpreted by me personally. No pulmonary embolism, no evidence of pneumonia on CT imaging of the chest. No dissection appreciated. CTA abdomen pelvis interpreted by me personally. IVC filter in place. No dissection or enlarged aortic aneurysm. There is evidence of pancolitis. Per radiology: IMPRESSION: 1. 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 Can not exclude source of active hemorrhage. 2. Chronic high-grade ostial stenosis celiac artery. I spoke with our surgeon, Dr. Hagen, who stated that this patient will need angiography with coiling, which we can't do that here. I then spoke with the patient and daughter at bedside about transfer to different hospitals who can perform this procedure. They wish to pursue [facility] at this time. I spoke with transfer center and [facility] who stated that they are declining transfer this patient due to capacity at this time. Will try [facility]. I spoke with [facility] who stated that they are also at capacity and unable to take the patient. I spoke with [facility] who stated that they are also on divert and given the patient stable are unable to accept the patient. Repeat hemoglobin obtained and patient's hemoglobin continued to downtrend at 14.2 now. I spoke with [facility], Dr. Joni Pradhan with general surgery, who agreed that the patient will come to their facility and recommended vitamin K and FFP. Will administer 10 mg of vitamin K. FFP will take a significant amount of time to fall and will likely be unavailable prior to patient being transported, thus no FFP was ordered. Ultimately, patient was graciously accepted by the Dr. Renay Sandy with the hospitalist service and patient was transported via ground EMS for higher level of care. Critical Care Critical Care Time Critical Care Time: No
[2024-11-13 15:34] LABS: C-Reactive Protein 7.3 mg/L (0-4)
[2024-11-13 15:40] LABS: NT Pro Brain Natriuretic Pep. 559 pg/mL (0-450)
[2024-11-13 15:45] LABS: Troponin I < 0.01 ng/ml (0.00-0.034)
[2024-11-13 15:48] LABS: Microscopic, Urine URINE MICROSCOPIC (MICROSCOPIC)
[2024-11-13 15:53] LABS: Lipase 105 U/L (23-300)
[2024-11-13 16:01] LABS: Bilirubin,Urine Negative (Negative); Color,Urine YELLOW (Yellow); Glucose,Urine (UA) Negative (Negative); Ketones,Urine Negative (Negative); Leukocyte Esterase,Urine Negative (Negative); PH,Urine 5.5 (5.0-8.5); Protein,Urine Negative (Negative); Specific Gravity, Urine 1.010 (1.005-1.030); Urobilinogen,Urine 0.2 EU/dl (0.2)
[2024-11-13] MEDS: SODIUM CHLORIDE 0.9% 10ML SYR (RAD ONLY) 10 ML IV (16:19)
[2024-11-13] MEDS: IOPAMIDOL-370 (76%);100ML BOTTLE 70 ML IV (16:19)
[2024-11-13] MEDS: 0.9 % SODIUM CHLORIDE 50 ML VIAL IV (16:19)
--- NOTE | 2024-11-13 18:55 | PC.NURSE ---
Called [facility] spoke to access center, reaching out to GI first, then colorectal then stated they would call back
--- NOTE | 2024-11-13 20:18 | PC.NURSE ---
Called [facility] at 19:49 said they would call back 20:05 they called back and Declined due to pt needing a higher level of care
--- NOTE | 2024-11-13 20:19 | PC.NURSE ---
MD Gramajo said to call [facility] Spoke with [facility] k-dillan at 20:10 said they would call back to speak with
[2024-11-13] MEDS: HYDROMORPHONE 2MG/ML SYRINGE 0.25 MG IV (20:30)
[2024-11-13 21:43] LABS: Hematocrit 45.3 % (37.0-47.0); Hemoglobin 14.2 g/dL (12.2-16.2); Immature Granulocytes % 0.3 %; Mean Corpuscular HGB Conc 31.3 g/dL (31.8-35.4); Mean Corpuscular Hemoglobin 28.1 pg (27.0-31.2); Mean Corpuscular Volume 89.7 fl (81-99); Nucleated Red Blood Cells % 0 %; Platelet Count 126 K/mm3 (142-424); Red Blood Count 5.05 M/mm3 (4.20-5.40); Red Cell Distribution Width-SD 48.4 fL; White Blood Count 7.4 K/mm3 (4.8-10.8)
[2024-11-13] MEDS: PHYTONADIONE 10 MG in 0.9 % SODIUM CHLORIDE 50 ML 100 MG IV (21:58)
[2024-11-14] VITALS (36 sets, daily range): BP systolic 102–126; BP diastolic 40–56; PULSE 54–94; RESP 10–25; TEMP 36.4–36.8; O2SAT 93–100
[2024-11-14] MEDS: HYDROMORPHONE 2MG/ML SYRINGE 0.5 MG IV (01:43)
[2024-11-14] MEDS: 0.9 % SODIUM CHLORIDE 250 ML 25 ML IV (04:08)
[2024-11-14] MEDS: ONDANSETRON 4MG/2ML VIAL 4 MG IV (04:46)
[2024-11-14] MEDS: PROMETHAZINE HCL 25MG/ML 1ML VIAL 12.5 MG IV (05:27)
[2024-11-14] MEDS: SODIUM CHLORIDE 0.9% 25ML BAG 25 ML IV (05:27)
== END 2024-11-14 05:57 | disposition other institution (70) ==
PROVIDERS: Emergency Provider Student in an Organized Health Care Education/Training Program
DX: K92.2 Gastrointestinal hemorrhage, unspecified (principal); R10.84 Generalized abdominal pain; R00.1 Bradycardia, unspecified; I45.10 Unspecified right bundle-branch block; K21.9 Gastro-esophageal reflux disease without esophagitis; I10 Essential (primary) hypertension; E78.5 Hyperlipidemia, unspecified
CPT/HCPCS: 36430; 71275; 74174; 80053; 81001; 82803; 83690; 83735; 83880; 84484; 85025; 85610; 85651; 85730; 86140; 86850; 86900; 86901; 93005; 96361; 96365; 96375; 96376; 99285; J0131; J1171; J2405; J2550; J3430; J7050; P9017; Q9967